=== PATIENT | female | born 1945 | race Caucasian/White ===

== ENCOUNTER 2020-07-13 15:16 | Inpatient (IN) | payer MEDICARE ==
[~2020-07-13] VITALS: Ht 157.5 cm; Wt 47.6 kg
[2020-07-13] MEDS ORDERED: MECL-75 PO (16:15)
[2020-07-13] MEDS ORDERED: DEXT15DR16 OP (16:15)
[2020-07-13] MEDS ORDERED: DONE10TA7 PO (16:15)
[2020-07-13] MEDS ORDERED: PREG50CA PO (16:15)
[2020-07-13] MEDS ORDERED: POLY17PO5 PO (16:15)
[2020-07-13] MEDS ORDERED: SOLI10TA2 PO (16:15)
[2020-07-13] MEDS ORDERED: OMEP20CA16 PO (16:15)
[2020-07-13] MEDS ORDERED: PRAM0.255 PO (16:15)
[2020-07-13] MEDS ORDERED: DULO20CA50 PO (16:15)
[2020-07-13] MEDS ORDERED: DICL100G18 TP (16:15)
[2020-07-13] MEDS ORDERED: RASA1TAB2 PO (16:15)
[2020-07-13] MEDS ORDERED: QUET25TA5 PO (16:15)
[2020-07-13] MEDS ORDERED: ACET325T21 PO (16:15)
[2020-07-13] MEDS ORDERED: CARB1TAB22 PO (16:21)
[2020-07-13] MEDS ORDERED: CARB1TAB44 PO (16:26)
[2020-07-13] MEDS ORDERED: POLYETHYLENE GLYCOL 3350 17 GM PACKET. PO PRN (16:45)
[2020-07-13] MEDS ORDERED: DICLOFENAC SODIUM 1% TOPICAL GEL 100GM TUBE. TP PRN (16:45)
[2020-07-13] MEDS ORDERED: ACETAMINOPHEN 325 MG TABLET PO PRN (16:45)
--- NOTE | 2020-07-13 16:57 | NUR ---
The patient, RIRI PARRA, 74 y/o, F admitted by BEN JIMENEZ MD, was given written information regarding hospital policies, unit procedures and contact persons and visiting policy. Valuables were checked and store at the nurses station along with wheelchair, clothing and jewelry. Pt was brought by wheelchair by staff to room 132. A&Ox4, severe choreilike movements noted. VSS at this time. medications reviewed with physician. Addendum: 07/13/20 at 1706 by TOMI XAVIER RN [facility]id to be admitted to [facility] for hallucinations, confusion, and statements about "wanting to ". pt does not verbalize any complaints at this time nor any hallucinations.
[2020-07-13] MEDS ORDERED: POLYVINYL ALCOHOL/POVIDONE/PF OPHTH SOLUTION DROPERETTE. OU PRN (17:00)
[2020-07-13] MEDS ORDERED: MECLIZINE 12.5 MG TABLET. PO PRN ×2 (17:00)
[2020-07-13 17:02] LABS: BASO % 1 % (0-3); EOS # 0.1 x10^3/uL (0.0-0.7); EOS % 3 % (0-3); HEMATOCRIT 35.1 % (36.0-47.0); HEMOGLOBIN 11.6 g/dL (12.0-15.5); LYMPH # 1.1 x10^3/uL (1.0-4.8); LYMPH % 23 % (24-48); MEAN CORPUSCULAR HEMOGLOBIN 32 pg (25-35); MEAN CORPUSCULAR HGB CONC 33 g/dL (31-37); MEAN CORPUSCULAR VOLUME 96 fL (79-100); MONO # 0.6 x10^3/uL (0.0-1.1); MONO % 14 % (0-9); NEUT # 2.8 x10^3uL (1.8-7.7); NEUT % 60 % (31-73); PLATELET COUNT 215 x10^3/uL (140-400); RED BLOOD COUNT 3.65 x10^6/uL (3.50-5.40); RED CELL DISTRIBUTION WIDTH 13.3 % (11.5-14.5); WHITE BLOOD COUNT 4.7 x10^3/uL (4.0-11.0)
[2020-07-13 17:09] LABS: ALBUMIN 3.1 g/dL (3.4-5.0); ALBUMIN/GLOBULIN RATIO 0.9 (1.0-1.7); CALCIUM 8.9 mg/dL (8.5-10.1); CREATININE 0.6 mg/dL (0.6-1.0); GFR 97.2; POTASSIUM 3.6 mmol/L (3.5-5.1); TOTAL BILIRUBIN 0.7 mg/dL (0.2-1.0); TOTAL PROTEIN 6.4 g/dL (6.4-8.2)
[2020-07-13] MEDS: CARBIDOPA/LEVODOPA 25/100MG TABLET PO SCH ×2 (17:37→19:56)
--- NOTE | 2020-07-13 17:49 | EKG ---
[address] [address] Test Date: 2020-07-13 Test Time: 17:24:51 Pat Name: RIRI PARRA Department: Room: 132 A Gender: F Cad Technician: : 1945 Requested By: BEN JIMENEZ Order Number: [id number] Reading MD: Measurements Intervals [place] Rate: 78 P: 10 WV: 324 QRS: -79 QRSD: 160 T: 88 QT: 420 QTc: 483 Interpretive Statements SINUS RHYTHM PROLONGED WV INTERVAL LEFT ATRIAL ABNORMALITY ABNORMAL LEFT AXIS DEVIATION LEFT ANTERIOR FASCICULAR BLOCK RIGHT BUNDLE BRANCH BLOCK BIFASCICULAR BLOCK RVH WITH REPOLARIZATION ABNORMALITY ABNORMAL ECG RI6.01 No previous ECG available for comparison
[2020-07-13 18:22] VITALS: BP 120/53
[2020-07-13] MEDS: DULoxetine HCL 20 MG CAPSULE.DR PO SCH (19:54)
[2020-07-13] MEDS: PREGABALIN 50 MG CAPSULE PO SCH (19:54)
[2020-07-13] MEDS: DONEPEZIL HCL 10 MG TABLET PO SCH (19:55)
[2020-07-13] MEDS: QUEtiapine 25 MG TABLET. PO SCH (19:56)
[2020-07-13] MEDS: OXYBUTYNIN CHLORIDE 5 MG TABLET PO SCH (19:56)
[2020-07-13] MEDS: PRAMIPEXOLE 0.5 MG TABLET. PO SCH (19:57)
[2020-07-13] MEDS: CARBIDOPA/LEVODOPA CR 50/200MG TABLET.SA PO SCH (19:57)
[2020-07-13 21:41] LABS: BILIRUBIN,URINE NEG (NEG); CLARITY,URINE CLEAR; COLOR,URINE AMBER; GLUCOSE,URINE NEG (NEG)
[2020-07-13 21:42] LABS: NITRITE,URINE NEG (NEG)
[2020-07-13 21:46] LABS: BACTERIA,URINE FEW /HPF (0-FEW)
--- NOTE | 2020-07-13 22:14 | PDOC ---
Exam Note: Marcial Note: Please also refer to the separate dictated note~for this date of service dictated separately.~Patient seen individually. Discussed the patient with Nursing staff reviewed the chart.~Reviewed interim history and current functioning. Reviewed vital signs,~Labs/ Radiology~and current medications noted below. Continue current treatment with the changes noted in the dictated addendum note Assessment: Vital Signs/I&O: Vital Signs Date Time Temp Pulse Resp B/P (MAP) Pulse Ox O2 Delivery O2 Flow Rate FiO2 07/13/20 18:22 97.6 77 20 120/53 (75) 97 Room Air Labs: Laboratory Tests Test 07/13/20 16:42 07/13/20 21:25 White Blood Count 4.7 x10^3/uL (4.0-11.0) Red Blood Count 3.65 x10^6/uL (3.50-5.40) Hemoglobin 11.6 g/dL (12.0-15.5) L Hematocrit 35.1 % (36.0-47.0) L Mean Corpuscular Volume 96 fL (79-100) Mean Corpuscular Hemoglobin 32 pg (25-35) Mean Corpuscular Hemoglobin Concent 33 g/dL (31-37) Red Cell Distribution Width 13.3 % (11.5-14.5) Platelet Count 215 x10^3/uL (140-400) Neutrophils (%) (Auto) 60 % (31-73) Lymphocytes (%) (Auto) 23 % (24-48) L Monocytes (%) (Auto) 14 % (0-9) H Eosinophils (%) (Auto) 3 % (0-3) Basophils (%) (Auto) 1 % (0-3) Neutrophils # (Auto) 2.8 x10^3uL (1.8-7.7) Lymphocytes # (Auto) 1.1 x10^3/uL (1.0-4.8) Monocytes # (Auto) 0.6 x10^3/uL (0.0-1.1) Eosinophils # (Auto) 0.1 x10^3/uL (0.0-0.7) Basophils # (Auto) 0.0 x10^3/uL (0.0-0.2) D-Dimer (Joanna) 1.82 mg/L (0.00-0.50) H Sodium Level 139 mmol/L (136-145) Potassium Level 3.6 mmol/L (3.5-5.1) Chloride Level 104 mmol/L (98-107) Carbon Dioxide Level 28 mmol/L (21-32) Anion Gap 7 (6-14) Blood Urea Nitrogen 22 mg/dL (7-20) H Creatinine 0.6 mg/dL (0.6-1.0) Estimated GFR (Cockcroft-Gault) 97.2 BUN/Creatinine Ratio 37 (6-20) H Glucose Level 93 mg/dL (70-99) Calcium Level 8.9 mg/dL (8.5-10.1) Magnesium Level 2.0 mg/dL (1.8-2.4) Total Bilirubin 0.7 mg/dL (0.2-1.0) Aspartate Amino Transferase (AST) 26 U/L (15-37) Alanine Aminotransferase (ALT) 7 U/L (14-59) L Alkaline Phosphatase 98 U/L (46-116) Total Protein 6.4 g/dL (6.4-8.2) Albumin 3.1 g/dL (3.4-5.0) L Albumin/Globulin Ratio 0.9 (1.0-1.7) L Urine Collection Type Void Urine Color Mary Urine Clarity Clear Urine pH 5.5 Urine Specific Ruth >=1.030 Urine Protein 30 mg/dl (NEG-TRACE) Urine Glucose (UA) Neg mg/dL (NEG) Urine Ketones (Stick) 15 mg/dL (NEG) Urine Blood Neg (NEG) Urine Nitrite Neg (NEG) Urine Bilirubin Neg (NEG) Urine Urobilinogen Dipstick 1.0 mg/dL (0.2 mg/dL) Urine Leukocyte Esterase Small (NEG) Urine RBC 1-2 /HPF (0-2) Urine WBC 11-20 /HPF (0-4) Urine Bacteria Few /HPF (0-FEW) Current Medications: Meds: Current Medications Medications (Trade) Dose Ordered Sig/Gracie Route PRN Reason Start Time Stop Time Status Last Admin Dose Admin Carbidopa/Levodopa (Sinemet Cr) 1 tab.sa 2200 PO 07/13/20 22:00 07/13/20 19:57 Carbidopa/Levodopa (Sinemet 25/100) 1.5 tab 0600,1000,1400,1800 PO 07/13/20 18:00 10/16/20 17:37 Carbidopa/Levodopa (Sinemet 25/100) 1 tab 0800,1200,1600,2000 PO 07/13/20 20:00 07/13/20 19:56 Donepezil HCl (Aricept) 10 mg HS PO 07/13/20 21:00 07/13/20 19:55 Duloxetine HCl (Cymbalta) 20 mg HS PO 07/13/20 21:00 07/13/20 19:54 Pramipexole Dihydrochloride (miraPEX) 0.5 mg [id number] PO 07/13/20 21:00 07/13/20 19:57 Pregabalin (Lyrica) 50 mg TID PO 07/13/20 21:00 07/13/20 19:54 Quetiapine Fumarate (SEROquel) 25 mg TID PO 07/13/20 21:00 07/13/20 19:56 Oxybutynin Chloride (Ditropan) 5 mg [id number] PO 07/13/20 21:00 07/13/20 19:56 Meclizine HCl (Antivert) 25 mg PRN TID PRN PO DIZZINESS 07/13/20 17:00 07/13/20 19:55 I have reviewed the current psychotropics carefully including drug interactions. Risk benefit ratio favors no change other than as noted in my dictated progress note. MARICEL BROWN MD Jul 13, 2020 22:14
--- NOTE | 2020-07-13 22:24 | CONS ---
DATE OF CONSULTATION: 07/13/2020 PSYCHIATRIC CONSULTATION IDENTIFYING DATA: The patient is a 74-year-old female referred to us from [facility] in [place], [place] by her primary care physician on account of worsening symptoms of depression, feeling hopeless, helpless, worthless with suicidal ideation and bizarre behavior. She has been pulling out plugs from guzman and putting them in her mouth. She has been having active hallucinations, purposely falling out of the wheelchair. This is within the context of her Parkinson's disease and severe depression and failure of outpatient psychiatric interventions with Sirena Streeter APRN. She is referred for inpatient psychiatric stabilization, but admitted to the correction unit till COVID screen returns negative before she transitions to the [facility]. I have been asked to consult in the interim and initiate psychiatric management awaiting transition. I have also discussed the patient with Rochelle Mackey, accounting coordinator and Sirena Streeter and reviewed about 8 pages of notes by Sirena Streeter from the facility. CHIEF COMPLAINT: "Yes, I have been depressed, very depressed. I want to go home. I have been at the facility for 7 months. My got tired of taking care of me and just threw me there. My Parkinson's started when I was 57 years old. I had 16 good years. For the last 2 years, life has been miserable." HISTORY OF PRESENT ILLNESS: The patient has a history of worsening symptoms of depression and significant worsening of her Parkinson's disease with whole body choreoathetoid movements even raising the question of Real's disease, which was nevertheless not confirmed at the facility. She has been forcefully making herself fall out of the wheelchair. She has been angry and has noted unplugging plugs from the wall and putting it in her mouth, wanting to . No clear history of bipolar disorder. PAST PSYCHIATRIC HISTORY: As above. MEDICAL HISTORY: Positive for Parkinson's disease, GERD, osteoarthritis, pacemaker in place, AV block, dry eye syndrome. ALLERGIES: OXYCODONE, GABAPENTIN. CODE STATUS: DNR. ACCU-CHEKS: None. DIET: Regular. Takes medications whole, ambulates in wheelchair, can take small steps on pivot. CURRENT PSYCHOTROPICS: Seroquel 25 mg t.i.d., Cymbalta 20 mg at bedtime. FAMILY HISTORY: Noncontributory. SOCIAL HISTORY: The patient is . She had 2 children, 1 prior to getting and she gave up her daughter for adoption. Reportedly, daughter tried to make contact with the patient in the recent past, but they have never met. The patient has another adult child as well. Her is currently living at home. No alcohol or drug abuse. 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 REVIEW OF SYSTEMS: Whole body movements, impaired ambulation. No CV, , GI, or pulmonary system symptoms on review. MENTAL STATUS EXAMINATION: The patient is reasonably oriented. Speech is coherent, difficult to understand at times because of her constant movements, which are quite significant whole body movements. Abstraction fair, computation impaired, language function intact, attention span short. Mood and affect are depressed. She denies active suicidal ideation. Attention span is short. IMPRESSION: Major depressive disorder, severe, rule out psychotic features; anxiety disorder, unspecified; mild cognitive impairment; rule out Lewy body dementia with delusion, depression. Rest as above. RECOMMENDATIONS: From a psychiatric standpoint continue current psychotropics to observe baseline and then initiate psychotropics as clinically indicated and then transition to [facility] Unit once her COVID screen is negative. MARICEL BROWN MD DR: MYRNA/cathy JOB#: [id number] / [id number]
--- NOTE | 2020-07-13 23:54 | NUR ---
Nursing Note Pt in room having significant choreic movements, almost rhythmic thrashing in the bed. She is responding to external stimuli talking to someone one that isn't there. Flails her legs and arms around all over the bed and the rails sometimes quite forcefully. Pt is extremely impulsive sits straight up in bed randomly beds at the waist and swings her torso around in the bed. When I questioned her about her movements,she stated "Im just moving around to see the TV from a better angle." She takes pills willingly, with water but coughs after swallowing. Has had a cough, since taking her pills, throughout the night. Pt has a wet vocal quality when speaking with some gurgling noted. She states she feels her chest rattle,no real crackles just mild coarse breath sounds upper anterior chest, with diminished posterior chest. Pleasant and cooperative compliant with meds. Took meclizine this pm to help with the neruro symptoms.
[2020-07-14 01:13] LABS: THYROXINE 7.5 ug/dL (4.5-12.0)
[2020-07-14 02:07] LABS: HEMOGLOBIN A1C 5.3 % (4.8-5.6)
--- NOTE | 2020-07-14 02:30 | NUR ---
The patient lays in the bed awake periodically changing position. This ASSOCIATE BROKER asks if there is anything that can be done to assist the patient in sleeping. The patient responded "It's just that it's not my bed", night light was turned off and window shades opened for patient to look outside.
[2020-07-14] MEDS: CARBIDOPA/LEVODOPA 25/100MG TABLET PO SCH ×8 (05:59→20:09)
[2020-07-14 06:28] VITALS: BP 162/78
[2020-07-14] MEDS: OXYBUTYNIN CHLORIDE 5 MG TABLET PO SCH ×3 (08:25→20:09)
[2020-07-14] MEDS: QUEtiapine 25 MG TABLET. PO SCH ×3 (08:25→20:09)
[2020-07-14] MEDS: PREGABALIN 50 MG CAPSULE PO SCH ×3 (08:25→20:07)
[2020-07-14] MEDS: PANTOPRAZOLE 40 MG TABLET. PO SCH (08:26)
[2020-07-14] MEDS: PRAMIPEXOLE 0.5 MG TABLET. PO SCH ×3 (08:28→20:10)
[2020-07-14] MEDS: RASAGILINE MESYLATE PO SCH (09:00)
--- NOTE | 2020-07-14 10:28 | HP ---
ADMIT DATE: 07/14/2020 ATTENDING PHYSICIAN: Dr. Jimenez. HISTORY OF PRESENT ILLNESS: The patient is a 74-year-old female slated to go to the Senior Behavior[facility] Unit. She is down here on the medical floor for COVID-19 screening. She is from [facility] since November of this year. The patient's age is 74 and she is having behavioral issues related to her dementia. She has been paranoid, unplugging things from the wall, putting things in her mouth and becoming belligerent and paranoid. She had been living with her at home, but has been in [facility] since November of this year. PAST MEDICAL HISTORY: Significant for Parkinson's disease, degenerative arthritis, permanent pacemaker for atrioventricular block, gastroesophageal reflux disease and dry eye syndrome. CURRENT MEDICATIONS: Include Tylenol, Sinemet, which she takes quite a bit, but it is an interesting schedule. Please refer to the database. She is on Voltaren, Cymbalta, Aricept, meclizine, omeprazole, MiraLax, Mirapex, Lyrica, Seroquel, Azilect and VESIcare. ALLERGIES: She has allergies to Neurontin and oxycodone. Exact reaction is unclear. SOCIAL HISTORY: She is a nonsmoker, nondrinker. FAMILY HISTORY: Unobtainable due to the patient's confusion. REVIEW OF SYSTEMS: Unobtainable. She has no insight and is confused. PHYSICAL EXAMINATION: GENERAL: When I saw her, this is a pleasantly confused elderly female. INITIAL VITAL SIGNS: Showed a blood pressure 120/53 mmHg, pulse of 77 and regular, temperature 97.6 degrees Fahrenheit, oxygen saturation 97% on room air. HEENT: Head is without trauma. Pupils are reactive. Sclerae nonicteric. Oropharynx is clear. Mucous membranes dry. NECK: Supple, no bruits. LUNGS: Otherwise, clear to auscultation. CARDIOVASCULAR: Showed regular heart tones. No gallops. ABDOMEN: Soft, no guarding, no organomegaly. Bowel sounds are normoactive. EXTREMITIES: Show no cyanosis or edema. NEUROLOGIC: The patient is confused. She is disoriented. She is not aware of place or time. SKIN: Otherwise, warm and dry. LABORATORY DATA: Hemoglobin 11.6 g/dL, white count 4700. Electrolytes within normal range. Creatinine 0.6 mg percent. Transaminases are normal. Serology for treponema pallidum as well as the coronavirus is pending at this time. ASSESSMENT: 1. A 74-year-old female with underlying dementia with behavioral issues and agitation. 2. Underlying Parkinson's disease requiring quite a bit of Sinemet. 3. History of pacemaker and heart block. 4. Degenerative arthritis. 5. Gastroesophageal reflux disease. 6. Dry eye syndrome. PLAN: 1. Home meds restarted. 2. Laboratory studies reviewed. 3. Await coronavirus serology. Once the COVID-19 swab is negative, she can be discharged to go upstairs. BEN JIMENEZ MD DR: JOSUE/cathy JOB#: [id number] / [id number]
[2020-07-14 11:41] LABS: THYROID STIM HORMONE (TSH) 0.436 uIU/mL (0.358-3.740)
[2020-07-14 16:58] VITALS: BP 141/76
[2020-07-14] MEDS: DULoxetine HCL 20 MG CAPSULE.DR PO SCH (20:08)
[2020-07-14] MEDS: DONEPEZIL HCL 10 MG TABLET PO SCH (20:09)
--- NOTE | 2020-07-14 21:00 | NUR ---
Patient is in awake in bed on assumption of care. She is in pleasant spirits. Compliant with assessments and medications taken whole on a spoon. Cooperative with HS cares. Uses call cardoso appropriately. No complaints of pain or discomfort. Patient appears to be sleeping comfortably at present time. Will continue to monitor.
--- NOTE | 2020-07-14 22:07 | PDOC ---
Exam Note: Marcial Note: Please also refer to the separate dictated note~for this date of service dictated separately.~Patient seen individually. Discussed the patient with Nursing staff reviewed the chart.~Reviewed interim history and current functioning. Reviewed vital signs,~Labs/ Radiology~and current medications noted below. Continue current treatment with the changes noted in the dictated addendum note Assessment: Vital Signs/I&O: Vital Signs Date Time Temp Pulse Resp B/P (MAP) Pulse Ox O2 Delivery O2 Flow Rate FiO2 07/14/20 16:58 97.7 72 141/76 (97) 95 Room Air 07/14/20 06:28 18 I & O 07/13/20 07/13/20 07/14/20 15:00 23:00 07:00 Intake Total 360 ml Balance 360 ml Current Medications: Meds: Current Medications Medications (Trade) Dose Ordered Sig/Gracie Route PRN Reason Start Time Stop Time Status Last Admin Dose Admin Pantoprazole Sodium (Protonix) 40 mg DAILYAC PO 07/14/20 07:30 07/14/20 08:26 I have reviewed the current psychotropics carefully including drug interactions. Risk benefit ratio favors no change other than as noted in my dictated progress note. Diagnosis: Problems: (1) Major depressive disorder, severe (2) Mild cognitive impairment (3) Anxiety disorder, unspecified MARICEL BROWN MD Jul 14, 2020 22:07
[2020-07-14] MEDS: CARBIDOPA/LEVODOPA CR 50/200MG TABLET.SA PO SCH (22:32)
[2020-07-15] MEDS: CARBIDOPA/LEVODOPA 25/100MG TABLET PO SCH ×8 (05:06→20:18)
[2020-07-15 05:26] VITALS: BP 154/86
[2020-07-15] MEDS: PANTOPRAZOLE 40 MG TABLET. PO SCH (07:30)
[2020-07-15] MEDS: PRAMIPEXOLE 0.5 MG TABLET. PO SCH ×3 (08:22→20:22)
[2020-07-15] MEDS: PREGABALIN 50 MG CAPSULE PO SCH ×3 (08:22→20:19)
[2020-07-15] MEDS: QUEtiapine 25 MG TABLET. PO SCH ×3 (08:22→20:18)
[2020-07-15] MEDS: OXYBUTYNIN CHLORIDE 5 MG TABLET PO SCH ×3 (08:22→20:19)
[2020-07-15] MEDS: RASAGILINE MESYLATE PO SCH (08:23)
[2020-07-15 11:00] VITALS: BP 98/57
--- NOTE | 2020-07-15 11:54 | PN ---
DATE: 07/15/2020 ATTENDING PHYSICIAN: Dr. Jimenez. SUBJECTIVE: No new complaints. OBJECTIVE FINDINGS: VITAL SIGNS: Blood pressure today is 154/80, pulse 67 and regular, temperature is 97.5 degrees Fahrenheit, oxygen saturation 95% on room air. HEENT: Head is without trauma. Pupils are reactive. Sclerae nonicteric. Oropharynx clear. NECK: Supple, no bruits. LUNGS: Clear. CARDIOVASCULAR: Showed regular heart tones. ABDOMEN: Soft. EXTREMITIES: Without edema. SKIN: Warm and dry. LABORATORY DATA: CBC, chemistry panel unremarkable. Treponema pallidum serology is negative. COVID-19 swab is still pending. ASSESSMENT: 1. A 74-year-old female with underlying dementia and behavioral issues. 2. Parkinson's disease requiring quite a bit of Sinemet. 3. Permanent pacemaker and heart block. 4. Degenerative arthritis. 5. Gastroesophageal reflux disease. 6. Dry eye syndrome. PLAN: 1. Diet as tolerated. 2. Home meds as scheduled and continue. 3. Await COVID-19 swab. BEN JIMENEZ MD DR: JOSUE/cathy JOB#: [id number] / [id number]
[2020-07-15 15:00] VITALS: BP 119/62
--- NOTE | 2020-07-15 18:13 | NUR ---
Pt has been more confused today, she is talking to people in her room that are not there. When asked who she is talking to she stated, 'there's just a conversation going on in the back of my head'. She has had more jerking movements today than she had yesterday. Overall, she is less cooperative and more agitated.
[2020-07-15 18:23] VITALS: BP 110/60
[2020-07-15] MEDS ORDERED: LORazepam 1 MG TABLET PO PRN (19:30)
--- NOTE | 2020-07-15 19:30 | NUR ---
UPON SHIFT CHANGE PT WAS IN HER ROOM HITTING HER HEAD ON THE BED TRYING TO HURT HERSELF, PT WAS ALSO TRYING TO GET OUT OF BED, YELLING OUT ABOUT WANTING TO CALL HER , ALSO TEARFUL AND TIMES. NOTIFIED AND RECEIVED ORDERS FOR ATIVAN 1MG PO PRN Q3 HRS. PT RECEIVED ATIVAN PER ORDER. PT IS CURRENTLY RESTING IN BED. WILL CONTINUE TO MONITOR.
[2020-07-15] MEDS ORDERED: traZODone 50 MG TABLET. PO PRN (19:45)
[2020-07-15] MEDS ORDERED: OLANZapine 2.5 MG TABLET PO PRN (19:45)
[2020-07-15] MEDS: DONEPEZIL HCL 10 MG TABLET PO SCH (20:18)
[2020-07-15] MEDS: DULoxetine HCL 20 MG CAPSULE.DR PO SCH (20:19)
--- NOTE | 2020-07-15 22:10 | NUR ---
PT TRANSFERS TO [facility] SHIFT ASSESSMENT COMPLETED, MEDICATION REC DONE, REPORT WAS GIVEN TO IRRI GONZALES AT [id number]. ALL OF PTS BELONGINGS ARE WITH PT.
[2020-07-16] MEDS ORDERED: TRAZ-120 PO (00:05)
[2020-07-16] MEDS ORDERED: POLY15DR7 EACHEYE (00:05)
[2020-07-16] MEDS ORDERED: LORA-254 PO (00:05)
[2020-07-16] MEDS ORDERED: OXYB5TAB10 PO (00:05)
[2020-07-16] MEDS ORDERED: OLAN5TAB99 PO (00:05)
[2020-07-16] MEDS ORDERED: PANT40TA3 PO (00:05)
--- NOTE | 2020-07-16 07:01 | PDOC ---
Exam Note: Marcial Note: This note is a late entry for 07/14/2020 covers elements not covered in my initial note. Subjective: The patient was seen face to face in the evening of 07/14/2020 with Uyen GONZALES. Discussed with nursing staff, reviewed the chart. The patient was seen with Dr. Barnhart and has been managed for her Parkinsons by Dr. Barnhart. She apparently does not have Huntingtons per Dr. Barnhart. Review of Systems: Ambulation impaired in wheelchair. She was lying in bed with constant choreoathetoid movements of her whole body. No CV, , pulmonary, eye system symptoms on review. Reliability poor. Mental Status Exam: The patient is reasonably oriented. Speech is coherent, has some latency. Abstraction is fair. Computation is impaired. Language function is intact. Attention span is short. Mood and affect somewhat anxious, labile at times. Laboratory Data: Reviewed. Impression: Major Depressive disorder severe with psychotic features. Anxiety disorder unspecified. Impulse control disorder. Parkinsons disease. Plan: No change from initial note. Assessment: Vital Signs/I&O: Vital Signs Date Time Temp Pulse Resp B/P (MAP) Pulse Ox O2 Delivery O2 Flow Rate FiO2 07/15/20 18:23 97.8 68 22 110/60 (77) 97 Room Air I & O 07/15/20 07/15/20 07/16/20 15:00 23:00 07:00 Intake Total 720 ml 240 ml Balance 720 ml 240 ml Current Medications: Meds: Current Medications Medications (Trade) Dose Ordered Sig/Gracie Route PRN Reason Start Time Stop Time Status Last Admin Dose Admin Lorazepam (Ativan) 1 mg PRN Q3HRS PRN PO ANXIETY / AGITATION 07/15/20 19:30 07/15/20 21:22 DC 07/15/20 19:21 Trazodone HCl (Desyrel) 50 mg PRN QHS PRN PO INSOMNIA 07/15/20 19:45 07/15/20 21:22 DC 07/15/20 20:18 I have reviewed the current psychotropics carefully including drug interactions. Risk benefit ratio favors no change other than as noted in my dictated progress note. Diagnosis: Problems: (1) Mild cognitive impairment (2) Major depressive disorder, severe (3) Anxiety disorder, unspecified (4) Parkinson's disease MARICEL BROWN MD Jul 16, 2020 07:01
--- NOTE | 2020-07-16 12:57 | DS ---
DATE OF DISCHARGE: 07/15/2020 ATTENDING PHYSICIAN: Dr. Jimenez FINAL DISCHARGE DIAGNOSES: 1. Dementia with behavioral issues and agitation. 2. Underlying Parkinson's disease requiring quite a bit of Sinemet. 3. 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 4. Degenerative arthritis. 5. Gastroesophageal reflux disease. 6. Dry eye syndrome. HISTORY OF PRESENT ILLNESS: This is a 74-year-old female who was admitted from [facility] for behavioral issues. She has had profound dementia. She was becoming belligerent and paranoia. PHYSICAL EXAMINATION: Please see the dictated note. PERTINENT LABORATORY AND X-RAY STUDIES: Admission hemoglobin was 11.6 g/dL, white count 4700. Chemistry panel on admission showed normal electrolytes, sodium 139, potassium 3.6 mEq, creatinine 0.6 mg/dL. Transaminases were normal. Serology was negative for coronavirus and negative for treponema pallidum. COURSE IN THE HOSPITAL: The patient was admitted. She was continued on her home meds including her very high dose of Sinemet for her Parkinson's disease. Diet was advanced. Her coronavirus swab was reported negative. On the third hospital day, she was discharged to the [facility]. Her home meds are unchanged, they include the following: She will continue her Sinemet, dose unchanged; Aricept 10 mg daily; diclofenac; Tylenol; Lyrica; Cymbalta; trazodone; olanzapine; Seroquel; lorazepam; Sinemet, dose per prescription; Mirapex; Azilect; artificial tears; meclizine; Protonix and oxybutynin, dose unchanged. She was discharged then from our hospital in stable condition with explicit instructions and followup care. BEN JIMENEZ MD DR: JOSUE/cathy JOB#: [id number] / [id number] [facility], [facility]
--- NOTE | 2020-07-20 07:46 | CONS ---
DATE OF CONSULTATION: 07/14/2020 REFERRING PHYSICIAN: Dr. Funez/Dr. Stockton. REASON FOR CONSULTATION: Management for Parkinson disease. HISTORY OF PRESENT ILLNESS: This is a 74-year-old right-handed female, who has had longstanding history of Parkinson disease, was admitted to [facility] on the medical floor for COVID-19 screening then may be transferred to the [facility] for further management for her mental status changes, depressions and aggressive behavior. Apparently, the patient was transferred from [facility] and admitted on account of worsening of dementia, worsening of Parkinson symptoms and behavior disturbances. It was reported that the patient became more paranoid, unplugging things from the wall and being more paranoid. Neuro consult was requested because the patient has had longstanding history of Parkinson disease and currently she has been demonstrating more violent tremors at rest along with intermittent movement disorders of the upper extremities. It was reported that the patient has had intermittent choreic-type movements of the upper extremities. Currently, the patient denies headaches, visual disturbances, nausea, vomiting, chest pain, shortness of breath or palpitation, dysarthria or dysphagia. PAST MEDICAL HISTORY: Significant for Parkinson disease, cardiac arrhythmias, required pacemaker placement, GERD, degenerative arthritis, scoliosis, depressions, anxiety, and dry eyes. PAST SURGICAL HISTORY: Positive for hysterectomy and status post pacemaker placement. SOCIAL HISTORY: The patient used to live with her at home. However, she has been in [facility] since 11/2019. She denies smoking, alcohol drinking, or illicit drug use. FAMILY HISTORY: Noncontributory. REVIEW OF SYSTEMS: A 10-point review of system was performed as mentioned above in history of present illness. CURRENT HOME MEDICATIONS: Tylenol, carbidopa/levodopa, Voltaren, Cymbalta, Aricept for dementia, meclizine, omeprazole, MiraLax, Mirapex, Lyrica, Seroquel, Azilect and VESIcare. ALLERGIES: GABAPENTIN, OXYCODONE. PHYSICAL EXAMINATION: GENERAL: Well-developed, well-nourished female, not in acute distress. VITAL SIGNS: Blood pressure 141/76, respiratory rate 18, pulse is 72 and regular, temperature 97.7, oxygen saturation 95% on room air. HEENT: Normocephalic, atraumatic, otherwise unremarkable. NECK: Supple. Negative for carotid bruit, lymphadenopathy or thyromegaly. LUNGS: Clear to A and P. CARDIOVASCULAR: Regular rate and rhythm, normal S1, S2. There is no S3, S4 or murmurs. ABDOMEN: Soft. Bowel sounds positive. EXTREMITIES: Negative for cyanosis, clubbing or edema. NEUROLOGICAL EXAM: Mental Status: The patient is alert and oriented x 3. The speech is coherent. She is alert to time and place. Memory, has short-term memory. Judgment and abstracting thinking are intact. She recalls 1/3 immediately and after 1 and 3 minutes. She denies hallucination or delusion. No suicidal ideation. Cranial nerves: Visual curran are full. The pupils are reactive to light and accommodation. The extraocular movements are intact. There is no nystagmus. There is no facial motor or sensory deficit. Hearing is intact bilaterally. The palate is elevated symmetrically. Sternocleidomastoid muscles are powerful bilaterally. The patient shrugs her shoulders symmetrically, protrudes her tongue in the midline without fasciculation or atrophy. Motor: No focal muscle bulk was seen. The strength is 4/5 throughout. The patient has resting tremor and sometimes intermittent chorea like movements. Sensory examination revealed normal pinprick, light touch senses throughout. Deep tendon reflexes were ____ and hypoactive without pathologic responses. Gait: The patient is confined to a wheelchair. LABORATORY DATA: From 07/13/2020 revealed white blood cells of 4.7, hemoglobin 11.6, hematocrit 35.1, platelet count 215,000. Chemistry revealed normal electrolytes with a creatinine 0.6. Serology for Treponema pallidum is nonreactive. IMPRESSION: 1. Longstanding history of Parkinson disease, presented with resting tremor and intermittent choreic-type movements, etiology is uncertain; however, it is probably due to Parkinson's and ____ dyskinesia. Also, possible ____ disease is not completely ruled out at this point. RECOMMENDATIONS: 1. Continue with current medication and medical and psychiatric care initiated by Dr. Funez and Dr. Stockton. 2. We will follow up tomorrow and adjust medication if it is needed. M Dolores AMADOR MD DR: ANGELIA/cathy JOB#: [id number] / [id number]
--- NOTE | 2020-07-21 02:22 | PN ---
DATE: 07/15/2020 SUBJECTIVE: The patient denies any new medical or neurological complaints; however, she continues to have intermittent resting tremor, complicated with nonfrequent chorea like movements, confined to the upper extremities and sometimes to the right lower extremity. The patient denies headaches, visual disturbances, nausea, vomiting, chest pain, shortness of breath or palpitation. OBJECTIVE: GENERAL: Well-developed, well-nourished female, not in acute distress. VITAL SIGNS: Blood pressure is 119/62, respiratory rate 20, pulse is 74 and regular, oxygen saturation 97% and temperature 97.6. HEENT: Normocephalic, atraumatic, otherwise unremarkable. NECK: Supple. Negative for carotid bruit, lymphadenopathy or thyromegaly. LUNGS: Clear to A and P. CARDIOVASCULAR: Regular rate and rhythm, normal S1, S2. ABDOMEN: Soft. Bowel sounds positive. EXTREMITIES: Negative for cyanosis, clubbing or edema. NEUROLOGICAL EXAM: Mental Status: The patient is alert and oriented x 3. Speech is fluent. There is no language dysfunction. Cranial nerves are intact. Motor examination: No focal muscle bulk was seen. The tone is normal. The strength is 4/5 throughout. The patient has intermittent resting tremor of the upper extremities. Sensory examination revealed normal pinprick and light touch senses throughout. Deep tendon reflexes were symmetric and hypoactive without pathologic responses. Gait not tested. IMPRESSION: 1. Parkinson's disease, on high dose of Sinemet and Mirapex. 2. Depression. 3. Multiple medical problems include permanent pacemaker placement, gastroesophageal reflux disease, degenerative arthritis and dry eye. RECOMMENDATION: 1. Await COVID-19 swab results. 2. Continue with current medications along with current medical and psychiatric care. The patient is going to be transferred to [facility]. 3. Continue with current medical and psychiatric care. 4. We will follow the patient as needed. M Dolores AMADOR MD DR: ANGELIA/cathy JOB#: [id number] / [id number]
== END 2020-07-15 21:21 | DRG 57 ==
LOC: LND 16:11 → 1 SOUTH 07-15 16:01
PROVIDERS: ADMIT Hospitalist; ATTEND Hospitalist
DX: G20 Parkinson's disease (principal); F32.3 Major depressive disorder, single episode, severe with psychotic features; F02.81 Dementia in other diseases classified elsewhere, unspecified severity, with behavioral disturbance; F41.9 Anxiety disorder, unspecified; F63.9 Impulse disorder, unspecified; H04.129 Dry eye syndrome of unspecified lacrimal gland; I45.9 Conduction disorder, unspecified; K21.9 Gastro-esophageal reflux disease without esophagitis; M19.90 Unspecified osteoarthritis, unspecified site; Z20.828 Contact with and (suspected) exposure to other viral communicable diseases; Z66 Do not resuscitate; Z79.899 Other long term (current) drug therapy; Z95.0 Presence of cardiac pacemaker; Z88.8 Allergy status to other drugs, medicaments and biological substances; M41.9 Scoliosis, unspecified; Z90.710 Acquired absence of both cervix and uterus
CPT/HCPCS: 36415; 80053; 80061; 81001; 82306; 82607; 83036; 83540; 83550; 83735; 84436; 84443; 84480; 85025; 85379; 86592; 87086; 93005; J8597; U0003

== ENCOUNTER 2020-07-15 21:28 | Inpatient (IN) | payer MEDICARE ==
[~2020-07-15] VITALS: Ht 157.5 cm; Wt 44.5 kg
[~2020-07-15 21:28] MED LIST: ACET325T21 PO; CARB1TAB22 PO; CARB1TAB44 PO; DEXT15DR16 OP; DICL100G18 TP; DONE10TA7 PO; DULO20CA50 PO; MECL-75 PO; OMEP20CA16 PO; POLY17PO5 PO; PRAM0.255 PO; PREG50CA PO; QUET25TA5 PO; RASA1TAB2 PO; SOLI10TA2 PO
--- NOTE | 2020-07-15 21:30 | NUR ---
Pt arrived on the unit accompanied by [facility] staff and Nursing Electronic Warfare Specialist. Pt sleeping, arousable to name. Received in report from CHRISTIAN Means, that pt had been restless this evening; tearful and hitting her head on the bedrail. Pt received PRNs: 1mg Ativan and 50mg Trazodone. PRNs effective as pt was sedated and unable to answer any assessment questions. VS taken and belongings inventoried. Pt currently sleeping. Will continue to monitor.
[2020-07-15 22:13] VITALS: BP 127/62
[2020-07-15] MEDS ORDERED: METHYL SALICYLATE/MENTHOL TOPICAL OINTMENT 57GM TUBE. TP PRN (22:45)
[2020-07-15] MEDS ORDERED: MAGNESIUM HYDROXIDE 2,400 MG/30 ML ORAL.SUSP. PO PRN (22:45)
--- NOTE | 2020-07-15 23:23 | HP ---
ADMIT DATE: 07/15/2020 PSYCHIATRIC ADMISSION HISTORY/EVALUATION IDENTIFYING DATA: The patient is a 74-year-old female who transitions to us on the [facility] Unit from a correction unit after her COVID screen returned negative today. She was initially referred to us from [facility] in [place], [place] by her primary care physician on account of worsening symptoms of depression with suicidal ideation. She was pulling out plugs from the guzman and putting it in her mouth. She was having active hallucinations, purposely falling from the wheelchair. All this was within the context of her significant Parkinson's disease with significant choreoathetoid movements additionally of the body. While on correction unit, she did have a neurology consult with Dr. Barnhart and recommendations for Parkinson's were followed. CHIEF COMPLAINT: "I have not had a good day. I have been depressed." HISTORY OF PRESENT ILLNESS: The patient has a history of significant symptoms of depression, feeling hopeless, helpless, worthless with suicidal ideation. She resents being in a facility, but admits her Parkinson's is severe to where her cannot assist her at home. She has had sleep and appetite changes. No active suicidal or homicidal ideation at this time. No history of bipolar disorder. PAST PSYCHIATRIC HISTORY: As above. CODE STATUS: DNR. ALLERGIES: OXYCODONE, GABAPENTIN. MEDICAL HISTORY: Parkinson's disease, GERD, osteoarthritis, pacemaker, AV block, dry eye syndrome. ACCU-CHEKS: None. DIET: Regular. Takes medications whole, ambulates in a wheelchair. Can take small steps and pivot. CURRENT PSYCHOTROPICS: Seroquel 25 mg t.i.d., Cymbalta 20 mg at bedtime. She is also on pregabalin 50 mg t.i.d., rasagiline 1 mg daily, pramipexole 0.5 mg t.i.d., Sinemet 50/200 10:00 a.m. and 25/100 8:00 a.m., noon, 4:00 p.m., 9:00 p.m. and 1.5 tablets of 25/100 at 06:00, 10:00, 1400, 1800. FAMILY HISTORY: Noncontributory. SOCIAL HISTORY: No history of alcohol, drug abuse, physical, sexual or elder abuse. She is not known to be a perpetrator. She states she had two children, one was before her marriage out of wedlock and she gave the child up for adoption, recently child has made some contact with her. REVIEW OF SYSTEMS: Ambulation impaired. No CV, , pulmonary, eye system symptoms on review. MENTAL STATUS EXAMINATION: The patient is reasonably oriented. Speech is coherent, has some latency. Abstraction fair, computation impaired, language function intact, attention span short. Mood is depressed, anxious. Affect is mood congruent. No active suicidal ideation. LABORATORY DATA: Reviewed. IMPRESSION: Major depressive disorder, recurrent, severe with psychotic features; anxiety disorder, unspecified; impulse control disorder, unspecified; Parkinson's disease. Rest as above. PLAN: Admit to Geropsychiatry Unit at [facility]. I will see the patient daily individually from a psychiatric standpoint. Medical followup with Dr. Barnett/Dr. Funez. Continue the patient on her current psychotropics. Observe baseline, adjust as clinically indicated. ESTIMATED LENGTH OF STAY: 10-12 days. DISPOSITION: Plans back to custodial when stable. MARICEL BROWN MD DR: MYRNA/cathy JOB#: [id number] / [id number]
[2020-07-16] MEDS ORDERED: DICLOFENAC SODIUM 1% TOPICAL GEL 100GM TUBE. TP PRN
[2020-07-16] MEDS ORDERED: POLYVINYL ALCOHOL 1.4% OPHTH SOLUTION 15ML BOTTLE. OU PRN
[2020-07-16] MEDS ORDERED: ACETAMINOPHEN 325 MG TABLET PO PRN
[2020-07-16] MEDS ORDERED: traZODone 50 MG TABLET. PO PRN
[2020-07-16] MEDS ORDERED: LORazepam 1 MG TABLET PO PRN
[2020-07-16] MEDS ORDERED: OXYB5TAB10 PO (00:05)
[2020-07-16] MEDS ORDERED: POLY15DR7 EACHEYE (00:05)
[2020-07-16] MEDS ORDERED: PANT40TA3 PO (00:05)
[2020-07-16] MEDS ORDERED: LORA-254 PO (00:05)
[2020-07-16] MEDS ORDERED: TRAZ-120 PO (00:05)
[2020-07-16] MEDS ORDERED: OLAN5TAB99 PO (00:05)
[2020-07-16 05:54] VITALS: BP 165/77
[2020-07-16] MEDS ORDERED: CARBIDOPA/LEVODOPA 25/100MG TABLET PO SCH ×4 (06:00→16:00)
[2020-07-16 07:20] LABS: BASO % 1 % (0-3); EOS # 0.1 x10^3/uL (0.0-0.7); EOS % 3 % (0-3); HEMATOCRIT 39.9 % (36.0-47.0); HEMOGLOBIN 13.6 g/dL (12.0-15.5); LYMPH # 0.6 x10^3/uL (1.0-4.8); LYMPH % 13 % (24-48); MEAN CORPUSCULAR HEMOGLOBIN 33 pg (25-35); MEAN CORPUSCULAR HGB CONC 34 g/dL (31-37); MEAN CORPUSCULAR VOLUME 96 fL (79-100); MONO # 0.5 x10^3/uL (0.0-1.1); MONO % 11 % (0-9); NEUT # 3.2 x10^3uL (1.8-7.7); NEUT % 71 % (31-73); PLATELET COUNT 237 x10^3/uL (140-400); RED BLOOD COUNT 4.18 x10^6/uL (3.50-5.40); RED CELL DISTRIBUTION WIDTH 13.1 % (11.5-14.5); WHITE BLOOD COUNT 4.5 x10^3/uL (4.0-11.0)
[2020-07-16 07:46] LABS: ALBUMIN 3.2 g/dL (3.4-5.0); ALBUMIN/GLOBULIN RATIO 0.9 (1.0-1.7); CALCIUM 8.7 mg/dL (8.5-10.1); CREATININE 0.6 mg/dL (0.6-1.0); GFR 97.2; MAGNESIUM 2.2 mg/dL (1.8-2.4); POTASSIUM 3.6 mmol/L (3.5-5.1); TOTAL BILIRUBIN 0.6 mg/dL (0.2-1.0); TOTAL PROTEIN 6.9 g/dL (6.4-8.2)
[2020-07-16] MEDS: PANTOPRAZOLE 40 MG TABLET. PO SCH (08:20)
[2020-07-16] MEDS: QUEtiapine 25 MG TABLET. PO SCH ×3 (08:20→19:53)
[2020-07-16] MEDS: PREGABALIN 50 MG CAPSULE PO SCH ×3 (08:20→19:56)
[2020-07-16] MEDS: OXYBUTYNIN CHLORIDE 5 MG TABLET PO SCH ×3 (08:20→19:54)
[2020-07-16] MEDS: PRAMIPEXOLE 0.25 MG TABLET. PO SCH ×3 (08:21→19:53)
[2020-07-16] MEDS: RASAGILINE MESYLATE 1 MG PO SCH (08:22)
--- NOTE | 2020-07-16 08:30 | NUR ---
Attempted to provide patient's morning medications; patient is very drowsy and disorganized at this time. will hold medications and attempt to provide at a later time.
[2020-07-16] MEDS: CARBIDOPA/LEVODOPA 25/100MG TABLET PO SCH ×5 (12:05→19:54)
[2020-07-16 14:36] LABS: THYROID STIM HORMONE (TSH) 1.062 uIU/mL (0.358-3.740)
--- NOTE | 2020-07-16 15:43 | NUR ---
WEEKLY ACTIVITY THERAPY NOTE Date of Admission:07/15 Date of AT Assessment: TBD Precipitating behaviors that initiated intake and admission: Goal aimed: TBD Initial Goal: TBD Weekly progress towards goal: NA Group participation level: ZERO Weekly highlights: arrived on unit Behaviors observed: no observation at this time Plan: meet/ assess Pt Beneficial adaptations:
[2020-07-16 15:44] VITALS: BP 115/63
--- NOTE | 2020-07-16 18:30 | NUR ---
Patient more alert and coherent by 10:00, she was oriented to self, [facility], city, month, and year. Patient was withdrawn to room during shift, taking several small naps between meals. Patient was forgetful and transferred herself at times; bed alarm and chair alarm placed for safety. After taking a nap after dinner, she asked f she had eaten dinner, which she had. She was a one person transfer through-out the shift. Will continue to monitor and report to oncoming shift.
[2020-07-16] MEDS: DONEPEZIL HCL 10 MG TABLET PO SCH (19:56)
[2020-07-16] MEDS ORDERED: DULoxetine HCL 20 MG CAPSULE.DR PO SCH (21:00)
[2020-07-16] MEDS ORDERED: CARBIDOPA/LEVODOPA CR 50/200MG TABLET.SA PO SCH (21:00)
[2020-07-16] MEDS: CARBIDOPA/LEVODOPA CR 50/200MG TABLET.SA PO SCH (22:00)
--- NOTE | 2020-07-16 22:06 | PDOC ---
Exam Note: Marcial Note: Please also refer to the separate dictated note~for this date of service dictated separately.~Patient seen individually. Discussed the patient with Nursing staff reviewed the chart.~Reviewed interim history and current functioning. Reviewed vital signs,~Labs/ Radiology~and current medications noted below. Continue current treatment with the changes noted in the dictated addendum note Assessment: Vital Signs/I&O: Vital Signs Date Time Temp Pulse Resp B/P (MAP) Pulse Ox O2 Delivery O2 Flow Rate FiO2 07/16/20 15:44 97.6 68 17 115/63 (80) 96 07/15/20 22:13 Room Air I & O 07/15/20 07/15/20 07/16/20 15:00 23:00 07:00 Intake Total 0 ml Balance 0 ml Labs: Laboratory Tests Test 07/16/20 06:41 White Blood Count 4.5 x10^3/uL (4.0-11.0) Red Blood Count 4.18 x10^6/uL (3.50-5.40) Hemoglobin 13.6 g/dL (12.0-15.5) Hematocrit 39.9 % (36.0-47.0) Mean Corpuscular Volume 96 fL (79-100) Mean Corpuscular Hemoglobin 33 pg (25-35) Mean Corpuscular Hemoglobin Concent 34 g/dL (31-37) Red Cell Distribution Width 13.1 % (11.5-14.5) Platelet Count 237 x10^3/uL (140-400) Neutrophils (%) (Auto) 71 % (31-73) Lymphocytes (%) (Auto) 13 % (24-48) L Monocytes (%) (Auto) 11 % (0-9) H Eosinophils (%) (Auto) 3 % (0-3) Basophils (%) (Auto) 1 % (0-3) Neutrophils # (Auto) 3.2 x10^3uL (1.8-7.7) Lymphocytes # (Auto) 0.6 x10^3/uL (1.0-4.8) L Monocytes # (Auto) 0.5 x10^3/uL (0.0-1.1) Eosinophils # (Auto) 0.1 x10^3/uL (0.0-0.7) Basophils # (Auto) 0.0 x10^3/uL (0.0-0.2) D-Dimer (Joanna) 1.20 mg/L (0.00-0.50) H Sodium Level 139 mmol/L (136-145) Potassium Level 3.6 mmol/L (3.5-5.1) Chloride Level 103 mmol/L (98-107) Carbon Dioxide Level 28 mmol/L (21-32) Anion Gap 8 (6-14) Blood Urea Nitrogen 12 mg/dL (7-20) Creatinine 0.6 mg/dL (0.6-1.0) Estimated GFR (Cockcroft-Gault) 97.2 BUN/Creatinine Ratio 20 (6-20) Glucose Level 88 mg/dL (70-99) Calcium Level 8.7 mg/dL (8.5-10.1) Magnesium Level 2.2 mg/dL (1.8-2.4) Iron Level 81 ug/dL (50-170) Total Iron Binding Capacity 176 ug/dL (250-450) L Iron Saturation 46 % (15-34) H Total Bilirubin 0.6 mg/dL (0.2-1.0) Aspartate Amino Transferase (AST) 25 U/L (15-37) Alanine Aminotransferase (ALT) 10 U/L (14-59) L Alkaline Phosphatase 106 U/L (46-116) Total Protein 6.9 g/dL (6.4-8.2) Albumin 3.2 g/dL (3.4-5.0) L Albumin/Globulin Ratio 0.9 (1.0-1.7) L Triglycerides Level 64 mg/dL (0-150) Cholesterol Level 143 mg/dL (0-200) LDL Cholesterol, Calculated 80 mg/dL (0-100) VLDL Cholesterol, Calculated 12 mg/dL (0-40) Non-HDL Cholesterol Calculated 92 mg/dL (0-129) HDL Cholesterol 51 mg/dL (40-60) Cholesterol/HDL Ratio 2.0 Vitamin B12 Level 941 pg/mL (247-911) H 25-Hydroxy Vitamin D Total 39.8 ng/mL (30-100) Thyroid Stimulating Hormone (TSH) 1.062 uIU/mL (0.358-3.740) Treponema pallidum Antibody Nonreactive (Nonreactive) Current Medications: Meds: Current Medications Medications (Trade) Dose Ordered Sig/Gracie Route PRN Reason Start Time Stop Time Status Last Admin Dose Admin Carbidopa/Levodopa (Sinemet 25/100) 1 tab [id number] PO 07/16/20 08:00 07/16/20 09:01 DC 07/16/20 08:21 Donepezil HCl (Aricept) 10 mg HS PO 07/16/20 21:00 07/16/20 19:56 Duloxetine HCl (Cymbalta) 20 mg HS PO 07/16/20 21:00 07/16/20 19:56 Oxybutynin Chloride (Ditropan) 5 mg [id number] PO 07/16/20 09:00 07/16/20 19:54 Pantoprazole Sodium (Protonix) 40 mg DAILYAC PO 07/16/20 07:30 07/16/20 08:20 Pramipexole Dihydrochloride (miraPEX) 0.5 mg [id number] PO 07/16/20 09:00 07/16/20 19:53 Pregabalin (Lyrica) 50 mg TID PO 07/16/20 09:00 07/16/20 19:56 Quetiapine Fumarate (SEROquel) 25 mg TID PO 07/16/20 09:00 07/16/20 19:53 Carbidopa/Levodopa (Sinemet 25/100) 1 tab 0800,1200,1600,2000 PO 07/16/20 12:00 07/16/20 19:54 Carbidopa/Levodopa (Sinemet 25/100) 1.5 tab 0600,1000,1400,1800 PO 07/16/20 14:00 07/16/20 18:16 I have reviewed the current psychotropics carefully including drug interactions. Risk benefit ratio favors no change other than as noted in my dictated progress note. Diagnosis: Problems: (1) Mild cognitive impairment (2) Major depressive disorder, severe (3) Anxiety disorder, unspecified (4) Parkinson's disease MARICEL BROWN MD Jul 16, 2020 22:06
[2020-07-16 22:09] LABS: THYROXINE 7.5 ug/dL (4.5-12.0)
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
[2020-07-17 03:07] LABS: HEMOGLOBIN A1C 5.4 % (4.8-5.6)
[2020-07-17 05:35] VITALS: BP 93/52
[2020-07-17] MEDS: CARBIDOPA/LEVODOPA 25/100MG TABLET PO SCH ×8 (05:41→19:41)
[2020-07-17] MEDS: QUEtiapine 25 MG TABLET. PO SCH ×3 (08:05→19:41)
[2020-07-17] MEDS: OXYBUTYNIN CHLORIDE 5 MG TABLET PO SCH ×3 (08:05→19:41)
[2020-07-17] MEDS: PANTOPRAZOLE 40 MG TABLET. PO SCH (08:05)
[2020-07-17] MEDS: PREGABALIN 50 MG CAPSULE PO SCH ×3 (08:07→19:42)
[2020-07-17] MEDS: RASAGILINE MESYLATE 1 MG PO SCH (08:11)
[2020-07-17] MEDS: PRAMIPEXOLE 0.25 MG TABLET. PO SCH ×3 (08:13→19:42)
--- NOTE | 2020-07-17 14:08 | NUR ---
patient has been calm, compliant, and cooperative with meds so far this shift. She has attended group and was social with staff and peers. Will continue to monitor and report to oncoming shift.
[2020-07-17 16:09] VITALS: BP 110/69
--- NOTE | 2020-07-17 16:30 | NUR ---
SW contacted pt to follow up with him and see if he has any questions. Pt just wanted an update on pt and wanted to double check things that pt reported to him. SHARIF informed pt that she plans to meet with pt tomorrow to complete the psychosocial and pt asked that SW contact him to double check information. He felt that pt would be able to answer pretty generic questions but there are times that pt is not able to fully understand or becomes a delusion. Pt will plan to return to [place] once stable. SHARIF will be in contact with pt throughout pt stay.
[2020-07-17] MEDS: DONEPEZIL HCL 10 MG TABLET PO SCH (19:40)
[2020-07-17] MEDS: CARBIDOPA/LEVODOPA CR 50/200MG TABLET.SA PO SCH (19:41)
[2020-07-17] MEDS: DULoxetine HCL 30 MG CAPSULE.DR PO SCH (19:45)
--- NOTE | 2020-07-17 21:49 | NUR ---
Nursing note Pt in room, needs 1 person assist for ADL's has significant motor movements that create an ataxic gait. Pt is pleasant and apologetic for the severity of her movements. Admits to having to deal with this for a very long time that it is not new. Asks for magazines and or books for recreation this PM. Smiles on approach and even makes jokes. No behaviors noted, denies SI.
--- NOTE | 2020-07-17 21:59 | PDOC ---
Exam Note: Marcial Note: Please also refer to the separate dictated note~for this date of service dictated separately.~Patient seen individually. Discussed the patient with Nursing staff reviewed the chart.~Reviewed interim history and current functioning. Reviewed vital signs,~Labs/ Radiology~and current medications noted below. Continue current treatment with the changes noted in the dictated addendum note Assessment: Vital Signs/I&O: Vital Signs Date Time Temp Pulse Resp B/P (MAP) Pulse Ox O2 Delivery O2 Flow Rate FiO2 07/17/20 16:09 97.6 74 17 110/69 (83) 98 07/15/20 22:13 Room Air I & O 07/16/20 07/16/20 07/17/20 15:00 23:00 07:00 Intake Total 0 ml 660 ml Balance 0 ml 660 ml Current Medications: Meds: Current Medications Medications (Trade) Dose Ordered Sig/Gracie Route PRN Reason Start Time Stop Time Status Last Admin Dose Admin Carbidopa/Levodopa (Sinemet Cr) 1 tab.sa HS PO 07/16/20 22:00 07/17/20 19:41 Duloxetine HCl (Cymbalta) 30 mg HS PO 07/17/20 21:00 07/17/20 19:45 I have reviewed the current psychotropics carefully including drug interactions. Risk benefit ratio favors no change other than as noted in my dictated progress note. Diagnosis: Problems: (1) Parkinson's disease (2) Mild cognitive impairment (3) Major depressive disorder, severe (4) Anxiety disorder, unspecified MARICEL BROWN MD Jul 17, 2020 21:59
[2020-07-18] MEDS: CARBIDOPA/LEVODOPA 25/100MG TABLET PO SCH ×8 (05:42→20:49)
[2020-07-18 06:13] VITALS: BP 111/57
--- NOTE | 2020-07-18 07:08 | PDOC ---
Exam Note: Marcial Note: This note is a late entry for 07/16/2020 covers elements not covered in my initial note. Subjective: The patient was seen face to face in the morning of 07/16/2020 for treatment meeting with Rochelle Decker Nicky (social service staff), Della, Activity Therapy, and Shawn GONZALES. Discussed with nursing staff, reviewed the chart. The patient was also seen face to face in the evening. The patient slept 7 hours previous night. She tries to transfer herself as a fall risk. She did receive Ativan and trazodone previous night. Review of Systems: Ambulation impaired in wheelchair. She was lying in bed with constant choreoathetoid movements of her whole body. No CV, , pulmonary, eye system symptoms on review. Reliability poor. Mental Status Exam: The patient is well oriented. She knew it was June 2020. She knew she was at [facility], anxious, restless, still has involuntary movements consistent with Parkinsons. Speech is coherent, has some latency. Abstraction is fair. Computation is impaired. Language function is intact. Attention span is short. Mood is still depressed and anxious. No suicidal or homicidal ideation. Laboratory Data: Reviewed. Impression: Major depressive disorder recurrent, rule out psychotic features. Anxiety disorder unspecified. Impulse control disorder. Plan: No change from initial note. We will adjust Cymbalta further as clinically indicated and may need to increase the Seroquel as well. Assessment: Vital Signs/I&O: Vital Signs Date Time Temp Pulse Resp B/P (MAP) Pulse Ox O2 Delivery O2 Flow Rate FiO2 07/18/20 06:13 97.7 66 16 111/57 (75) 93 Room Air I & O 07/17/20 07/17/20 07/18/20 15:00 23:00 07:00 Intake Total 480 ml 480 ml Balance 480 ml 480 ml Current Medications: Meds: Current Medications Medications (Trade) Dose Ordered Sig/Gracie Route PRN Reason Start Time Stop Time Status Last Admin Dose Admin Duloxetine HCl (Cymbalta) 30 mg HS PO 07/17/20 21:00 07/17/20 19:45 I have reviewed the current psychotropics carefully including drug interactions. Risk benefit ratio favors no change other than as noted in my dictated progress note. Diagnosis: Problems: (1) Parkinson's disease (2) Mild cognitive impairment (3) Major depressive disorder, severe (4) Anxiety disorder, unspecified MARICEL BROWN MD Jul 18, 2020 07:08
[2020-07-18] MEDS: PANTOPRAZOLE 40 MG TABLET. PO SCH (07:53)
[2020-07-18] MEDS: QUEtiapine 25 MG TABLET. PO SCH ×3 (07:54→20:48)
[2020-07-18] MEDS: PREGABALIN 50 MG CAPSULE PO SCH ×3 (07:54→20:48)
[2020-07-18] MEDS: PRAMIPEXOLE 0.25 MG TABLET. PO SCH ×3 (07:54→20:49)
[2020-07-18] MEDS: OXYBUTYNIN CHLORIDE 5 MG TABLET PO SCH ×3 (07:55→20:48)
--- NOTE | 2020-07-18 08:12 | NUR ---
PATIENT IS AWAKE IN A BED UPON ASSESSMENT, REQUESTED TO USE A BATHROOM, PT WAS ASSISTED WITH ADLS ASSIST X1. PATIENT IS CALM AND COMPLIANT WITH MORNING ASSESSMENT AND MEDICATIONS ADMINISTRATION, TOOK MEDS WHOLE. PATIENT STATED SHE HAS SOME PAIN BUT STATED IT IS CHRONIC AND PAIN MEDICATION NOT NEEDED AT THIS TIME. PATIENT DENIED ANY SUICIDAL THOUGHTS, PT STATED SHE FEELS SAD BECAUSE SHE CAN'T SEE HER DUE TO COVID, STATED THAT SHE MISSED .
[2020-07-18] MEDS: RASAGILINE MESYLATE 1 MG PO SCH (09:00)
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
[2020-07-18 15:47] VITALS: BP 98/55
--- NOTE | 2020-07-18 17:05 | NUR ---
PATIENT WAS FOUND ON THE FLOOR BY THE BED NEAR THE W/C BY STAFF, PATIENT STATED SHE WAS TRYING TO TRANSFER HERSELF TO THE W/C , STATED SHE SLED DOWN TO THE FLOOR, MISSED THE CHAIR, PT HAD A FEW ATTEMPTS EARLIER TODAY TO TRANSFER WITHOUT ASSIST, WAS INSTRUCTED TO CALL AND WAIT FOR ASSIST. PATIENT DENIED PAIN, PATIENT STATED SHE DID NOT HURT HER HEAD, VS OBTAINED AND ARE STABLE.
--- NOTE | 2020-07-18 18:39 | NUR ---
PATIENT'S FAMILY CALLED AND NOTIFIED ABOUT PATIENT HAD FALL. DR. LOPEZ WAS CALLED AND NOTIFIED ABOUT PATIENT'S FALL.
[2020-07-18] MEDS: CARBIDOPA/LEVODOPA CR 50/200MG TABLET.SA PO SCH (20:48)
[2020-07-18] MEDS: DULoxetine HCL 30 MG CAPSULE.DR PO SCH (20:48)
[2020-07-18] MEDS: DONEPEZIL HCL 10 MG TABLET PO SCH (20:48)
--- NOTE | 2020-07-18 22:05 | PDOC ---
Exam Note: Marcial Note: Please also refer to the separate dictated note~for this date of service dictated separately.~Patient seen individually. Discussed the patient with Nursing staff reviewed the chart.~Reviewed interim history and current functioning. Reviewed vital signs,~Labs/ Radiology~and current medications noted below. Continue current treatment with the changes noted in the dictated addendum note Assessment: Vital Signs/I&O: Vital Signs Date Time Temp Pulse Resp B/P (MAP) Pulse Ox O2 Delivery O2 Flow Rate FiO2 07/18/20 15:47 98.1 62 17 98/55 (69) 96 Room Air I & O 07/17/20 07/17/20 07/18/20 15:00 23:00 07:00 Intake Total 480 ml 480 ml Balance 480 ml 480 ml Current Medications: I have reviewed the current psychotropics carefully including drug interactions. Risk benefit ratio favors no change other than as noted in my dictated progress note. Diagnosis: Problems: (1) Parkinson's disease (2) Mild cognitive impairment (3) Major depressive disorder, severe (4) Anxiety disorder, unspecified MARICEL BROWN MD Jul 18, 2020 22:05
[2020-07-19] MEDS: PREGABALIN 50 MG CAPSULE PO SCH ×3 (00:15→20:52)
--- NOTE | 2020-07-19 00:25 | NUR ---
Nursing Note Pt wants to talk at length regarding her . Feels so bad that he doesn't seem dote on her as much as he used to. He always brought her small gifts and surprises. She feels he is distant, and not involved anymore. Feels like he has his own issues anxiety and unable to balance the checkbook etc. She feels lack of control and very frustrated by covid restrictions.
[2020-07-19] MEDS: CARBIDOPA/LEVODOPA 25/100MG TABLET PO SCH ×7 (06:00→20:58)
[2020-07-19 06:07] VITALS: BP 132/79
--- NOTE | 2020-07-19 07:39 | PDOC ---
Exam Note: Marcial Note: This note is a late entry for 07/17/2020 covers elements not covered in my initial note. Subjective: The patient was seen face to face in the evening of 07/17/2020 with Shawn GONZALES. Discussed with nursing staff, reviewed the chart. The patient slept 7 hours previous night. She has had no behaviours. She remains anxious, restless. She has motor movements and whole body athetoid movements consistent with Parkinsons. She did well previous night, attended groups during the day on 07/17. She is compliant with medications, asking for help to get up which is an improvement. Review of Systems: Ambulation impaired in wheelchair. No CV, , pulmonary, eye system symptoms on review. Mental Status Exam: The patient is reasonably oriented. Speech is coherent. Abstraction is fair. Computation is impaired. Language function is intact. Mood and affect somewhat depressed, anxious, labile but better than before. No active suicidal ideation. Laboratory Data: Reviewed. Impression: Major depressive disorder recurrent, rule out psychotic features. Anxiety disorder unspecified. Impulse control disorder. Plan: No change from initial note. Increase Cymbalta from 20 mg h.s. to 30 mg h.s. Rest unchanged for now. Assessment: Vital Signs/I&O: Vital Signs Date Time Temp Pulse Resp B/P (MAP) Pulse Ox O2 Delivery O2 Flow Rate FiO2 07/19/20 06:07 97.7 63 16 132/79 (96) 94 Room Air I & O 07/18/20 07/18/20 07/19/20 15:00 23:00 07:00 Intake Total 650 ml 225 ml 240 ml Balance 650 ml 225 ml 240 ml Current Medications: I have reviewed the current psychotropics carefully including drug interactions. Risk benefit ratio favors no change other than as noted in my dictated progress note. Diagnosis: Problems: (1) Parkinson's disease (2) Mild cognitive impairment (3) Major depressive disorder, severe (4) Anxiety disorder, unspecified MARICEL BROWN MD Jul 19, 2020 07:39
[2020-07-19] MEDS: QUEtiapine 25 MG TABLET. PO SCH ×3 (07:57→20:50)
[2020-07-19] MEDS: PRAMIPEXOLE 0.25 MG TABLET. PO SCH ×3 (07:58→20:49)
[2020-07-19] MEDS: OXYBUTYNIN CHLORIDE 5 MG TABLET PO SCH ×3 (07:58→20:50)
[2020-07-19] MEDS: PANTOPRAZOLE 40 MG TABLET. PO SCH (07:58)
[2020-07-19] MEDS: RASAGILINE MESYLATE 1 MG PO SCH (08:01)
--- NOTE | 2020-07-19 08:06 | PDOC ---
Exam Note: Marcial Note: This note is a late entry for 07/18/2020 covers elements not covered in my initial note. Subjective: The patient was reviewed on telehealth rounds in the evening of 07/18/2020 with Marcie GONZALES. Discussed with nursing staff, reviewed the chart. The patient slept 7-1/4 hours previous night. She did have a fall in the evening. No injuries noted. She has been somewhat sad, depressed. Denies suicidal ideation. Review of Systems: Ambulation impaired in wheelchair. Positive for parkinsonian tremors and body movements, which are improved. No CV, , pulmonary, eye system symptoms on review. Mental Status Exam: The patient is reasonably oriented. Speech is coherent. She is pleasant, smiling. Abstraction is fair. Computation is impaired. Language function is intact. Attention span is short. Mood and affect is improved. No suicidal or homicidal ideation. Laboratory Data: Reviewed. Impression: Major depressive disorder recurrent, rule out psychotic features. Anxiety disorder unspecified. Impulse control disorder. Plan: No change from initial note. Assessment: Vital Signs/I&O: Vital Signs Date Time Temp Pulse Resp B/P (MAP) Pulse Ox O2 Delivery O2 Flow Rate FiO2 07/19/20 06:07 97.7 63 16 132/79 (96) 94 Room Air I & O 07/18/20 07/18/20 07/19/20 15:00 23:00 07:00 Intake Total 650 ml 225 ml 240 ml Balance 650 ml 225 ml 240 ml Current Medications: I have reviewed the current psychotropics carefully including drug interactions. Risk benefit ratio favors no change other than as noted in my dictated progress note. Diagnosis: Problems: (1) Parkinson's disease (2) Mild cognitive impairment (3) Major depressive disorder, severe (4) Anxiety disorder, unspecified MARICEL BROWN MD Jul 19, 2020 08:06
--- NOTE | 2020-07-19 09:28 | NUR ---
NURSING NOTE PT WAS IN BED THIS AM UPON ASSESSMENT AND MEDICATION ADMINISTRATION. PT IS RESTLESS IN THE BED, SIDEWAYS, WITH LEGS HANGING OVER THE SIDE UPON ARRIVAL IN ROOM. PT WAS A&O TO SELF THIS AM, BUT STATES "I DONT KNOW" TO ORIENTATION QUESTIONS. PT TAKES HER MEDS WHOLE, NO COMPLICATIONS. PT NEEDS SET UP ASSISTANCE WITH MEALS, PT HAS ATAXIA AND HAS DIFFICULTY WITH COORDINATION. PT HAD SPILT HER MILK AND CEREAL ON HER BED AND FLOOR. PT NEEDS X1 ASSIST WITH MEALS. PT COMPLIANT WITH CARES AND DID AGREE TO TAKE A SHOWER AFTER EATING BREAKFAST TO GET CLEANED UP, PT INCONTINENT OF URINE THIS AM UPON ASSESSMENT. PT DENIES ANY SI IDEATIONS UPON ASSESSMENT. PT CURRENTLY IN WHEELCHAIR IN HER ROOM AT BEDSIDE TABLE. WILL CONTINUE TO MONITOR. CHRISTIAN HIDALGO.
--- NOTE | 2020-07-19 09:45 | NUR ---
NURSING NOTE NEUROLOGY SPOKE WITH DR AMADOR DURING ASSESSMENT OF PT, ORDER TO DECREASE CARBID/LEVOD TO 25/100 TAKE 1 TABLET BY MOUTH Q3 HOURS WHILE AWAKE AND CONTINUE ON CURRENT HS DOSAGE. HE WILL EVALUATE HER DAILY AND SEE HOW SHE DOES WITH DOSAGE CHANGE. CHRISTIAN HIDALGO.
--- NOTE | 2020-07-19 14:21 | NUR ---
NURSING NOTE PT IS HIGH FALL RISK, PT HAS CHAIR ALARM, PT ALARM GOING OFF, THIS NURSE WENT TO ASSESS, PT TRANSFERRED SELF FROM WHEELCHAIR TO BED. THIS NURSE EDUCATED PT ON IMPORTANCE OF CALLING FOR HELP FOR SAFETY. WILL CONTINUE TO MONITOR. CHRISTIAN HIDALGO.
--- NOTE | 2020-07-19 15:28 | NUR ---
Assumed care of patient at 1500. Patient sleeping in bed no s/s pain noted at this time.
[2020-07-19 15:50] VITALS: BP 96/53
[2020-07-19 18:48] VITALS: BP 110/69
[2020-07-19 18:49] VITALS: BP 118/74
[2020-07-19 18:50] VITALS: BP 122/65
--- NOTE | 2020-07-19 18:51 | NUR ---
orthostatics laying BP 110/26 P 79 oxygen 97% sitting BP 118/74 P 82 oxygen 97% standing BP 122/65 P 83 oxygen 98%
[2020-07-19] MEDS: DONEPEZIL HCL 10 MG TABLET PO SCH (20:50)
[2020-07-19] MEDS: DULoxetine HCL 30 MG CAPSULE.DR PO SCH (20:50)
[2020-07-19] MEDS: CARBIDOPA/LEVODOPA CR 50/200MG TABLET.SA PO SCH (20:50)
--- NOTE | 2020-07-19 21:57 | PDOC ---
Exam Note: Marcial Note: Please also refer to the separate dictated note~for this date of service dictated separately.~Patient seen individually. Discussed the patient with Nursing staff reviewed the chart.~Reviewed interim history and current functioning. Reviewed vital signs,~Labs/ Radiology~and current medications noted below. Continue current treatment with the changes noted in the dictated addendum note Assessment: Vital Signs/I&O: Vital Signs Date Time Temp Pulse Resp B/P (MAP) Pulse Ox O2 Delivery O2 Flow Rate FiO2 07/19/20 18:50 83 122/65 (84) 98 07/19/20 15:50 98.0 14 Room Air I & O 07/18/20 07/18/20 07/19/20 15:00 23:00 07:00 Intake Total 650 ml 225 ml 240 ml Balance 650 ml 225 ml 240 ml Current Medications: Meds: Current Medications Medications (Trade) Dose Ordered Sig/Gracie Route PRN Reason Start Time Stop Time Status Last Admin Dose Admin Carbidopa/Levodopa (Sinemet 25/100) 1 tab 0600,0900,1200,1500 PO 07/19/20 12:00 07/19/20 14:18 Carbidopa/Levodopa (Sinemet 25/100) 1 tab 1800,2100 PO 07/19/20 18:00 07/19/20 20:58 I have reviewed the current psychotropics carefully including drug interactions. Risk benefit ratio favors no change other than as noted in my dictated progress note. Diagnosis: Problems: (1) Parkinson's disease (2) Mild cognitive impairment (3) Major depressive disorder, severe (4) Anxiety disorder, unspecified MARICEL BRWON MD Jul 19, 2020 21:57
--- NOTE | 2020-07-19 22:45 | NUR ---
Nursing Note Pt in bed at shift change states that she has not felt good today so she just went to bed and gave up. Ramsey dizzy earlier, calm cooperative and compliant with medications. Alarms in place pt high fall risk, she is very impulsive with ataxic gait. Denies pain just tired and not very interactive.
[2020-07-20] MEDS: CARBIDOPA/LEVODOPA 25/100MG TABLET PO SCH ×6 (05:41→20:43)
[2020-07-20 06:18] VITALS: BP 165/84
[2020-07-20] MEDS: PREGABALIN 50 MG CAPSULE PO SCH ×3 (08:11→20:43)
[2020-07-20] MEDS: PANTOPRAZOLE 40 MG TABLET. PO SCH (08:11)
[2020-07-20] MEDS: QUEtiapine 25 MG TABLET. PO SCH ×3 (08:11→20:42)
[2020-07-20] MEDS: PRAMIPEXOLE 0.25 MG TABLET. PO SCH ×3 (08:11→20:43)
[2020-07-20] MEDS: OXYBUTYNIN CHLORIDE 5 MG TABLET PO SCH ×3 (08:11→20:43)
[2020-07-20] MEDS: RASAGILINE MESYLATE 1 MG PO SCH (08:14)
--- NOTE | 2020-07-20 15:00 | NUR ---
SW returned call to pt who had concerns and wanted to fact check what pt was saying. Pt is telling her that she is sitting in her urine for an hour at a time and that no one checks on her. SW was able to tell pt that her reports are not correct. Pt has been interactive in groups and does not remain in her room much. And when she is in her room, staff do 15 minute checks. SHARIF was able to put pt on hold to speak to staff and found that pt is able to wheel herself to the restroom and push the button for help. Pt for the most part pt is always dry. Which pt reported that was his next question, as pt reported that there are not pull cords in the rooms in the event that something was wrong. SHARIF explained with being on a psychiatric unit, pull cords are considered as dangerous and are not allowed. Pt reports feeling better with this report and will look forward to talking to SHARIF next week.
[2020-07-20 15:38] VITALS: BP 96/64
--- NOTE | 2020-07-20 17:34 | NUR ---
pt up in wc in room and has been out to group. Has been irritable occasionally. pt wants to go home. Has been compliant with meds and cares.
[2020-07-20] MEDS: MECLIZINE 12.5 MG TABLET. PO PRN (20:41)
[2020-07-20] MEDS: DULoxetine HCL 30 MG CAPSULE.DR PO SCH (20:42)
[2020-07-20] MEDS: CARBIDOPA/LEVODOPA CR 50/200MG TABLET.SA PO SCH (20:42)
[2020-07-20] MEDS: DONEPEZIL HCL 10 MG TABLET PO SCH (20:43)
--- NOTE | 2020-07-20 22:04 | PDOC ---
Exam Note: Marcial Note: Please also refer to the separate dictated note~for this date of service dictated separately.~Patient seen individually. Discussed the patient with Nursing staff reviewed the chart.~Reviewed interim history and current functioning. Reviewed vital signs,~Labs/ Radiology~and current medications noted below. Continue current treatment with the changes noted in the dictated addendum note Assessment: Vital Signs/I&O: Vital Signs Date Time Temp Pulse Resp B/P (MAP) Pulse Ox O2 Delivery O2 Flow Rate FiO2 07/20/20 15:38 97.9 84 16 96/64 (75) 94 Room Air I & O 07/19/20 07/19/20 07/20/20 15:00 23:00 07:00 Intake Total 720 ml 480 ml Balance 720 ml 480 ml Current Medications: Meds: Current Medications Medications (Trade) Dose Ordered Sig/Gracie Route PRN Reason Start Time Stop Time Status Last Admin Dose Admin Duloxetine HCl (Cymbalta) 60 mg HS PO 07/20/20 21:00 07/20/20 20:42 I have reviewed the current psychotropics carefully including drug interactions. Risk benefit ratio favors no change other than as noted in my dictated progress note. Diagnosis: Problems: (1) Parkinson's disease (2) Mild cognitive impairment (3) Major depressive disorder, severe (4) Anxiety disorder, unspecified MARICEL BROWN MD Jul 20, 2020 22:04
--- NOTE | 2020-07-20 22:25 | CONS ---
DATE OF CONSULTATION: 07/20/2020 REASON FOR CONSULTATION: Counseled for medical management for the patient. HISTORY OF PRESENT ILLNESS: The patient is a 74-year-old who is a resident from [facility] in [place], [place] by her primary care physician on account of worsening symptoms of depression, suicidal ideation. She was pulling out plugs from the guzman and putting it in her mouth. She was having active hallucination, purposely falling from the wheelchair, all this was within the context of her significant Parkinson's disease with significant choreoathetoid movement. She was initially admitted to the [facility] and her COVID test tested and was negative. She was seen in consultation by Dr. Barnhart and eventually was admitted to [facility] for inpatient psychiatric stabilization. PAST MEDICAL HISTORY: Significant for Parkinson's disease, gastroesophageal reflux disease, osteoarthritis, atrioventricular block requiring permanent pacemaker and dry eye syndrome. ALLERGIES: SHE IS ALLERGIC TO GABAPENTIN, AND OXYCODONE. MEDICATIONS: She is currently on following medications: She is on Aricept 10 mg at bedtime, diclofenac sodium 1 gram applied 4 times a day, Tylenol 650 mg every 4 hours, pregabalin 50 mg 3 times a day, duloxetine 20 mg at bedtime, trazodone 50 mg at bedtime. She is on olanzapine 2.5 mg every 2 hours, Seroquel 25 mg 3 times a day and lorazepam 1 mg every 3 hours, carbidopa/levodopa 25/100 one tablet 4 times a day, carbidopa/levodopa 1.5 tablet 4 times a day. She is on carbidopa/levodopa extended release 50/200 one tablet at bedtime. She is on pramipexole for Mirapex 0.5 mg 3 times a day. She is on Azilect 1 mg daily, polyvinyl alcohol for artificial tears 1 drop to both eyes 4 times a day, meclizine 25 mg 3 times a day, Protonix 40 mg daily and oxybutynin chloride 5 mg 3 times a day. REVIEW OF SYSTEMS: As per history of present illness. FAMILY HISTORY: Noncontributory. SOCIAL HISTORY: She is and lives at home with her . She apparently does not smoke, drink alcohol or use any recreational drugs. She stated that she has 2 children, 1 was before her marriage out of wedlock and she gave the child up for adoption and recently he made some contact with her. PHYSICAL EXAMINATION: GENERAL: When I examined her this afternoon, she was sitting comfortably in her wheelchair, in no apparent respiratory distress. There is no pallor, jaundice, cyanosis or thyromegaly. No jugular venous distention. No limb edema. VITAL SIGNS: Her heart rate was 84, blood pressure 96/64, temperature 97.9, respiratory rate was 16, and oxygen saturation was 94% on room air. HEAD, EYES, EARS, NOSE AND THROAT: Showed normocephalic, atraumatic. NECK: Supple. HEART: Showed normal first and second heart sounds. No gallop, rub or murmur. CHEST: Shows central trachea, equal bilateral expansion air entry, vesicular breath sounds. No crepitation or rhonchi. ABDOMEN: Scaphoid, soft, nontender. NEUROLOGIC: She is awake, alert, responding appropriately. All cranial nerves intact. She has some abnormal movement. She is mostly wheelchair bound. LABORATORY DATA: Showed a white cell count was 4500, hemoglobin 13.6, hematocrit 39.9, MCV 96, and platelet count 237. Her D-dimer was 1.20.Her chemistry showed a serum sodium of 139, potassium 3.6, chloride 103, bicarbonate 28, anion gap of 8, BUN 12, creatinine 0.6, estimated GFR was 97 mL per minute. Her glucose was 88, calcium was 8.7, magnesium was 2.2. Total bilirubin, AST, ALT, alkaline phosphatase were normal. Total protein was 6.9, albumin was 3.2. Her Treponema pallidum antibody was nonreactive. While she was down for 24 hours hold, her TSH was checked and was normal as well as total T4 and total T3. Her vitamin B12 was 941 pg/mL and 25-hydroxy vitamin D was normal at 39.8. Her hemoglobin A1c was 5.4 and her serum iron was 81, TIBC 176 and iron saturation was 56. Her triglycerides were 64, total cholesterol 143, LDL was 80, VLDL was 12, HDL was 51 and ratio was 2. IMPRESSION: In summary, this is a 74-year-old female patient, who was admitted on account of worsening symptoms of depression with suicidal ideation. She was pulling out plugs from the guzman and putting it in her mouth. She was having active hallucination, purposely falling from wheelchair, all this was within the context of significant Parkinson's disease with significant choreoathetoid movement. Medically, she is known to have Parkinson's disease. She has also gastroesophageal reflux disease, osteoarthritis, had a history of atrioventricular block, treated with permanent pacemaker and dry eye syndrome. All in all, the patient seems to be medically stable. I have not made any changes in her medication. Her lab works are all within acceptable range. I will obviously follow her closely and make any necessary recommendation. Thank you, Dr. Stockton for allowing me to participate in the care of this patient. LIDIA LOPEZ MD DR: MEGAN/cathy JOB#: [id number] / [id number]
--- NOTE | 2020-07-21 01:36 | NUR ---
Pt was pleasant and cooperative tonight. Meds were taken whole and she has had no behaviors.
[2020-07-21 06:00] VITALS: BP 158/72
[2020-07-21] MEDS: CARBIDOPA/LEVODOPA 25/100MG TABLET PO SCH ×6 (06:01→21:11)
--- NOTE | 2020-07-21 07:29 | PDOC ---
Exam Note: Marcial Note: This note is a late entry for 07/19/2020 covers elements not covered in my initial note. Subjective: The patient was seen face to face in the morning of 07/19/2020 with Kayla GONZALES. Discussed with nursing staff, reviewed the chart. The patient has been anxious, restless, has parkinsonian movement disorder and tremors and tries to transfer herself on the wheelchair. She is a fall risk. Dr. Barnhart did reduce the Sinemet somewhat. Review of Systems: Ambulation impaired in wheelchair. She has abnormal tremors and body movements consistent with her Parkinsons. No CV, , pulmonary, eye system symptoms on review. Mental Status Exam: The patient is reasonably oriented. Speech is coherent. Abstraction is fair. Computation is impaired. Language function is intact. Attention span is short. Mood and affect is somewhat anxious, labile. Laboratory Data: Reviewed. Impression: Major depressive disorder recurrent, rule out psychotic features. Anxiety disorder unspecified. Impulse control disorder. Plan: No change from initial note. Assessment: Vital Signs/I&O: Vital Signs Date Time Temp Pulse Resp B/P (MAP) Pulse Ox O2 Delivery O2 Flow Rate FiO2 07/21/20 06:00 97.4 72 16 158/72 (100) 97 Room Air I & O 07/20/20 07/20/20 07/21/20 15:00 23:00 07:00 Intake Total 550 ml 360 ml Balance 550 ml 360 ml Current Medications: Meds: Current Medications Medications (Trade) Dose Ordered Sig/Gracie Route PRN Reason Start Time Stop Time Status Last Admin Dose Admin Duloxetine HCl (Cymbalta) 60 mg HS PO 07/20/20 21:00 07/20/20 20:42 I have reviewed the current psychotropics carefully including drug interactions. Risk benefit ratio favors no change other than as noted in my dictated progress note. Diagnosis: Problems: (1) Parkinson's disease (2) Mild cognitive impairment (3) Major depressive disorder, severe (4) Anxiety disorder, unspecified MARICEL BROWN MD Jul 21, 2020 07:29
[2020-07-21] MEDS: OXYBUTYNIN CHLORIDE 5 MG TABLET PO SCH ×3 (07:41→21:11)
[2020-07-21] MEDS: PREGABALIN 50 MG CAPSULE PO SCH ×3 (07:41→21:10)
[2020-07-21] MEDS: PANTOPRAZOLE 40 MG TABLET. PO SCH (07:41)
[2020-07-21] MEDS: PRAMIPEXOLE 0.25 MG TABLET. PO SCH ×3 (07:41→21:11)
[2020-07-21] MEDS: RASAGILINE MESYLATE 1 MG PO SCH (07:41)
--- NOTE | 2020-07-21 07:41 | PDOC ---
Exam Note: Marcial Note: This note is a late entry for 07/20/2020 covers elements not covered in my initial note. Subjective: The patient was seen face to face in the evening of 07/20/2020 with Jasmina GONZALES. Discussed with nursing staff, reviewed the chart. The patient slept 5-1/2 hours previous night. Overall the patient has done better, less anxious. Her parkinsonian movements and athetoid movements of the whole body are much improved. The patient is complaining and triangulating staff but redirected. Review of Systems: Ambulation impaired in wheelchair and she has parkinsonian m ovement disorder. No CV, , pulmonary, eye system symptoms on review. Mental Status Exam: The patient is reasonably oriented. Speech is coherent. Abstraction is fair. Computation is impaired. Language function is intact. Mood and affect somewhat depressed, anxious, labile but better than before. No active suicidal ideation. Laboratory Data: Reviewed. Impression: Major depressive disorder recurrent, rule out psychotic features. Anxiety disorder unspecified. Impulse control disorder. Plan: No change from initial note. Increase Cymbalta from 30 mg h.s. to 50 mg h.s. Rest unchanged for now. Assessment: Vital Signs/I&O: Vital Signs Date Time Temp Pulse Resp B/P (MAP) Pulse Ox O2 Delivery O2 Flow Rate FiO2 07/21/20 06:00 97.4 72 16 158/72 (100) 97 Room Air I & O 07/20/20 07/20/20 07/21/20 15:00 23:00 07:00 Intake Total 550 ml 360 ml Balance 550 ml 360 ml Current Medications: Meds: Current Medications Medications (Trade) Dose Ordered Sig/Gracie Route PRN Reason Start Time Stop Time Status Last Admin Dose Admin Duloxetine HCl (Cymbalta) 60 mg HS PO 07/20/20 21:00 07/20/20 20:42 I have reviewed the current psychotropics carefully including drug interactions. Risk benefit ratio favors no change other than as noted in my dictated progress note. Diagnosis: Problems: (1) Parkinson's disease (2) Mild cognitive impairment (3) Major depressive disorder, severe (4) Anxiety disorder, unspecified MARICEL BROWN MD Jul 21, 2020 07:41
[2020-07-21] MEDS: QUEtiapine 25 MG TABLET. PO SCH ×3 (07:42→21:11)
[2020-07-21] MEDS: MECLIZINE 12.5 MG TABLET. PO PRN (13:58)
[2020-07-21 15:44] VITALS: BP 150/83
--- NOTE | 2020-07-21 18:45 | NUR ---
Pt up adl in wc in room. Has been pleasant and calm. No tremors noted. Has been compliant with meds and cares.
[2020-07-21] MEDS: DONEPEZIL HCL 10 MG TABLET PO SCH (21:11)
[2020-07-21] MEDS: CARBIDOPA/LEVODOPA CR 50/200MG TABLET.SA PO SCH (21:11)
[2020-07-21] MEDS: DULoxetine HCL 30 MG CAPSULE.DR PO SCH (21:11)
--- NOTE | 2020-07-21 21:41 | PDOC ---
Exam Note: Marcial Note: Please also refer to the separate dictated note~for this date of service dictated separately.~Patient seen individually. Discussed the patient with Nursing staff reviewed the chart.~Reviewed interim history and current functioning. Reviewed vital signs,~Labs/ Radiology~and current medications noted below. Continue current treatment with the changes noted in the dictated addendum note Assessment: Vital Signs/I&O: Vital Signs Date Time Temp Pulse Resp B/P (MAP) Pulse Ox O2 Delivery O2 Flow Rate FiO2 07/21/20 15:44 97.2 88 18 150/83 (105) 96 Room Air I & O 07/20/20 07/20/20 07/21/20 15:00 23:00 07:00 Intake Total 550 ml 360 ml Balance 550 ml 360 ml Current Medications: I have reviewed the current psychotropics carefully including drug interactions. Risk benefit ratio favors no change other than as noted in my dictated progress note. Diagnosis: Problems: (1) Parkinson's disease (2) Mild cognitive impairment (3) Major depressive disorder, severe (4) Anxiety disorder, unspecified MARICEL BROWN MD Jul 21, 2020 21:41
--- NOTE | 2020-07-22 01:49 | NUR ---
Nursing Note The patient was located in her room laying in bed when approached for her medication and assessment. The patient was compliant with her medication and assessment. The patient took her medication whole. The patient is currently sleeping in her room.
[2020-07-22] MEDS: CARBIDOPA/LEVODOPA 25/100MG TABLET PO SCH ×6 (05:46→20:37)
[2020-07-22 06:00] VITALS: BP 108/60
[2020-07-22] MEDS: PRAMIPEXOLE 0.25 MG TABLET. PO SCH ×3 (08:19→20:35)
[2020-07-22] MEDS: OXYBUTYNIN CHLORIDE 5 MG TABLET PO SCH ×3 (08:19→20:35)
[2020-07-22] MEDS: QUEtiapine 25 MG TABLET. PO SCH ×3 (08:19→20:35)
[2020-07-22] MEDS: PANTOPRAZOLE 40 MG TABLET. PO SCH (08:19)
[2020-07-22] MEDS: PREGABALIN 50 MG CAPSULE PO SCH ×3 (08:19→20:37)
[2020-07-22] MEDS: RASAGILINE MESYLATE 1 MG PO SCH (08:19)
--- NOTE | 2020-07-22 09:38 | NUR ---
Patient pleasant and cooperative. Patient states she slept well but still is tired.
[2020-07-22] MEDS: MECLIZINE 12.5 MG TABLET. PO PRN (12:40)
[2020-07-22 15:53] VITALS: BP 89/48
[2020-07-22 19:38] VITALS: BP 110/63
[2020-07-22] MEDS: CARBIDOPA/LEVODOPA CR 50/200MG TABLET.SA PO SCH (20:35)
[2020-07-22] MEDS: DULoxetine HCL 30 MG CAPSULE.DR PO SCH (20:35)
[2020-07-22] MEDS: DONEPEZIL HCL 10 MG TABLET PO SCH (20:35)
--- NOTE | 2020-07-22 22:08 | PDOC ---
Exam Note: Marcial Note: Please also refer to the separate dictated note~for this date of service dictated separately.~Patient seen individually. Discussed the patient with Nursing staff reviewed the chart.~Reviewed interim history and current functioning. Reviewed vital signs,~Labs/ Radiology~and current medications noted below. Continue current treatment with the changes noted in the dictated addendum note Assessment: Vital Signs/I&O: Vital Signs Date Time Temp Pulse Resp B/P (MAP) Pulse Ox O2 Delivery O2 Flow Rate FiO2 07/22/20 19:38 74 110/63 (79) 07/22/20 15:53 97.6 16 99 07/22/20 06:00 Room Air I & O 0 07/21/20 07/21/20 07/22/20 15:00 23:00 07:00 Intake Total 720 ml 360 ml Balance 720 ml 360 ml Current Medications: I have reviewed the current psychotropics carefully including drug interactions. Risk benefit ratio favors no change other than as noted in my dictated progress note. Diagnosis: Problems: (1) Parkinson's disease (2) Mild cognitive impairment (3) Major depressive disorder, severe (4) Anxiety disorder, unspecified MARICEL BROWN MD Jul 22, 2020 22:08
--- NOTE | 2020-07-22 23:15 | NUR ---
Pt located in her room this evening. Calm and compliant with whole medications. States that she does not belong here and is ready to go home.
--- NOTE | 2020-07-23 01:00 | NUR ---
Pt awake and complaining of chest pain radiating down left arm and up to left side of jaw. VS taken and WNL. Dr. Barnett paged. New orders received.
[2020-07-23] MEDS ORDERED: NITROGLYCERIN SUBLINGUAL 0.4 MG BOTTLE OF 25. SL PRN (01:15)
[2020-07-23 01:35] LABS: BACTERIA,URINE 0 /HPF (0-FEW); BILIRUBIN,URINE NEG (NEG); CLARITY,URINE CLEAR; COLOR,URINE YELLOW; GLUCOSE,URINE NEG (NEG); NITRITE,URINE NEG (NEG); RBC,URINE 0 /HPF (0-2); SQUAMOUS EPITHELIAL CELL,UR OCC /LPF; UROBILINOGEN,URINE 0.2 mg/dL (0.2 mg/dL); WBC,URINE OCC /HPF (0-4)
[2020-07-23] MEDS: CARBIDOPA/LEVODOPA 25/100MG TABLET PO SCH ×6 (05:18→20:31)
[2020-07-23 06:00] VITALS: BP 130/61
--- NOTE | 2020-07-23 06:14 | EKG ---
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
--- NOTE | 2020-07-23 06:41 | PDOC ---
Exam Note: Marcial Note: This note is a late entry for 07/21/2020 covers elements not covered in my initial note. Subjective: The patient was seen face to face in the evening of 07/21/2020 with Jasmina GONZALES. Discussed with nursing staff, reviewed the chart. The patient slept 6-1/4 hours previous night. The patient has been somewhat anxious, but her movements are better. She did talk to her and was pleased with this. Review of Systems: Ambulation impaired in wheelchair. No CV, , pulmonary, eye system symptoms on review. Mental Status Exam: The patient is reasonably oriented. She was quite verbal, interactive, appropriate as I met with her. Speech is coherent. Abstraction is fair. Computation is impaired. Language function is intact. Mood and affect anxious, labile but better than before. No suicidal or homicidal ideation. Laboratory Data: Reviewed. Impression: Major depressive disorder recurrent, rule out psychotic features. Anxiety disorder unspecified. Impulse control disorder. Plan: No change from initial note. Assessment: Vital Signs/I&O: Vital Signs Date Time Temp Pulse Resp B/P (MAP) Pulse Ox O2 Delivery O2 Flow Rate FiO2 07/23/20 06:00 97.8 68 16 130/61 (84) 98 Room Air I & O 07/22/20 07/22/20 07/23/20 14:59 22:59 06:59 Intake Total 440 ml 2740 ml Balance 440 ml 2740 ml Labs: Laboratory Tests Test 07/23/20 00:58 07/23/20 01:46 Urine Collection Type Unknown Urine Color Yellow Urine Clarity Clear Urine pH 6.5 Urine Specific [place] 1.020 Urine Protein Neg (NEG-TRACE) Urine Glucose (UA) Neg mg/dL (NEG) Urine Ketones (Stick) Neg mg/dL (NEG) Urine Blood Neg (NEG) Urine Nitrite Neg (NEG) Urine Bilirubin Neg (NEG) Urine Urobilinogen Dipstick 0.2 mg/dL (0.2 mg/dL) Urine Leukocyte Esterase Neg (NEG) Urine RBC 0 /HPF (0-2) Urine WBC Occ /HPF (0-4) Urine Squamous Epithelial Cells Occ /LPF Urine Bacteria 0 /HPF (0-FEW) Troponin I Quantitative < 0.017 ng/mL (0-0.055) Current Medications: Meds: Current Medications Medications (Trade) Dose Ordered Sig/Gracie Route PRN Reason Start Time Stop Time Status Last Admin Dose Admin Nitroglycerin (Nitrostat) 0.4 mg PRN Q5MIN PRN SL CHEST PAIN 07/23/20 01:15 07/23/20 01:16 I have reviewed the current psychotropics carefully including drug interactions. Risk benefit ratio favors no change other than as noted in my dictated progress note. Diagnosis: Problems: (1) Parkinson's disease (2) Mild cognitive impairment (3) Major depressive disorder, severe (4) Anxiety disorder, unspecified MARICEL BROWN MD Jul 23, 2020 06:41
[2020-07-23 07:29] LABS: BASO # 0.1 x10^3/uL (0.0-0.2); BASO % 2 % (0-3); EOS # 0.2 x10^3/uL (0.0-0.7); EOS % 5 % (0-3); HEMOGLOBIN 12.8 g/dL (12.0-15.5); LYMPH # 0.9 x10^3/uL (1.0-4.8); LYMPH % 28 % (24-48); MEAN CORPUSCULAR HEMOGLOBIN 32 pg (25-35); MEAN CORPUSCULAR HGB CONC 33 g/dL (31-37); MEAN CORPUSCULAR VOLUME 97 fL (79-100); MONO # 0.5 x10^3/uL (0.0-1.1); MONO % 15 % (0-9); NEUT # 1.7 x10^3uL (1.8-7.7); NEUT % 51 % (31-73); PLATELET COUNT 236 x10^3/uL (140-400); RED BLOOD COUNT 4.03 x10^6/uL (3.50-5.40); RED CELL DISTRIBUTION WIDTH 13.5 % (11.5-14.5); WHITE BLOOD COUNT 3.3 x10^3/uL (4.0-11.0)
[2020-07-23 07:54] LABS: ALBUMIN 3.2 g/dL (3.4-5.0); ALBUMIN/GLOBULIN RATIO 0.9 (1.0-1.7); CALCIUM 8.8 mg/dL (8.5-10.1); CREATININE 0.6 mg/dL (0.6-1.0); GFR 97.2; POTASSIUM 3.8 mmol/L (3.5-5.1); TOTAL BILIRUBIN 0.4 mg/dL (0.2-1.0); TOTAL PROTEIN 6.7 g/dL (6.4-8.2)
[2020-07-23] MEDS: QUEtiapine 25 MG TABLET. PO SCH ×3 (08:28→20:31)
[2020-07-23] MEDS: PREGABALIN 50 MG CAPSULE PO SCH ×3 (08:29→20:32)
[2020-07-23] MEDS: OXYBUTYNIN CHLORIDE 5 MG TABLET PO SCH ×3 (08:29→20:31)
[2020-07-23] MEDS: PANTOPRAZOLE 40 MG TABLET. PO SCH (08:29)
[2020-07-23] MEDS: PRAMIPEXOLE 0.25 MG TABLET. PO SCH ×3 (08:30→20:32)
[2020-07-23] MEDS: RASAGILINE MESYLATE 1 MG PO SCH (08:31)
--- NOTE | 2020-07-23 11:24 | NUR ---
Nursing note: Pt in her room for morning med pass and assessment. She was compliant with meds whole and cooperative with her assessment. Pt stated she wants to go home to see her "calling him everyday just isn't the same". She denied any pain or discomfort. She is currently up in her wheelchair on the phone with her . Will continue to monitor.
--- NOTE | 2020-07-23 13:02 | NUR ---
WEEKLY ACTIVITY THERAPY NOTE Date of Admission:07/15 Date of AT Assessment: 07/18 Precipitating behaviors that initiated intake and admission: Goal aimed: increase stress management/ relaxation and socialization skills Initial Goal: Pt will participate in at least three Activity Therapy group sessions per week. Weekly progress towards goal: achieved 02/28 Group participation level: 4 full, 2 mod Weekly highlights: sang along with [employer] game on Thursday Behaviors observed: pleasant in groups, sometimes requests a dizzy pill, fidgets at times, tired as the week has progressed Plan: no change to goal at this time Beneficial adaptations:
[2020-07-23 16:02] VITALS: BP 121/77
[2020-07-23] MEDS: ACETAMINOPHEN 325 MG TABLET PO PRN (16:14)
--- NOTE | 2020-07-23 16:19 | NUR ---
Nursing note: Pt c/o pain in her back 01/05 and requested tylenol. PRN tylenol provided. Will continue to monitor.
[2020-07-23] MEDS: CARBIDOPA/LEVODOPA CR 50/200MG TABLET.SA PO SCH (20:31)
[2020-07-23] MEDS: DONEPEZIL HCL 10 MG TABLET PO SCH (20:31)
[2020-07-23] MEDS: DULoxetine HCL 30 MG CAPSULE.DR PO SCH (20:32)
[2020-07-23] MEDS: MIRTAZAPINE 7.5 MG TABLET. PO SCH (20:33)
--- NOTE | 2020-07-23 22:09 | PDOC ---
Exam Note: Marcial Note: Please also refer to the separate dictated note~for this date of service dictated separately.~Patient seen individually. Discussed the patient with Nursing staff reviewed the chart.~Reviewed interim history and current functioning. Reviewed vital signs,~Labs/ Radiology~and current medications noted below. Continue current treatment with the changes noted in the dictated addendum note Assessment: Vital Signs/I&O: Vital Signs Date Time Temp Pulse Resp B/P (MAP) Pulse Ox O2 Delivery O2 Flow Rate FiO2 07/23/20 16:02 97.6 77 18 121/77 (92) 97 07/23/20 06:00 Room Air I & O 07/22/20 07/22/20 07/23/20 15:00 23:00 07:00 Intake Total 440 ml 2740 ml Balance 440 ml 2740 ml Labs: Laboratory Tests Test 07/23/20 00:58 07/23/20 01:46 07/23/20 06:46 07/23/20 09:50 Urine Collection Type Unknown Urine Color Yellow Urine Clarity Clear Urine pH 6.5 Urine Specific [place] 1.020 Urine Protein Neg (NEG-TRACE) Urine Glucose (UA) Neg mg/dL (NEG) Urine Ketones (Stick) Neg mg/dL (NEG) Urine Blood Neg (NEG) Urine Nitrite Neg (NEG) Urine Bilirubin Neg (NEG) Urine Urobilinogen Dipstick 0.2 mg/dL (0.2 mg/dL) Urine Leukocyte Esterase Neg (NEG) Urine RBC 0 /HPF (0-2) Urine WBC Occ /HPF (0-4) Urine Squamous Epithelial Cells Occ /LPF Urine Bacteria 0 /HPF (0-FEW) Troponin I Quantitative < 0.017 ng/mL (0-0.055) < 0.017 ng/mL (0-0.055) < 0.017 ng/mL (0-0.055) White Blood Count 3.3 x10^3/uL (4.0-11.0) L Red Blood Count 4.03 x10^6/uL (3.50-5.40) Hemoglobin 12.8 g/dL (12.0-15.5) Hematocrit 39.0 % (36.0-47.0) Mean Corpuscular Volume 97 fL (79-100) Mean Corpuscular Hemoglobin 32 pg (25-35) Mean Corpuscular Hemoglobin Concent 33 g/dL (31-37) Red Cell Distribution Width 13.5 % (11.5-14.5) Platelet Count 236 x10^3/uL (140-400) Neutrophils (%) (Auto) 51 % (31-73) Lymphocytes (%) (Auto) 28 % (24-48) Monocytes (%) (Auto) 15 % (0-9) H Eosinophils (%) (Auto) 5 % (0-3) H Basophils (%) (Auto) 2 % (0-3) Neutrophils # (Auto) 1.7 x10^3uL (1.8-7.7) L Lymphocytes # (Auto) 0.9 x10^3/uL (1.0-4.8) L Monocytes # (Auto) 0.5 x10^3/uL (0.0-1.1) Eosinophils # (Auto) 0.2 x10^3/uL (0.0-0.7) Basophils # (Auto) 0.1 x10^3/uL (0.0-0.2) Sodium Level 140 mmol/L (136-145) Potassium Level 3.8 mmol/L (3.5-5.1) Chloride Level 103 mmol/L (98-107) Carbon Dioxide Level 31 mmol/L (21-32) Anion Gap 6 (6-14) Blood Urea Nitrogen 10 mg/dL (7-20) Creatinine 0.6 mg/dL (0.6-1.0) Estimated GFR (Cockcroft-Gault) 97.2 BUN/Creatinine Ratio 17 (6-20) Glucose Level 87 mg/dL (70-99) Calcium Level 8.8 mg/dL (8.5-10.1) Total Bilirubin 0.4 mg/dL (0.2-1.0) Aspartate Amino Transferase (AST) 15 U/L (15-37) Alanine Aminotransferase (ALT) 7 U/L (14-59) L Alkaline Phosphatase 101 U/L (46-116) Total Protein 6.7 g/dL (6.4-8.2) Albumin 3.2 g/dL (3.4-5.0) L Albumin/Globulin Ratio 0.9 (1.0-1.7) L Current Medications: Meds: Current Medications Medications (Trade) Dose Ordered Sig/Gracie Route PRN Reason Start Time Stop Time Status Last Admin Dose Admin Nitroglycerin (Nitrostat) 0.4 mg PRN Q5MIN PRN SL CHEST PAIN 07/23/20 01:15 07/23/20 01:16 Mirtazapine (Remeron) 7.5 mg QHS PO 07/23/20 21:00 07/23/20 20:33 I have reviewed the current psychotropics carefully including drug interactions. Risk benefit ratio favors no change other than as noted in my dictated progress note. Diagnosis: Problems: (1) Parkinson's disease (2) Mild cognitive impairment (3) Major depressive disorder, severe (4) Anxiety disorder, unspecified MARICEL BROWN MD Jul 23, 2020 22:09
--- NOTE | 2020-07-23 23:18 | NUR ---
Pt irritable and frustrated this evening. Pt upset with staff because pt wanted to transfer herself from to bed. Staff informed pt that we need to standby as she is unsteady and has a history of falls. Pt became upset, stating she just wants to leave. Pt banged her head on the bed frame in frustration. Pt did relent and let staff help her get ready and transfer into bed. Pt was compliant with whole medications.
[2020-07-24] MEDS: CARBIDOPA/LEVODOPA 25/100MG TABLET PO SCH ×6 (05:12→21:02)
[2020-07-24 06:07] VITALS: BP 101/68
--- NOTE | 2020-07-24 06:43 | PDOC ---
Exam Note: Marcial Note: This note is a late entry for 07/22/2020 covers elements not covered in my initial note. Subjective: The patient was seen face to face in the evening of 07/22/2020 with Minesh GONZALES. Discussed with nursing staff, reviewed the chart. The patient slept 7-3/4 hours previous night. Her diabetic medications have been adjusted per Dr. Barnett. She denies any overt hallucinations. She has been very upset since her wedding band was taken for safe keeping with nursing staff and she had many questions about this which I answered. Review of Systems: Ambulation impaired in wheelchair. Parkinsonian tremors. No CV, , pulmonary, eye, ENT system symptoms on review. Mental Status Exam: The patient is reasonably oriented. The patients parkinsonian movements and choreoathetoid movements are generally improved. She was quite verbal, interactive as I met with her. Speech is coherent. Abstraction is fair. Computation is impaired. Language function is intact. Mood and affect anxious, labile. No suicidal or homicidal ideation. Laboratory Data: Reviewed. Impression: Major depressive disorder recurrent, rule out psychotic features. Anxiety disorder unspecified. Impulse control disorder. Plan: No change from initial note. Assessment: Vital Signs/I&O: Vital Signs Date Time Temp Pulse Resp B/P (MAP) Pulse Ox O2 Delivery O2 Flow Rate FiO2 07/24/20 06:07 98.0 67 16 101/68 (79) 97 07/23/20 06:00 Room Air I & O 07/23/20 07/23/20 07/24/20 15:00 23:00 07:00 Intake Total 720 ml 220 ml Balance 720 ml 220 ml Labs: Laboratory Tests Test 07/23/20 06:46 07/23/20 09:50 White Blood Count 3.3 x10^3/uL (4.0-11.0) L Red Blood Count 4.03 x10^6/uL (3.50-5.40) Hemoglobin 12.8 g/dL (12.0-15.5) Hematocrit 39.0 % (36.0-47.0) Mean Corpuscular Volume 97 fL (79-100) Mean Corpuscular Hemoglobin 32 pg (25-35) Mean Corpuscular Hemoglobin Concent 33 g/dL (31-37) Red Cell Distribution Width 13.5 % (11.5-14.5) Platelet Count 236 x10^3/uL (140-400) Neutrophils (%) (Auto) 51 % (31-73) Lymphocytes (%) (Auto) 28 % (24-48) Monocytes (%) (Auto) 15 % (0-9) H Eosinophils (%) (Auto) 5 % (0-3) H Basophils (%) (Auto) 2 % (0-3) Neutrophils # (Auto) 1.7 x10^3uL (1.8-7.7) L Lymphocytes # (Auto) 0.9 x10^3/uL (1.0-4.8) L Monocytes # (Auto) 0.5 x10^3/uL (0.0-1.1) Eosinophils # (Auto) 0.2 x10^3/uL (0.0-0.7) Basophils # (Auto) 0.1 x10^3/uL (0.0-0.2) Sodium Level 140 mmol/L (136-145) Potassium Level 3.8 mmol/L (3.5-5.1) Chloride Level 103 mmol/L (98-107) Carbon Dioxide Level 31 mmol/L (21-32) Anion Gap 6 (6-14) Blood Urea Nitrogen 10 mg/dL (7-20) Creatinine 0.6 mg/dL (0.6-1.0) Estimated GFR (Cockcroft-Gault) 97.2 BUN/Creatinine Ratio 17 (6-20) Glucose Level 87 mg/dL (70-99) Calcium Level 8.8 mg/dL (8.5-10.1) Total Bilirubin 0.4 mg/dL (0.2-1.0) Aspartate Amino Transferase (AST) 15 U/L (15-37) Alanine Aminotransferase (ALT) 7 U/L (14-59) L Alkaline Phosphatase 101 U/L (46-116) Troponin I Quantitative < 0.017 ng/mL (0-0.055) < 0.017 ng/mL (0-0.055) Total Protein 6.7 g/dL (6.4-8.2) Albumin 3.2 g/dL (3.4-5.0) L Albumin/Globulin Ratio 0.9 (1.0-1.7) L Current Medications: Meds: Current Medications Medications (Trade) Dose Ordered Sig/Gracie Route PRN Reason Start Time Stop Time Status Last Admin Dose Admin Mirtazapine (Remeron) 7.5 mg QHS PO 07/23/20 21:00 07/23/20 20:33 I have reviewed the current psychotropics carefully including drug interactions. Risk benefit ratio favors no change other than as noted in my dictated progress note. Diagnosis: Problems: (1) Parkinson's disease (2) Mild cognitive impairment (3) Major depressive disorder, severe (4) Anxiety disorder, unspecified MARICEL BROWN MD Jul 24, 2020 06:43
--- NOTE | 2020-07-24 07:12 | PDOC ---
Exam Note: Marcial Note: This note is a late entry for 07/23/2020 covers elements not covered in my initial note. Subjective: The patient was seen face to face in the morning of 07/23/2020 for a treatment team meeting with Rochelle Decker Nikki (social science manager), and Cathryn GONZALES. Discussed with nursing staff, reviewed the chart. The patient slept 4-3/4 hours previous night. The patient is alert and oriented, had no falls. She slept poorly previous night. Appetite is good. Review of Systems: Ambulation impaired in wheelchair, parkinsonian movements. No CV, , pulmonary, eye system symptoms on review. Mental Status Exam: The patient is reasonably oriented. Speech is coherent. Abstraction is fair. Computation is impaired. Language function is intact. Mood and affect anxious, labile but better than before. No suicidal or homicidal ideation. Laboratory Data: Reviewed. Impression: Major depressive disorder recurrent, rule out psychotic features. Anxiety disorder unspecified. Impulse control disorder. Plan: No change from initial note. We will add Remeron 7.5 mg p.o. h.s. to help with her insomnia. Assessment: Vital Signs/I&O: Vital Signs Date Time Temp Pulse Resp B/P (MAP) Pulse Ox O2 Delivery O2 Flow Rate FiO2 07/24/20 06:07 98.0 67 16 101/68 (79) 97 07/23/20 06:00 Room Air I & O 07/23/20 07/23/20 07/24/20 15:00 23:00 07:00 Intake Total 720 ml 220 ml Balance 720 ml 220 ml Labs: Laboratory Tests Test 07/23/20 09:50 Troponin I Quantitative < 0.017 ng/mL (0-0.055) Current Medications: Meds: Current Medications Medications (Trade) Dose Ordered Sig/Gracie Route PRN Reason Start Time Stop Time Status Last Admin Dose Admin Mirtazapine (Remeron) 7.5 mg QHS PO 07/23/20 21:00 07/23/20 20:33 I have reviewed the current psychotropics carefully including drug interactions. Risk benefit ratio favors no change other than as noted in my dictated progress note. Diagnosis: Problems: (1) Parkinson's disease (2) Mild cognitive impairment (3) Major depressive disorder, severe (4) Anxiety disorder, unspecified MARICEL BROWN MD Jul 24, 2020 07:12
[2020-07-24] MEDS: PREGABALIN 50 MG CAPSULE PO SCH ×3 (08:31→21:05)
[2020-07-24] MEDS: POLYETHYLENE GLYCOL 3350 17 GM PACKET. PO SCH (08:31)
[2020-07-24] MEDS: PRAMIPEXOLE 0.25 MG TABLET. PO SCH ×3 (08:31→21:02)
[2020-07-24] MEDS: QUEtiapine 25 MG TABLET. PO SCH ×3 (08:31→21:01)
[2020-07-24] MEDS: PANTOPRAZOLE 40 MG TABLET. PO SCH (08:32)
[2020-07-24] MEDS: RASAGILINE MESYLATE 1 MG PO SCH (08:32)
[2020-07-24] MEDS: OXYBUTYNIN CHLORIDE 5 MG TABLET PO SCH ×3 (08:32→21:01)
[2020-07-24] MEDS: MECLIZINE 12.5 MG TABLET. PO PRN (10:21)
--- NOTE | 2020-07-24 11:51 | NUR ---
Nursing note: Pt in her room for morning med pass and assessment. She was pleasant, med compliant, and cooperative. Pt said her "back hurts a little bit, but I've learned to live with it". Pt later complained about dizziness and requested meclizine. PRN administered with good effect. Pt has participated in group this morning and is currently in her room preparing for lunch. Will continue to monitor.
[2020-07-24 16:05] VITALS: BP 147/83
[2020-07-24] MEDS: MIRTAZAPINE 7.5 MG TABLET. PO SCH (21:01)
[2020-07-24] MEDS: DULoxetine HCL 30 MG CAPSULE.DR PO SCH (21:01)
[2020-07-24] MEDS: CARBIDOPA/LEVODOPA CR 50/200MG TABLET.SA PO SCH (21:01)
[2020-07-24] MEDS: DONEPEZIL HCL 10 MG TABLET PO SCH (21:02)
--- NOTE | 2020-07-24 21:59 | PDOC ---
Exam Note: Marcial Note: Please also refer to the separate dictated note~for this date of service dictated separately.~Patient seen individually. Discussed the patient with Nursing staff reviewed the chart.~Reviewed interim history and current functioning. Reviewed vital signs,~Labs/ Radiology~and current medications noted below. Continue current treatment with the changes noted in the dictated addendum note Assessment: Vital Signs/I&O: Vital Signs Date Time Temp Pulse Resp B/P (MAP) Pulse Ox O2 Delivery O2 Flow Rate FiO2 07/24/20 16:05 97.7 84 18 147/83 (104) 97 Room Air I & O 07/23/20 07/23/20 07/24/20 15:00 23:00 07:00 Intake Total 720 ml 220 ml Balance 720 ml 220 ml Current Medications: Meds: Current Medications Medications (Trade) Dose Ordered Sig/Gracie Route PRN Reason Start Time Stop Time Status Last Admin Dose Admin Polyethylene Glycol (miraLAX) 17 gm DAILY PO 07/24/20 09:00 07/24/20 08:31 I have reviewed the current psychotropics carefully including drug interactions. Risk benefit ratio favors no change other than as noted in my dictated progress note. Diagnosis: Problems: (1) Parkinson's disease (2) Mild cognitive impairment (3) Major depressive disorder, severe (4) Anxiety disorder, unspecified MARICEL BROWN MD Jul 24, 2020 21:59
[2020-07-25 05:32] VITALS: BP 132/75
[2020-07-25] MEDS: CARBIDOPA/LEVODOPA 25/100MG TABLET PO SCH ×6 (05:57→20:42)
[2020-07-25] MEDS: PRAMIPEXOLE 0.25 MG TABLET. PO SCH ×3 (08:13→20:42)
[2020-07-25] MEDS: PANTOPRAZOLE 40 MG TABLET. PO SCH (08:13)
[2020-07-25] MEDS: OXYBUTYNIN CHLORIDE 5 MG TABLET PO SCH ×3 (08:13→22:06)
[2020-07-25] MEDS: PREGABALIN 50 MG CAPSULE PO SCH ×3 (08:13→20:41)
[2020-07-25] MEDS: POLYETHYLENE GLYCOL 3350 17 GM PACKET. PO SCH (08:13)
[2020-07-25] MEDS: QUEtiapine 25 MG TABLET. PO SCH ×3 (08:13→20:42)
[2020-07-25] MEDS: RASAGILINE MESYLATE 1 MG PO SCH (08:14)
[2020-07-25] MEDS: MECLIZINE 12.5 MG TABLET. PO PRN (09:43)
--- NOTE | 2020-07-25 10:40 | NUR ---
Nursing note: Pt in her room eating breakfast when approached for morning med pass and assessment. She was med compliant and cooperative. Pt stated her back feels better than it has previously, but does still hurt. Pt later c/o dizziness. PRN provided per request. Will continue to monitor.
--- NOTE | 2020-07-25 15:24 | NUR ---
SW faxed over updates for pt placement to review. SW will update them on pt discharge date and finalize plans as time comes closer.
[2020-07-25 16:22] VITALS: BP 152/80
[2020-07-25] MEDS ORDERED: LORazepam 0.5 MG TABLET PO PRN (16:45)
[2020-07-25] MEDS: DULoxetine HCL 30 MG CAPSULE.DR PO SCH (20:40)
[2020-07-25] MEDS: CARBIDOPA/LEVODOPA CR 50/200MG TABLET.SA PO SCH (20:44)
[2020-07-25] MEDS: MIRTAZAPINE 7.5 MG TABLET. PO SCH (20:44)
[2020-07-25] MEDS: DONEPEZIL HCL 10 MG TABLET PO SCH (22:06)
[2020-07-25] MEDS: MELATONIN 3 MG TABLET PO SCH (22:06)
--- NOTE | 2020-07-25 22:11 | PDOC ---
Exam Note: Marcial Note: Please also refer to the separate dictated note~for this date of service dictated separately.~Patient seen individually. Discussed the patient with Nursing staff reviewed the chart.~Reviewed interim history and current functioning. Reviewed vital signs,~Labs/ Radiology~and current medications noted below. Continue current treatment with the changes noted in the dictated addendum note Assessment: Vital Signs/I&O: Vital Signs Date Time Temp Pulse Resp B/P (MAP) Pulse Ox O2 Delivery O2 Flow Rate FiO2 07/25/20 16:22 97.5 97 19 152/80 (104) 96 07/24/20 16:05 Room Air I & O 07/24/20 07/24/20 07/25/20 15:00 23:00 07:00 Intake Total 600 ml 580 ml Balance 600 ml 580 ml Current Medications: Meds: Current Medications Medications (Trade) Dose Ordered Sig/Gracie Route PRN Reason Start Time Stop Time Status Last Admin Dose Admin Melatonin (Melatonin) 3 mg QHS PO 07/25/20 21:00 07/25/20 22:06 I have reviewed the current psychotropics carefully including drug interactions. Risk benefit ratio favors no change other than as noted in my dictated progress note. Diagnosis: Problems: (1) Parkinson's disease (2) Mild cognitive impairment (3) Major depressive disorder, severe (4) Anxiety disorder, unspecified MARICEL BROWN MD Jul 25, 2020 22:11
--- NOTE | 2020-07-25 23:18 | NUR ---
Nurse Note.Patient in bed asleep on R side at HS med pass. Easily awakened. Agreeable to taking meds. Ingested all. Pleasant , talkative with staff. Stated that she talked very little to today as he was "grumpy". Reported pain level 2 in R leg..declined any intervention.
[2020-07-26 05:45] VITALS: BP 131/68
--- NOTE | 2020-07-26 06:21 | PDOC ---
Exam Note: Marcial Note: This note is a late entry for 07/24/2020 covers elements not covered in my initial note. Subjective: The patient was seen face to face in the evening of 07/24/2020 with Cathryn GONZALES. Discussed with nursing staff, reviewed the chart. The patient slept 6-1/2 hours previous night. She has been anxious, restless, somewhat easily frustrated due to Parkinsons. Review of Systems: Positive for tremors. Ambulation impaired in wheelchair. N o CV, , pulmonary, eye system symptoms on review. Mental Status Exam: The patient is reasonably oriented. Speech is coherent. Abstraction is fair. Computation is impaired. Language function is intact. Attention span is short. She is quite pleasant, but speech has moderate latency. No suicidal or homicidal ideation. Laboratory Data: Reviewed. Impression: Major depressive disorder recurrent, rule out psychotic features. Anxiety disorder unspecified. Impulse control disorder. Plan: No change from initial note. We may need to taper her Ativan. Make further adjustments as clinically indicated. Assessment: Vital Signs/I&O: Vital Signs Date Time Temp Pulse Resp B/P (MAP) Pulse Ox O2 Delivery O2 Flow Rate FiO2 07/26/20 05:45 97.2 62 18 131/68 (89) 99 Room Air I & O 07/25/20 07/25/20 07/26/20 15:00 23:00 07:00 Intake Total 600 ml 340 ml Balance 600 ml 340 ml Current Medications: Meds: Current Medications Medications (Trade) Dose Ordered Sig/Gracie Route PRN Reason Start Time Stop Time Status Last Admin Dose Admin Melatonin (Melatonin) 3 mg QHS PO 07/25/20 21:00 07/25/20 22:06 I have reviewed the current psychotropics carefully including drug interactions. Risk benefit ratio favors no change other than as noted in my dictated progress note. Diagnosis: Problems: (1) Parkinson's disease (2) Mild cognitive impairment (3) Major depressive disorder, severe (4) Anxiety disorder, unspecified MARICEL BROWN MD Jul 26, 2020 06:21
[2020-07-26] MEDS: CARBIDOPA/LEVODOPA 25/100MG TABLET PO SCH ×6 (06:47→20:35)
--- NOTE | 2020-07-26 06:50 | PDOC ---
Exam Note: Marcial Note: This note is a late entry for 07/25/2020 covers elements not covered in my initial note. Subjective: The patient was seen face to face in the evening of 07/25/2020 with Cathryn GONZALES. Discussed with nursing staff, reviewed the chart. The patient slept 3-1/4 hours previous night. Review of Systems: Positive for tremors. Ambulation impaired in wheelchair. No CV, , pulmonary, eye system symptoms on review. Mental Status Exam: The patient is reasonably oriented. Speech is coherent, has moderate latency. Abstraction is fair. Computation is impaired. Language function is intact. Mood and affect anxious, labile but better than before. No suicidal or homicidal ideation. At times the patient tended to get frustrated as I met with her because of difficulty transferring from her wheelchair. Laboratory Data: Reviewed. Impression: Major depressive disorder recurrent, rule out psychotic features. Anxiety disorder unspecified. Impulse control disorder. Plan: No change from initial note. We will go ahead and change the patients Ativan 1 mg q.3h. p.r.n. anxiety down to 0.5 mg q.6h. p.r.n. Add melatonin 3 mg h.s. for insomnia. Maintain Remeron 7.5 mg h.s., Aricept 10 mg a day, Seroquel 25 mg t.i.d., trazodone h.s. p.r.n., Zyprexa p.r.n. Adjust further as clinically indicated. Assessment: Vital Signs/I&O: Vital Signs Date Time Temp Pulse Resp B/P (MAP) Pulse Ox O2 Delivery O2 Flow Rate FiO2 07/26/20 05:45 97.2 62 18 131/68 (89) 99 Room Air I & O 07/25/20 07/25/20 07/26/20 15:00 23:00 07:00 Intake Total 600 ml 340 ml Balance 600 ml 340 ml Current Medications: Meds: Current Medications Medications (Trade) Dose Ordered Sig/Gracie Route PRN Reason Start Time Stop Time Status Last Admin Dose Admin Melatonin (Melatonin) 3 mg QHS PO 07/25/20 21:00 07/25/20 22:06 I have reviewed the current psychotropics carefully including drug interactions. Risk benefit ratio favors no change other than as noted in my dictated progress note. Diagnosis: Problems: (1) Parkinson's disease (2) Mild cognitive impairment (3) Major depressive disorder, severe (4) Anxiety disorder, unspecified MARICEL BROWN MD Jul 26, 2020 06:50
[2020-07-26] MEDS: PANTOPRAZOLE 40 MG TABLET. PO SCH (08:15)
[2020-07-26] MEDS: PREGABALIN 50 MG CAPSULE PO SCH ×3 (08:15→20:36)
[2020-07-26] MEDS: OXYBUTYNIN CHLORIDE 5 MG TABLET PO SCH ×3 (08:15→20:36)
[2020-07-26] MEDS: POLYETHYLENE GLYCOL 3350 17 GM PACKET. PO SCH (08:15)
[2020-07-26] MEDS: PRAMIPEXOLE 0.25 MG TABLET. PO SCH ×3 (08:16→20:35)
[2020-07-26] MEDS: QUEtiapine 25 MG TABLET. PO SCH ×3 (08:16→20:37)
--- NOTE | 2020-07-26 13:13 | NUR ---
Patient has been cooperative and compliant with medications. She believes she is more physically independent than she is and she has been attempting to transfer herself without assistance. Patient has a bed alarm and a chair alarm for safety, her room is near the nurses station. Patient requires standby assist or one person assist depending what she is doing. there have been several instances when she has gotten up to transfer by herself this day and the bed alarm has gone off alerting staff. Patient is cooperative and grateful when staff come to assist her Patient has exchanged phone calls with her several times and is in good spirits today. She has not expressed any desire to and denies it when asked by this nurse. Patient is not having hallucinations at this time. Patient has less tremors and appears to be steadier when seated than when she arrived on this unit. Dr Barnhart, neurology, has been adjusting her Parkinsons medications and following her plan of treatment.
[2020-07-26 15:55] VITALS: BP 164/76
[2020-07-26] MEDS: MIRTAZAPINE 7.5 MG TABLET. PO SCH (20:35)
[2020-07-26] MEDS: DULoxetine HCL 30 MG CAPSULE.DR PO SCH (20:36)
[2020-07-26] MEDS: DONEPEZIL HCL 10 MG TABLET PO SCH (20:36)
[2020-07-26] MEDS: MELATONIN 3 MG TABLET PO SCH (20:36)
[2020-07-26] MEDS: CARBIDOPA/LEVODOPA CR 50/200MG TABLET.SA PO SCH (20:36)
--- NOTE | 2020-07-26 21:57 | PDOC ---
Exam Note: Marcial Note: Please also refer to the separate dictated note~for this date of service dictated separately.~Patient seen individually. Discussed the patient with Nursing staff reviewed the chart.~Reviewed interim history and current functioning. Reviewed vital signs,~Labs/ Radiology~and current medications noted below. Continue current treatment with the changes noted in the dictated addendum note Assessment: Vital Signs/I&O: Vital Signs Date Time Temp Pulse Resp B/P (MAP) Pulse Ox O2 Delivery O2 Flow Rate FiO2 07/26/20 15:55 97.7 85 16 164/76 (105) 97 07/26/20 05:45 Room Air I & O 07/25/20 07/25/20 07/26/20 14:59 22:59 06:59 Intake Total 600 ml 340 ml Balance 600 ml 340 ml Current Medications: I have reviewed the current psychotropics carefully including drug interactions. Risk benefit ratio favors no change other than as noted in my dictated progress note. Diagnosis: Problems: (1) Parkinson's disease (2) Mild cognitive impairment (3) Major depressive disorder, severe (4) Anxiety disorder, unspecified MARICEL BROWN MD Jul 26, 2020 21:57
--- NOTE | 2020-07-27 01:45 | NUR ---
Last evening pt was found in room trying to put self in bed she was assisted and dangers of falling discussed with her and stressed to her the importance of calling staff to help her. At this time pt again trying to get up without help demonstrating impulsive behavior. When asked about the impulsivity she said "That is just who I am" and that she did not care if she gets hurt. She was assisted back to bed and alarm set.
[2020-07-27] MEDS: CARBIDOPA/LEVODOPA 25/100MG TABLET PO SCH ×6 (05:39→20:48)
[2020-07-27 06:25] VITALS: BP 162/75
[2020-07-27] MEDS: POLYETHYLENE GLYCOL 3350 17 GM PACKET. PO SCH (08:49)
[2020-07-27] MEDS: PANTOPRAZOLE 40 MG TABLET. PO SCH (08:50)
[2020-07-27] MEDS: PRAMIPEXOLE 0.25 MG TABLET. PO SCH ×3 (08:50→20:48)
[2020-07-27] MEDS: PREGABALIN 50 MG CAPSULE PO SCH ×3 (08:51→20:48)
[2020-07-27] MEDS: OXYBUTYNIN CHLORIDE 5 MG TABLET PO SCH ×3 (08:51→20:48)
[2020-07-27] MEDS: QUEtiapine 25 MG TABLET. PO SCH ×3 (08:51→20:48)
[2020-07-27] MEDS: ACETAMINOPHEN 325 MG TABLET PO PRN ×2 (12:42→20:44)
[2020-07-27 15:57] VITALS: BP 99/63
[2020-07-27] MEDS: DONEPEZIL HCL 10 MG TABLET PO SCH (20:44)
[2020-07-27] MEDS: DULoxetine HCL 30 MG CAPSULE.DR PO SCH (20:44)
[2020-07-27] MEDS: MELATONIN 3 MG TABLET PO SCH (20:44)
[2020-07-27] MEDS: CARBIDOPA/LEVODOPA CR 50/200MG TABLET.SA PO SCH (20:48)
[2020-07-27] MEDS: MIRTAZAPINE 7.5 MG TABLET. PO SCH (20:48)
--- NOTE | 2020-07-27 22:02 | PDOC ---
Exam Note: Marcial Note: Please also refer to the separate dictated note~for this date of service dictated separately.~Patient seen individually. Discussed the patient with Nursing staff reviewed the chart.~Reviewed interim history and current functioning. Reviewed vital signs,~Labs/ Radiology~and current medications noted below. Continue current treatment with the changes noted in the dictated addendum note Assessment: Vital Signs/I&O: Vital Signs Date Time Temp Pulse Resp B/P (MAP) Pulse Ox O2 Delivery O2 Flow Rate FiO2 07/27/20 15:57 97.8 82 16 99/63 (75) 95 Room Air I & O 07/26/20 07/26/20 07/27/20 15:00 23:00 07:00 Intake Total 465 ml 705 ml Balance 465 ml 705 ml Current Medications: I have reviewed the current psychotropics carefully including drug interactions. Risk benefit ratio favors no change other than as noted in my dictated progress note. Diagnosis: Problems: (1) Parkinson's disease (2) Mild cognitive impairment (3) Major depressive disorder, severe (4) Anxiety disorder, unspecified MARICEL BROWN MD Jul 27, 2020 22:02
[2020-07-28] MEDS: CARBIDOPA/LEVODOPA 25/100MG TABLET PO SCH ×6 (05:55→20:18)
[2020-07-28 06:28] VITALS: BP 181/77
[2020-07-28] MEDS: OXYBUTYNIN CHLORIDE 5 MG TABLET PO SCH ×3 (08:51→20:18)
[2020-07-28] MEDS: QUEtiapine 25 MG TABLET. PO SCH ×3 (08:52→20:19)
[2020-07-28] MEDS: PRAMIPEXOLE 0.25 MG TABLET. PO SCH ×3 (08:52→20:19)
[2020-07-28] MEDS: PANTOPRAZOLE 40 MG TABLET. PO SCH (08:52)
[2020-07-28] MEDS: PREGABALIN 50 MG CAPSULE PO SCH ×3 (08:52→20:20)
[2020-07-28] MEDS: POLYETHYLENE GLYCOL 3350 17 GM PACKET. PO SCH (08:52)
[2020-07-28] MEDS: ACETAMINOPHEN 325 MG TABLET PO PRN (10:13)
[2020-07-28] MEDS: MAG HYDROX/AL HYDROX/SIMETH 30 ML ORAL.SUSP PO PRN ×2 (10:14→10:16)
[2020-07-28] MEDS: MECLIZINE 12.5 MG TABLET. PO PRN (10:17)
[2020-07-28 15:51] VITALS: BP 117/70
[2020-07-28] MEDS: CARBIDOPA/LEVODOPA CR 50/200MG TABLET.SA PO SCH (20:18)
[2020-07-28] MEDS: MIRTAZAPINE 7.5 MG TABLET. PO SCH (20:18)
[2020-07-28] MEDS: DONEPEZIL HCL 10 MG TABLET PO SCH (20:18)
[2020-07-28] MEDS: MELATONIN 3 MG TABLET PO SCH (20:19)
[2020-07-28] MEDS: DULoxetine HCL 30 MG CAPSULE.DR PO SCH (20:19)
--- NOTE | 2020-07-28 21:52 | PDOC ---
Exam Note: Marcial Note: Please also refer to the separate dictated note~for this date of service dictated separately.~Patient seen individually. Discussed the patient with Nursing staff reviewed the chart.~Reviewed interim history and current functioning. Reviewed vital signs,~Labs/ Radiology~and current medications noted below. Continue current treatment with the changes noted in the dictated addendum note Assessment: Vital Signs/I&O: Vital Signs Date Time Temp Pulse Resp B/P (MAP) Pulse Ox O2 Delivery O2 Flow Rate FiO2 07/28/20 15:51 98.4 82 18 117/70 (86) 96 Room Air I & O 07/27/20 07/27/20 07/28/20 15:00 23:00 07:00 Intake Total 650 ml 445 ml Balance 650 ml 445 ml Current Medications: I have reviewed the current psychotropics carefully including drug interactions. Risk benefit ratio favors no change other than as noted in my dictated progress note. Diagnosis: Problems: (1) Parkinson's disease (2) Mild cognitive impairment (3) Major depressive disorder, severe (4) Anxiety disorder, unspecified MARICEL BROWN MD Jul 28, 2020 21:52
--- NOTE | 2020-07-28 23:52 | NUR ---
Pt located in her room all evening. Pt impulsive at times, setting off her bed alarm numerous times this evening attempting to transfer herself to the wheelchair. Pt irritable with redirection, reminding pt that she needs to wait for assistance. Compliant with whole medications.
[2020-07-29 05:57] VITALS: BP 129/73
[2020-07-29] MEDS: CARBIDOPA/LEVODOPA 25/100MG TABLET PO SCH ×6 (06:03→20:41)
--- NOTE | 2020-07-29 07:16 | PDOC ---
Exam Note: Marcial Note: This note is a late entry for 07/26/2020 covers elements not covered in my initial note. Subjective: The patient was seen face to face in the evening of 07/26/2020 with Kayla GONZALES. Discussed with nursing staff, reviewed the chart. The patient slept 6-3/4 hours previous night. Overall the patient remains withdrawn, spends much time in her room but parkinsonian movements, tremors are better. Review of Systems: Ambulation impaired in wheelchair. No CV, , pulmonary, eye system symptoms on review. Mental Status Exam: The patient is reasonably oriented. She is pleasant, verbal, interactive. Speech is coherent, has moderate latency. Abstraction is fair. Computation is impaired. Language function is intact. Mood and affect withdrawn, less anxious. Parkinsonian movements and tremors are better. No suicidal or homicidal ideation. Laboratory Data: Reviewed. Impression: Major depressive disorder recurrent, rule out psychotic features. Anxiety disorder unspecified. Impulse control disorder. Plan: No change from initial note. Assessment: Vital Signs/I&O: Vital Signs Date Time Temp Pulse Resp B/P (MAP) Pulse Ox O2 Delivery O2 Flow Rate FiO2 07/29/20 05:57 97.4 92 18 129/73 (91) 94 07/28/20 15:51 Room Air I & O 07/28/20 07/28/20 07/29/20 15:00 23:00 07:00 Intake Total 480 ml 360 ml Balance 480 ml 360 ml Current Medications: I have reviewed the current psychotropics carefully including drug interactions. Risk benefit ratio favors no change other than as noted in my dictated progress note. Diagnosis: Problems: (1) Parkinson's disease (2) Mild cognitive impairment (3) Major depressive disorder, severe (4) Anxiety disorder, unspecified MARICEL BROWN MD Jul 29, 2020 07:16
--- NOTE | 2020-07-29 07:41 | PDOC ---
Exam Note: Marcial Note: This note is a late entry for 07/27/2020 covers elements not covered in my initial note. Subjective: The patient was seen face to face in the evening of 07/27/2020 with Shawn GONZALES. Discussed with nursing staff, reviewed the chart. The patient slept 5-3/4 hours previous night. No behaviors noted. She does not ask for help transfers and is a fall risk. I addressed this with her at some length in her room in the evening. Review of Systems: Ambulation impaired in wheelchair. No CV, , pulmonary, eye system symptoms on review. Mental Status Exam: The patient is reasonably oriented. She is pleasant, verbal. Speech is coherent, has moderate latency. Abstraction is fair. Computation is impaired. Language function is intact. Mood and affect less anxious. No suicidal or homicidal ideation. Laboratory Data: Reviewed. Impression: Major depressive disorder recurrent, rule out psychotic features. Anxiety disorder unspecified. Impulse control disorder. Plan: No change from initial note. Assessment: Vital Signs/I&O: Vital Signs Date Time Temp Pulse Resp B/P (MAP) Pulse Ox O2 Delivery O2 Flow Rate FiO2 07/29/20 05:57 97.4 92 18 129/73 (91) 94 07/28/20 15:51 Room Air I & O 07/28/20 07/28/20 07/29/20 15:00 23:00 07:00 Intake Total 480 ml 360 ml Balance 480 ml 360 ml Current Medications: I have reviewed the current psychotropics carefully including drug interactions. Risk benefit ratio favors no change other than as noted in my dictated progress note. Diagnosis: Problems: (1) Parkinson's disease (2) Mild cognitive impairment (3) Major depressive disorder, severe (4) Anxiety disorder, unspecified MARICEL BROWN MD Jul 29, 2020 07:41
--- NOTE | 2020-07-29 08:01 | PDOC ---
Exam Note: Marcial Note: This note is a late entry for 07/28/2020 covers elements not covered in my initial note. Subjective: The patient was seen face to face in the evening of 07/28/2020 with Israel GONZALES. Discussed with nursing staff, reviewed the chart. The patient slept 5-1/2 hours previous night. She has been calmer. Review of Systems: Ambulation impaired in wheelchair. No CV, , pulmonary, eye system symptoms on review. Mental Status Exam: The patient is reasonably oriented. She is pleasant, verbal, interactive. Speech is coherent, has moderate latency. Abstraction is fair. Computation is impaired. Language function is intact. Mood and affect withdrawn, less anxious. Parkinsonian movements and tremors are better. No suicidal or homicidal ideation. Laboratory Data: Reviewed. Impression: Major depressive disorder recurrent, rule out psychotic features. Anxiety disorder unspecified. Impulse control disorder. Plan: No change from initial note. Assessment: Vital Signs/I&O: Vital Signs Date Time Temp Pulse Resp B/P (MAP) Pulse Ox O2 Delivery O2 Flow Rate FiO2 07/29/20 05:57 97.4 92 18 129/73 (91) 94 07/28/20 15:51 Room Air I & O 07/28/20 07/28/20 07/29/20 15:00 23:00 07:00 Intake Total 480 ml 360 ml Balance 480 ml 360 ml Current Medications: I have reviewed the current psychotropics carefully including drug interactions. Risk benefit ratio favors no change other than as noted in my dictated progress note. Diagnosis: Problems: (1) Parkinson's disease (2) Mild cognitive impairment (3) Major depressive disorder, severe (4) Anxiety disorder, unspecified MARICEL BROWN MD Jul 29, 2020 08:01
[2020-07-29] MEDS: POLYETHYLENE GLYCOL 3350 17 GM PACKET. PO SCH (08:15)
[2020-07-29] MEDS: PREGABALIN 50 MG CAPSULE PO SCH ×3 (08:17→20:40)
[2020-07-29] MEDS: QUEtiapine 25 MG TABLET. PO SCH ×3 (08:17→20:41)
[2020-07-29] MEDS: OXYBUTYNIN CHLORIDE 5 MG TABLET PO SCH ×3 (08:17→20:40)
[2020-07-29] MEDS: PRAMIPEXOLE 0.25 MG TABLET. PO SCH ×3 (08:17→20:40)
[2020-07-29] MEDS: PANTOPRAZOLE 40 MG TABLET. PO SCH (08:17)
--- NOTE | 2020-07-29 11:53 | NUR ---
Nursing note: Pt in her room for morning med pass and assessment. She was pleasant, med compliant, and cooperative. She c/o pain in her R leg 12/05. Pt has remained in her room for most of the morning, occasionally wheeling herself around the unit. Will continue to monitor.
[2020-07-29 16:02] VITALS: BP 143/71
[2020-07-29] MEDS: CARBIDOPA/LEVODOPA CR 50/200MG TABLET.SA PO SCH (20:40)
[2020-07-29] MEDS: MELATONIN 3 MG TABLET PO SCH (20:40)
[2020-07-29] MEDS: MIRTAZAPINE 7.5 MG TABLET. PO SCH (20:41)
[2020-07-29] MEDS: DULoxetine HCL 30 MG CAPSULE.DR PO SCH (20:41)
[2020-07-29] MEDS: DONEPEZIL HCL 10 MG TABLET PO SCH (20:41)
--- NOTE | 2020-07-29 20:54 | PDOC ---
Exam Note: Marcial Note: Please also refer to the separate dictated note~for this date of service dictated separately.~Patient seen individually. Discussed the patient with Nursing staff reviewed the chart.~Reviewed interim history and current functioning. Reviewed vital signs,~Labs/ Radiology~and current medications noted below. Continue current treatment with the changes noted in the dictated addendum note Assessment: Vital Signs/I&O: Vital Signs Date Time Temp Pulse Resp B/P (MAP) Pulse Ox O2 Delivery O2 Flow Rate FiO2 07/29/20 16:02 97.9 86 18 143/71 (95) 93 Room Air I & O 07/28/20 07/28/20 07/29/20 15:00 23:00 07:00 Intake Total 480 ml 360 ml Balance 480 ml 360 ml Current Medications: I have reviewed the current psychotropics carefully including drug interactions. Risk benefit ratio favors no change other than as noted in my dictated progress note. Diagnosis: Problems: (1) Parkinson's disease (2) Mild cognitive impairment (3) Major depressive disorder, severe (4) Anxiety disorder, unspecified MARICEL BROWN MD Jul 29, 2020 20:54
--- NOTE | 2020-07-29 22:45 | NUR ---
Pt located in her room this evening. Pt compliant with whole medications. Continues to be irritable at times and impulsive when attempting to transfer self.
[2020-07-30] MEDS: CARBIDOPA/LEVODOPA 25/100MG TABLET PO SCH ×6 (05:31→20:49)
[2020-07-30 06:06] VITALS: BP 145/84
[2020-07-30 07:37] LABS: BASO # 0.1 x10^3/uL (0.0-0.2); BASO % 2 % (0-3); EOS # 0.1 x10^3/uL (0.0-0.7); EOS % 3 % (0-3); HEMOGLOBIN 12.7 g/dL (12.0-15.5); LYMPH # 0.9 x10^3/uL (1.0-4.8); LYMPH % 21 % (24-48); MEAN CORPUSCULAR HEMOGLOBIN 32 pg (25-35); MEAN CORPUSCULAR HGB CONC 33 g/dL (31-37); MEAN CORPUSCULAR VOLUME 97 fL (79-100); MONO # 0.5 x10^3/uL (0.0-1.1); MONO % 12 % (0-9); NEUT # 2.6 x10^3uL (1.8-7.7); NEUT % 62 % (31-73); PLATELET COUNT 205 x10^3/uL (140-400); RED BLOOD COUNT 3.93 x10^6/uL (3.50-5.40); RED CELL DISTRIBUTION WIDTH 13.1 % (11.5-14.5); WHITE BLOOD COUNT 4.2 x10^3/uL (4.0-11.0)
[2020-07-30 07:49] LABS: ALBUMIN 3.2 g/dL (3.4-5.0); CREATININE 0.5 mg/dL (0.6-1.0); POTASSIUM 3.8 mmol/L (3.5-5.1); TOTAL BILIRUBIN 0.5 mg/dL (0.2-1.0); TOTAL PROTEIN 6.5 g/dL (6.4-8.2)
[2020-07-30 07:59] LABS: CALCIUM 8.8 mg/dL (8.5-10.1)
[2020-07-30] MEDS: QUEtiapine 25 MG TABLET. PO SCH ×3 (08:11→20:49)
[2020-07-30] MEDS: PANTOPRAZOLE 40 MG TABLET. PO SCH (08:11)
[2020-07-30] MEDS: PRAMIPEXOLE 0.25 MG TABLET. PO SCH ×3 (08:11→20:48)
[2020-07-30] MEDS: OXYBUTYNIN CHLORIDE 5 MG TABLET PO SCH ×3 (08:11→20:49)
[2020-07-30] MEDS: POLYETHYLENE GLYCOL 3350 17 GM PACKET. PO SCH (08:12)
[2020-07-30] MEDS: PREGABALIN 50 MG CAPSULE PO SCH ×3 (08:12→20:49)
[2020-07-30] MEDS: MECLIZINE 12.5 MG TABLET. PO PRN (10:04)
--- NOTE | 2020-07-30 12:37 | NUR ---
Patient removed her arm band this morning, it is not re-usable. New armband printed.
--- NOTE | 2020-07-30 13:31 | TX PLAN ---
Interdisciplinary Tx Plan Admission Information Jul 15, 2020 at 21:28 Legal Status (on Admission): Voluntary DPOA/Guardian Name: Iam Cruz Contact Verified Code Status: DNR Allergies: Coded Allergies: gabapentin (Verified Allergy, Unknown, 07/13/20) oxycodone (Verified Allergy, Unknown, 07/13/20) Diagnoses Primary Diagnosis: Adjustment D/O with [facility] Reasons for Admission: Anxiety/Panic, Hallucinations, Suicidal ideation, Other Problem in Patient's Words: According to pt , some of this is pt personality. Additional Admission Comments: According to the intake, pt was expressing the want to , pulled out plugs from the guzman and putting them in her mouth. Pt was also hallucinating and purposely falling out of her chair. Problems Active Problems: attempts to fall out of chair, attention-seeking, irritable Inactive Problems: medication compliance Pt Strengths/Limitations Ability for Bailey: Poor Cognitive Functioning/Ability: Fair Communication Skills/Ability: Fair Financial Resources: Fair Insight/Judgement: Poor Intellectual Ability: Fair Physical Health: Poor Social Skills: Fair Stability in Family: Good Stability in School/Work: Poor Verbal Skills: Fair Discharge Criteria Discharge Criteria: No need for close observ., Adequate arrangements @DC, I mproved behavior, Improved mood/thought Preliminary Discharge Plan Preliminary DC Plan: Current Living Arrange. Initial D/C Plan Pt to return to [facility] Identified Discharge Needs: Psychiatry services Currently Utilized Resources Currently Utilized Resources/P: Primary Care physician Identified Problems/Hx/Goals Objectives/Short-Term Goals Short Term Goals: Dec. Anxiety/Panic, Dec. Hallucination/Delus, Dec. Outbursts, Medication Stabilization, Promote Coping Skill Short Term Goals in Patient's: N/A Interventions/Frequency Staff Interventions/Frequency&: Psychiatrist to assess pt at least 3x per week for medication mgmt Social Work to assess pt at least 2x per week for discharge planning needs and assess potential barriers Nursing to assess medication affects, behavioral management and complete 15 minute checks daily. Encourage participation in group activites (if applicable) or 1:1 engagement based off activity dept assessment. Community Follow-up Primary care physician Treatment Plan Explained Patient/Human Performance Technologist had this treatment plan explained to him/her as indicated by the signature below and has been given the opportunity to ask questions and make suggestions: Date: Patient/Human Performance Technologist Signature: Patient/Human Performance Technologist Decline: No ( calls multiple times a day.) Status Update Update Pt is eating roughly 75% of meals and sleeping on average 5 1/2 hours. Pt roz nues to be impulsive and gets irritated with redirection as staff continues to prevent pt from getting up on her own with assistance. Pt is complaint with cares and medication management. According to activities pt has attended all 10 groups this week, as well as, all 5 social work groups and actively participates. Pt will plan to return to [facility] in [place], [place] on Thursday ; in which SW will reach out to pt and the facility on getting plans finalized. MARI CROWDER Jul 30, 2020 13:30
--- NOTE | 2020-07-30 13:32 | NUR ---
SHARIF contacted [facility] pt placement and spoke with Alix about the information SW sent over last week and to go over discharge for next week. Alix then transferred SW over to speak with [facility]. At this time transport for them is actually better for instead of Thursday. Moraima will call SW back with transport time; which in turn she questioned if we have replaced our nurse practitioner yet, as they were using her for psychiatric services. SHARIF will follow up on this and get back to her with that answer.
--- NOTE | 2020-07-30 13:47 | NUR ---
SHARIF contacted pt , Iam, to give him an update on pt and to also discuss having pt leave on as it is a better transport day for the facility. Pt reports that pt will be happy to hear that. SW mentioned pt having a chair alarm as it has helped decrease fall potentials and understands that the facility may not put one on her as it is a form of restraint for them and is not allowed. Pt will plan to ask the facility anyway to see, as pt has frequent falls. SHARIF will contact Iam and let him know once the transport time once set up.
[2020-07-30 16:01] VITALS: BP 117/67
--- NOTE | 2020-07-30 16:02 | NUR ---
WEEKLY ACTIVITY THERAPY NOTE Date of Admission:07/15 Date of AT Assessment: 07/18 Precipitating behaviors that initiated intake and admission: Goal aimed: increase stress management/ relaxation and socialization skills Initial Goal: Pt will participate in at least three Activity Therapy group sessions per week. Weekly progress towards goal: exceeded, 06/30 Group participation level: 8 full, 2 mod Weekly highlights: participated in all groups offered this week Behaviors observed: sleepy in some groups, little late at times but pleasant and social, slightly frustrated with self when painting on Thursday Plan: change goal to: Pt. will participate in all Activity Therapy groups offered Beneficial adaptations:
--- NOTE | 2020-07-30 18:04 | NUR ---
patient has been calm, compliant, and cooperative with meds this shift. She has attended group and was social with staff and peers. She continues to transfer herself alone, patient education reinforced and patient instructed to request assistance when transferring. Will continue to monitor and report to oncoming shift.
[2020-07-30] MEDS: DONEPEZIL HCL 10 MG TABLET PO SCH (20:49)
[2020-07-30] MEDS: CARBIDOPA/LEVODOPA CR 50/200MG TABLET.SA PO SCH (20:49)
[2020-07-30] MEDS: MELATONIN 3 MG TABLET PO SCH (20:49)
[2020-07-30] MEDS: DULoxetine HCL 30 MG CAPSULE.DR PO SCH (20:49)
[2020-07-30] MEDS: MIRTAZAPINE 7.5 MG TABLET. PO SCH (20:49)
--- NOTE | 2020-07-30 21:14 | PDOC ---
Exam Note: Marcial Note: Please also refer to the separate dictated note~for this date of service dictated separately.~Patient seen individually. Discussed the patient with Nursing staff reviewed the chart.~Reviewed interim history and current functioning. Reviewed vital signs,~Labs/ Radiology~and current medications noted below. Continue current treatment with the changes noted in the dictated addendum note Assessment: Vital Signs/I&O: Vital Signs Date Time Temp Pulse Resp B/P (MAP) Pulse Ox O2 Delivery O2 Flow Rate FiO2 07/30/20 16:01 98.6 75 19 117/67 (84) 97 07/29/20 16:02 Room Air I & O 07/29/20 07/29/20 07/30/20 15:00 23:00 07:00 Intake Total 600 ml 460 ml Balance 600 ml 460 ml Labs: Laboratory Tests Test 07/30/20 06:46 White Blood Count 4.2 x10^3/uL (4.0-11.0) Red Blood Count 3.93 x10^6/uL (3.50-5.40) Hemoglobin 12.7 g/dL (12.0-15.5) Hematocrit 38.0 % (36.0-47.0) Mean Corpuscular Volume 97 fL (79-100) Mean Corpuscular Hemoglobin 32 pg (25-35) Mean Corpuscular Hemoglobin Concent 33 g/dL (31-37) Red Cell Distribution Width 13.1 % (11.5-14.5) Platelet Count 205 x10^3/uL (140-400) Neutrophils (%) (Auto) 62 % (31-73) Lymphocytes (%) (Auto) 21 % (24-48) L Monocytes (%) (Auto) 12 % (0-9) H Eosinophils (%) (Auto) 3 % (0-3) Basophils (%) (Auto) 2 % (0-3) Neutrophils # (Auto) 2.6 x10^3uL (1.8-7.7) Lymphocytes # (Auto) 0.9 x10^3/uL (1.0-4.8) L Monocytes # (Auto) 0.5 x10^3/uL (0.0-1.1) Eosinophils # (Auto) 0.1 x10^3/uL (0.0-0.7) Basophils # (Auto) 0.1 x10^3/uL (0.0-0.2) Sodium Level 140 mmol/L (136-145) Potassium Level 3.8 mmol/L (3.5-5.1) Chloride Level 104 mmol/L (98-107) Carbon Dioxide Level 29 mmol/L (21-32) Anion Gap 7 (6-14) Blood Urea Nitrogen 15 mg/dL (7-20) Creatinine 0.5 mg/dL (0.6-1.0) L Estimated GFR (Cockcroft-Gault) 120.0 BUN/Creatinine Ratio 30 (6-20) H Glucose Level 91 mg/dL (70-99) Calcium Level 8.8 mg/dL (8.5-10.1) Total Bilirubin 0.5 mg/dL (0.2-1.0) Aspartate Amino Transferase (AST) 16 U/L (15-37) Alanine Aminotransferase (ALT) 8 U/L (14-59) L Alkaline Phosphatase 90 U/L (46-116) Total Protein 6.5 g/dL (6.4-8.2) Albumin 3.2 g/dL (3.4-5.0) L Albumin/Globulin Ratio 1.0 (1.0-1.7) Current Medications: I have reviewed the current psychotropics carefully including drug interactions. Risk benefit ratio favors no change other than as noted in my dictated progress note. Diagnosis: Problems: (1) Parkinson's disease (2) Mild cognitive impairment (3) Major depressive disorder, severe (4) Anxiety disorder, unspecified MARICEL BROWN MD Jul 30, 2020 21:14
--- NOTE | 2020-07-30 23:43 | NUR ---
Pt located in her room this evening. Compliant with whole medications. Continues to be impulsive attempting to transfer self and becomes irritated when bed/chair alarm sounds.
[2020-07-31] MEDS: CARBIDOPA/LEVODOPA 25/100MG TABLET PO SCH ×6 (05:40→20:45)
[2020-07-31 06:25] VITALS: BP 151/74
--- NOTE | 2020-07-31 06:44 | PN ---
DATE: 07/17/2020 SUBJECTIVE: The patient denies any new medical or neurological complaints. She continues to have mild resting tremor of the hands. She has been on carbidopa/levodopa 25/100 every 3 hours while awake, total of 5 tablets daily. OBJECTIVE: GENERAL: Well-developed, well-nourished female, not in acute distress. VITAL SIGNS: Blood pressure 110/69, respiratory rate 17, pulse is 74, oxygen saturation is 98%, and temperature 97.6. HEENT: Normocephalic, atraumatic, otherwise unremarkable. NECK: Supple. Negative for carotid bruit, lymphadenopathy or thyromegaly. LUNGS: Clear to A and P. CARDIOVASCULAR: Regular rate and rhythm, normal S1, S2. There is no S3, S4 or murmur. ABDOMEN: Soft. Bowel sounds positive. EXTREMITIES: Negative for cyanosis, clubbing or edema. NEUROLOGICAL EXAM: Mental Status: The patient is alert and oriented x 3. Speech is fluent. There is no language dysfunction. Memory, judgment, and abstracting thinking are fair. The patient denies hallucination or delusion. CRANIAL NERVES: Visual curran are full. The pupils are reactive to light and accommodation. The extraocular movements are intact. There is no nystagmus. There is no facial motor or sensory deficit. Hearing is intact bilaterally. The palate is elevated symmetrically. Sternocleidomastoid muscles are powerful bilaterally. The patient shrugs her shoulders symmetrically, protrudes her tongue in the midline without fasciculation or atrophy. Motor examination: No focal muscle bulk was seen. The tone is normal. The strength is 4/5 throughout. The patient has mild resting tremor of the upper extremities. The tone is slightly increased in the lower extremities. Sensory examination revealed normal pinprick and light touch senses throughout. Deep tendon reflexes were symmetric and hypoactive with absent Achilles responses. Gait: The patient uses a wheelchair for ambulation and sometimes using a walker as well. IMPRESSION: 1. Parkinson disease. The resting tremor and dyskinesia has improved after adjusting carbidopa/levodopa. 2. Multiple medical problems include osteoarthritis, status post pacemaker placement, gastroesophageal reflux disease. 3. Multiple psychiatric problems include mild cognitive dysfunctions, major depressions with intermittent psychotic features and anxiety disorders. RECOMMENDATIONS: Continue with carbidopa/levodopa 25/100 q.3 hours while awake, total of 5 tablets daily and continue with Mirapex 0.5 mg p.o. t.i.d. M Dolores AMADOR MD DR: ANGELIA/cathy JOB#: [id number] / [id number]
--- NOTE | 2020-07-31 08:00 | PDOC ---
Exam Note: Marcial Note: This note is a late entry for 07/29/2020 covers elements not covered in my initial note. Subjective: The patient was reviewed on telehealth rounds in the evening of 07/29/2020 with Rose Marie GONZALES. Discussed with nursing staff, reviewed the chart. The patient slept 5-1/4 hours previous night. I met with the patient in her room. She has been fairly pleasant, cooperative, less anxious, parkinsonian movements are better. Review of Systems: Ambulation impaired in wheelchair. No CV, , pulmonary, eye system symptoms on review. Mental Status Exam: The patient is reasonably oriented. Speech is coherent, has some latency. Abstraction is fair. Computation is impaired. Language function is intact. Mood and affect lability is improved. No suicidal or homicidal ideation. Laboratory Data: Reviewed. Impression: Major depressive disorder recurrent, rule out psychotic features. Anxiety disorder unspecified. Impulse control disorder. Plan: No change from initial note. Assessment: Vital Signs/I&O: Vital Signs Date Time Temp Pulse Resp B/P (MAP) Pulse Ox O2 Delivery O2 Flow Rate FiO2 07/31/20 06:25 97.2 74 18 151/74 (99) 97 07/29/20 16:02 Room Air I & O 07/30/20 07/30/20 07/31/20 15:00 23:00 07:00 Intake Total 440 ml 360 ml Balance 440 ml 360 ml Current Medications: I have reviewed the current psychotropics carefully including drug interactions. Risk benefit ratio favors no change other than as noted in my dictated progress note. Diagnosis: Problems: (1) Parkinson's disease (2) Mild cognitive impairment (3) Major depressive disorder, severe (4) Anxiety disorder, unspecified MARICEL BROWN MD Jul 31, 2020 08:00
--- NOTE | 2020-07-31 08:15 | PDOC ---
Exam Note: Marcial Note: This note is a late entry for 07/30/2020 covers elements not covered in my initial note. Subjective: The patient was seen face to face in the morning of 07/30/2020 for treatment team meeting with Rochelle Decker, and Letty (social service staff), Della (activity therapy), and Shawn GONZALES. She remains impulsive, restless. Her calls on regular basis. She is attending groups. She slept 6-3/4 hours. Appetite is fair. Weight is 44.5 kg. She seems to be stabilizing. Review of Systems: Ambulation impaired in wheelchair. No CV, , pulmonary, ey e system symptoms on review. Mental Status Exam: The patient is reasonably oriented. She is pleasant, verbal, interactive. Speech is coherent, has moderate latency. Abstraction is fair. Computation is impaired. Language function is intact. Mood and affect withdrawn, less anxious. Parkinsonian movements and tremors are better. No suicidal or homicidal ideation. Laboratory Data: Reviewed. Impression: Major depressive disorder recurrent, rule out psychotic features. Anxiety disorder unspecified. Impulse control disorder. Plan: No change from initial note. Assessment: Vital Signs/I&O: Vital Signs Date Time Temp Pulse Resp B/P (MAP) Pulse Ox O2 Delivery O2 Flow Rate FiO2 07/31/20 06:25 97.2 74 18 151/74 (99) 97 07/29/20 16:02 Room Air I & O 07/30/20 07/30/20 07/31/20 15:00 23:00 07:00 Intake Total 440 ml 360 ml Balance 440 ml 360 ml Current Medications: I have reviewed the current psychotropics carefully including drug interactions. Risk benefit ratio favors no change other than as noted in my dictated progress note. Diagnosis: Problems: (1) Parkinson's disease (2) Mild cognitive impairment (3) Major depressive disorder, severe (4) Anxiety disorder, unspecified MARICEL BROWN MD Jul 31, 2020 08:15
[2020-07-31] MEDS: QUEtiapine 25 MG TABLET. PO SCH ×3 (08:23→20:46)
[2020-07-31] MEDS: PRAMIPEXOLE 0.25 MG TABLET. PO SCH ×3 (08:23→20:46)
[2020-07-31] MEDS: OXYBUTYNIN CHLORIDE 5 MG TABLET PO SCH ×3 (08:23→20:46)
[2020-07-31] MEDS: PANTOPRAZOLE 40 MG TABLET. PO SCH (08:23)
[2020-07-31] MEDS: PREGABALIN 50 MG CAPSULE PO SCH ×3 (08:23→20:45)
[2020-07-31] MEDS: POLYETHYLENE GLYCOL 3350 17 GM PACKET. PO SCH (08:24)
--- NOTE | 2020-07-31 11:59 | NUR ---
Nursing note: Pt in her room eating breakfast at time of AM med pass and assessment. She was med compliant and cooperative. She was very tearful, reporting that she is "homesick" and wishes to go home rather than back to her facility. Pt's thoughts were validated and pt was reeducated on the importance of her facility. Pt was then assisted to the bathroom and was encouraged to continue asking for assistance. Pt participated in group this morning and is currently in her room waiting for lunch. Will continue to monitor.
--- NOTE | 2020-07-31 13:11 | NUR ---
SW received a call from pt who wanted to clarify pt report that she would be on [facility] for another 2 weeks. SHARIF explained that she was incorrect and discharge back to [facility] will still be for . SHARIF does not have a time at the moment, but once she receives one from placement, SHARIF will be able to let him know.
--- NOTE | 2020-07-31 14:44 | NUR ---
SHARIF faxed over updates to [facility] per the request of Moraima in preparation for pt to return to them on . Moraima will get back with SHARIF regarding a transport time.
[2020-07-31 16:04] VITALS: BP 127/54
--- NOTE | 2020-07-31 20:42 | PDOC ---
Exam Note: Marcial Note: Please also refer to the separate dictated note~for this date of service dictated separately.~Patient seen individually. Discussed the patient with Nursing staff reviewed the chart.~Reviewed interim history and current functioning. Reviewed vital signs,~Labs/ Radiology~and current medications noted below. Continue current treatment with the changes noted in the dictated addendum note Assessment: Vital Signs/I&O: Vital Signs Date Time Temp Pulse Resp B/P (MAP) Pulse Ox O2 Delivery O2 Flow Rate FiO2 07/31/20 16:04 98.6 56 18 127/54 (78) 95 07/29/20 16:02 Room Air I & O 07/30/20 07/30/20 07/31/20 14:59 22:59 06:59 Intake Total 440 ml 360 ml Balance 440 ml 360 ml Current Medications: I have reviewed the current psychotropics carefully including drug interactions. Risk benefit ratio favors no change other than as noted in my dictated progress note. Diagnosis: Problems: (1) Parkinson's disease (2) Mild cognitive impairment (3) Major depressive disorder, severe (4) Anxiety disorder, unspecified MARICEL BROWN MD Jul 31, 2020 20:42
[2020-07-31] MEDS: DULoxetine HCL 30 MG CAPSULE.DR PO SCH (20:45)
[2020-07-31] MEDS: DONEPEZIL HCL 10 MG TABLET PO SCH (20:46)
[2020-07-31] MEDS: MELATONIN 3 MG TABLET PO SCH (20:46)
[2020-07-31] MEDS: CARBIDOPA/LEVODOPA CR 50/200MG TABLET.SA PO SCH (20:46)
[2020-07-31] MEDS: MIRTAZAPINE 15 MG TABLET PO SCH (20:47)
--- NOTE | 2020-08-01 03:10 | NUR ---
Nursing Note The patient was calm and compliant with her medication and assessment. The patient took her medication whole. The patient was up several times during the night but refused PRN medication for insomnia.
[2020-08-01] MEDS: CARBIDOPA/LEVODOPA 25/100MG TABLET PO SCH ×6 (05:06→20:32)
[2020-08-01] MEDS: ACETAMINOPHEN 325 MG TABLET PO PRN (05:06)
[2020-08-01 05:39] VITALS: BP 121/62
[2020-08-01] MEDS: PANTOPRAZOLE 40 MG TABLET. PO SCH (08:04)
[2020-08-01] MEDS: PREGABALIN 50 MG CAPSULE PO SCH ×3 (08:04→20:32)
[2020-08-01] MEDS: POLYETHYLENE GLYCOL 3350 17 GM PACKET. PO SCH (08:04)
[2020-08-01] MEDS: OXYBUTYNIN CHLORIDE 5 MG TABLET PO SCH ×3 (08:04→20:32)
[2020-08-01] MEDS: QUEtiapine 25 MG TABLET. PO SCH ×3 (08:04→20:32)
[2020-08-01] MEDS: PRAMIPEXOLE 0.25 MG TABLET. PO SCH ×3 (08:04→20:31)
--- NOTE | 2020-08-01 10:32 | NUR ---
Nursing note: Pt in her room at AM med pass and assessment. She was calm, med compliant, and cooperative. Pt appeared much happier than yesterday and reported she was in a better mood. She was happy that night staff "allowed me to be an individual and let me read 10-15 minutes before turning my light out". Pt is currently in the day room participating in group. Will continue to monitor.
--- NOTE | 2020-08-01 15:39 | NUR ---
[facility] Social Work Discharge Planning Form Patient Name RIRI PARRA Admit Date: 15 July 2020 DISCHARGE PLAN Discharge Destination: Pt to return to [facility] Care Assessment: N/A Level II Assessment: N/A Transportation: Pt facility to pick pt up around 1400 Special Instructions/Notes: Please fax discharge orders, discharge medication list and discharge summary to the fax number listed below. DISCHARGE TO FACILITY Facility: [facility] Address: [address] [place] [address] Contact Name: Lisa, Flasher Adjuster: Contact Name: Moraima Dado Operator: PCP: Dr. Paulo Carrillo
[2020-08-01 16:29] VITALS: BP 115/62
[2020-08-01] MEDS: MELATONIN 3 MG TABLET PO SCH (20:32)
[2020-08-01] MEDS: CARBIDOPA/LEVODOPA CR 50/200MG TABLET.SA PO SCH (20:32)
[2020-08-01] MEDS: DONEPEZIL HCL 10 MG TABLET PO SCH (20:32)
[2020-08-01] MEDS: MIRTAZAPINE 15 MG TABLET PO SCH (20:33)
[2020-08-01] MEDS: DULoxetine HCL 30 MG CAPSULE.DR PO SCH (20:33)
--- NOTE | 2020-08-01 20:39 | PDOC ---
Exam Note: Marcial Note: Please also refer to the separate dictated note~for this date of service dictated separately.~Patient seen individually. Discussed the patient with Nursing staff reviewed the chart.~Reviewed interim history and current functioning. Reviewed vital signs,~Labs/ Radiology~and current medications noted below. Continue current treatment with the changes noted in the dictated addendum note Assessment: Vital Signs/I&O: Vital Signs Date Time Temp Pulse Resp B/P (MAP) Pulse Ox O2 Delivery O2 Flow Rate FiO2 08/01/20 16:29 97.8 81 20 115/62 (79) 97 07/29/20 16:02 Room Air I & O 07/31/20 07/31/20 08/01/20 14:59 22:59 06:59 Intake Total 600 ml 120 ml Balance 600 ml 120 ml Current Medications: Meds: Current Medications Medications (Trade) Dose Ordered Sig/Gracie Route PRN Reason Start Time Stop Time Status Last Admin Dose Admin Mirtazapine (Remeron) 15 mg QHS PO 07/31/20 21:00 08/01/20 20:33 I have reviewed the current psychotropics carefully including drug interactions. Risk benefit ratio favors no change other than as noted in my dictated progress note. Diagnosis: Problems: (1) Parkinson's disease (2) Mild cognitive impairment (3) Major depressive disorder, severe (4) Anxiety disorder, unspecified MARICEL BROWN MD Aug 01, 2020 20:38
[2020-08-02] MEDS ORDERED: NITR0.4T24 SL (02:36)
[2020-08-02] MEDS ORDERED: ACET325T21 PO (02:39)
[2020-08-02] MEDS ORDERED: MIRT15TA3 PO (02:48)
[2020-08-02] MEDS ORDERED: MAG30ORA2 PO (03:12)
[2020-08-02] MEDS ORDERED: MAGN400O7 PO (03:12)
[2020-08-02] MEDS ORDERED: POLY2500 PO (03:13)
[2020-08-02] MEDS ORDERED: POLY17PO5 PO (03:14)
[2020-08-02] MEDS ORDERED: MELA3TAB4 PO (03:19)
[2020-08-02] MEDS ORDERED: METH28OI2 TP (03:20)
[2020-08-02] MEDS ORDERED: LORA0.5T21 PO (03:21)
[2020-08-02] MEDS: CARBIDOPA/LEVODOPA 25/100MG TABLET PO SCH ×4 (05:19→14:15)
[2020-08-02 06:29] VITALS: BP 163/76
--- NOTE | 2020-08-02 06:53 | PDOC ---
Exam Note: Marcial Note: This note is a late entry for 07/31/2020 covers elements not covered in my initial note. Subjective: The patient was seen face to face in the evening of 07/31/2020 with Cathryn GONZALES. Discussed with nursing staff, reviewed the chart. The patient slept 3-1/4 hours previous night. She was somewhat restless, agitated at night. She was agitated because the bed alarm was going off repeatedly. She read from midnight to 2 a.m. and then was in the wheelchair, felt she was in [place], [place] but most of the time she is well oriented. Review of Systems: Ambulation impaired in wheelchair. No CV, , pulmonary, eye system symptoms on review. She has the parkinsonian movements. Mental Status Exam: The patient is reasonably oriented. She is pleasant, verbal, interactive. Speech is coherent, has moderate latency. Abstraction is fair. Computation is impaired. Language function is intact. Mood and affect withdrawn, less anxious. Parkinsonian movements and tremors are better. No suicidal or homicidal ideation. Laboratory Data: Reviewed. Impression: Major depressive disorder recurrent, rule out psychotic features. Anxiety disorder unspecified. Impulse control disorder. Plan: No change from initial note. Assessment: Vital Signs/I&O: Vital Signs Date Time Temp Pulse Resp B/P (MAP) Pulse Ox O2 Delivery O2 Flow Rate FiO2 08/02/20 06:29 98.2 69 18 163/76 (105) 98 07/29/20 16:02 Room Air I & O 08/01/20 08/01/20 08/02/20 15:00 23:00 07:00 Intake Total 720 ml 360 ml Balance 720 ml 360 ml Current Medications: I have reviewed the current psychotropics carefully including drug interactions. Risk benefit ratio favors no change other than as noted in my dictated progress note. Diagnosis: Problems: (1) Parkinson's disease (2) Mild cognitive impairment (3) Major depressive disorder, severe (4) Anxiety disorder, unspecified MARICEL BROWN MD Aug 02, 2020 06:53
--- NOTE | 2020-08-02 07:27 | PDOC ---
Exam Note: Marcial Note: This note is a late entry for 08/01/2020 covers elements not covered in my initial note. Subjective: The patient was seen face to face in the evening of 08/01/2020 with Cathryn GONZALES. Discussed with nursing staff, reviewed the chart. He slept 5-1/4 hours previous night. Refused her p.r.n. meds previous night for insomnia but she read for a while, then slept. She has done well during the day but by the time I met with her in the evening she was paranoid, suspicious, depressed, anxious with quite significant mood lability. She states she had a breast implant which has come loose and wanted this evaluated. We will defer to Dr. Barnett. Review of Systems: Ambulation impaired in wheelchair. No CV, , pulmonary, eye system symptoms on review. Mental Status Exam: The patient is reasonably oriented. She is paranoid, depressed, anxious. Speech is coherent, has moderate latency. Abstraction is fair. Computation is impaired. Language function is intact. Mood and affect depressed, anxious, paranoid. No suicidal or homicidal ideation. Laboratory Data: Reviewed. Impression: Major depressive disorder recurrent, rule out psychotic features. Anxiety disorder unspecified. Impulse control disorder. Plan: No change from initial note. Assessment: Vital Signs/I&O: Vital Signs Date Time Temp Pulse Resp B/P (MAP) Pulse Ox O2 Delivery O2 Flow Rate FiO2 08/02/20 06:29 98.2 69 18 163/76 (105) 98 07/29/20 16:02 Room Air I & O 08/01/20 08/01/20 08/02/20 14:59 22:59 06:59 Intake Total 720 ml 360 ml Balance 720 ml 360 ml Current Medications: I have reviewed the current psychotropics carefully including drug interactions. Risk benefit ratio favors no change other than as noted in my dictated progress note. Diagnosis: Problems: (1) Parkinson's disease (2) Mild cognitive impairment (3) Major depressive disorder, severe (4) Anxiety disorder, unspecified MARICEL BROWN MD Aug 02, 2020 07:27
[2020-08-02] MEDS: PANTOPRAZOLE 40 MG TABLET. PO SCH (08:04)
[2020-08-02] MEDS: PREGABALIN 50 MG CAPSULE PO SCH ×2 (08:04→14:15)
[2020-08-02] MEDS: QUEtiapine 25 MG TABLET. PO SCH ×2 (08:04→14:15)
[2020-08-02] MEDS: POLYETHYLENE GLYCOL 3350 17 GM PACKET. PO SCH (08:05)
[2020-08-02] MEDS: PRAMIPEXOLE 0.25 MG TABLET. PO SCH ×2 (08:05→14:15)
[2020-08-02] MEDS: OXYBUTYNIN CHLORIDE 5 MG TABLET PO SCH ×2 (08:05→14:15)
[2020-08-02] MEDS ORDERED: CARB1TAB22 PO (11:04)
--- NOTE | 2020-08-02 15:00 | NUR ---
Transition Record was faxed to follow-up provider with the following elements: Reason for admission, procedures, tests, principal diagnosis, pending studies, patient instructions, 20/04 contact information for unit, phone number to obtain pending test results, plan for follow-up care, physician follow-up, advanced directive information, and medication list with dose, duration and instructions. This information was included in the following documents: History and physical, lab results, study results, progress notes, social work planning form, DC instruction form, patient visit summary, and medication reconciliation form. Date & time record faxed: 04:05 02 August 2020 Record faxed to: [facility] Record discussed with/ report given to: CHRISTIAN Trinidad at [facility]
--- NOTE | 2020-08-02 21:01 | PDOC ---
Exam Note: Marcial Note: Please also refer to the separate dictated note~for this date of service dictated separately.~Patient seen individually. Discussed the patient with Nursing staff reviewed the chart.~Reviewed interim history and current functioning. Reviewed vital signs,~Labs/ Radiology~and current medications noted below. Continue current treatment with the changes noted in the dictated addendum note Assessment: Vital Signs/I&O: Vital Signs Date Time Temp Pulse Resp B/P (MAP) Pulse Ox O2 Delivery O2 Flow Rate FiO2 08/02/20 06:29 98.2 69 18 163/76 (105) 98 07/29/20 16:02 Room Air I & O 08/01/20 08/01/20 08/02/20 15:00 23:00 07:00 Intake Total 720 ml 360 ml Balance 720 ml 360 ml Current Medications: I have reviewed the current psychotropics carefully including drug interactions. Risk benefit ratio favors no change other than as noted in my dictated progress note. Diagnosis: Problems: (1) Parkinson's disease (2) Mild cognitive impairment (3) Major depressive disorder, severe (4) Anxiety disorder, unspecified MARICEL BROWN MD Aug 02, 2020 21:01
--- NOTE | 2020-08-03 23:18 | DS ---
DATE OF DISCHARGE: 08/02/2020 DISCHARGE SUMMARY/PSYCHIATRY PROGRESS NOTE This late entry 08/02/2020 covers elements not covered in my initial note. REASON FOR ADMISSION: Please refer to the admission history for details. Briefly, the patient is a 74-year-old female referred to us from [facility] on account of increasing symptoms of depression, hopelessness, helplessness, worthlessness and expressing that she wanted to . She was pulling out plugs from electric plugs from the [employer] and putting them in her mouth. She was having active hallucinations purposely falling out of the wheelchair. She resented being in a nursing facility consequent to her Parkinson's, but her had reached the limit of his ability to care for her at home. SIGNIFICANT FINDINGS AND CLINICAL COURSE: Following admission, the patient was seen daily individually by myself from a psychiatric standpoint, medical followup with Dr. Barnett/Dr. Funez. The patient was extremely depressed, irritable, anxious, had marked parkinsonian tremors. Dr. Barnhart was consulted, Neurology, for her Parkinson's and adjustments made for her Parkinson's medications. She seemed to finally respond to a combination of Cymbalta 60 mg at bedtime, Seroquel 25 mg t.i.d. and was on pramipexole, and Sinemet for her Parkinson's and Aricept 10 mg a day, trazodone at bedtime p.r.n., Remeron 15 mg at bedtime, melatonin 3 mg at bedtime. REVIEW OF SYSTEMS: Prior to discharge on 08/02/2020 Ambulation impaired, in wheelchair. No CV, , pulmonary, eye system symptoms on review. MENTAL STATUS EXAM: Reasonably oriented. Speech coherent, has some latency. Abstraction fair, computation impaired, language function intact. Mood and affect improved. No suicidal ideation. CONDITION AT DISCHARGE: Improved. FINAL DIAGNOSES: Major depressive disorder, recurrent, in partial remission; anxiety disorder, unspecified; impulse control disorder, unspecified. Rest unchanged from admission. DISCHARGE MEDICATIONS: Please refer to the [facility]. DISCHARGE INSTRUCTIONS: [facility]. Time for discharge day management greater than 30 minutes. MARICEL BROWN MD DR: MYRNA/cathy JOB#: [id number] / [id number]
== END 2020-08-02 15:00 | DRG 885 ==
LOC: GEROPSY 21:28
PROVIDERS: ADMIT Psychiatry & Neurology Psychiatry; ATTEND Psychiatry & Neurology Psychiatry
DX: F33.41 Major depressive disorder, recurrent, in partial remission (principal); G20 Parkinson's disease; Z66 Do not resuscitate; K21.9 Gastro-esophageal reflux disease without esophagitis; M19.90 Unspecified osteoarthritis, unspecified site; Z20.828 Contact with and (suspected) exposure to other viral communicable diseases; F41.9 Anxiety disorder, unspecified; F63.9 Impulse disorder, unspecified; G31.84 Mild cognitive impairment of uncertain or unknown etiology; Z88.5 Allergy status to narcotic agent; Z91.81 History of falling; Z98.82 Breast implant status; Z95.0 Presence of cardiac pacemaker; Z79.899 Other long term (current) drug therapy
CPT/HCPCS: 36415; 80053; 80061; 81001; 82306; 82607; 83036; 83540; 83550; 83735; 84436; 84443; 84480; 84484; 85025; 85379; 86592; 93005; J8597; U0003; 97530

== ENCOUNTER 2020-10-04 13:15 | Inpatient (IN) | payer MEDICARE ==
[~2020-10-04] VITALS: Ht 157.5 cm; Wt 42.8 kg
[~2020-10-04 13:15] MED LIST changes: +LORA-254 PO; +LORA0.5T21 PO; +MAG30ORA2 PO; +MAGN400O7 PO; +MELA3TAB4 PO; +METH28OI2 TP; +MIRT15TA3 PO; +NITR0.4T24 SL; +OLAN5TAB99 PO; +OXYB5TAB10 PO; +PANT40TA3 PO; +POLY15DR7 EACHEYE; +POLY2500 PO; +TRAZ-120 PO
[2020-10-04] MEDS ORDERED: MAGN24003 PO (13:51)
[2020-10-04] MEDS ORDERED: METHYL SALICYLATE/MENTHOL TOPICAL OINTMENT 57GM TUBE. TP PRN (15:15)
[2020-10-04] MEDS ORDERED: MAG HYDROX/AL HYDROX/SIMETH 30 ML ORAL.SUSP PO PRN ×2 (15:15→17:00)
[2020-10-04] MEDS ORDERED: MAGNESIUM HYDROXIDE 2,400 MG/30 ML ORAL.SUSP. PO PRN ×3 (15:15→17:15)
[2020-10-04 15:35] VITALS: BP 105/56
[2020-10-04 15:39] LABS: BASO % 1 % (0-3); EOS # 0.1 x10^3/uL (0.0-0.7); EOS % 4 % (0-3); HEMATOCRIT 34.5 % (36.0-47.0); HEMOGLOBIN 11.6 g/dL (12.0-15.5); LYMPH # 0.8 x10^3/uL (1.0-4.8); LYMPH % 23 % (24-48); MEAN CORPUSCULAR HEMOGLOBIN 32 pg (25-35); MEAN CORPUSCULAR HGB CONC 34 g/dL (31-37); MEAN CORPUSCULAR VOLUME 94 fL (79-100); MONO # 0.5 x10^3/uL (0.0-1.1); MONO % 15 % (0-9); NEUT % 57 % (31-73); PLATELET COUNT 207 x10^3/uL (140-400); RED BLOOD COUNT 3.67 x10^6/uL (3.50-5.40); RED CELL DISTRIBUTION WIDTH 13.5 % (11.5-14.5); WHITE BLOOD COUNT 3.5 x10^3/uL (4.0-11.0)
[2020-10-04 15:50] LABS: ALBUMIN 3.4 g/dL (3.4-5.0); CALCIUM 8.6 mg/dL (8.5-10.1); CREATININE 0.6 mg/dL (0.6-1.0); GFR 97.2; MAGNESIUM 2.2 mg/dL (1.8-2.4); POTASSIUM 3.7 mmol/L (3.5-5.1); TOTAL BILIRUBIN 0.5 mg/dL (0.2-1.0); TOTAL PROTEIN 6.8 g/dL (6.4-8.2)
[2020-10-04] MEDS ORDERED: traZODone 50 MG TABLET. PO PRN (17:00)
[2020-10-04] MEDS ORDERED: ACETAMINOPHEN 325 MG TABLET PO PRN (17:00)
[2020-10-04] MEDS ORDERED: MECLIZINE 12.5 MG TABLET. PO PRN (17:30)
[2020-10-04] MEDS ORDERED: POLYVINYL ALCOHOL 1.4% OPHTH SOLUTION 15ML BOTTLE. OU PRN (17:30)
[2020-10-04] MEDS: CARBIDOPA/LEVODOPA 25/100MG TABLET PO SCH ×2 (18:00→20:10)
--- NOTE | 2020-10-04 18:21 | NUR ---
Nursing Note Admission Note with Justification for Admission to [facility] Patient admitted to [facility] for protective oversight for emergency stabilization of acute psychiatric crisis. Pt admitted from: [facility] Facility Mode of arrival: Secure Transport Accompanied By: Secure Transport Precipitating behaviors that initiated intake and admission: Pt has become progressively more delusional, having hallucinations tactile and visual, thinks that worms bugs and parasites are in her oral mucosa. States they are small orange round parasites. She recently removed 2 of her own teeth thinking they were worms. Pt states that her put her here just so he can be free to cheat and run around on her, that he tells everyone lies about her to benefit him that she wants to punch him in the head for telling all the lies he has. No signs of thrush, wounds or lesions in her mouth, when patient spits out mucous it is clear with small bit of tissue from her lips or inside of her cheeks. Description of failure of out patient attempts at stabilization in previous setting list behavior and medication trials: No meds were adjusted, meds are the same from discharge. Behaviors and assessment findings upon admission: Delusional, paranoid, obsessive, hallucinating, sees bugs and parasites in her oral secretions. Paranoid and delusional about her , that he lied to get her here, that he told lies to all the staff, and that he benefits from the lies in that he gets to be free of her to cheat etc. Plan: Admit for protective oversight for adjustment and stabilization of medications, behaviors and mood. Intense treatment regimen including groups, medication adjustments, therapy, consistent regimen for ADL's, self care, and sleep hygiene. Daily monitoring by Inpatient staff, Psychiatry, and Medical Physician.
[2020-10-04] MEDS: CARBIDOPA/LEVODOPA CR 50/200MG TABLET.SA PO SCH (20:10)
[2020-10-04] MEDS: DULoxetine HCL 20 MG CAPSULE.DR PO SCH (20:10)
[2020-10-04] MEDS: OXYBUTYNIN CHLORIDE 5 MG TABLET PO SCH (20:11)
[2020-10-04] MEDS: QUEtiapine 25 MG TABLET. PO SCH (20:11)
[2020-10-04] MEDS: DONEPEZIL HCL 10 MG TABLET PO SCH (20:11)
[2020-10-04] MEDS: MELATONIN 3 MG TABLET PO SCH (20:11)
[2020-10-04] MEDS: PRAMIPEXOLE 0.5 MG TABLET. PO SCH (20:11)
[2020-10-04] MEDS: PREGABALIN 50 MG CAPSULE PO SCH (20:11)
[2020-10-04] MEDS: MIRTAZAPINE 15 MG TABLET PO SCH (20:11)
--- NOTE | 2020-10-04 21:01 | PDOC ---
Exam Note: Marcial Note: Please also refer to the separate dictated note~for this date of service dictated separately.~Patient seen individually. Discussed the patient with Nursing staff reviewed the chart.~Reviewed interim history and current functioning. Reviewed vital signs,~Labs/ Radiology~and current medications noted below. Continue current treatment with the changes noted in the dictated addendum note Assessment: Vital Signs/I&O: Vital Signs Date Time Temp Pulse Resp B/P (MAP) Pulse Ox O2 Delivery O2 Flow Rate FiO2 10/04/20 15:35 98.3 73 17 105/56 (72) 97 Labs: Laboratory Tests Test 10/04/20 15:23 White Blood Count 3.5 x10^3/uL (4.0-11.0) L Red Blood Count 3.67 x10^6/uL (3.50-5.40) Hemoglobin 11.6 g/dL (12.0-15.5) L Hematocrit 34.5 % (36.0-47.0) L Mean Corpuscular Volume 94 fL (79-100) Mean Corpuscular Hemoglobin 32 pg (25-35) Mean Corpuscular Hemoglobin Concent 34 g/dL (31-37) Red Cell Distribution Width 13.5 % (11.5-14.5) Platelet Count 207 x10^3/uL (140-400) Neutrophils (%) (Auto) 57 % (31-73) Lymphocytes (%) (Auto) 23 % (24-48) L Monocytes (%) (Auto) 15 % (0-9) H Eosinophils (%) (Auto) 4 % (0-3) H Basophils (%) (Auto) 1 % (0-3) Neutrophils # (Auto) 2.0 x10^3uL (1.8-7.7) Lymphocytes # (Auto) 0.8 x10^3/uL (1.0-4.8) L Monocytes # (Auto) 0.5 x10^3/uL (0.0-1.1) Eosinophils # (Auto) 0.1 x10^3/uL (0.0-0.7) Basophils # (Auto) 0.0 x10^3/uL (0.0-0.2) D-Dimer (Joanna) 0.73 mg/L (0.00-0.50) H Sodium Level 138 mmol/L (136-145) Potassium Level 3.7 mmol/L (3.5-5.1) Chloride Level 103 mmol/L (98-107) Carbon Dioxide Level 32 mmol/L (21-32) Anion Gap 3 (6-14) L Blood Urea Nitrogen 17 mg/dL (7-20) Creatinine 0.6 mg/dL (0.6-1.0) Estimated GFR (Cockcroft-Gault) 97.2 BUN/Creatinine Ratio 28 (6-20) H Glucose Level 90 mg/dL (70-99) Calcium Level 8.6 mg/dL (8.5-10.1) Magnesium Level 2.2 mg/dL (1.8-2.4) Total Bilirubin 0.5 mg/dL (0.2-1.0) Aspartate Amino Transferase (AST) 15 U/L (15-37) Alanine Aminotransferase (ALT) 10 U/L (14-59) L Alkaline Phosphatase 96 U/L (46-116) Total Protein 6.8 g/dL (6.4-8.2) Albumin 3.4 g/dL (3.4-5.0) Albumin/Globulin Ratio 1.0 (1.0-1.7) Current Medications: Meds: Laboratory Tests Test 10/04/20 15:23 White Blood Count 3.5 x10^3/uL Red Blood Count 3.67 x10^6/uL Hemoglobin 11.6 g/dL Hematocrit 34.5 % Mean Corpuscular Volume 94 fL Mean Corpuscular Hemoglobin 32 pg Mean Corpuscular Hemoglobin Concent 34 g/dL Red Cell Distribution Width 13.5 % Platelet Count 207 x10^3/uL Neutrophils (%) (Auto) 57 % Lymphocytes (%) (Auto) 23 % Monocytes (%) (Auto) 15 % Eosinophils (%) (Auto) 4 % Basophils (%) (Auto) 1 % Neutrophils # (Auto) 2.0 x10^3uL Lymphocytes # (Auto) 0.8 x10^3/uL Monocytes # (Auto) 0.5 x10^3/uL Eosinophils # (Auto) 0.1 x10^3/uL Basophils # (Auto) 0.0 x10^3/uL D-Dimer (Joanna) 0.73 mg/L Sodium Level 138 mmol/L Potassium Level 3.7 mmol/L Chloride Level 103 mmol/L Carbon Dioxide Level 32 mmol/L Anion Gap 3 Blood Urea Nitrogen 17 mg/dL Creatinine 0.6 mg/dL Estimated GFR (Cockcroft-Gault) 97.2 BUN/Creatinine Ratio 28 Glucose Level 90 mg/dL Calcium Level 8.6 mg/dL Magnesium Level 2.2 mg/dL Total Bilirubin 0.5 mg/dL Aspartate Amino Transf (AST/SGOT) 15 U/L Alanine Aminotransferase (ALT/SGPT) 10 U/L Alkaline Phosphatase 96 U/L Total Protein 6.8 g/dL Albumin 3.4 g/dL Albumin/Globulin Ratio 1.0 Current Medications Medications (Trade) Dose Ordered Sig/Gracie Route PRN Reason Start Time Stop Time Status Last Admin Dose Admin Acetaminophen (Tylenol) 650 mg PRN Q6HRS PRN PO MILD PAIN / TEMP > 100.3'F 10/04/20 15:15 Multi-Ingredient Ointment (Analgesic [place]) 1 jean marie PRN QID PRN TP MUSCLE PAIN 10/04/20 15:15 Al Hydroxide/Mg Hydroxide (Mylanta Plus Xs) 15 ml PRN AFTMEALHC PRN PO DYSPEPSIA 10/04/20 15:15 10/04/20 17:23 DC Magnesium Hydroxide (Milk Of Magnesia) 2,400 mg PRN QHS PRN PO CONSTIPATION 10/04/20 15:15 10/04/20 17:16 DC Acetaminophen (Tylenol) 650 mg PRN Q6HRS PRN PO MILD PAIN / TEMP > 100.3'F 10/04/20 17:00 10/04/20 17:04 DC Carbidopa/Levodopa (Sinemet Cr) 1 tab.sa HS PO 10/04/20 21:00 10/04/20 20:10 Carbidopa/Levodopa (Sinemet 25/100) 1 tab Q3HRS PO 10/04/20 18:00 10/04/20 20:10 Diclofenac Sodium (Voltaren) 1 jean marie PRN QID PRN TP MUSCLE PAIN 10/04/20 17:00 Donepezil HCl (Aricept) 10 mg HS PO 10/04/20 21:00 10/04/20 20:11 Duloxetine HCl (Cymbalta) 60 mg HS PO 10/04/20 21:00 10/04/20 20:10 Lorazepam (Ativan) 0.5 mg PRN Q6HRS PRN PO ANXIETY 10/04/20 17:00 Al Hydroxide/Mg Hydroxide (Mylanta Plus Xs) 15 ml PRN AFTMEALHC PRN PO DYSPEPSIA 10/04/20 17:00 Magnesium Hydroxide (Milk Of Magnesia) 2,400 mg PRN QHS PRN PO CONSTIPATION 10/04/20 17:00 10/04/20 17:18 DC Melatonin (Melatonin) 3 mg QHS PO 10/04/20 21:00 10/04/20 20:11 Mirtazapine (Remeron) 15 mg QHS PO 10/04/20 21:00 10/04/20 20:11 Olanzapine (ZyPREXA ZYDIS) 2.5 mg PRN Q2HRS PRN PO ANXIETY / AGITATION 10/04/20 17:00 Oxybutynin Chloride (Ditropan) 5 mg [id number] PO 10/04/20 21:00 10/04/20 20:11 Pantoprazole Sodium (Protonix) 40 mg DAILYAC PO 10/05/20 07:30 Polyethylene Glycol (miraLAX) 17 gm DAILY PO 10/05/20 09:00 Pramipexole Dihydrochloride (miraPEX) 0.5 mg [id number] PO 10/04/20 21:00 10/04/20 20:11 Pregabalin (Lyrica) 50 mg TID PO 10/04/20 21:00 10/04/20 20:11 Quetiapine Fumarate (SEROquel) 25 mg TID PO 10/04/20 21:00 10/04/20 20:11 Trazodone HCl (Desyrel) 50 mg PRN QHS PRN PO INSOMNIA 10/04/20 17:00 Magnesium Hydroxide (Milk Of Magnesia) 2,400 mg PRN QHS PRN PO CONSTIPATION 10/04/20 17:15 Meclizine HCl (Antivert) 25 mg PRN TID PRN PO DIZZINESS 10/04/20 17:30 Artificial Tears (Artificial Tears) 1 drop PRN QID PRN OU DRY EYE 10/04/20 17:30 Current Medications Medications (Trade) Dose Ordered Sig/Gracie Route PRN Reason Start Time Stop Time Status Last Admin Dose Admin Carbidopa/Levodopa (Sinemet Cr) 1 tab.sa HS PO 10/04/20 21:00 10/04/20 20:10 Carbidopa/Levodopa (Sinemet 25/100) 1 tab Q3HRS PO 10/04/20 18:00 10/04/20 20:10 Donepezil HCl (Aricept) 10 mg HS PO 10/04/20 21:00 10/04/20 20:11 Duloxetine HCl (Cymbalta) 60 mg HS PO 10/04/20 21:00 10/04/20 20:10 Melatonin (Melatonin) 3 mg QHS PO 10/04/20 21:00 10/04/20 20:11 Mirtazapine (Remeron) 15 mg QHS PO 10/04/20 21:00 10/04/20 20:11 Oxybutynin Chloride (Ditropan) 5 mg [id number] PO 10/04/20 21:00 10/04/20 20:11 Pramipexole Dihydrochloride (miraPEX) 0.5 mg [id number] PO 10/04/20 21:00 10/04/20 20:11 Pregabalin (Lyrica) 50 mg TID PO 10/04/20 21:00 10/04/20 20:11 Quetiapine Fumarate (SEROquel) 25 mg TID PO 10/04/20 21:00 10/04/20 20:11 I have reviewed the current psychotropics carefully including drug interactions. Risk benefit ratio favors no change other than as noted in my dictated progress note. Diagnosis: Problems: (1) Mild cognitive impairment (2) Major depressive disorder, severe (3) Anxiety disorder, unspecified MARICEL BROWN MD Oct 04, 2020 21:01
[2020-10-05 00:07] LABS: HEMOGLOBIN A1C 5.4 % (4.8-5.6)
[2020-10-05] MEDS: CARBIDOPA/LEVODOPA 25/100MG TABLET PO SCH ×8 (03:00→20:34)
--- NOTE | 2020-10-05 03:40 | NUR ---
Nursing Note The patient was located in her room for her assessment and medication pass. The patient was calm, compliant and drowsy. The patient took her medication whole. The patient was unable to answer assessment questions other than first and last name.
[2020-10-05 06:30] VITALS: BP 174/80
[2020-10-05] MEDS: PANTOPRAZOLE 40 MG TABLET. PO SCH (07:30)
[2020-10-05] MEDS: POLYETHYLENE GLYCOL 3350 17 GM PACKET. PO SCH (09:00)
[2020-10-05] MEDS: PRAMIPEXOLE 0.5 MG TABLET. PO SCH ×3 (09:36→20:22)
[2020-10-05] MEDS: QUEtiapine 25 MG TABLET. PO SCH ×3 (09:36→20:22)
[2020-10-05] MEDS: PREGABALIN 50 MG CAPSULE PO SCH ×5 (09:36→17:54)
[2020-10-05] MEDS: OXYBUTYNIN CHLORIDE 5 MG TABLET PO SCH ×3 (09:37→20:33)
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
[2020-10-05 14:08] LABS: THYROID STIM HORMONE (TSH) 1.207 uIU/mL (0.358-3.740)
[2020-10-05 15:00] VITALS: BP 150/82
[2020-10-05 15:42] LABS: COLOR,URINE YELLOW
[2020-10-05 15:43] LABS: BILIRUBIN,URINE NEG (NEG); CLARITY,URINE CLEAR; GLUCOSE,URINE NEG (NEG); NITRITE,URINE NEG (NEG)
--- NOTE | 2020-10-05 15:43 | NUR ---
PSYCHOSOCIAL ASSESSMENT ADMISSION DATE: 10/04/20 CONTACT INFORMATION: DPOA/Guardian Contact Name: Iam Cruz Contact [address]: [address] [place] [id number] Contact Phone #: [phone] ETHNIC ORIGIN: REASONS FOR ADMISSION: Agitated Angry Delusions Depressed Sig. Change Appetite Suicidal ideation Other ADDITIONAL ADMISSION COMMENTS: Per intake record, pt is delusional, has obsessive behavior, belief that there is a parasite in her mouth that's eating her from the inside out, weight loss, pulling at mouth and teeth fell out, states that she can't do it anymore and just wants to . REASON FOR ADMISSION IN PATIENT/FAMILY'S OWN WORDS: "I just want to go home. I've lost so much weight and i just need to be at home. I know I'm depressed, but I will be until I get to go home." PATIENT/FAMILY EXPECTATIONS FOR ADMISSION: Improved mood; decrease in delusions and obsessive behavior; decrease in belief that there is a parasite in her mouth; decrease in agitation. LIVING SITUATION: Patient lives with: [facility] Other living arrangements: Contact Name: [facility]-on weekend days-Gilma (DELVIN); Rey (RN); Moraima (SHARIF) Contact Address: [address] [place] [id number] Contact Phone #: [phone] Contact Fax #: [phone] FAMILY RELATIONS: Marital Status: # of Marriages: 2 # of Children: 1 H Family Support: Concerned Cooperative Involved in DC Planning Additional Comments r/t Family: Mago Ott reports her current marriage is that of her second. She was once before for 23 years to a man named Loco Benton. She and Loco had one child; named Candy Hughes, who currently lives in [place], [place]. Mago Ott reports that Loco from a heart attack. She later Iam, her current . To date, Mago Ott reports that they have been 33 years. 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 Mago Ott states that she was raised by her grandparents reporting analyst as her parents were . Both of her parents and grandparents are all . She feels that her home was loving and nurturing. SIGNIFICANT PSYCHIATRIC/MEDICAL HISTORY: Psychiatric/Treatment History: Mago Ott was admitted to [facility] back in June of 2020; just approximately 2 1/2 months ago. Pertinent Family History: Mago Ott reports that she is unaware of any psychiatric history in her family. HISTORICAL DATA: Childhood Environment: [place] Nurturing Supportive Childhood Environment Additional Comments: Raised by grandparents reporting analyst. Mago Ott feels that she was raised in a loving and nurturing environment. 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 service: N Rastafarian background: Taoist Sexual orientation: Heterosexual Educational Level: Associates degree Past/Present Interests/Hobbies: Needlework, playing the Earshot, and watching a television that was out of [place] called "As Time Goes By" Financial support/resources: Family/Spouse Monthly income: Unknown/adequate Person handling finances: , Iam Kleist Do you have a history of legal problems: N Cultural considerations: None SOCIAL RELATIONSHIPS-CURRENT/PAST: Psychiatrist: None PCP: [facility]-Dr. Carrillo Counselor/Therapist: None Veterans' Administration: None Support Group: None Disease Management Nurse/Cushion Gum Applicator[facility] Other relationships: None STRENGTHS & WEAKNESSES: Patient's strengths: Good verbal skills Stable living arrange Financial support Education level Approachable Engaged Other patient strengths: Patient's weaknesses: Impulsive Health problems Other Other patient weaknesses: Delusions and obsessions; anger; depressed PRELIMINARY PLAN OF TREATMENT: Preliminary plan: Dec. Hallucination/Delus Dec. Symp. Depression Promote Coping Skill No Suicidal/Milagros. ideation Medication Stabilization Monitor Med Effects Control abnormal behavior Prevent Deterioration Other preliminary treatment comments: While at [facility], pt will be encouraged to attend SW and recreational therapy groups. She will report any delusions or hallucinations to medical staff. Pt will be encouraged to address distorted thinking. DISCHARGE PLANNING: Discharge planning/disposition: LT-[facility] Additional discharge needs identified: Follow up with PCP upon discharge.
[2020-10-05 15:50] LABS: RBC,URINE OCC /HPF (0-2); WBC,URINE OCC /HPF (0-4)
[2020-10-05 15:51] LABS: BACTERIA,URINE FEW /HPF (0-FEW); SQUAMOUS EPITHELIAL CELL,UR FEW /LPF
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
--- NOTE | 2020-10-05 19:24 | CONS ---
DATE OF CONSULTATION: 10/05/2020 ATTENDING PHYSICIAN: Dr. Stockton REASON FOR CONSULTATION: We are asked to see this patient for a medical consultation. HISTORY OF PRESENT ILLNESS: The patient is a 74-year-old female well known to us from previous admissions. I saw her for screening for the [facility] about 2 months ago. She is currently a resident at [facility]. The patient has profound dementia and Parkinson's disease. She is becoming agitated, paranoid, and is having behavioral issues. She is delusional. She thinks there is something in her mouth or parasite, and is eating their way out. She is unreasonable and not able to handle being in the care home. Her , Iam, has placed her there for management. PAST MEDICAL HISTORY: Significant for Parkinson's disease, major depression with psychosis, dementia, cognitive impairment, dyspepsia, gastroesophageal reflux disease, chronic constipation, dizziness, hallucinations, chronic back pain, previous hysterectomy, urinary incontinence, permanent pacemaker, osteoarthritis of knee, rotator cuff repair, atrioventricular block, gastroesophageal reflux disease, and major depression. She has also had left retinal detachment, etiology is unclear. Her face sheet indicates that Iam, her , and the patient's daughter, Terrell Hughes, are to be notified for any issues. They are the durable power of voip network engineer. They live in [place]. Primary care physician is Dr. Carrillo in [place]. CURRENT MEDICATIONS: Reviewed. She was taking Tylenol, Sinemet, frequent dose on the chart, Voltaren, Aricept, Cymbalta, lorazepam, magnesium hydroxide, meclizine, melatonin, Remeron, Zyprexa, oxybutynin, Protonix, Mirapex, Lyrica, Seroquel and trazodone. ALLERGIES: She has allergies to NEURONTIN and OXYCODONE, exact reactions unclear. SOCIAL HISTORY: She had been a smoker in the past and nondrinker. FAMILY HISTORY: Noncontributory. REVIEW OF SYSTEMS: Unobtainable due to the patient's condition. PHYSICAL EXAMINATION: GENERAL: When I saw her, this is a thin elderly female, who is in no acute distress. INITIAL VITAL SIGNS: Today showed blood pressure fluctuating between 105 and 170 mmHg, pulse is 70 and regular, temperature 97.3 degrees Fahrenheit, oxygen saturation 97% on room air. HEENT: The head is without trauma. Pupils are reactive. The sclerae are nonicteric. The oropharynx is clear. Mucous membranes dry. No lesions. NECK: Supple without any stridor. There is no thyromegaly. LUNGS: Actually clear to auscultation. CARDIOVASCULAR: Showed regular heart tones. No obvious gallops. Peripheral pulses are palpable and full. ABDOMEN: Soft, scaphoid, nontender, no organomegaly. Bowel sounds were hypoactive. EXTREMITIES: Showed trace edema. NEUROLOGIC: She is relatively alert. She is pleasantly confused. She has no focal deficits. Speech was fairly fluent. Because of her dementia, we could not assess her gait, nor can she follow commands for full neurologic exam. PERTINENT LABORATORY STUDIES: The hemoglobin is 11.6 g/dL with a white count 3500. Chemistry panel fairly unremarkable. Creatinine is 0.6 mg/dL, potassium 3.7 mEq, nonfasting blood sugar 90. Hemoglobin A1c 5.4. Transaminases and bilirubin all within normal range. TSH was unremarkable. ASSESSMENT: 1. This 74-year-old female who has dementia with delusional behavior and paranoia. 2. Parkinson's disease, longstanding. 3. Generalized debilitation. 4. Gastroesophageal reflux disease. 5. History of heart block and permanent pacemaker. RECOMMENDATIONS: 1. The patient is stable from a medical standpoint. 2. I reviewed her medications and I do not recommend any changes at this time. 3. We should gladly follow along during her inpatient course. Thank you again for asking me to see this patient for medical consultation. BEN JIMENEZ MD DR: JOSUE/cathy JOB#: [id number] / [id number]
[2020-10-05] MEDS: MIRTAZAPINE 15 MG TABLET PO SCH (20:21)
[2020-10-05] MEDS: DONEPEZIL HCL 10 MG TABLET PO SCH (20:22)
[2020-10-05] MEDS: DULoxetine HCL 20 MG CAPSULE.DR PO SCH (20:22)
[2020-10-05] MEDS: CARBIDOPA/LEVODOPA CR 50/200MG TABLET.SA PO SCH (20:22)
[2020-10-05] MEDS: MELATONIN 3 MG TABLET PO SCH (20:22)
--- NOTE | 2020-10-05 21:07 | PDOC ---
Exam Note: Marcial Note: Please also refer to the separate dictated note~for this date of service dictated separately.~Patient seen individually. Discussed the patient with Nursing staff reviewed the chart.~Reviewed interim history and current functioning. Reviewed vital signs,~Labs/ Radiology~and current medications noted below. Continue current treatment with the changes noted in the dictated addendum note Assessment: Vital Signs/I&O: Vital Signs Date Time Temp Pulse Resp B/P (MAP) Pulse Ox O2 Delivery O2 Flow Rate FiO2 10/05/20 15:00 97.9 93 18 150/82 (104) 98 Room Air I & O 10/04/20 10/04/20 10/05/20 15:00 23:00 07:00 Intake Total 100 ml Balance 100 ml Labs: Laboratory Tests Test 10/05/20 15:15 Urine Collection Type Unknown Urine Color Yellow Urine Clarity Clear Urine pH 7.0 Urine Specific [place] 1.020 Urine Protein Neg (NEG-TRACE) Urine Glucose (UA) Neg mg/dL (NEG) Urine Ketones (Stick) Neg mg/dL (NEG) Urine Blood Neg (NEG) Urine Nitrite Neg (NEG) Urine Bilirubin Neg (NEG) Urine Urobilinogen Dipstick 1.0 mg/dL (0.2 mg/dL) Urine Leukocyte Esterase Neg (NEG) Urine RBC Occ /HPF (0-2) Urine WBC Occ /HPF (0-4) Urine Squamous Epithelial Cells Few /LPF Urine Bacteria Few /HPF (0-FEW) Current Medications: Meds: Laboratory Tests Test 10/05/20 15:15 Urine Collection Type Unknown Urine Color Yellow Urine Clarity Clear Urine pH 7.0 Urine Specific [place] 1.020 Urine Protein Neg Urine Glucose (UA) Neg mg/dL Urine Ketones (Stick) Neg mg/dL Urine Blood Neg Urine Nitrite Neg Urine Bilirubin Neg Urine Urobilinogen Dipstick 1.0 mg/dL Urine Leukocyte Esterase Neg Urine RBC Occ /HPF Urine WBC Occ /HPF Urine Squamous Epithelial Cells Few /LPF Urine Bacteria Few /HPF Current Medications Medications (Trade) Dose Ordered Sig/Gracie Route PRN Reason Start Time Stop Time Status Last Admin Dose Admin Acetaminophen (Tylenol) 650 mg PRN Q6HRS PRN PO MILD PAIN / TEMP > 100.3'F 10/04/20 15:15 Multi-Ingredient Ointment (Analgesic [place]) 1 jean marie PRN QID PRN TP MILD MUSCLE PAIN 10/04/20 15:15 Al Hydroxide/Mg Hydroxide (Mylanta Plus Xs) 15 ml PRN AFTMEALHC PRN PO DYSPEPSIA 10/04/20 15:15 10/04/20 17:23 DC Magnesium Hydroxide (Milk Of Magnesia) 2,400 mg PRN QHS PRN PO CONSTIPATION 10/04/20 15:15 10/04/20 17:16 DC Acetaminophen (Tylenol) 650 mg PRN Q6HRS PRN PO MILD PAIN / TEMP > 100.3'F 10/04/20 17:00 10/04/20 17:04 DC Carbidopa/Levodopa (Sinemet Cr) 1 tab.sa HS PO 10/04/20 21:00 10/05/20 20:22 Carbidopa/Levodopa (Sinemet 25/100) 1 tab Q3HRS PO 10/04/20 18:00 10/05/20 20:34 Diclofenac Sodium (Voltaren) 1 jean marie PRN QID PRN TP 2ND CHOICE MUSCLE PAIN 10/04/20 17:00 Donepezil HCl (Aricept) 10 mg HS PO 10/04/20 21:00 10/05/20 20:22 Duloxetine HCl (Cymbalta) 60 mg HS PO 10/04/20 21:00 10/05/20 20:22 Lorazepam (Ativan) 0.5 mg PRN Q6HRS PRN PO 1ST CHOICE ANXIETY 10/04/20 17:00 Al Hydroxide/Mg Hydroxide (Mylanta Plus Xs) 15 ml PRN AFTMEALHC PRN PO DYSPEPSIA 10/04/20 17:00 Magnesium Hydroxide (Milk Of Magnesia) 2,400 mg PRN QHS PRN PO CONSTIPATION 10/04/20 17:00 10/04/20 17:18 DC Melatonin (Melatonin) 3 mg QHS PO 10/04/20 21:00 10/05/20 20:22 Mirtazapine (Remeron) 15 mg QHS PO 10/04/20 21:00 10/05/20 20:21 Olanzapine (ZyPREXA ZYDIS) 2.5 mg PRN Q2HRS PRN PO 2ND CHOICE ANXIETY / AGITATION 10/04/20 17:00 Oxybutynin Chloride (Ditropan) 5 mg [id number] PO 10/04/20 21:00 10/05/20 20:33 Pantoprazole Sodium (Protonix) 40 mg DAILYAC PO 10/05/20 07:30 10/05/20 07:30 Polyethylene Glycol (miraLAX) 17 gm DAILY PO 10/05/20 09:00 Pramipexole Dihydrochloride (miraPEX) 0.5 mg [id number] PO 10/04/20 21:00 10/05/20 20:22 Pregabalin (Lyrica) 50 mg TID PO 10/04/20 21:00 10/05/20 20:29 DC 10/05/20 17:54 Quetiapine Fumarate (SEROquel) 25 mg TID PO 10/04/20 21:00 10/05/20 20:22 Trazodone HCl (Desyrel) 50 mg PRN QHS PRN PO INSOMNIA 10/04/20 17:00 Magnesium Hydroxide (Milk Of Magnesia) 2,400 mg PRN QHS PRN PO CONSTIPATION 10/04/20 17:15 Meclizine HCl (Antivert) 25 mg PRN TID PRN PO DIZZINESS 10/04/20 17:30 Artificial Tears (Artificial Tears) 1 drop PRN QID PRN OU DRY EYE 10/04/20 17:30 Pregabalin (Lyrica) 50 mg TID PO 10/06/20 09:00 Current Medications Medications (Trade) Dose Ordered Sig/Gracie Route PRN Reason Start Time Stop Time Status Last Admin Dose Admin Pantoprazole Sodium (Protonix) 40 mg DAILYAC PO 10/05/20 07:30 10/05/20 07:30 I have reviewed the current psychotropics carefully including drug interactions. Risk benefit ratio favors no change other than as noted in my dictated progress note. Diagnosis: Problems: (1) Mild cognitive impairment (2) Major depressive disorder, severe (3) Anxiety disorder, unspecified MARICEL BROWN MD Oct 05, 2020 21:07
--- NOTE | 2020-10-05 21:50 | HP ---
ADMIT DATE: 10/04/2020 PSYCHIATRIC ADMISSION HISTORY/EVALUATION This late entry date of service 10/04/2020 covers elements not covered in my initial note of 10/04/2020. SUBJECTIVE: I met with the patient evening of 10/04/2020 for this evaluation and previously discussed with Rochelle Mackey, commercial loan coordinator and reviewed information from [facility]. IDENTIFYING DATA: The patient is a 74-year-old female who was last with us in June of 2020 and is being referred back to us by her primary care physician from the [facility] on account of worsening delusions about having bugs and worms or parasites living in her mouth. The patient has had recent weight loss with poor appetite, pulling at her mouth and has lost 2 teeth. She denies she has pulled her teeth out, however. The patient has been delusional, depressed, anxious, psychotic, has failed outpatient psychiatric interventions resulting in this referral. Reviewed current and past records. CHIEF COMPLAINT: "I did not pull my teeth out. Yes, there are bugs in my mouth. They come out." HISTORY OF PRESENT ILLNESS: The patient has a history of significant psychotic symptoms within the context of her Parkinson's disease and worsening symptoms of depression with sleep and appetite and weight changes and psychotic symptoms. No active suicidal or homicidal ideation. No clear history of bipolar disorder. The patient has been extremely agitated at [facility] throwing herself out of the wheelchair. PAST PSYCHIATRIC HISTORY: As above. MEDICAL HISTORY: Positive for Parkinson's disease, GERD, osteoarthritis, AV block with pacemaker placement, dry eye syndrome. CODE STATUS: DNR. ALLERGIES: OXYCODONE, GABAPENTIN. Ambulates in wheelchair, takes medications whole. DIET: Regular. ACCU-CHEKS: None. CURRENT PSYCHOTROPICS: The patient is on Aricept 10 mg at bedtime, Cymbalta 60 mg at bedtime, melatonin 3 mg at bedtime, Remeron 15 mg at bedtime, Mirapex 0.5 mg t.i.d., Sinemet 25/100 six times a day, 50/200 bedtime, pregabalin 50 mg t.i.d., Seroquel 25 mg t.i.d., trazodone 50 mg at bedtime p.r.n., and Ativan p.r.n. FAMILY HISTORY: Noncontributory. SOCIAL HISTORY: No history of alcohol, drug abuse, physical, sexual or elder abuse. She is not known to be a perpetrator. MENTAL STATUS EXAMINATION: The patient was seen individually on telehealth rounds evening of 10/04/2020. The patient is awake, alert, oriented to herself, situation and thought she remembered me, but I am not sure of that. Speech has some latency, coherent. Abstraction fair, computation impaired, language function intact. Attention span short. Mood and affect depressed. She is quite delusional about above, but able to accept reassurance that she does not have bugs in her mouth. No active suicidal or homicidal ideation. She is somewhat distractable. IMPRESSION: Major depressive disorder, recurrent with psychotic features; psychotic disorder, unspecified; anxiety disorder, unspecified; impulse control disorder, unspecified. Rest as above. PLAN: Admit to Geropsychiatry Unit at [facility]. I will see the patient daily individually from a psychiatric standpoint. Medical followup with Dr. Barnett/Dr. Funez. Check UA. Consider having CT head done if not done recently. Continue current psychotropics. Observe baseline, adjust further as clinically indicated. If psychotic symptoms persist, may increase the Seroquel or change to Risperdal, but given her Parkinson's, I would like to avoid the Risperdal. ESTIMATED LENGTH OF STAY: 10-12 days. DISPOSITION: Plans back to [facility] when stable. MARICEL BROWN MD DR: MYRNA/cathy JOB#: [id number] / [id number]
--- NOTE | 2020-10-05 22:06 | PN ---
DATE: 10/05/2020 PSYCHIATRIC PROGRESS NOTE This note covers elements not covered in my initial note 10/05/2020. SUBJECTIVE: The patient was seen on telehealth rounds evening of 10/15/2020. Discussed at length at treatment team meeting with the entire team including Rochelle Mackey, [place] social service staff, [place] activity therapy staff, and CHRISTIAN Kramer. The patient slept 9-1/2 hours previous night. She remains in a Broda chair, little more accepting that she does not have parasites in her mouth. She has been attending groups and coloring. Did attempt to throw herself out of the wheelchair previously. REVIEW OF SYSTEMS: Positive for poor appetite, tiredness, impaired ambulation in wheelchair. No CV, , pulmonary, eye system symptoms on review. MENTAL STATUS EXAM: Reasonably oriented. Speech has some latency, coherent. Abstraction fair, computation impaired, language function intact, attention span short. Mood and affect are depressed. She is quite delusional. LABORATORY DATA: Reviewed. IMPRESSION: Major depressive disorder with psychotic features; anxiety disorder, unspecified; impulse control disorder, unspecified. Rest as above. PLAN: I have carefully reviewed her current psychotropics and drug interactions. Risk/benefit ratio favors no change for now. May consider increasing Seroquel or changing to Risperdal as clinically indicated. We will also consider CT head, but we will make all these decisions post baseline assessment. The patient was seen individually on telehealth rounds in the evening. MARICEL BROWN MD DR: MYRNA/cathy JOB#: [id number] / [id number]
--- NOTE | 2020-10-06 02:55 | NUR ---
Nursing Note The patient was calm, compliant and interactive this shift. The patient took her medication whole. The patient was alert and oriented to self, date, location. The patient colored and read this evening prior to going to bed.
[2020-10-06] MEDS: CARBIDOPA/LEVODOPA 25/100MG TABLET PO SCH ×8 (03:00→20:28)
[2020-10-06 06:27] VITALS: BP 147/81
[2020-10-06] MEDS: POLYETHYLENE GLYCOL 3350 17 GM PACKET. PO SCH (09:02)
[2020-10-06] MEDS: QUEtiapine 25 MG TABLET. PO SCH ×3 (09:03→20:27)
[2020-10-06] MEDS: PREGABALIN 50 MG CAPSULE PO SCH ×3 (09:03→20:26)
[2020-10-06] MEDS: PRAMIPEXOLE 0.5 MG TABLET. PO SCH ×3 (09:03→20:28)
[2020-10-06] MEDS: OXYBUTYNIN CHLORIDE 5 MG TABLET PO SCH ×3 (09:03→20:28)
[2020-10-06] MEDS: PANTOPRAZOLE 40 MG TABLET. PO SCH (09:03)
--- NOTE | 2020-10-06 10:20 | NUR ---
Patient is calm and cooperative at this time. Patient is enjoying group and has no further needs at this time.
[2020-10-06 16:29] VITALS: BP 131/67
[2020-10-06] MEDS: DONEPEZIL HCL 10 MG TABLET PO SCH (20:26)
[2020-10-06] MEDS: MIRTAZAPINE 15 MG TABLET PO SCH (20:27)
[2020-10-06] MEDS: MELATONIN 3 MG TABLET PO SCH (20:27)
[2020-10-06] MEDS: CARBIDOPA/LEVODOPA CR 50/200MG TABLET.SA PO SCH (20:27)
[2020-10-06] MEDS: DULoxetine HCL 20 MG CAPSULE.DR PO SCH (20:28)
--- NOTE | 2020-10-06 21:09 | PDOC ---
Exam Note: Marcial Note: Please also refer to the separate dictated note~for this date of service dictated separately.~Patient seen individually. Discussed the patient with Nursing staff reviewed the chart.~Reviewed interim history and current functioning. Reviewed vital signs,~Labs/ Radiology~and current medications noted below. Continue current treatment with the changes noted in the dictated addendum note Assessment: Vital Signs/I&O: Vital Signs Date Time Temp Pulse Resp B/P (MAP) Pulse Ox O2 Delivery O2 Flow Rate FiO2 10/06/20 16:29 98.8 80 20 131/67 (88) 98 10/05/20 15:00 Room Air I & O 10/05/20 10/05/20 10/06/20 15:00 23:00 07:00 Intake Total 480 ml Balance 480 ml Current Medications: Meds: Current Medications Medications (Trade) Dose Ordered Sig/Gracie Route PRN Reason Start Time Stop Time Status Last Admin Dose Admin Acetaminophen (Tylenol) 650 mg PRN Q6HRS PRN PO MILD PAIN / TEMP > 100.3'F 10/04/20 15:15 Multi-Ingredient Ointment (Analgesic [place]) 1 jean marie PRN QID PRN TP MILD MUSCLE PAIN 10/04/20 15:15 Al Hydroxide/Mg Hydroxide (Mylanta Plus Xs) 15 ml PRN AFTMEALHC PRN PO DYSPEPSIA 10/04/20 15:15 10/04/20 17:23 DC Magnesium Hydroxide (Milk Of Magnesia) 2,400 mg PRN QHS PRN PO CONSTIPATION 10/04/20 15:15 10/04/20 17:16 DC Acetaminophen (Tylenol) 650 mg PRN Q6HRS PRN PO MILD PAIN / TEMP > 100.3'F 10/04/20 17:00 10/04/20 17:04 DC Carbidopa/Levodopa (Sinemet Cr) 1 tab.sa HS PO 10/04/20 21:00 10/06/20 20:27 Carbidopa/Levodopa (Sinemet 25/100) 1 tab Q3HRS PO 10/04/20 18:00 10/06/20 20:28 Diclofenac Sodium (Voltaren) 1 jean marie PRN QID PRN TP 2ND CHOICE MUSCLE PAIN 10/04/20 17:00 Donepezil HCl (Aricept) 10 mg HS PO 10/04/20 21:00 10/06/20 20:26 Duloxetine HCl (Cymbalta) 60 mg HS PO 10/04/20 21:00 10/06/20 20:28 Lorazepam (Ativan) 0.5 mg PRN Q6HRS PRN PO 1ST CHOICE ANXIETY 10/04/20 17:00 Al Hydroxide/Mg Hydroxide (Mylanta Plus Xs) 15 ml PRN AFTMEALHC PRN PO DYSPEPSIA 10/04/20 17:00 Magnesium Hydroxide (Milk Of Magnesia) 2,400 mg PRN QHS PRN PO CONSTIPATION 10/04/20 17:00 10/04/20 17:18 DC Melatonin (Melatonin) 3 mg QHS PO 10/04/20 21:00 10/06/20 20:27 Mirtazapine (Remeron) 15 mg QHS PO 10/04/20 21:00 10/06/20 20:27 Olanzapine (ZyPREXA ZYDIS) 2.5 mg PRN Q2HRS PRN PO 2ND CHOICE ANXIETY / AGITATION 10/04/20 17:00 Oxybutynin Chloride (Ditropan) 5 mg [id number] PO 10/04/20 21:00 10/06/20 20:28 Pantoprazole Sodium (Protonix) 40 mg DAILYAC PO 10/05/20 07:30 10/06/20 09:03 Polyethylene Glycol (miraLAX) 17 gm DAILY PO 10/05/20 09:00 10/06/20 09:02 Pramipexole Dihydrochloride (miraPEX) 0.5 mg [id number] PO 10/04/20 21:00 10/06/20 20:28 Pregabalin (Lyrica) 50 mg TID PO 10/04/20 21:00 10/05/20 20:29 DC 10/05/20 17:54 Quetiapine Fumarate (SEROquel) 25 mg TID PO 10/04/20 21:00 10/06/20 20:27 Trazodone HCl (Desyrel) 50 mg PRN QHS PRN PO INSOMNIA 10/04/20 17:00 Magnesium Hydroxide (Milk Of Magnesia) 2,400 mg PRN QHS PRN PO CONSTIPATION 10/04/20 17:15 Meclizine HCl (Antivert) 25 mg PRN TID PRN PO DIZZINESS 10/04/20 17:30 Artificial Tears (Artificial Tears) 1 drop PRN QID PRN OU DRY EYE 10/04/20 17:30 Pregabalin (Lyrica) 50 mg TID PO 10/06/20 09:00 10/06/20 20:26 Current Medications Medications (Trade) Dose Ordered Sig/Gracie Route PRN Reason Start Time Stop Time Status Last Admin Dose Admin Pregabalin (Lyrica) 50 mg TID PO 10/06/20 09:00 10/06/20 20:26 I have reviewed the current psychotropics carefully including drug interactions. Risk benefit ratio favors no change other than as noted in my dictated progress note. Diagnosis: Problems: (1) Anxiety disorder, unspecified (2) Major depressive disorder with psychotic features (3) Impulse control disorder, unspecified MARICEL BROWN MD Oct 06, 2020 21:08
[2020-10-06 22:45] LABS: BACTERIA,URINE 0 /HPF (0-FEW); BILIRUBIN,URINE NEG (NEG); CLARITY,URINE CLEAR; COLOR,URINE YELLOW; GLUCOSE,URINE NEG (NEG); NITRITE,URINE NEG (NEG); RBC,URINE 0 /HPF (0-2); UROBILINOGEN,URINE 0.2 mg/dL (0.2 mg/dL)
--- NOTE | 2020-10-06 23:59 | NUR ---
Patient is in her room on assumption of care, awake in bed. She is in pleasant spirits. Calm, cooperative and compliant with assessments and medications whole. No agitation. No delusions or hallucinations voiced so far this shift. She denies any pain or discomfort. Patient appears to be sleeping comfortably at present time. Will continue to monitor.
[2020-10-07] MEDS: CARBIDOPA/LEVODOPA 25/100MG TABLET PO SCH ×8 (02:53→21:00)
[2020-10-07 06:15] VITALS: BP 143/72
--- NOTE | 2020-10-07 08:27 | PDOC ---
Exam Note: Marcial Note: This note is a late entry for 10/06/2020 covers elements not covered in my initial note. Subjective: The patient was reviewed on telehealth rounds in the evening of 10/06/2020 with Minesh GONZALES. Discussed with nursing staff, reviewed the chart. The patient slept 4-3/4 hours previous night. She has been attending groups, more talkative, less delusional about bugs in her mouth. Review of Systems: Ambulation impaired in wheelchair. No CV, , pulmonary, eye, ENT system symptoms on review. Mental Status Exam: The patient is reasonably oriented. She is pleasant, verbal, interactive. Speech coherent. Abstraction is fair. Computation is impaired. Language function is intact. Attention span is short. Mood and affect withdrawn. Laboratory Data: Reviewed as above. Impression: Major depressive disorder with psychotic features. Psychotic disorder unspecified. Anxiety disorder unspecified. Plan: No change from initial note. Assessment: Vital Signs/I&O: Vital Signs Date Time Temp Pulse Resp B/P (MAP) Pulse Ox O2 Delivery O2 Flow Rate FiO2 10/07/20 06:15 97.3 66 16 143/72 (95) 98 Room Air I & O 10/06/20 10/06/20 10/07/20 15:00 23:00 07:00 Intake Total 720 ml 600 ml Balance 720 ml 600 ml Labs: Laboratory Tests Test 10/06/20 22:09 Urine Collection Type Unknown Urine Color Yellow Urine Clarity Clear Urine pH 6.5 Urine Specific [place] 1.015 Urine Protein Neg (NEG-TRACE) Urine Glucose (UA) Neg mg/dL (NEG) Urine Ketones (Stick) Neg mg/dL (NEG) Urine Blood Neg (NEG) Urine Nitrite Neg (NEG) Urine Bilirubin Neg (NEG) Urine Urobilinogen Dipstick 0.2 mg/dL (0.2 mg/dL) Urine Leukocyte Esterase Trace (NEG) Urine RBC 0 /HPF (0-2) Urine WBC 1-4 /HPF (0-4) Urine Squamous Epithelial Cells None /LPF Urine Bacteria 0 /HPF (0-FEW) Current Medications: Meds: Laboratory Tests Test 10/06/20 22:09 Urine Collection Type Unknown Urine Color Yellow Urine Clarity Clear Urine pH 6.5 Urine Specific [place] 1.015 Urine Protein Neg Urine Glucose (UA) Neg mg/dL Urine Ketones (Stick) Neg mg/dL Urine Blood Neg Urine Nitrite Neg Urine Bilirubin Neg Urine Urobilinogen Dipstick 0.2 mg/dL Urine Leukocyte Esterase Trace Urine RBC 0 /HPF Urine WBC 1-4 /HPF Urine Squamous Epithelial Cells None /LPF Urine Bacteria 0 /HPF Current Medications Medications (Trade) Dose Ordered Sig/Gracie Route PRN Reason Start Time Stop Time Status Last Admin Dose Admin Acetaminophen (Tylenol) 650 mg PRN Q6HRS PRN PO MILD PAIN / TEMP > 100.3'F 10/04/20 15:15 Multi-Ingredient Ointment (Analgesic [place]) 1 jean marie PRN QID PRN TP MILD MUSCLE PAIN 10/04/20 15:15 Al Hydroxide/Mg Hydroxide (Mylanta Plus Xs) 15 ml PRN AFTMEALHC PRN PO DYSPEPSIA 10/04/20 15:15 10/04/20 17:23 DC Magnesium Hydroxide (Milk Of Magnesia) 2,400 mg PRN QHS PRN PO CONSTIPATION 10/04/20 15:15 10/04/20 17:16 DC Acetaminophen (Tylenol) 650 mg PRN Q6HRS PRN PO MILD PAIN / TEMP > 100.3'F 10/04/20 17:00 10/04/20 17:04 DC Carbidopa/Levodopa (Sinemet Cr) 1 tab.sa HS PO 10/04/20 21:00 10/06/20 20:27 Carbidopa/Levodopa (Sinemet 25/100) 1 tab Q3HRS PO 10/04/20 18:00 10/07/20 05:33 Diclofenac Sodium (Voltaren) 1 jean marie PRN QID PRN TP 2ND CHOICE MUSCLE PAIN 10/04/20 17:00 Donepezil HCl (Aricept) 10 mg HS PO 10/04/20 21:00 10/06/20 20:26 Duloxetine HCl (Cymbalta) 60 mg HS PO 10/04/20 21:00 10/06/20 20:28 Lorazepam (Ativan) 0.5 mg PRN Q6HRS PRN PO 1ST CHOICE ANXIETY 10/04/20 17:00 Al Hydroxide/Mg Hydroxide (Mylanta Plus Xs) 15 ml PRN AFTMEALHC PRN PO DYSPEPSIA 10/04/20 17:00 Magnesium Hydroxide (Milk Of Magnesia) 2,400 mg PRN QHS PRN PO CONSTIPATION 10/04/20 17:00 10/04/20 17:18 DC Melatonin (Melatonin) 3 mg QHS PO 10/04/20 21:00 10/06/20 20:27 Mirtazapine (Remeron) 15 mg QHS PO 10/04/20 21:00 10/06/20 20:27 Olanzapine (ZyPREXA ZYDIS) 2.5 mg PRN Q2HRS PRN PO 2ND CHOICE ANXIETY / AGITATION 10/04/20 17:00 Oxybutynin Chloride (Ditropan) 5 mg [id number] PO 10/04/20 21:00 10/06/20 20:28 Pantoprazole Sodium (Protonix) 40 mg DAILYAC PO 10/05/20 07:30 10/06/20 09:03 Polyethylene Glycol (miraLAX) 17 gm DAILY PO 10/05/20 09:00 10/06/20 09:02 Pramipexole Dihydrochloride (miraPEX) 0.5 mg [id number] PO 10/04/20 21:00 10/06/20 20:28 Pregabalin (Lyrica) 50 mg TID PO 10/04/20 21:00 10/05/20 20:29 DC 10/05/20 17:54 Quetiapine Fumarate (SEROquel) 25 mg TID PO 10/04/20 21:00 10/06/20 20:27 Trazodone HCl (Desyrel) 50 mg PRN QHS PRN PO INSOMNIA 10/04/20 17:00 Magnesium Hydroxide (Milk Of Magnesia) 2,400 mg PRN QHS PRN PO CONSTIPATION 10/04/20 17:15 Meclizine HCl (Antivert) 25 mg PRN TID PRN PO DIZZINESS 10/04/20 17:30 Artificial Tears (Artificial Tears) 1 drop PRN QID PRN OU DRY EYE 10/04/20 17:30 Pregabalin (Lyrica) 50 mg TID PO 10/06/20 09:00 10/06/20 20:26 Current Medications Medications (Trade) Dose Ordered Sig/Gracie Route PRN Reason Start Time Stop Time Status Last Admin Dose Admin Pregabalin (Lyrica) 50 mg TID PO 10/06/20 09:00 10/06/20 20:26 I have reviewed the current psychotropics carefully including drug interactions. Risk benefit ratio favors no change other than as noted in my dictated progress note. Diagnosis: Problems: (1) Psychotic disorder (2) Parkinson's disease (3) Anxiety disorder, unspecified (4) Major depressive disorder with psychotic features (5) Impulse control disorder, unspecified MARICEL BROWN MD Oct 07, 2020 08:27
[2020-10-07] MEDS: PANTOPRAZOLE 40 MG TABLET. PO SCH (08:59)
[2020-10-07] MEDS: QUEtiapine 25 MG TABLET. PO SCH ×3 (08:59→20:59)
[2020-10-07] MEDS: OXYBUTYNIN CHLORIDE 5 MG TABLET PO SCH ×3 (08:59→20:59)
[2020-10-07] MEDS: POLYETHYLENE GLYCOL 3350 17 GM PACKET. PO SCH (09:00)
[2020-10-07] MEDS: PRAMIPEXOLE 0.5 MG TABLET. PO SCH ×3 (09:00→21:00)
[2020-10-07] MEDS: PREGABALIN 50 MG CAPSULE PO SCH ×3 (09:00→21:00)
--- NOTE | 2020-10-07 09:46 | NUR ---
Patient is calm and cooperative at this time. Patient is enjoying group and has no further needs at this time.
[2020-10-07 16:06] VITALS: BP 95/60
[2020-10-07] MEDS: DONEPEZIL HCL 10 MG TABLET PO SCH (20:59)
[2020-10-07] MEDS: MELATONIN 3 MG TABLET PO SCH (20:59)
[2020-10-07] MEDS: CARBIDOPA/LEVODOPA CR 50/200MG TABLET.SA PO SCH (20:59)
[2020-10-07] MEDS: MIRTAZAPINE 15 MG TABLET PO SCH (21:00)
--- NOTE | 2020-10-07 21:11 | PDOC ---
Exam Note: Marcial Note: Please also refer to the separate dictated note~for this date of service dictated separately.~Patient seen individually. Discussed the patient with Nursing staff reviewed the chart.~Reviewed interim history and current functioning. Reviewed vital signs,~Labs/ Radiology~and current medications noted below. Continue current treatment with the changes noted in the dictated addendum note Assessment: Vital Signs/I&O: Vital Signs Date Time Temp Pulse Resp B/P (MAP) Pulse Ox O2 Delivery O2 Flow Rate FiO2 10/07/20 16:06 97.8 71 16 95/60 (72) 96 10/07/20 06:15 Room Air I & O 10/06/20 10/06/20 10/07/20 15:00 23:00 07:00 Intake Total 720 ml 600 ml Balance 720 ml 600 ml Labs: Laboratory Tests Test 10/06/20 22:09 Urine Collection Type Unknown Urine Color Yellow Urine Clarity Clear Urine pH 6.5 Urine Specific [place] 1.015 Urine Protein Neg (NEG-TRACE) Urine Glucose (UA) Neg mg/dL (NEG) Urine Ketones (Stick) Neg mg/dL (NEG) Urine Blood Neg (NEG) Urine Nitrite Neg (NEG) Urine Bilirubin Neg (NEG) Urine Urobilinogen Dipstick 0.2 mg/dL (0.2 mg/dL) Urine Leukocyte Esterase Trace (NEG) Urine RBC 0 /HPF (0-2) Urine WBC 1-4 /HPF (0-4) Urine Squamous Epithelial Cells None /LPF Urine Bacteria 0 /HPF (0-FEW) Current Medications: Meds: Laboratory Tests Test 10/06/20 22:09 Urine Collection Type Unknown Urine Color Yellow Urine Clarity Clear Urine pH 6.5 Urine Specific [place] 1.015 Urine Protein Neg Urine Glucose (UA) Neg mg/dL Urine Ketones (Stick) Neg mg/dL Urine Blood Neg Urine Nitrite Neg Urine Bilirubin Neg Urine Urobilinogen Dipstick 0.2 mg/dL Urine Leukocyte Esterase Trace Urine RBC 0 /HPF Urine WBC 1-4 /HPF Urine Squamous Epithelial Cells None /LPF Urine Bacteria 0 /HPF Current Medications Medications (Trade) Dose Ordered Sig/Gracie Route PRN Reason Start Time Stop Time Status Last Admin Dose Admin Acetaminophen (Tylenol) 650 mg PRN Q6HRS PRN PO MILD PAIN / TEMP > 100.3'F 10/04/20 15:15 Multi-Ingredient Ointment (Analgesic [place]) 1 jean marie PRN QID PRN TP MILD MUSCLE PAIN 10/04/20 15:15 Al Hydroxide/Mg Hydroxide (Mylanta Plus Xs) 15 ml PRN AFTMEALHC PRN PO DYSPEPSIA 10/04/20 15:15 10/04/20 17:23 DC Magnesium Hydroxide (Milk Of Magnesia) 2,400 mg PRN QHS PRN PO CONSTIPATION 10/04/20 15:15 10/04/20 17:16 DC Acetaminophen (Tylenol) 650 mg PRN Q6HRS PRN PO MILD PAIN / TEMP > 100.3'F 10/04/20 17:00 10/04/20 17:04 DC Carbidopa/Levodopa (Sinemet Cr) 1 tab.sa HS PO 10/04/20 21:00 10/07/20 20:59 Carbidopa/Levodopa (Sinemet 25/100) 1 tab Q3HRS PO 10/04/20 18:00 10/07/20 21:00 Diclofenac Sodium (Voltaren) 1 jean marie PRN QID PRN TP 2ND CHOICE MUSCLE PAIN 10/04/20 17:00 Donepezil HCl (Aricept) 10 mg HS PO 10/04/20 21:00 10/07/20 20:59 Duloxetine HCl (Cymbalta) 60 mg HS PO 10/04/20 21:00 10/07/20 17:38 DC 10/06/20 20:28 Lorazepam (Ativan) 0.5 mg PRN Q6HRS PRN PO 1ST CHOICE ANXIETY 10/04/20 17:00 Al Hydroxide/Mg Hydroxide (Mylanta Plus Xs) 15 ml PRN AFTMEALHC PRN PO DYSPEPSIA 10/04/20 17:00 Magnesium Hydroxide (Milk Of Magnesia) 2,400 mg PRN QHS PRN PO CONSTIPATION 10/04/20 17:00 10/04/20 17:18 DC Melatonin (Melatonin) 3 mg QHS PO 10/04/20 21:00 10/07/20 20:59 Mirtazapine (Remeron) 15 mg QHS PO 10/04/20 21:00 10/07/20 21:00 Olanzapine (ZyPREXA ZYDIS) 2.5 mg PRN Q2HRS PRN PO 2ND CHOICE ANXIETY / AGITATION 10/04/20 17:00 Oxybutynin Chloride (Ditropan) 5 mg [id number] PO 10/04/20 21:00 10/07/20 20:59 Pantoprazole Sodium (Protonix) 40 mg DAILYAC PO 10/05/20 07:30 10/07/20 08:59 Polyethylene Glycol (miraLAX) 17 gm DAILY PO 10/05/20 09:00 10/07/20 09:00 Pramipexole Dihydrochloride (miraPEX) 0.5 mg [id number] PO 10/04/20 21:00 10/07/20 21:00 Pregabalin (Lyrica) 50 mg TID PO 10/04/20 21:00 10/05/20 20:29 DC 10/05/20 17:54 Quetiapine Fumarate (SEROquel) 25 mg TID PO 10/04/20 21:00 10/07/20 20:59 Trazodone HCl (Desyrel) 50 mg PRN QHS PRN PO INSOMNIA 10/04/20 17:00 Magnesium Hydroxide (Milk Of Magnesia) 2,400 mg PRN QHS PRN PO CONSTIPATION 10/04/20 17:15 Meclizine HCl (Antivert) 25 mg PRN TID PRN PO DIZZINESS 10/04/20 17:30 Artificial Tears (Artificial Tears) 1 drop PRN QID PRN OU DRY EYE 10/04/20 17:30 Pregabalin (Lyrica) 50 mg TID PO 10/06/20 09:00 10/07/20 21:00 Fluvoxamine Maleate (Luvox) 25 mg DAILY PO 10/08/20 09:00 10/10/20 09:01 Fluvoxamine Maleate (Luvox) 50 mg DAILY PO 10/11/20 09:00 I have reviewed the current psychotropics carefully including drug interactions. Risk benefit ratio favors no change other than as noted in my dictated progress note. Diagnosis: Problems: (1) Mild cognitive impairment (2) Major depressive disorder, severe (3) Anxiety disorder, unspecified (4) Major depressive disorder with psychotic features (5) Impulse control disorder, unspecified (6) Psychotic disorder MARICEL BROWN MD Oct 07, 2020 21:11
--- NOTE | 2020-10-07 23:11 | NUR ---
Pt has been pleasant and cooperative tonight. Meds were taken whole without difficulty. She has had no behaviors tonight and denies hallucinations or delusions.
[2020-10-08] MEDS: CARBIDOPA/LEVODOPA 25/100MG TABLET PO SCH ×8 (00:05→20:32)
[2020-10-08 05:51] VITALS: BP 128/53
--- NOTE | 2020-10-08 07:57 | PDOC ---
Exam Note: Marcial Note: This note is a late entry for 10/07/2020 covers elements not covered in my initial note. Subjective: The patient was reviewed on telehealth rounds in the evening of 10/07/2020 with Minesh GONZALES. Discussed with nursing staff, reviewed the chart. The patient slept 3-1/4 hours previous night. Overall she has been somewhat withdrawn. She intermittently feels she has bugs in her mouth but less obsessed about this. Review of Systems: Ambulation impaired in wheelchair. No CV, , pulmonary, eye system symptoms on review. Mental Status Exam: The patient is reasonably oriented. She is pleasant, verbal, interactive. Speech coherent. Abstraction is fair. Computation is impaired. Language function is intact. Attention span is short. Mood and affect withdrawn. Laboratory Data: Reviewed as above. Impression: Major depressive disorder with psychotic features. Psychotic disorder unspecified. Anxiety disorder unspecified. Plan: We will change the patients Cymbalta 60 mg a day to Luvox 25 mg a day for 3 days, then 50 mg a day. This should help some of her obsessive thought processes. Continue rest of the psychotropics. Assessment: Vital Signs/I&O: Vital Signs Date Time Temp Pulse Resp B/P (MAP) Pulse Ox O2 Delivery O2 Flow Rate FiO2 10/08/20 05:51 97.4 71 18 128/53 (78) 95 10/07/20 06:15 Room Air I & O 10/07/20 10/07/20 10/08/20 15:00 23:00 07:00 Intake Total 600 ml 200 ml Balance 600 ml 200 ml Current Medications: Meds: Current Medications Medications (Trade) Dose Ordered Sig/Gracie Route PRN Reason Start Time Stop Time Status Last Admin Dose Admin Acetaminophen (Tylenol) 650 mg PRN Q6HRS PRN PO MILD PAIN / TEMP > 100.3'F 10/04/20 15:15 Multi-Ingredient Ointment (Analgesic [place]) 1 jean marie PRN QID PRN TP MILD MUSCLE PAIN 10/04/20 15:15 Al Hydroxide/Mg Hydroxide (Mylanta Plus Xs) 15 ml PRN AFTMEALHC PRN PO DYSPEPSIA 10/04/20 15:15 10/04/20 17:23 DC Magnesium Hydroxide (Milk Of Magnesia) 2,400 mg PRN QHS PRN PO CONSTIPATION 10/04/20 15:15 10/04/20 17:16 DC Acetaminophen (Tylenol) 650 mg PRN Q6HRS PRN PO MILD PAIN / TEMP > 100.3'F 10/04/20 17:00 10/04/20 17:04 DC Carbidopa/Levodopa (Sinemet Cr) 1 tab.sa HS PO 10/04/20 21:00 10/07/20 20:59 Carbidopa/Levodopa (Sinemet 25/100) 1 tab Q3HRS PO 10/04/20 18:00 10/08/20 05:24 Diclofenac Sodium (Voltaren) 1 jean marie PRN QID PRN TP 2ND CHOICE MUSCLE PAIN 10/04/20 17:00 Donepezil HCl (Aricept) 10 mg HS PO 10/04/20 21:00 10/07/20 20:59 Duloxetine HCl (Cymbalta) 60 mg HS PO 10/04/20 21:00 10/07/20 17:38 DC 10/06/20 20:28 Lorazepam (Ativan) 0.5 mg PRN Q6HRS PRN PO 1ST CHOICE ANXIETY 10/04/20 17:00 Al Hydroxide/Mg Hydroxide (Mylanta Plus Xs) 15 ml PRN AFTMEALHC PRN PO DYSPEPSIA 10/04/20 17:00 Magnesium Hydroxide (Milk Of Magnesia) 2,400 mg PRN QHS PRN PO CONSTIPATION 10/04/20 17:00 10/04/20 17:18 DC Melatonin (Melatonin) 3 mg QHS PO 10/04/20 21:00 10/07/20 20:59 Mirtazapine (Remeron) 15 mg QHS PO 10/04/20 21:00 10/07/20 21:00 Olanzapine (ZyPREXA ZYDIS) 2.5 mg PRN Q2HRS PRN PO 2ND CHOICE ANXIETY / AGITATION 10/04/20 17:00 Oxybutynin Chloride (Ditropan) 5 mg [id number] PO 10/04/20 21:00 10/07/20 20:59 Pantoprazole Sodium (Protonix) 40 mg DAILYAC PO 10/05/20 07:30 10/07/20 08:59 Polyethylene Glycol (miraLAX) 17 gm DAILY PO 10/05/20 09:00 10/07/20 09:00 Pramipexole Dihydrochloride (miraPEX) 0.5 mg [id number] PO 10/04/20 21:00 10/07/20 21:00 Pregabalin (Lyrica) 50 mg TID PO 10/04/20 21:00 10/05/20 20:29 DC 10/05/20 17:54 Quetiapine Fumarate (SEROquel) 25 mg TID PO 10/04/20 21:00 10/07/20 20:59 Trazodone HCl (Desyrel) 50 mg PRN QHS PRN PO INSOMNIA 10/04/20 17:00 Magnesium Hydroxide (Milk Of Magnesia) 2,400 mg PRN QHS PRN PO CONSTIPATION 10/04/20 17:15 Meclizine HCl (Antivert) 25 mg PRN TID PRN PO DIZZINESS 10/04/20 17:30 Artificial Tears (Artificial Tears) 1 drop PRN QID PRN OU DRY EYE 10/04/20 17:30 Pregabalin (Lyrica) 50 mg TID PO 10/06/20 09:00 10/07/20 21:00 Fluvoxamine Maleate (Luvox) 25 mg DAILY PO 10/08/20 09:00 10/10/20 09:01 Fluvoxamine Maleate (Luvox) 50 mg DAILY PO 10/11/20 09:00 I have reviewed the current psychotropics carefully including drug interactions. Risk benefit ratio favors no change other than as noted in my dictated progress note. Diagnosis: Problems: (1) Mild cognitive impairment (2) Major depressive disorder, severe (3) Anxiety disorder, unspecified (4) Major depressive disorder with psychotic features (5) Impulse control disorder, unspecified (6) Psychotic disorder MARICEL BROWN MD Oct 08, 2020 07:57
[2020-10-08] MEDS: OXYBUTYNIN CHLORIDE 5 MG TABLET PO SCH ×3 (08:07→20:32)
[2020-10-08] MEDS: PANTOPRAZOLE 40 MG TABLET. PO SCH (08:07)
[2020-10-08] MEDS: PRAMIPEXOLE 0.5 MG TABLET. PO SCH ×3 (08:07→20:31)
[2020-10-08] MEDS: POLYETHYLENE GLYCOL 3350 17 GM PACKET. PO SCH (08:07)
[2020-10-08] MEDS: PREGABALIN 50 MG CAPSULE PO SCH ×4 (08:07→20:31)
[2020-10-08] MEDS: QUEtiapine 25 MG TABLET. PO SCH ×3 (08:07→20:32)
--- NOTE | 2020-10-08 11:25 | NUR ---
Nursing Note Pt in room, states that her parasites are gone this am but were there yesterday. Compliant with meds cooperative pleasant.
[2020-10-08] MEDS: ACETAMINOPHEN 325 MG TABLET PO PRN (13:07)
[2020-10-08 16:02] VITALS: BP 155/90
[2020-10-08] MEDS: CARBIDOPA/LEVODOPA CR 50/200MG TABLET.SA PO SCH (20:31)
[2020-10-08] MEDS: MELATONIN 3 MG TABLET PO SCH (20:31)
[2020-10-08] MEDS: MIRTAZAPINE 15 MG TABLET PO SCH (20:31)
[2020-10-08] MEDS: DONEPEZIL HCL 10 MG TABLET PO SCH (20:31)
--- NOTE | 2020-10-08 21:13 | PDOC ---
Exam Note: Marcial Note: Please also refer to the separate dictated note~for this date of service dictated separately.~Patient seen individually. Discussed the patient with Nursing staff reviewed the chart.~Reviewed interim history and current functioning. Reviewed vital signs,~Labs/ Radiology~and current medications noted below. Continue current treatment with the changes noted in the dictated addendum note Assessment: Vital Signs/I&O: Vital Signs Date Time Temp Pulse Resp B/P (MAP) Pulse Ox O2 Delivery O2 Flow Rate FiO2 10/08/20 16:02 98.4 100 18 155/90 (111) 97 10/07/20 06:15 Room Air I & O 10/07/20 10/07/20 10/08/20 15:00 23:00 07:00 Intake Total 600 ml 200 ml Balance 600 ml 200 ml Current Medications: Meds: Current Medications Medications (Trade) Dose Ordered Sig/Gracie Route PRN Reason Start Time Stop Time Status Last Admin Dose Admin Acetaminophen (Tylenol) 650 mg PRN Q6HRS PRN PO MILD PAIN / TEMP > 100.3'F 10/04/20 15:15 10/08/20 13:07 Multi-Ingredient Ointment (Analgesic [place]) 1 jean marie PRN QID PRN TP MILD MUSCLE PAIN 10/04/20 15:15 Al Hydroxide/Mg Hydroxide (Mylanta Plus Xs) 15 ml PRN AFTMEALHC PRN PO DYSPEPSIA 10/04/20 15:15 10/04/20 17:23 DC Magnesium Hydroxide (Milk Of Magnesia) 2,400 mg PRN QHS PRN PO CONSTIPATION 10/04/20 15:15 10/04/20 17:16 DC Acetaminophen (Tylenol) 650 mg PRN Q6HRS PRN PO MILD PAIN / TEMP > 100.3'F 10/04/20 17:00 10/04/20 17:04 DC Carbidopa/Levodopa (Sinemet Cr) 1 tab.sa HS PO 10/04/20 21:00 10/08/20 20:31 Carbidopa/Levodopa (Sinemet 25/100) 1 tab Q3HRS PO 10/04/20 18:00 10/08/20 20:32 Diclofenac Sodium (Voltaren) 1 jean marie PRN QID PRN TP 2ND CHOICE MUSCLE PAIN 10/04/20 17:00 Donepezil HCl (Aricept) 10 mg HS PO 10/04/20 21:00 10/08/20 20:31 Duloxetine HCl (Cymbalta) 60 mg HS PO 10/04/20 21:00 10/07/20 17:38 DC 10/06/20 20:28 Lorazepam (Ativan) 0.5 mg PRN Q6HRS PRN PO 1ST CHOICE ANXIETY 10/04/20 17:00 Al Hydroxide/Mg Hydroxide (Mylanta Plus Xs) 15 ml PRN AFTMEALHC PRN PO DYSPEPSIA 10/04/20 17:00 Magnesium Hydroxide (Milk Of Magnesia) 2,400 mg PRN QHS PRN PO CONSTIPATION 10/04/20 17:00 10/04/20 17:18 DC Melatonin (Melatonin) 3 mg QHS PO 10/04/20 21:00 10/08/20 20:31 Mirtazapine (Remeron) 15 mg QHS PO 10/04/20 21:00 10/08/20 20:31 Olanzapine (ZyPREXA ZYDIS) 2.5 mg PRN Q2HRS PRN PO 2ND CHOICE ANXIETY / AGITATION 10/04/20 17:00 Oxybutynin Chloride (Ditropan) 5 mg [id number] PO 10/04/20 21:00 10/08/20 20:32 Pantoprazole Sodium (Protonix) 40 mg DAILYAC PO 10/05/20 07:30 10/08/20 08:07 Polyethylene Glycol (miraLAX) 17 gm DAILY PO 10/05/20 09:00 10/08/20 08:07 Pramipexole Dihydrochloride (miraPEX) 0.5 mg [id number] PO 10/04/20 21:00 10/08/20 20:31 Pregabalin (Lyrica) 50 mg TID PO 10/04/20 21:00 10/05/20 20:29 DC 10/05/20 17:54 Quetiapine Fumarate (SEROquel) 25 mg TID PO 10/04/20 21:00 10/08/20 20:32 Trazodone HCl (Desyrel) 50 mg PRN QHS PRN PO INSOMNIA 10/04/20 17:00 Magnesium Hydroxide (Milk Of Magnesia) 2,400 mg PRN QHS PRN PO CONSTIPATION 10/04/20 17:15 Meclizine HCl (Antivert) 25 mg PRN TID PRN PO DIZZINESS 10/04/20 17:30 Artificial Tears (Artificial Tears) 1 drop PRN QID PRN OU DRY EYE 10/04/20 17:30 Pregabalin (Lyrica) 50 mg TID PO 10/06/20 09:00 10/08/20 20:31 Fluvoxamine Maleate (Luvox) 25 mg DAILY PO 10/08/20 09:00 10/10/20 09:01 10/08/20 08:09 Fluvoxamine Maleate (Luvox) 50 mg DAILY PO 10/11/20 09:00 Current Medications Medications (Trade) Dose Ordered Sig/Gracie Route PRN Reason Start Time Stop Time Status Last Admin Dose Admin Fluvoxamine Maleate (Luvox) 25 mg DAILY PO 10/08/20 09:00 10/10/20 09:01 10/08/20 08:09 I have reviewed the current psychotropics carefully including drug interactions. Risk benefit ratio favors no change other than as noted in my dictated progress note. Diagnosis: Problems: (1) Mild cognitive impairment (2) Major depressive disorder, severe (3) Anxiety disorder, unspecified (4) Major depressive disorder with psychotic features (5) Impulse control disorder, unspecified (6) Psychotic disorder MARICEL BROWN MD Oct 08, 2020 21:13
[2020-10-09] MEDS: CARBIDOPA/LEVODOPA 25/100MG TABLET PO SCH ×9 (00:02→23:27)
--- NOTE | 2020-10-09 01:45 | NUR ---
Last evening pt was in her room reading a book. She was pleasant social and cooperative with staff. She denies parasites was compliant with meds and has had no behaviors tonight.
[2020-10-09] MEDS: ACETAMINOPHEN 325 MG TABLET PO PRN ×2 (04:40→23:33)
[2020-10-09 05:45] VITALS: BP 149/54
--- NOTE | 2020-10-09 08:37 | PDOC ---
Exam Note: Marcial Note: This note is a late entry for 10/08/2020 covers elements not covered in my initial note. Subjective: The patient was reviewed on telehealth rounds in the evening of 10/08/2020 with Rose Marie GONZALES. Discussed with nursing staff, reviewed the chart. The patient slept 6-1/4 hours previous night. Overall she is doing a little better. There were couple of occasions earlier today, she complained of having bugs in her mouth but nothing after that. Review of Systems: Ambulation impaired in wheelchair. No CV, , pulmonary, eye system symptoms on review. Mental Status Exam: The patient is reasonably oriented. She is pleasant, verbal, interactive as I met with her individually. Speech coherent. Abstraction is fair. Computation is impaired. Language function is intact. Attention span is short. Mood remains somewhat dysphoric, anxious, obsessive. No suicidal or homicidal ideation. Laboratory Data: Reviewed as above. Impression: Major depressive disorder with psychotic features. Psychotic disorder unspecified. Anxiety disorder unspecified. Plan: No change from initial note. Assessment: Vital Signs/I&O: Vital Signs Date Time Temp Pulse Resp B/P (MAP) Pulse Ox O2 Delivery O2 Flow Rate FiO2 10/09/20 05:45 97.6 75 20 149/54 (85) 94 10/07/20 06:15 Room Air I & O 10/08/20 10/08/20 10/09/20 15:00 23:00 07:00 Intake Total 600 ml 480 ml Balance 600 ml 480 ml Current Medications: Meds: Current Medications Medications (Trade) Dose Ordered Sig/Gracie Route PRN Reason Start Time Stop Time Status Last Admin Dose Admin Acetaminophen (Tylenol) 650 mg PRN Q6HRS PRN PO MILD PAIN / TEMP > 100.3'F 10/04/20 15:15 10/09/20 04:40 Multi-Ingredient Ointment (Analgesic [place]) 1 jean marie PRN QID PRN TP MILD MUSCLE PAIN 10/04/20 15:15 Al Hydroxide/Mg Hydroxide (Mylanta Plus Xs) 15 ml PRN AFTMEALHC PRN PO DYSPEPSIA 10/04/20 15:15 10/04/20 17:23 DC Magnesium Hydroxide (Milk Of Magnesia) 2,400 mg PRN QHS PRN PO CONSTIPATION 10/04/20 15:15 10/04/20 17:16 DC Acetaminophen (Tylenol) 650 mg PRN Q6HRS PRN PO MILD PAIN / TEMP > 100.3'F 10/04/20 17:00 10/04/20 17:04 DC Carbidopa/Levodopa (Sinemet Cr) 1 tab.sa HS PO 10/04/20 21:00 10/08/20 20:31 Carbidopa/Levodopa (Sinemet 25/100) 1 tab Q3HRS PO 10/04/20 18:00 10/09/20 04:40 Diclofenac Sodium (Voltaren) 1 jea nmarie PRN QID PRN TP 2ND CHOICE MUSCLE PAIN 10/04/20 17:00 Donepezil HCl (Aricept) 10 mg HS PO 10/04/20 21:00 10/08/20 20:31 Duloxetine HCl (Cymbalta) 60 mg HS PO 10/04/20 21:00 10/07/20 17:38 DC 10/06/20 20:28 Lorazepam (Ativan) 0.5 mg PRN Q6HRS PRN PO 1ST CHOICE ANXIETY 10/04/20 17:00 Al Hydroxide/Mg Hydroxide (Mylanta Plus Xs) 15 ml PRN AFTMEALHC PRN PO DYSPEPSIA 10/04/20 17:00 Magnesium Hydroxide (Milk Of Magnesia) 2,400 mg PRN QHS PRN PO CONSTIPATION 10/04/20 17:00 10/04/20 17:18 DC Melatonin (Melatonin) 3 mg QHS PO 10/04/20 21:00 10/08/20 20:31 Mirtazapine (Remeron) 15 mg QHS PO 10/04/20 21:00 10/08/20 20:31 Olanzapine (ZyPREXA ZYDIS) 2.5 mg PRN Q2HRS PRN PO 2ND CHOICE ANXIETY / AGITATION 10/04/20 17:00 Oxybutynin Chloride (Ditropan) 5 mg [id number] PO 10/04/20 21:00 10/08/20 20:32 Pantoprazole Sodium (Protonix) 40 mg DAILYAC PO 10/05/20 07:30 10/08/20 08:07 Polyethylene Glycol (miraLAX) 17 gm DAILY PO 10/05/20 09:00 10/08/20 08:07 Pramipexole Dihydrochloride (miraPEX) 0.5 mg [id number] PO 10/04/20 21:00 10/08/20 20:31 Pregabalin (Lyrica) 50 mg TID PO 10/04/20 21:00 10/05/20 20:29 DC 10/05/20 17:54 Quetiapine Fumarate (SEROquel) 25 mg TID PO 10/04/20 21:00 10/08/20 20:32 Trazodone HCl (Desyrel) 50 mg PRN QHS PRN PO INSOMNIA 10/04/20 17:00 Magnesium Hydroxide (Milk Of Magnesia) 2,400 mg PRN QHS PRN PO CONSTIPATION 10/04/20 17:15 Meclizine HCl (Antivert) 25 mg PRN TID PRN PO DIZZINESS 10/04/20 17:30 Artificial Tears (Artificial Tears) 1 drop PRN QID PRN OU DRY EYE 10/04/20 17:30 Pregabalin (Lyrica) 50 mg TID PO 10/06/20 09:00 10/08/20 20:31 Fluvoxamine Maleate (Luvox) 25 mg DAILY PO 10/08/20 09:00 10/10/20 09:01 10/08/20 08:09 Fluvoxamine Maleate (Luvox) 50 mg DAILY PO 10/11/20 09:00 Current Medications Medications (Trade) Dose Ordered Sig/Gracie Route PRN Reason Start Time Stop Time Status Last Admin Dose Admin Fluvoxamine Maleate (Luvox) 25 mg DAILY PO 10/08/20 09:00 10/10/20 09:01 10/08/20 08:09 I have reviewed the current psychotropics carefully including drug interactions. Risk benefit ratio favors no change other than as noted in my dictated progress note. Diagnosis: Problems: (1) Major depressive disorder, severe (2) Anxiety disorder, unspecified (3) Major depressive disorder with psychotic features (4) Impulse control disorder, unspecified (5) Psychotic disorder MARICEL BROWN MD Oct 09, 2020 08:37
[2020-10-09] MEDS: OXYBUTYNIN CHLORIDE 5 MG TABLET PO SCH ×3 (08:51→20:00)
[2020-10-09] MEDS: QUEtiapine 25 MG TABLET. PO SCH ×3 (08:51→20:02)
[2020-10-09] MEDS: PANTOPRAZOLE 40 MG TABLET. PO SCH (08:51)
[2020-10-09] MEDS: PRAMIPEXOLE 0.5 MG TABLET. PO SCH ×3 (08:51→20:01)
[2020-10-09] MEDS: POLYETHYLENE GLYCOL 3350 17 GM PACKET. PO SCH (08:52)
[2020-10-09] MEDS: PREGABALIN 50 MG CAPSULE PO SCH ×3 (08:54→20:01)
--- NOTE | 2020-10-09 14:32 | NUR ---
Patient sitting up on bed at time of assessment. Patient takes medications whole with no problems. Patient is alert and oriented with no complaints. No further concerns at this time.
[2020-10-09 15:48] VITALS: BP 132/69
[2020-10-09] MEDS: DONEPEZIL HCL 10 MG TABLET PO SCH (20:00)
[2020-10-09] MEDS: MELATONIN 3 MG TABLET PO SCH (20:01)
[2020-10-09] MEDS: CARBIDOPA/LEVODOPA CR 50/200MG TABLET.SA PO SCH (20:01)
[2020-10-09] MEDS: MIRTAZAPINE 15 MG TABLET PO SCH (20:03)
--- NOTE | 2020-10-09 21:16 | PDOC ---
Exam Note: Marcial Note: Please also refer to the separate dictated note~for this date of service dictated separately.~Patient seen individually. Discussed the patient with Nursing staff reviewed the chart.~Reviewed interim history and current functioning. Reviewed vital signs,~Labs/ Radiology~and current medications noted below. Continue current treatment with the changes noted in the dictated addendum note Assessment: Vital Signs/I&O: Vital Signs Date Time Temp Pulse Resp B/P (MAP) Pulse Ox O2 Delivery O2 Flow Rate FiO2 10/09/20 15:48 98.3 80 20 132/69 (90) 97 Room Air I & O 10/08/20 10/08/20 10/09/20 15:00 23:00 07:00 Intake Total 600 ml 480 ml Balance 600 ml 480 ml Current Medications: Meds: Current Medications Medications (Trade) Dose Ordered Sig/Gracie Route PRN Reason Start Time Stop Time Status Last Admin Dose Admin Acetaminophen (Tylenol) 650 mg PRN Q6HRS PRN PO MILD PAIN / TEMP > 100.3'F 10/04/20 15:15 10/09/20 04:40 Multi-Ingredient Ointment (Analgesic [place]) 1 jean marie PRN QID PRN TP MILD MUSCLE PAIN 10/04/20 15:15 Al Hydroxide/Mg Hydroxide (Mylanta Plus Xs) 15 ml PRN AFTMEALHC PRN PO DYSPEPSIA 10/04/20 15:15 10/04/20 17:23 DC Magnesium Hydroxide (Milk Of Magnesia) 2,400 mg PRN QHS PRN PO CONSTIPATION 10/04/20 15:15 10/04/20 17:16 DC Acetaminophen (Tylenol) 650 mg PRN Q6HRS PRN PO MILD PAIN / TEMP > 100.3'F 10/04/20 17:00 10/04/20 17:04 DC Carbidopa/Levodopa (Sinemet Cr) 1 tab.sa HS PO 10/04/20 21:00 10/09/20 20:01 Carbidopa/Levodopa (Sinemet 25/100) 1 tab Q3HRS PO 10/04/20 18:00 10/09/20 20:02 Diclofenac Sodium (Voltaren) 1 jean marie PRN QID PRN TP 2ND CHOICE MUSCLE PAIN 10/04/20 17:00 Donepezil HCl (Aricept) 10 mg HS PO 10/04/20 21:00 10/09/20 20:00 Duloxetine HCl (Cymbalta) 60 mg HS PO 10/04/20 21:00 10/07/20 17:38 DC 10/06/20 20:28 Lorazepam (Ativan) 0.5 mg PRN Q6HRS PRN PO 1ST CHOICE ANXIETY 10/04/20 17:00 Al Hydroxide/Mg Hydroxide (Mylanta Plus Xs) 15 ml PRN AFTMEALHC PRN PO DYSPEPSIA 10/04/20 17:00 Magnesium Hydroxide (Milk Of Magnesia) 2,400 mg PRN QHS PRN PO CONSTIPATION 10/04/20 17:00 10/04/20 17:18 DC Melatonin (Melatonin) 3 mg QHS PO 10/04/20 21:00 10/09/20 20:01 Mirtazapine (Remeron) 15 mg QHS PO 10/04/20 21:00 10/09/20 20:03 Olanzapine (ZyPREXA ZYDIS) 2.5 mg PRN Q2HRS PRN PO 2ND CHOICE ANXIETY / AGITATION 10/04/20 17:00 Oxybutynin Chloride (Ditropan) 5 mg [id number] PO 10/04/20 21:00 10/09/20 20:00 Pantoprazole Sodium (Protonix) 40 mg DAILYAC PO 10/05/20 07:30 10/09/20 08:51 Polyethylene Glycol (miraLAX) 17 gm DAILY PO 10/05/20 09:00 10/08/20 08:07 Pramipexole Dihydrochloride (miraPEX) 0.5 mg [id number] PO 10/04/20 21:00 10/09/20 20:01 Pregabalin (Lyrica) 50 mg TID PO 10/04/20 21:00 10/05/20 20:29 DC 10/05/20 17:54 Quetiapine Fumarate (SEROquel) 25 mg TID PO 10/04/20 21:00 10/09/20 20:02 Trazodone HCl (Desyrel) 50 mg PRN QHS PRN PO INSOMNIA 10/04/20 17:00 Magnesium Hydroxide (Milk Of Magnesia) 2,400 mg PRN QHS PRN PO CONSTIPATION 10/04/20 17:15 Meclizine HCl (Antivert) 25 mg PRN TID PRN PO DIZZINESS 10/04/20 17:30 Artificial Tears (Artificial Tears) 1 drop PRN QID PRN OU DRY EYE 10/04/20 17:30 Pregabalin (Lyrica) 50 mg TID PO 10/06/20 09:00 10/09/20 20:01 Fluvoxamine Maleate (Luvox) 25 mg DAILY PO 10/08/20 09:00 10/10/20 09:01 10/09/20 08:51 Fluvoxamine Maleate (Luvox) 50 mg DAILY PO 10/11/20 09:00 I have reviewed the current psychotropics carefully including drug interactions. Risk benefit ratio favors no change other than as noted in my dictated progress note. Diagnosis: Problems: (1) Mild cognitive impairment (2) Major depressive disorder, severe (3) Anxiety disorder, unspecified (4) Major depressive disorder with psychotic features (5) Impulse control disorder, unspecified (6) Psychotic disorder MARICEL BROWN MD Oct 09, 2020 21:16
--- NOTE | 2020-10-10 02:39 | NUR ---
Pt has been in her room tonight and has been pleasant and social with staff. She denies having parasites saying they went away a few days ago. She took meds whole without difficulty. PRN tylenol was given for leg pain and she has been sleeping since. She has had no behaviors tonight.
[2020-10-10] MEDS: CARBIDOPA/LEVODOPA 25/100MG TABLET PO SCH ×7 (03:29→20:11)
[2020-10-10 05:38] VITALS: BP 108/81
--- NOTE | 2020-10-10 08:13 | PDOC ---
Exam Note: Marcial Note: This note is a late entry for 10/09/2020 covers elements not covered in my initial note. Subjective: The patient was reviewed on telehealth rounds in the evening of 10/09/2020 with Светлана GONZALES. Discussed with nursing staff, reviewed the chart. The patient slept 5-1/2 hours previous night. Overall she is doing a better. She attended groups. Denies she has any parasites in her mouth. Review of Systems: Ambulation impaired in wheelchair. No CV, , pulmonary, eye system symptoms on review. Mental Status Exam: The patient is reasonably oriented. Speech coherent. Often response is monosyllabic. Abstraction is fair. Computation is impaired. Language function is intact. Attention span is short. Mood and affect appears less anxious, less labile, less depressed, somewhat obsessive but less psychotic. Laboratory Data: Reviewed as above. Impression: Major depressive disorder with psychotic features. Psychotic disorder unspecified. Anxiety disorder unspecified. Plan: No change from initial note. Assessment: Vital Signs/I&O: Vital Signs Date Time Temp Pulse Resp B/P (MAP) Pulse Ox O2 Delivery O2 Flow Rate FiO2 10/10/20 05:38 98.9 75 20 108/81 (90) 95 10/09/20 15:48 Room Air I & O 10/09/20 10/09/20 10/10/20 15:00 23:00 07:00 Intake Total 720 ml 480 ml Balance 720 ml 480 ml Current Medications: Meds: Current Medications Medications (Trade) Dose Ordered Sig/Gracie Route PRN Reason Start Time Stop Time Status Last Admin Dose Admin Acetaminophen (Tylenol) 650 mg PRN Q6HRS PRN PO MILD PAIN / TEMP > 100.3'F 10/04/20 15:15 10/09/20 23:33 Multi-Ingredient Ointment (Analgesic [place]) 1 jean marie PRN QID PRN TP MILD MUSCLE PAIN 10/04/20 15:15 Al Hydroxide/Mg Hydroxide (Mylanta Plus Xs) 15 ml PRN AFTMEALHC PRN PO DYSPEPSIA 10/04/20 15:15 10/04/20 17:23 DC Magnesium Hydroxide (Milk Of Magnesia) 2,400 mg PRN QHS PRN PO CONSTIPATION 10/04/20 15:15 10/04/20 17:16 DC Acetaminophen (Tylenol) 650 mg PRN Q6HRS PRN PO MILD PAIN / TEMP > 100.3'F 10/04/20 17:00 10/04/20 17:04 DC Carbidopa/Levodopa (Sinemet Cr) 1 tab.sa HS PO 10/04/20 21:00 10/09/20 20:01 Carbidopa/Levodopa (Sinemet 25/100) 1 tab Q3HRS PO 10/04/20 18:00 10/10/20 06:00 Diclofenac Sodium (Voltaren) 1 jean marie PRN QID PRN TP 2ND CHOICE MUSCLE PAIN 10/04/20 17:00 Donepezil HCl (Aricept) 10 mg HS PO 10/04/20 21:00 10/09/20 20:00 Duloxetine HCl (Cymbalta) 60 mg HS PO 10/04/20 21:00 10/07/20 17:38 DC 10/06/20 20:28 Lorazepam (Ativan) 0.5 mg PRN Q6HRS PRN PO 1ST CHOICE ANXIETY 10/04/20 17:00 Al Hydroxide/Mg Hydroxide (Mylanta Plus Xs) 15 ml PRN AFTMEALHC PRN PO DYSPEPSIA 10/04/20 17:00 Magnesium Hydroxide (Milk Of Magnesia) 2,400 mg PRN QHS PRN PO CONSTIPATION 10/04/20 17:00 10/04/20 17:18 DC Melatonin (Melatonin) 3 mg QHS PO 10/04/20 21:00 10/09/20 20:01 Mirtazapine (Remeron) 15 mg QHS PO 10/04/20 21:00 10/09/20 20:03 Olanzapine (ZyPREXA ZYDIS) 2.5 mg PRN Q2HRS PRN PO 2ND CHOICE ANXIETY / AGITATION 10/04/20 17:00 Oxybutynin Chloride (Ditropan) 5 mg [id number] PO 10/04/20 21:00 10/09/20 20:00 Pantoprazole Sodium (Protonix) 40 mg DAILYAC PO 10/05/20 07:30 10/09/20 08:51 Polyethylene Glycol (miraLAX) 17 gm DAILY PO 10/05/20 09:00 10/08/20 08:07 Pramipexole Dihydrochloride (miraPEX) 0.5 mg [id number] PO 10/04/20 21:00 10/09/20 20:01 Pregabalin (Lyrica) 50 mg TID PO 10/04/20 21:00 10/05/20 20:29 DC 10/05/20 17:54 Quetiapine Fumarate (SEROquel) 25 mg TID PO 10/04/20 21:00 10/09/20 20:02 Trazodone HCl (Desyrel) 50 mg PRN QHS PRN PO INSOMNIA 10/04/20 17:00 Magnesium Hydroxide (Milk Of Magnesia) 2,400 mg PRN QHS PRN PO CONSTIPATION 10/04/20 17:15 Meclizine HCl (Antivert) 25 mg PRN TID PRN PO DIZZINESS 10/04/20 17:30 Artificial Tears (Artificial Tears) 1 drop PRN QID PRN OU DRY EYE 10/04/20 17:30 Pregabalin (Lyrica) 50 mg TID PO 10/06/20 09:00 10/09/20 20:01 Fluvoxamine Maleate (Luvox) 25 mg DAILY PO 10/08/20 09:00 10/10/20 09:01 10/09/20 08:51 Fluvoxamine Maleate (Luvox) 50 mg DAILY PO 10/11/20 09:00 I have reviewed the current psychotropics carefully including drug interactions. Risk benefit ratio favors no change other than as noted in my dictated progress note. Diagnosis: Problems: (1) Mild cognitive impairment (2) Major depressive disorder, severe (3) Anxiety disorder, unspecified (4) Major depressive disorder with psychotic features (5) Impulse control disorder, unspecified MARICEL BROWN MD Oct 10, 2020 08:13
[2020-10-10] MEDS: PANTOPRAZOLE 40 MG TABLET. PO SCH (09:08)
[2020-10-10] MEDS: OXYBUTYNIN CHLORIDE 5 MG TABLET PO SCH ×3 (09:08→20:12)
[2020-10-10] MEDS: PRAMIPEXOLE 0.5 MG TABLET. PO SCH ×3 (09:08→20:12)
[2020-10-10] MEDS: PREGABALIN 50 MG CAPSULE PO SCH ×2 (09:08→14:00)
[2020-10-10] MEDS: QUEtiapine 25 MG TABLET. PO SCH ×3 (09:08→20:11)
[2020-10-10] MEDS: POLYETHYLENE GLYCOL 3350 17 GM PACKET. PO SCH (09:09)
[2020-10-10] MEDS: ACETAMINOPHEN 325 MG TABLET PO PRN (09:54)
[2020-10-10 15:44] VITALS: BP 113/83
--- NOTE | 2020-10-10 18:00 | NUR ---
Patient has been calm, compliant, and pleasant throughout this shift. Patient expressed anger and frustration at her multiple times; for example when asked if I could bring her anything she stated 'a new '. She attended group and cooperated with therapy. Will continue to monitor and report to oncoming shift.
[2020-10-10] MEDS: CARBIDOPA/LEVODOPA CR 50/200MG TABLET.SA PO SCH (20:11)
[2020-10-10] MEDS: MELATONIN 3 MG TABLET PO SCH (20:12)
[2020-10-10] MEDS: DONEPEZIL HCL 10 MG TABLET PO SCH (20:12)
[2020-10-10] MEDS: MIRTAZAPINE 15 MG TABLET PO SCH (20:12)
--- NOTE | 2020-10-10 21:25 | PDOC ---
Exam Note: Marcial Note: Please also refer to the separate dictated note~for this date of service dictated separately.~Patient seen individually. Discussed the patient with Nursing staff reviewed the chart.~Reviewed interim history and current functioning. Reviewed vital signs,~Labs/ Radiology~and current medications noted below. Continue current treatment with the changes noted in the dictated addendum note Assessment: Vital Signs/I&O: Vital Signs Date Time Temp Pulse Resp B/P (MAP) Pulse Ox O2 Delivery O2 Flow Rate FiO2 10/10/20 15:44 98.1 70 17 113/83 (93) 96 10/09/20 15:48 Room Air I & O 10/09/20 10/09/20 10/10/20 15:00 23:00 07:00 Intake Total 720 ml 480 ml Balance 720 ml 480 ml Current Medications: Meds: Current Medications Medications (Trade) Dose Ordered Sig/Gracie Route PRN Reason Start Time Stop Time Status Last Admin Dose Admin Acetaminophen (Tylenol) 650 mg PRN Q6HRS PRN PO MILD PAIN / TEMP > 100.3'F 10/04/20 15:15 10/10/20 09:54 Multi-Ingredient Ointment (Analgesic [place]) 1 jaen marie PRN QID PRN TP MILD MUSCLE PAIN 10/04/20 15:15 Al Hydroxide/Mg Hydroxide (Mylanta Plus Xs) 15 ml PRN AFTMEALHC PRN PO DYSPEPSIA 10/04/20 15:15 10/04/20 17:23 DC Magnesium Hydroxide (Milk Of Magnesia) 2,400 mg PRN QHS PRN PO CONSTIPATION 10/04/20 15:15 10/04/20 17:16 DC Acetaminophen (Tylenol) 650 mg PRN Q6HRS PRN PO MILD PAIN / TEMP > 100.3'F 10/04/20 17:00 10/04/20 17:04 DC Carbidopa/Levodopa (Sinemet Cr) 1 tab.sa HS PO 10/04/20 21:00 10/10/20 20:11 Carbidopa/Levodopa (Sinemet 25/100) 1 tab Q3HRS PO 10/04/20 18:00 10/10/20 20:11 Diclofenac Sodium (Voltaren) 1 jean marie PRN QID PRN TP 2ND CHOICE MUSCLE PAIN 10/04/20 17:00 Donepezil HCl (Aricept) 10 mg HS PO 10/04/20 21:00 10/10/20 20:12 Duloxetine HCl (Cymbalta) 60 mg HS PO 10/04/20 21:00 10/07/20 17:38 DC 10/06/20 20:28 Lorazepam (Ativan) 0.5 mg PRN Q6HRS PRN PO 1ST CHOICE ANXIETY 10/04/20 17:00 Al Hydroxide/Mg Hydroxide (Mylanta Plus Xs) 15 ml PRN AFTMEALHC PRN PO DYSPEPSIA 10/04/20 17:00 Magnesium Hydroxide (Milk Of Magnesia) 2,400 mg PRN QHS PRN PO CONSTIPATION 10/04/20 17:00 10/04/20 17:18 DC Melatonin (Melatonin) 3 mg QHS PO 10/04/20 21:00 10/10/20 20:12 Mirtazapine (Remeron) 15 mg QHS PO 10/04/20 21:00 10/10/20 20:12 Olanzapine (ZyPREXA ZYDIS) 2.5 mg PRN Q2HRS PRN PO 2ND CHOICE ANXIETY / AGITATION 10/04/20 17:00 Oxybutynin Chloride (Ditropan) 5 mg [id number] PO 10/04/20 21:00 10/10/20 20:12 Pantoprazole Sodium (Protonix) 40 mg DAILYAC PO 10/05/20 07:30 10/10/20 09:08 Polyethylene Glycol (miraLAX) 17 gm DAILY PO 10/05/20 09:00 10/10/20 09:09 Pramipexole Dihydrochloride (miraPEX) 0.5 mg [id number] PO 10/04/20 21:00 10/10/20 20:12 Pregabalin (Lyrica) 50 mg TID PO 10/04/20 21:00 10/05/20 20:29 DC 10/05/20 17:54 Quetiapine Fumarate (SEROquel) 25 mg TID PO 10/04/20 21:00 10/10/20 20:11 Trazodone HCl (Desyrel) 50 mg PRN QHS PRN PO INSOMNIA 10/04/20 17:00 Magnesium Hydroxide (Milk Of Magnesia) 2,400 mg PRN QHS PRN PO CONSTIPATION 10/04/20 17:15 Meclizine HCl (Antivert) 25 mg PRN TID PRN PO DIZZINESS 10/04/20 17:30 Artificial Tears (Artificial Tears) 1 drop PRN QID PRN OU DRY EYE 10/04/20 17:30 Pregabalin (Lyrica) 50 mg TID PO 10/06/20 09:00 10/10/20 16:17 DC 10/10/20 09:08 Fluvoxamine Maleate (Luvox) 25 mg DAILY PO 10/08/20 09:00 10/10/20 09:01 DC 10/10/20 09:08 Fluvoxamine Maleate (Luvox) 50 mg DAILY PO 10/11/20 09:00 I have reviewed the current psychotropics carefully including drug interactions. Risk benefit ratio favors no change other than as noted in my dictated progress note. Diagnosis: Problems: (1) Mild cognitive impairment (2) Major depressive disorder, severe (3) Anxiety disorder, unspecified (4) Major depressive disorder with psychotic features (5) Impulse control disorder, unspecified (6) Psychotic disorder MARICEL BROWN MD Oct 10, 2020 21:25
--- NOTE | 2020-10-10 22:29 | NUR ---
Patient was sitting on her bed and stated she was "looking for her glasses". Glasses found under the bed and returned to patient. She is calm and cooperative, compliant with medications. Patient denied delusions about bugs, etc and was coloring a picture of a puppy.
[2020-10-11] MEDS: CARBIDOPA/LEVODOPA 25/100MG TABLET PO SCH ×8 (00:21→19:57)
[2020-10-11 06:14] VITALS: BP 149/82
--- NOTE | 2020-10-11 06:18 | NUR ---
Weekly Covid swab obtained. Taken to lab.
[2020-10-11] MEDS: QUEtiapine 25 MG TABLET. PO SCH ×3 (08:06→19:49)
[2020-10-11] MEDS: PRAMIPEXOLE 0.5 MG TABLET. PO SCH ×3 (08:06→19:52)
[2020-10-11] MEDS: OXYBUTYNIN CHLORIDE 5 MG TABLET PO SCH ×3 (08:07→19:52)
[2020-10-11] MEDS: PANTOPRAZOLE 40 MG TABLET. PO SCH (08:07)
[2020-10-11] MEDS: POLYETHYLENE GLYCOL 3350 17 GM PACKET. PO SCH (08:13)
--- NOTE | 2020-10-11 08:23 | PDOC ---
Exam Note: Marcial Note: This note is a late entry for 10/10/2020 covers elements not covered in my initial note. Subjective: The patient was reviewed on telehealth rounds in the evening of 10/10/2020 with Shawn GONZALES. Discussed with nursing staff, reviewed the chart. The patient slept 5-1/4 hours previous night. She has been attending groups. Cognitively much more intact. She talked to nursing staff about resenting her wanting him changed. She gets a little upset that she has too many pills and will try and simplify this. She is wanting Lyrica stopped and we will again defer to Dr. Barnett. Review of Systems: Ambulation impaired in wheelchair. No CV, , pulmonary, eye system symptoms on review. Mental Status Exam: The patient is reasonably oriented. Speech coherent. Often response is monosyllabic. Abstraction is fair. Computation is impaired. Language function is intact. Attention span is short. Mood and affect appears less anxious, less labile, less depressed, somewhat obsessive but less psychotic. Laboratory Data: Reviewed as above. Impression: Major depressive disorder with psychotic features. Psychotic disorder unspecified. Anxiety disorder unspecified. Plan: No change from initial note. We may need to increase Seroquel depending on her progress. Maintain Luvox which is being increased. Assessment: Vital Signs/I&O: Vital Signs Date Time Temp Pulse Resp B/P (MAP) Pulse Ox O2 Delivery O2 Flow Rate FiO2 10/11/20 06:14 97.9 81 18 149/82 (104) 95 Room Air I & O 10/10/20 10/10/20 10/11/20 15:00 23:00 07:00 Intake Total 560 ml 440 ml Balance 560 ml 440 ml Current Medications: Meds: Current Medications Medications (Trade) Dose Ordered Sig/Gracie Route PRN Reason Start Time Stop Time Status Last Admin Dose Admin Acetaminophen (Tylenol) 650 mg PRN Q6HRS PRN PO MILD PAIN / TEMP > 100.3'F 10/04/20 15:15 10/10/20 09:54 Multi-Ingredient Ointment (Analgesic [place]) 1 jean marie PRN QID PRN TP MILD MUSCLE PAIN 10/04/20 15:15 Al Hydroxide/Mg Hydroxide (Mylanta Plus Xs) 15 ml PRN AFTMEALHC PRN PO DYSPEPSIA 10/04/20 15:15 1/7/21 17:23 DC Magnesium Hydroxide (Milk Of Magnesia) 2,400 mg PRN QHS PRN PO CONSTIPATION 10/04/20 15:15 10/04/20 17:16 DC Acetaminophen (Tylenol) 650 mg PRN Q6HRS PRN PO MILD PAIN / TEMP > 100.3'F 10/04/20 17:00 10/04/20 17:04 DC Carbidopa/Levodopa (Sinemet Cr) 1 tab.sa HS PO 10/04/20 21:00 10/10/20 20:11 Carbidopa/Levodopa (Sinemet 25/100) 1 tab Q3HRS PO 10/04/20 18:00 10/11/20 08:13 Diclofenac Sodium (Voltaren) 1 jean marie PRN QID PRN TP 2ND CHOICE MUSCLE PAIN 10/04/20 17:00 Donepezil HCl (Aricept) 10 mg HS PO 10/04/20 21:00 10/10/20 20:12 Duloxetine HCl (Cymbalta) 60 mg HS PO 10/04/20 21:00 10/07/20 17:38 DC 10/06/20 20:28 Lorazepam (Ativan) 0.5 mg PRN Q6HRS PRN PO 1ST CHOICE ANXIETY 10/04/20 17:00 Al Hydroxide/Mg Hydroxide (Mylanta Plus Xs) 15 ml PRN AFTMEALHC PRN PO DYSPEPSIA 10/04/20 17:00 Magnesium Hydroxide (Milk Of Magnesia) 2,400 mg PRN QHS PRN PO CONSTIPATION 10/04/20 17:00 10/04/20 17:18 DC Melatonin (Melatonin) 3 mg QHS PO 10/04/20 21:00 10/10/20 20:12 Mirtazapine (Remeron) 15 mg QHS PO 10/04/20 21:00 10/10/20 20:12 Olanzapine (ZyPREXA ZYDIS) 2.5 mg PRN Q2HRS PRN PO 2ND CHOICE ANXIETY / AGITATION 10/04/20 17:00 Oxybutynin Chloride (Ditropan) 5 mg [id number] PO 10/04/20 21:00 10/11/20 08:07 Pantoprazole Sodium (Protonix) 40 mg DAILYAC PO 10/05/20 07:30 10/11/20 08:07 Polyethylene Glycol (miraLAX) 17 gm DAILY PO 10/05/20 09:00 10/11/20 08:13 Pramipexole Dihydrochloride (miraPEX) 0.5 mg [id number] PO 10/04/20 21:00 10/11/20 08:06 Pregabalin (Lyrica) 50 mg TID PO 10/04/20 21:00 10/05/20 20:29 DC 10/05/20 17:54 Quetiapine Fumarate (SEROquel) 25 mg TID PO 10/04/20 21:00 10/11/20 08:06 Trazodone HCl (Desyrel) 50 mg PRN QHS PRN PO INSOMNIA 10/04/20 17:00 Magnesium Hydroxide (Milk Of Magnesia) 2,400 mg PRN QHS PRN PO CONSTIPATION 10/04/20 17:15 Meclizine HCl (Antivert) 25 mg PRN TID PRN PO DIZZINESS 10/04/20 17:30 Artificial Tears (Artificial Tears) 1 drop PRN QID PRN OU DRY EYE 10/04/20 17:30 Pregabalin (Lyrica) 50 mg TID PO 10/06/20 09:00 10/10/20 16:17 DC 10/10/20 09:08 Fluvoxamine Maleate (Luvox) 25 mg DAILY PO 10/08/20 09:00 10/10/20 09:01 DC 10/10/20 09:08 Fluvoxamine Maleate (Luvox) 50 mg DAILY PO 10/11/20 09:00 10/11/20 08:07 Current Medications Medications (Trade) Dose Ordered Sig/Gracie Route PRN Reason Start Time Stop Time Status Last Admin Dose Admin Fluvoxamine Maleate (Luvox) 50 mg DAILY PO 10/11/20 09:00 10/11/20 08:07 I have reviewed the current psychotropics carefully including drug interactions. Risk benefit ratio favors no change other than as noted in my dictated progress note. Diagnosis: Problems: (1) Major depressive disorder, severe (2) Anxiety disorder, unspecified (3) Major depressive disorder with psychotic features (4) Impulse control disorder, unspecified (5) Psychotic disorder MARICEL BROWN MD Oct 11, 2020 08:23
[2020-10-11] MEDS: ACETAMINOPHEN 325 MG TABLET PO PRN (09:51)
[2020-10-11] MEDS: DICLOFENAC SODIUM 1% TOPICAL GEL 100GM TUBE. TP PRN (09:52)
--- NOTE | 2020-10-11 12:26 | NUR ---
WEEKLY ACTIVITY THERAPY NOTE Date of Admission: 10/04 Date of AT Assessment: 10/05 Precipitating behaviors that initiated intake and admission: Pt has become progressively more delusional, having hallucinations tactile and visual, thinks that worms bugs and parasites are in her oral mucosa. States they are small orange round parasites. She recently removed 2 of her own teeth thinking they were worms. Pt states that her put her here just so he can be free to cheat and run around on her, that he tells everyone lies about her to benefit him that she wants to punch him in the head for telling all the lies he has. No signs of thrush, wounds or lesions in her mouth, when patient spits out mucous it is clear with small bit of tissue from her lips or inside of her cheeks. Goal aimed:increase stress management/ relaxation and motivation skills Initial Goal: Pt will participate in at least one group Activity Therapy session per day. Weekly progress towards goal: achieved Group participation level: 7 full, 2 mod Weekly highlights: enjoyed solving picture puzzles on Thursday, mostly independent Behaviors observed: pleasant in groups, patient and social with others, follows exercises to the best of her ability, gives great and appropriate insight in groups, resting or engaging in alternative leisure activities in room, may be a little late because of showering or sleeping Plan: no change to goal Beneficial adaptations: enjoys cog stim activities
--- NOTE | 2020-10-11 12:48 | TX PLAN ---
Interdisciplinary Tx Plan Admission Information Oct 04, 2020 at 14:18 Legal Status (on Admission): Voluntary DPOA/Guardian Name: Iam Cruz Contact Other Contact Name: [facility] Other Contact Verified Code Status: DNR Allergies: Coded Allergies: gabapentin (Verified Allergy, Unknown, 07/13/20) oxycodone (Verified Allergy, Unknown, 07/13/20) Diagnoses Primary Diagnosis: (1) Mild cognitive impairment (2) Major depressive disorder, severe (3) Anxiety disorder, unspecified Reasons for Admission: Delusions, Agitated, Depressed, Sig. Change Appetite, Angry, Suicidal ideation, Other Problem in Patient's Words: "I just want to go home. I've lost so much weight and i just need to be at home. I know I'm depressed, but I will be until I get to go home." Additional Admission Comments: Per intake record, pt is delusional, has obsessive behavior, belief that there is a parasite in her mouth that's eating her from the inside out, weight loss, pulling at mouth and teeth fell out, states that she can't do it anymore and just wants to . Problems Active Problems: Delusions/obsessions, pulling, weight loss, agitation, anger, depression Inactive Problems: Pt is not currently reporting feeling parasites in her mouth. Pt Strengths/Limitations Ability for [place]: Poor Cognitive Functioning/Ability: Fair Communication Skills/Ability: Good Financial Resources: Good Insight/Judgement: Poor Intellectual Ability: Good Physical Health: Poor Social Skills: Good Stability in Family: Good Stability in School/Work: Good Verbal Skills: Good Discharge Criteria Discharge Criteria: Adequate arrangements @DC, Verbal commit med comply, Improved behavior, Improved mood/thought Preliminary Discharge Plan Preliminary DC Plan: LTAC Special Precautions Special Precautions: Agitation/Assault Fall Risk: High Initial D/C Plan Pt plan is to return to [facility] Identified Discharge Needs: Follow up with PCP upon discharge. Currently Utilized Resources Currently Utilized Resources/P: PCP-Dr. Carrillo through [facility] Referrals Community Resources: Nonw Identified Problems/Hx/Goals Objectives/Short-Term Goals Short Term Goals: Control abnormal behavior, Dec. Hallucination/Delus, Dec. Symp. Depression, Medication Stabilization, Monitor Med Effects, No Suicidal/Milagros. ideation, Prevent Deterioration, Promote Coping Skill Short Term Goals in Patient's: " I would like to feel better and go home." Interventions/Frequency Staff Interventions/Frequency&: Pyschiatry to assess pt three times per week for medication management. Nursing to assess behaviors, monitor medications, and complete 15 minute checks daily. Social work to see pt at least two times weekly to aid in return to placement. Activities to encourage pt to participate in group activities daily. 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 Education: Associates degree Community Follow-up PCP Community Provider/Family Inpu: Nothing additional at this time. Treatment Plan Explained Patient/Tie Worker had this treatment plan explained to him/her as indicated by the signature below and has been given the opportunity to ask questions and make suggestions: Date: Patient/Tie Worker Signature: Status Update Update Pt eats 70% of her meals and averages 6 hours of sleep per night. She reports that she does not feel parasites anymore as this was part of the reason for admission. Pt participates in SW and recreational therapy groups. Pt does well at contributing in group and is always pleasant. She continues to be frustrated that she can't live at home with her . Pt should be ready for d/c sometime next week. RANDI JONES Oct 11, 2020 12:48
--- NOTE | 2020-10-11 14:37 | NUR ---
Patient in restroom when assessment started. Assisted patient with finishing toileting and then to her wheelchair. Patient sits in wheelchair for the remainder of the assessment. Patient is alert and oriented with no complaints. Patient is hoping to be discharged home soon. Patient takes medications whole with no problems. No further concerns at this time.
[2020-10-11 16:04] VITALS: BP 102/62
[2020-10-11] MEDS: MELATONIN 3 MG TABLET PO SCH (19:49)
[2020-10-11] MEDS: MIRTAZAPINE 15 MG TABLET PO SCH (19:50)
[2020-10-11] MEDS: DONEPEZIL HCL 10 MG TABLET PO SCH (19:50)
[2020-10-11] MEDS: CARBIDOPA/LEVODOPA CR 50/200MG TABLET.SA PO SCH (19:52)
--- NOTE | 2020-10-11 20:55 | NUR ---
This nurse was discussing HS medications with patient and patient stated that the Sinemet CR (carbidopa/levodopa 50-200mg) is given at HS and the Sinemet (carbidopa/levodopa) 25/250 is given during waking hours as 1 tablet at 0800, 1200, 1600 and then 1.5 tablets at 0500, 1000, 1400, 1800. This information was verified in patients chart and nurse corrected the medication dosing schedule in the [place]. Nurse also spoke with pharmacy and they confirmed that this dosing regimen made more sense.
--- NOTE | 2020-10-11 21:10 | PDOC ---
Exam Note: Marcial Note: Please also refer to the separate dictated note~for this date of service dictated separately.~Patient seen individually. Discussed the patient with Nursing staff reviewed the chart.~Reviewed interim history and current functioning. Reviewed vital signs,~Labs/ Radiology~and current medications noted below. Continue current treatment with the changes noted in the dictated addendum note Assessment: Vital Signs/I&O: Vital Signs Date Time Temp Pulse Resp B/P (MAP) Pulse Ox O2 Delivery O2 Flow Rate FiO2 10/11/20 16:04 97.8 76 16 102/62 (75) 95 10/11/20 06:14 Room Air I & O 10/10/20 10/10/20 10/11/20 15:00 23:00 07:00 Intake Total 560 ml 440 ml Balance 560 ml 440 ml Current Medications: Meds: Current Medications Medications (Trade) Dose Ordered Sig/Gracie Route PRN Reason Start Time Stop Time Status Last Admin Dose Admin Acetaminophen (Tylenol) 650 mg PRN Q6HRS PRN PO MILD PAIN / TEMP > 100.3'F 10/04/20 15:15 10/11/20 09:51 Multi-Ingredient Ointment (Analgesic [place]) 1 jean marie PRN QID PRN TP MILD MUSCLE PAIN 10/04/20 15:15 Al Hydroxide/Mg Hydroxide (Mylanta Plus Xs) 15 ml PRN AFTMEALHC PRN PO DYSPEPSIA 10/04/20 15:15 10/04/20 17:23 DC Magnesium Hydroxide (Milk Of Magnesia) 2,400 mg PRN QHS PRN PO CONSTIPATION 10/04/20 15:15 10/04/20 17:16 DC Acetaminophen (Tylenol) 650 mg PRN Q6HRS PRN PO MILD PAIN / TEMP > 100.3'F 10/04/20 17:00 10/04/20 17:04 DC Carbidopa/Levodopa (Sinemet Cr) 1 tab.sa HS PO 10/04/20 21:00 10/11/20 19:52 Carbidopa/Levodopa (Sinemet 25/100) 1 tab Q3HRS PO 10/04/20 18:00 10/11/20 19:57 Diclofenac Sodium (Voltaren) 1 jean marie PRN QID PRN TP 2ND CHOICE MUSCLE PAIN 10/04/20 17:00 10/11/20 09:52 Donepezil HCl (Aricept) 10 mg HS PO 10/04/20 21:00 10/11/20 19:50 Duloxetine HCl (Cymbalta) 60 mg HS PO 10/04/20 21:00 10/07/20 17:38 DC 10/06/20 20:28 Lorazepam (Ativan) 0.5 mg PRN Q6HRS PRN PO 1ST CHOICE ANXIETY 10/04/20 17:00 Al Hydroxide/Mg Hydroxide (Mylanta Plus Xs) 15 ml PRN AFTMEALHC PRN PO DYSPEPSIA 10/04/20 17:00 Magnesium Hydroxide (Milk Of Magnesia) 2,400 mg PRN QHS PRN PO CONSTIPATION 10/04/20 17:00 10/04/20 17:18 DC Melatonin (Melatonin) 3 mg QHS PO 10/04/20 21:00 10/11/20 19:49 Mirtazapine (Remeron) 15 mg QHS PO 10/04/20 21:00 10/11/20 19:50 Olanzapine (ZyPREXA ZYDIS) 2.5 mg PRN Q2HRS PRN PO 2ND CHOICE ANXIETY / AGITATION 10/04/20 17:00 Oxybutynin Chloride (Ditropan) 5 mg [id number] PO 10/04/20 21:00 10/11/20 19:52 Pantoprazole Sodium (Protonix) 40 mg DAILYAC PO 10/05/20 07:30 10/11/20 08:07 Polyethylene Glycol (miraLAX) 17 gm DAILY PO 10/05/20 09:00 10/11/20 08:13 Pramipexole Dihydrochloride (miraPEX) 0.5 mg [id number] PO 10/04/20 21:00 10/11/20 19:52 Pregabalin (Lyrica) 50 mg TID PO 10/04/20 21:00 10/05/20 20:29 DC 10/05/20 17:54 Quetiapine Fumarate (SEROquel) 25 mg TID PO 10/04/20 21:00 10/11/20 19:49 Trazodone HCl (Desyrel) 50 mg PRN QHS PRN PO INSOMNIA 10/04/20 17:00 Magnesium Hydroxide (Milk Of Magnesia) 2,400 mg PRN QHS PRN PO CONSTIPATION 10/04/20 17:15 Meclizine HCl (Antivert) 25 mg PRN TID PRN PO DIZZINESS 10/04/20 17:30 Artificial Tears (Artificial Tears) 1 drop PRN QID PRN OU DRY EYE 10/04/20 17:30 Pregabalin (Lyrica) 50 mg TID PO 10/06/20 09:00 10/10/20 16:17 DC 10/10/20 09:08 Fluvoxamine Maleate (Luvox) 25 mg DAILY PO 10/08/20 09:00 10/10/20 09:01 DC 10/10/20 09:08 Fluvoxamine Maleate (Luvox) 50 mg DAILY PO 10/11/20 09:00 10/11/20 08:07 Current Medications Medications (Trade) Dose Ordered Sig/Gracie Route PRN Reason Start Time Stop Time Status Last Admin Dose Admin Fluvoxamine Maleate (Luvox) 50 mg DAILY PO 10/11/20 09:00 10/11/20 08:07 I have reviewed the current psychotropics carefully including drug interactions. Risk benefit ratio favors no change other than as noted in my dictated progress note. Diagnosis: Problems: (1) Mild cognitive impairment (2) Major depressive disorder, severe (3) Anxiety disorder, unspecified (4) Major depressive disorder with psychotic features (5) Impulse control disorder, unspecified MARICEL BROWN MD Oct 11, 2020 21:10
--- NOTE | 2020-10-11 22:49 | NUR ---
Patient has been calm and pleasant, medication compliant. She denies delusions about bugs and worms when asked by this nurse.
[2020-10-12] MEDS: CARBIDOPA/LEVODOPA 25/250MG TABLET PO SCH ×7 (05:31→18:00)
[2020-10-12 06:17] VITALS: BP 183/78
[2020-10-12] MEDS: PRAMIPEXOLE 0.5 MG TABLET. PO SCH ×3 (07:44→21:54)
[2020-10-12] MEDS: OXYBUTYNIN CHLORIDE 5 MG TABLET PO SCH ×3 (07:44→21:54)
[2020-10-12] MEDS: POLYETHYLENE GLYCOL 3350 17 GM PACKET. PO SCH (07:45)
[2020-10-12] MEDS: PANTOPRAZOLE 40 MG TABLET. PO SCH (07:45)
[2020-10-12] MEDS: QUEtiapine 25 MG TABLET. PO SCH ×3 (07:45→21:54)
--- NOTE | 2020-10-12 09:04 | PDOC ---
Exam Note: Marcial Note: This note is a late entry for 10/11/2020 covers elements not covered in my initial note. Subjective: The patient was reviewed on telehealth rounds in the morning of 10/11/2020 for a treatment team meeting with Brianne Olivares, Rochelle Joshua and Letty (social service technician), Della, activity therapy and Светлана GONZALES. Discussed with nursing staff, reviewed the chart. The patient slept 5-1/4 hours previous night. She has been appropriate on the unit, less delusional about parasites in her mouth, questioning the night nursing staff about her discharge plans, expressing her frustration with her . Review of Systems: Ambulation impaired in wheelchair. No CV, , pulmonary, eye system symptoms on review. Mental Status Exam: The patient is reasonably oriented. She is pleasant, verbal and interactive as I met with her on telehealth rounds. Speech coherent. Often response is monosyllabic. Abstraction is fair. Computation is impaired. Language function is intact. Attention span is short. Mood and affect appears less delusional. No suicidal or homicidal ideation. Laboratory Data: Reviewed as above. Impression: Major depressive disorder with psychotic features. Psychotic disorder unspecified. Anxiety disorder unspecified. Plan: No change from initial note. Assessment: Vital Signs/I&O: Vital Signs Date Time Temp Pulse Resp B/P (MAP) Pulse Ox O2 Delivery O2 Flow Rate FiO2 10/12/20 06:17 98.2 76 18 183/78 (113) 94 10/11/20 06:14 Room Air I & O 10/11/20 10/11/20 10/12/20 15:00 23:00 07:00 Intake Total 600 ml 480 ml Balance 600 ml 480 ml Current Medications: Meds: Current Medications Medications (Trade) Dose Ordered Sig/Gracie Route PRN Reason Start Time Stop Time Status Last Admin Dose Admin Acetaminophen (Tylenol) 650 mg PRN Q6HRS PRN PO MILD PAIN / TEMP > 100.3'F 10/04/20 15:15 10/11/20 09:51 Multi-Ingredient Ointment (Analgesic [place]) 1 jean marie PRN QID PRN TP MILD MUSCLE PAIN 10/04/20 15:15 Al Hydroxide/Mg Hydroxide (Mylanta Plus Xs) 15 ml PRN AFTMEALHC PRN PO DYSPEPSIA 10/04/20 15:15 10/04/20 17:23 DC Magnesium Hydroxide (Milk Of Magnesia) 2,400 mg PRN QHS PRN PO CONSTIPATION 10/04/20 15:15 10/04/20 17:16 DC Acetaminophen (Tylenol) 650 mg PRN Q6HRS PRN PO MILD PAIN / TEMP > 100.3'F 10/04/20 17:00 10/04/20 17:04 DC Carbidopa/Levodopa (Sinemet Cr) 1 tab.sa HS PO 10/04/20 21:00 10/11/20 19:52 Carbidopa/Levodopa (Sinemet 25/100) 1 tab Q3HRS PO 10/04/20 18:00 10/11/20 21:35 DC 10/11/20 19:57 Diclofenac Sodium (Voltaren) 1 jean marie PRN QID PRN TP 2ND CHOICE MUSCLE PAIN 10/04/20 17:00 10/11/20 09:52 Donepezil HCl (Aricept) 10 mg HS PO 10/04/20 21:00 10/11/20 19:50 Duloxetine HCl (Cymbalta) 60 mg HS PO 10/04/20 21:00 10/07/20 17:38 DC 10/06/20 20:28 Lorazepam (Ativan) 0.5 mg PRN Q6HRS PRN PO 1ST CHOICE ANXIETY 10/04/20 17:00 Al Hydroxide/Mg Hydroxide (Mylanta Plus Xs) 15 ml PRN AFTMEALHC PRN PO DYSPEPSIA 10/04/20 17:00 Magnesium Hydroxide (Milk Of Magnesia) 2,400 mg PRN QHS PRN PO CONSTIPATION 10/04/20 17:00 10/04/20 17:18 DC Melatonin (Melatonin) 3 mg QHS PO 10/04/20 21:00 10/11/20 19:49 Mirtazapine (Remeron) 15 mg QHS PO 10/04/20 21:00 10/11/20 19:50 Olanzapine (ZyPREXA ZYDIS) 2.5 mg PRN Q2HRS PRN PO 2ND CHOICE ANXIETY / AGITATION 10/04/20 17:00 Oxybutynin Chloride (Ditropan) 5 mg [id number] PO 10/04/20 21:00 10/12/20 07:44 Pantoprazole Sodium (Protonix) 40 mg DAILYAC PO 10/05/20 07:30 10/12/20 07:45 Polyethylene Glycol (miraLAX) 17 gm DAILY PO 10/05/20 09:00 10/12/20 07:45 Pramipexole Dihydrochloride (miraPEX) 0.5 mg [id number] PO 10/04/20 21:00 10/12/20 07:44 Pregabalin (Lyrica) 50 mg TID PO 10/04/20 21:00 10/05/20 20:29 DC 10/05/20 17:54 Quetiapine Fumarate (SEROquel) 25 mg TID PO 10/04/20 21:00 10/12/20 07:45 Trazodone HCl (Desyrel) 50 mg PRN QHS PRN PO INSOMNIA 10/04/20 17:00 Magnesium Hydroxide (Milk Of Magnesia) 2,400 mg PRN QHS PRN PO CONSTIPATION 10/04/20 17:15 Meclizine HCl (Antivert) 25 mg PRN TID PRN PO DIZZINESS 10/04/20 17:30 Artificial Tears (Artificial Tears) 1 drop PRN QID PRN OU DRY EYE 10/04/20 17:30 Pregabalin (Lyrica) 50 mg TID PO 10/06/20 09:00 10/10/20 16:17 DC 10/10/20 09:08 Fluvoxamine Maleate (Luvox) 25 mg DAILY PO 10/08/20 09:00 10/10/20 09:01 DC 10/10/20 09:08 Fluvoxamine Maleate (Luvox) 50 mg DAILY PO 10/11/20 09:00 10/12/20 07:42 Carbidopa/Levodopa (Sinemet 25/250) 1 tab 0800,1200,1600 PO 10/12/20 08:00 10/12/20 07:48 Carbidopa/Levodopa (Sinemet 25/250) 1.5 tab 0500,1000,1400,1800 PO 10/12/20 05:00 10/12/20 05:31 Current Medications Medications (Trade) Dose Ordered Sig/Gracie Route PRN Reason Start Time Stop Time Status Last Admin Dose Admin Carbidopa/Levodopa (Sinemet 25/250) 1 tab 0800,1200,1600 PO 10/12/20 08:00 10/12/20 07:48 Carbidopa/Levodopa (Sinemet 25/250) 1.5 tab 0500,1000,1400,1800 PO 10/12/20 05:00 10/12/20 05:31 I have reviewed the current psychotropics carefully including drug interactions. Risk benefit ratio favors no change other than as noted in my dictated progress note. Diagnosis: Problems: (1) Mild cognitive impairment (2) Major depressive disorder, severe (3) Anxiety disorder, unspecified (4) Major depressive disorder with psychotic features (5) Impulse control disorder, unspecified (6) Psychotic disorder MARICEL BROWN MD Oct 12, 2020 09:04
[2020-10-12 15:26] VITALS: BP 170/77
--- NOTE | 2020-10-12 16:00 | NUR ---
Patient in bathroom when I came in. She states she has had 5 bowel movements already this AM and she thinks she is taking to much miralax. We will stop the miralax and only give her half of the packet when she does start it back up. Patient is alert and oriented and has no other complaints. Patient takes medications whole with no problems. No further concerns at this time.
[2020-10-12] MEDS: LORazepam 0.5 MG TABLET PO PRN (17:44)
[2020-10-12] MEDS: ACETAMINOPHEN 325 MG TABLET PO PRN (17:44)
--- NOTE | 2020-10-12 21:38 | PDOC ---
Exam Note: Marcial Note: Please also refer to the separate dictated note~for this date of service dictated separately.~Patient seen individually. Discussed the patient with Nursing staff reviewed the chart.~Reviewed interim history and current functioning. Reviewed vital signs,~Labs/ Radiology~and current medications noted below. Continue current treatment with the changes noted in the dictated addendum note Assessment: Vital Signs/I&O: Vital Signs Date Time Temp Pulse Resp B/P (MAP) Pulse Ox O2 Delivery O2 Flow Rate FiO2 10/12/20 15:26 97.6 85 20 170/77 (108) 97 Room Air I & O 10/11/20 10/11/20 10/12/20 15:00 23:00 07:00 Intake Total 600 ml 480 ml Balance 600 ml 480 ml Current Medications: Meds: Current Medications Medications (Trade) Dose Ordered Sig/Gracie Route PRN Reason Start Time Stop Time Status Last Admin Dose Admin Carbidopa/Levodopa (Sinemet 25/250) 1 tab 0800,1200,1600 PO 10/12/20 08:00 10/12/20 16:00 Carbidopa/Levodopa (Sinemet 25/250) 1.5 tab 0500,1000,1400,1800 PO 10/12/20 05:00 10/12/20 18:00 I have reviewed the current psychotropics carefully including drug interactions. Risk benefit ratio favors no change other than as noted in my dictated progress note. Diagnosis: Problems: (1) Mild cognitive impairment (2) Major depressive disorder, severe (3) Anxiety disorder, unspecified (4) Major depressive disorder with psychotic features (5) Impulse control disorder, unspecified MARICEL BROWN MD Oct 12, 2020 21:38
[2020-10-12] MEDS: DONEPEZIL HCL 10 MG TABLET PO SCH (21:54)
[2020-10-12] MEDS: CARBIDOPA/LEVODOPA CR 50/200MG TABLET.SA PO SCH (21:54)
[2020-10-12] MEDS: MIRTAZAPINE 15 MG TABLET PO SCH (21:54)
[2020-10-12] MEDS: MELATONIN 3 MG TABLET PO SCH (21:54)
--- NOTE | 2020-10-12 23:00 | NUR ---
Patient asleep in bed when nurse brought her medications to her. Patient pleasant and compliant with medications. Denied pain when asked. Patient leans to the right when attempting to sit upright and needed assistance to sit up and take her medications. Patient is no longer tearful and is relaxed at this time.
[2020-10-13] MEDS: CARBIDOPA/LEVODOPA 25/250MG TABLET PO SCH ×7 (04:49→17:17)
[2020-10-13 06:37] VITALS: BP 144/71
[2020-10-13] MEDS: PRAMIPEXOLE 0.5 MG TABLET. PO SCH ×3 (08:58→21:14)
[2020-10-13] MEDS: QUEtiapine 25 MG TABLET. PO SCH ×3 (08:58→21:14)
[2020-10-13] MEDS: DICLOFENAC SODIUM 1% TOPICAL GEL 100GM TUBE. TP PRN (08:59)
[2020-10-13] MEDS: OXYBUTYNIN CHLORIDE 5 MG TABLET PO SCH ×3 (08:59→21:14)
[2020-10-13] MEDS: PANTOPRAZOLE 40 MG TABLET. PO SCH (08:59)
[2020-10-13] MEDS: POLYETHYLENE GLYCOL 3350 17 GM PACKET. PO SCH (09:00)
--- NOTE | 2020-10-13 10:16 | NUR ---
Patient is calm and cooperative at this time. Patient is enjoying group and has no further needs at this time.
[2020-10-13] MEDS ORDERED: POLYETHYLENE GLYCOL 3350 17 GM PACKET. PO PRN (13:45)
--- NOTE | 2020-10-13 14:32 | PN ---
DATE: 10/13/2020 SUBJECTIVE: The patient was seen today, met with the staff, chart reviewed. The patient is constantly complaining of chronic leg pain on the right side secondary to neuropathy, which keeps her awake at night. The patient also admits to feeling depressed again from chronic pain. Staff reports no major behavior problems. OBSERVATION: VITAL SIGNS: Temperature 97.6, blood pressure 144/71, pulse 74, respiratory rate 16, O2 sat 97%. Slept about 3 hours last night. The patient's appetite is fair. MEDICATIONS: The patient's current medications include carbidopa/levodopa, fluvoxamine 50 mg daily, mirtazapine 15 mg at night, Aricept 10 mg daily. She is also on p.r.n. olanzapine. The patient is not having any major side effects. LABORATORY DATA: The patient's lab reviewed. ASSESSMENT: Major depression, recurrent, anxiety disorder. PLAN: To continue with the current treatment plan. LENGTH OF STAY: 5-10 days. ALESSANDRO CORMIER MD DR: ODALYS/cathy JOB#: [id number] / [id number]
[2020-10-13 15:41] VITALS: BP 92/57
[2020-10-13] MEDS: CARBIDOPA/LEVODOPA CR 50/200MG TABLET.SA PO SCH (21:14)
[2020-10-13] MEDS: MELATONIN 3 MG TABLET PO SCH (21:14)
[2020-10-13] MEDS: DONEPEZIL HCL 10 MG TABLET PO SCH (21:14)
[2020-10-13] MEDS: MIRTAZAPINE 15 MG TABLET PO SCH (21:14)
--- NOTE | 2020-10-13 21:15 | PDOC ---
Exam Note: Marcial Note: This note is a late entry for 10/12/2020 covers elements not covered in my initial note. Subjective: The patient was reviewed on telehealth rounds in the evening of 10/12/2020 with Светлана GONZALES. Discussed with nursing staff, reviewed the chart. The patient slept 3-3/4 hours previous night. Overall she has done better though she states she has been more frustrated today as I met with he on telehealth rounds in the evening. Review of Systems: Ambulation impaired in wheelchair. No CV, , pulmonary, eye system symptoms on review. Mental Status Exam: The patient is reasonably oriented. Speech has some latency, coherent. Abstraction is fair. Computation is impaired. Language function is intact. Attention span is short. Mood and affect is improved. No suicidal or homicidal ideation. Laboratory Data: Reviewed as above. Impression: Major depressive disorder with psychotic features. Psychotic disorder unspecified. Anxiety disorder unspecified. Plan: No change from initial note. Assessment: Vital Signs/I&O: Vital Signs Date Time Temp Pulse Resp B/P (MAP) Pulse Ox O2 Delivery O2 Flow Rate FiO2 10/13/20 15:41 97.9 81 20 92/57 (69) 94 Room Air I & O 10/12/20 10/12/20 10/13/20 15:00 23:00 07:00 Intake Total 360 ml 480 ml Balance 360 ml 480 ml Current Medications: Meds: Current Medications Medications (Trade) Dose Ordered Sig/Gracie Route PRN Reason Start Time Stop Time Status Last Admin Dose Admin Acetaminophen (Tylenol) 650 mg PRN Q6HRS PRN PO MILD PAIN / TEMP > 100.3'F 10/04/20 15:15 10/12/20 17:44 Multi-Ingredient Ointment (Analgesic [place]) 1 jean marie PRN QID PRN TP MILD MUSCLE PAIN 10/04/20 15:15 Al Hydroxide/Mg Hydroxide (Mylanta Plus Xs) 15 ml PRN AFTMEALHC PRN PO DYSPEPSIA 10/04/20 15:15 10/04/20 17:23 DC Magnesium Hydroxide (Milk Of Magnesia) 2,400 mg PRN QHS PRN PO CONSTIPATION 10/04/20 15:15 10/04/20 17:16 DC Acetaminophen (Tylenol) 650 mg PRN Q6HRS PRN PO MILD PAIN / TEMP > 100.3'F 10/04/20 17:00 10/04/20 17:04 DC Carbidopa/Levodopa (Sinemet Cr) 1 tab.sa HS PO 10/04/20 21:00 10/12/20 21:54 Carbidopa/Levodopa (Sinemet 25/100) 1 tab Q3HRS PO 10/04/20 18:00 10/11/20 21:35 DC 10/11/20 19:57 Diclofenac Sodium (Voltaren) 1 jean marie PRN QID PRN TP 2ND CHOICE MUSCLE PAIN 10/04/20 17:00 10/13/20 08:59 Donepezil HCl (Aricept) 10 mg HS PO 10/04/20 21:00 10/12/20 21:54 Duloxetine HCl (Cymbalta) 60 mg HS PO 10/04/20 21:00 10/07/20 17:38 DC 10/06/20 20:28 Lorazepam (Ativan) 0.5 mg PRN Q6HRS PRN PO 1ST CHOICE ANXIETY 10/04/20 17:00 10/12/20 17:44 Al Hydroxide/Mg Hydroxide (Mylanta Plus Xs) 15 ml PRN AFTMEALHC PRN PO DYSPEPSIA 10/04/20 17:00 10/12/20 11:09 Magnesium Hydroxide (Milk Of Magnesia) 2,400 mg PRN QHS PRN PO CONSTIPATION 10/04/20 17:00 10/04/20 17:18 DC Melatonin (Melatonin) 3 mg QHS PO 10/04/20 21:00 10/12/20 21:54 Mirtazapine (Remeron) 15 mg QHS PO 10/04/20 21:00 10/12/20 21:54 Olanzapine (ZyPREXA ZYDIS) 2.5 mg PRN Q2HRS PRN PO 2ND CHOICE ANXIETY / AGITATION 10/04/20 17:00 Oxybutynin Chloride (Ditropan) 5 mg [id number] PO 10/04/20 21:00 10/13/20 12:36 Pantoprazole Sodium (Protonix) 40 mg DAILYAC PO 10/05/20 07:30 10/13/20 08:59 Polyethylene Glycol (miraLAX) 17 gm DAILY PO 10/05/20 09:00 10/13/20 13:45 DC 10/12/20 07:45 Pramipexole Dihydrochloride (miraPEX) 0.5 mg [id number] PO 10/04/20 21:00 10/13/20 12:36 Pregabalin (Lyrica) 50 mg TID PO 10/04/20 21:00 10/05/20 20:29 DC 10/05/20 17:54 Quetiapine Fumarate (SEROquel) 25 mg TID PO 10/04/20 21:00 10/13/20 12:36 Trazodone HCl (Desyrel) 50 mg PRN QHS PRN PO INSOMNIA 10/04/20 17:00 Magnesium Hydroxide (Milk Of Magnesia) 2,400 mg PRN QHS PRN PO CONSTIPATION 10/04/20 17:15 Meclizine HCl (Antivert) 25 mg PRN TID PRN PO DIZZINESS 10/04/20 17:30 10/12/20 09:54 Artificial Tears (Artificial Tears) 1 drop PRN QID PRN OU DRY EYE 10/04/20 17:30 Pregabalin (Lyrica) 50 mg TID PO 10/06/20 09:00 10/10/20 16:17 DC 10/10/20 09:08 Fluvoxamine Maleate (Luvox) 25 mg DAILY PO 10/08/20 09:00 10/10/20 09:01 DC 10/10/20 09:08 Fluvoxamine Maleate (Luvox) 50 mg DAILY PO 10/11/20 09:00 10/13/20 08:58 Carbidopa/Levodopa (Sinemet 25/250) 1 tab 0800,1200,1600 PO 10/12/20 08:00 10/13/20 16:13 Carbidopa/Levodopa (Sinemet 25/250) 1.5 tab 0500,1000,1400,1800 PO 10/12/20 05:00 10/13/20 17:17 Polyethylene Glycol (miraLAX) 17 gm PRN DAILY PRN PO constipation 10/13/20 13:45 I have reviewed the current psychotropics carefully including drug interactions. Risk benefit ratio favors no change other than as noted in my dictated progress note. Diagnosis: Problems: (1) Mild cognitive impairment (2) Major depressive disorder, severe (3) Anxiety disorder, unspecified (4) Major depressive disorder with psychotic features (5) Impulse control disorder, unspecified (6) Psychotic disorder MARICEL BROWN MD Oct 13, 2020 21:15
[2020-10-13] MEDS: LORazepam 0.5 MG TABLET PO PRN (21:16)
[2020-10-13] MEDS: ACETAMINOPHEN 325 MG TABLET PO PRN (21:16)
[2020-10-14] MEDS: CARBIDOPA/LEVODOPA 25/250MG TABLET PO SCH ×7 (05:24→17:35)
--- NOTE | 2020-10-14 06:32 | NUR ---
Pt determined and persistent in being independent with ADLs and mobility. Pt pleasant, calm and compliant with medications. She stated she was "feeling pretty good," at med pass. Will continue to monitor.
[2020-10-14 06:38] VITALS: BP 139/84
[2020-10-14] MEDS: PRAMIPEXOLE 0.5 MG TABLET. PO SCH ×3 (07:34→19:29)
[2020-10-14] MEDS: PANTOPRAZOLE 40 MG TABLET. PO SCH (07:34)
[2020-10-14] MEDS: QUEtiapine 25 MG TABLET. PO SCH ×3 (07:34→19:29)
[2020-10-14] MEDS: OXYBUTYNIN CHLORIDE 5 MG TABLET PO SCH ×3 (07:34→19:29)
--- NOTE | 2020-10-14 08:57 | NUR ---
Patient is calm and cooperative at this time. Patient is interacting with her roommate.
[2020-10-14 10:28] LABS: BASO % 1 % (0-3); EOS # 0.1 x10^3/uL (0.0-0.7); EOS % 3 % (0-3); HEMATOCRIT 34.4 % (36.0-47.0); HEMOGLOBIN 11.4 g/dL (12.0-15.5); LYMPH % 25 % (24-48); MEAN CORPUSCULAR HEMOGLOBIN 32 pg (25-35); MEAN CORPUSCULAR HGB CONC 33 g/dL (31-37); MEAN CORPUSCULAR VOLUME 95 fL (79-100); MONO # 0.6 x10^3/uL (0.0-1.1); MONO % 14 % (0-9); NEUT # 2.3 x10^3uL (1.8-7.7); NEUT % 57 % (31-73); PLATELET COUNT 221 x10^3/uL (140-400); RED BLOOD COUNT 3.62 x10^6/uL (3.50-5.40); RED CELL DISTRIBUTION WIDTH 13.7 % (11.5-14.5); WHITE BLOOD COUNT 4.1 x10^3/uL (4.0-11.0)
[2020-10-14 10:47] LABS: ALBUMIN 3.5 g/dL (3.4-5.0); CALCIUM 8.8 mg/dL (8.5-10.1); CREATININE 0.6 mg/dL (0.6-1.0); GFR 97.2; POTASSIUM 4.2 mmol/L (3.5-5.1); TOTAL BILIRUBIN 0.9 mg/dL (0.2-1.0); TOTAL PROTEIN 6.9 g/dL (6.4-8.2)
--- NOTE | 2020-10-14 13:00 | PN ---
DATE: 10/14/2020 SUBJECTIVE: The patient was seen today, met with the staff, chart reviewed. Staff reports no major behavior problems. She is calm, cooperative, and compliant with the treatment. She has not expressed any delusional thinking. OBSERVATION: VITAL SIGNS: Temperature 97.9, blood pressure 139/84, pulse 69, respirations 18, O2 sat 96%. GENERAL: Slept about 6 hours last night. CURRENT MEDICATIONS: The patient's current medications include fluvoxamine 50 mg daily, mirtazapine 15 mg at night, Aricept 10 mg daily. She is also on p.r.n. olanzapine. The patient is not having any side effects and no falls. LABORATORY DATA: The patient's lab reviewed. ASSESSMENT: Major depression, recurrent; anxiety disorder, unspecified. PLAN: To continue with the current treatment plan. LENGTH OF STAY: 5-10 days. ALESSANDRO CORMIER MD DR: ODALYS/cathy JOB#: [id number] / [id number]
[2020-10-14 16:03] VITALS: BP 101/61
[2020-10-14] MEDS: SALIVA STIMULANT AGENT 44ML SPRAY BOTTLE. PO PRN (16:59)
[2020-10-14] MEDS: MELATONIN 3 MG TABLET PO SCH (19:29)
[2020-10-14] MEDS: CARBIDOPA/LEVODOPA CR 50/200MG TABLET.SA PO SCH (19:29)
[2020-10-14] MEDS: MIRTAZAPINE 15 MG TABLET PO SCH (19:29)
[2020-10-14] MEDS: DONEPEZIL HCL 10 MG TABLET PO SCH (19:29)
--- NOTE | 2020-10-14 22:45 | NUR ---
Nursing Note: Pt sitting up in her w/c at shift change. Pt A/O, calm, pleasant, and interactive when approached. Pt denies delusions at this time. Pt cooperative with assessment and compliant with medications administered whole.
[2020-10-15] MEDS: CARBIDOPA/LEVODOPA 25/250MG TABLET PO SCH ×7 (05:19→18:13)
[2020-10-15 06:02] VITALS: BP 146/63
[2020-10-15] MEDS: PANTOPRAZOLE 40 MG TABLET. PO SCH (08:17)
[2020-10-15] MEDS: QUEtiapine 25 MG TABLET. PO SCH ×3 (08:17→19:57)
[2020-10-15] MEDS: OXYBUTYNIN CHLORIDE 5 MG TABLET PO SCH ×3 (08:17→19:57)
[2020-10-15] MEDS: PRAMIPEXOLE 0.5 MG TABLET. PO SCH ×3 (08:17→19:57)
[2020-10-15] MEDS: ACETAMINOPHEN 325 MG TABLET PO PRN (08:59)
[2020-10-15] MEDS: DICLOFENAC SODIUM 1% TOPICAL GEL 100GM TUBE. TP PRN (09:00)
--- NOTE | 2020-10-15 13:54 | NUR ---
Nursing note: Pt was crying hysterically at time of AM med pass and assessment. Pt was upset because she wanted to go home and "is tired of cooperating with things here". Pt claims to be angry at her and says "when I leave here I'm going to beat my with a hammer! Not a rubber mallet, a hammer!" Pt was able to be redirected and was compliant with taking her meds whole. Pt c/o right leg pain spanning from her thigh down to her ankle. PRN tylenol and voltaren administered with good effect. Pt is currently in the day room participating in group. Will continue to monitor.
[2020-10-15] MEDS: SALIVA STIMULANT AGENT 44ML SPRAY BOTTLE. PO PRN (15:40)
[2020-10-15 16:28] VITALS: BP 94/53
[2020-10-15] MEDS: CARBIDOPA/LEVODOPA CR 50/200MG TABLET.SA PO SCH (19:56)
[2020-10-15] MEDS: DONEPEZIL HCL 10 MG TABLET PO SCH (19:57)
[2020-10-15] MEDS: MIRTAZAPINE 15 MG TABLET PO SCH (19:57)
[2020-10-15] MEDS: MELATONIN 3 MG TABLET PO SCH (19:57)
--- NOTE | 2020-10-15 21:03 | PDOC ---
Exam Note: Marcial Note: Please also refer to the separate dictated note~for this date of service dictated separately.~Patient seen individually. Discussed the patient with Nursing staff reviewed the chart.~Reviewed interim history and current functioning. Reviewed vital signs,~Labs/ Radiology~and current medications noted below. Continue current treatment with the changes noted in the dictated addendum note Assessment: Vital Signs/I&O: Vital Signs Date Time Temp Pulse Resp B/P (MAP) Pulse Ox O2 Delivery O2 Flow Rate FiO2 10/15/20 16:28 98.5 85 16 94/53 (67) 94 10/13/20 15:41 Room Air I & O 10/14/20 10/14/20 10/15/20 15:00 23:00 07:00 Intake Total 560 ml 320 ml Balance 560 ml 320 ml Current Medications: I have reviewed the current psychotropics carefully including drug interactions. Risk benefit ratio favors no change other than as noted in my dictated progress note. Diagnosis: Problems: (1) Mild cognitive impairment (2) Major depressive disorder, severe (3) Anxiety disorder, unspecified (4) Major depressive disorder with psychotic features (5) Impulse control disorder, unspecified (6) Psychotic disorder MARICEL BROWN MD Oct 15, 2020 21:03
--- NOTE | 2020-10-15 22:31 | NUR ---
Nursing Note: Pt sitting up in w/c in her room at shift change. Pt calm, cooperative, and interactive when approached. Pt cooperative with assessment and compliant with medications administered whole. Pt states : I don't even care about the virus anymore, I just want to get my teeth fixed".
[2020-10-16] MEDS: CARBIDOPA/LEVODOPA 25/250MG TABLET PO SCH ×7 (05:07→17:52)
[2020-10-16 05:47] VITALS: BP 130/66
[2020-10-16] MEDS: OXYBUTYNIN CHLORIDE 5 MG TABLET PO SCH ×3 (07:53→19:51)
[2020-10-16] MEDS: PRAMIPEXOLE 0.5 MG TABLET. PO SCH ×3 (07:53→19:51)
[2020-10-16] MEDS: QUEtiapine 25 MG TABLET. PO SCH ×3 (07:53→19:51)
[2020-10-16] MEDS: PANTOPRAZOLE 40 MG TABLET. PO SCH (07:54)
--- NOTE | 2020-10-16 08:58 | PDOC ---
Exam Note: Marcial Note: This note is a late entry for 10/15/2020 covers elements not covered in my initial note. Subjective: The patient was reviewed on telehealth rounds in the evening of 10/15/2020 with Cathryn GONZALES. Discussed with nursing staff, reviewed the chart. The patient slept 5 hours previous night. She has been more depressed, tearful, angry, irritable, yelling at times. In the morning she was crying to go home. She expressed a lot of anger towards her and went frustrated, states she could take a hammer to beat him. She presents the fact that she has to be a nursing facility. She remains quite obsessive, depressed, and anxious. Review of Systems: Ambulation impaired due to Parkinsons. She is in a wheelchair. No CV, , pulmonary, eye, ENT system symptoms on review. Mental Status Exam: The patient is alert and oriented. Speech is coherent. Abstraction is fair. Computation is impaired. Language function is intact. Attention span is short. Mood and affect is depressed, withdrawn. No suicidal or homicidal ideation. Laboratory Data: Reviewed as above. Impression: Major depressive disorder with psychotic features. Psychotic disorder unspecified. Anxiety disorder unspecified. Plan: The patient is frustrated with her Parkinsons. We will defer to Dr. Barnhart, Neurology who was already managing her Parkinsons. She is obsessive, more anxious, depressed. We will increase Luvox from 50 mg a day to 75 mg a day. Continue rest of her psychotropics unchanged. I have carefully reviewed drug interactions, risk-benefit ratio favors no further change at this time. Assessment: Vital Signs/I&O: Vital Signs Date Time Temp Pulse Resp B/P (MAP) Pulse Ox O2 Delivery O2 Flow Rate FiO2 10/16/20 05:47 97.6 65 18 130/66 (87) 95 10/13/20 15:41 Room Air I & O 10/15/20 10/15/20 10/16/20 15:00 23:00 07:00 Intake Total 720 ml 320 ml Balance 720 ml 320 ml Current Medications: Meds: Current Medications Medications (Trade) Dose Ordered Sig/Gracie Route PRN Reason Start Time Stop Time Status Last Admin Dose Admin Acetaminophen (Tylenol) 650 mg PRN Q6HRS PRN PO MILD PAIN / TEMP > 100.3'F 10/04/20 15:15 10/15/20 08:59 Multi-Ingredient Ointment (Analgesic [place]) 1 jean marie PRN QID PRN TP MILD MUSCLE PAIN 10/04/20 15:15 Al Hydroxide/Mg Hydroxide (Mylanta Plus Xs) 15 ml PRN AFTMEALHC PRN PO DYSPEPSIA 10/04/20 15:15 10/04/20 17:23 DC Magnesium Hydroxide (Milk Of Magnesia) 2,400 mg PRN QHS PRN PO CONSTIPATION 10/04/20 15:15 10/04/20 17:16 DC Acetaminophen (Tylenol) 650 mg PRN Q6HRS PRN PO MILD PAIN / TEMP > 100.3'F 10/04/20 17:00 10/04/20 17:04 DC Carbidopa/Levodopa (Sinemet Cr) 1 tab.sa HS PO 10/04/20 21:00 10/15/20 19:56 Carbidopa/Levodopa (Sinemet 25/100) 1 tab Q3HRS PO 10/04/20 18:00 10/11/20 21:35 DC 10/11/20 19:57 Diclofenac Sodium (Voltaren) 1 jean marie PRN QID PRN TP 2ND CHOICE MUSCLE PAIN 10/04/20 17:00 10/15/20 09:00 Donepezil HCl (Aricept) 10 mg HS PO 10/04/20 21:00 10/15/20 19:57 Duloxetine HCl (Cymbalta) 60 mg HS PO 10/04/20 21:00 10/07/20 17:38 DC 10/06/20 20:28 Lorazepam (Ativan) 0.5 mg PRN Q6HRS PRN PO 1ST CHOICE ANXIETY 10/04/20 17:00 10/13/20 21:16 Al Hydroxide/Mg Hydroxide (Mylanta Plus Xs) 15 ml PRN AFTMEALHC PRN PO DYSPEPSIA 10/04/20 17:00 10/12/20 11:09 Magnesium Hydroxide (Milk Of Magnesia) 2,400 mg PRN QHS PRN PO CONSTIPATION 10/04/20 17:00 10/04/20 17:18 DC Melatonin (Melatonin) 3 mg QHS PO 10/04/20 21:00 10/15/20 19:57 Mirtazapine (Remeron) 15 mg QHS PO 10/04/20 21:00 10/15/20 19:57 Olanzapine (ZyPREXA ZYDIS) 2.5 mg PRN Q2HRS PRN PO 2ND CHOICE ANXIETY / AGITATION 10/04/20 17:00 Oxybutynin Chloride (Ditropan) 5 mg [id number] PO 10/04/20 21:00 10/16/20 07:53 Pantoprazole Sodium (Protonix) 40 mg DAILYAC PO 10/05/20 07:30 10/16/20 07:54 Polyethylene Glycol (miraLAX) 17 gm DAILY PO 10/05/20 09:00 10/13/20 13:45 DC 10/12/20 07:45 Pramipexole Dihydrochloride (miraPEX) 0.5 mg [id number] PO 10/04/20 21:00 10/16/20 07:53 Pregabalin (Lyrica) 50 mg TID PO 10/04/20 21:00 10/05/20 20:29 DC 10/05/20 17:54 Quetiapine Fumarate (SEROquel) 25 mg TID PO 10/04/20 21:00 10/16/20 07:53 Trazodone HCl (Desyrel) 50 mg PRN QHS PRN PO INSOMNIA 10/04/20 17:00 10/14/20 19:29 Magnesium Hydroxide (Milk Of Magnesia) 2,400 mg PRN QHS PRN PO CONSTIPATION 10/04/20 17:15 Meclizine HCl (Antivert) 25 mg PRN TID PRN PO DIZZINESS 10/04/20 17:30 10/12/20 09:54 Artificial Tears (Artificial Tears) 1 drop PRN QID PRN OU DRY EYE 10/04/20 17:30 Pregabalin (Lyrica) 50 mg TID PO 10/06/20 09:00 10/10/20 16:17 DC 10/10/20 09:08 Fluvoxamine Maleate (Luvox) 25 mg DAILY PO 10/08/20 09:00 10/10/20 09:01 DC 10/10/20 09:08 Fluvoxamine Maleate (Luvox) 50 mg DAILY PO 10/11/20 09:00 10/15/20 18:41 DC 10/15/20 08:17 Carbidopa/Levodopa (Sinemet 25/250) 1 tab 0800,1200,1600 PO 10/12/20 08:00 10/16/20 07:54 Carbidopa/Levodopa (Sinemet 25/250) 1.5 tab 0500,1000,1400,1800 PO 10/12/20 05:00 10/16/20 05:07 Polyethylene Glycol (miraLAX) 17 gm PRN DAILY PRN PO constipation 10/13/20 13:45 10/16/20 08:10 Saliva Substitute (Biotene Moisturizing Mouth) 2 spray PRN Q15MIN PRN PO DRY MOUTH 10/14/20 16:15 10/15/20 15:40 Fluvoxamine Maleate (Luvox) 75 mg DAILY PO 10/16/20 09:00 10/16/20 07:56 Current Medications Medications (Trade) Dose Ordered Sig/Gracie Route PRN Reason Start Time Stop Time Status Last Admin Dose Admin Fluvoxamine Maleate (Luvox) 75 mg DAILY PO 10/16/20 09:00 10/16/20 07:56 I have reviewed the current psychotropics carefully including drug interactions. Risk benefit ratio favors no change other than as noted in my dictated progress note. Diagnosis: Problems: (1) Mild cognitive impairment (2) Major depressive disorder, severe (3) Anxiety disorder, unspecified (4) Major depressive disorder with psychotic features (5) Impulse control disorder, unspecified (6) Psychotic disorder MARICEL BROWN MD Oct 16, 2020 08:58
--- NOTE | 2020-10-16 14:25 | EKG ---
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
--- NOTE | 2020-10-16 14:44 | NUR ---
Nursing note: Pt has been pleasant, med compliant and cooperative this shift. She has participated in groups and socialized with her peers. She has not c/o any pain today. Pt is currently in the day room for group. Will continue to monitor.
--- NOTE | 2020-10-16 15:34 | NUR ---
SHARIF spoke with Moraima FLOWERS) from [place]. SHARIF provided updates. Moraima inquired about d/c time frame. SHARIF explained that treatment team would be held again for pt this week on 10/18/20 and that her Covid swab is scheduled for same day. Moraima agreeable to talk after treatment team and plan accordingly.
[2020-10-16 16:07] VITALS: BP 98/65
[2020-10-16] MEDS: ACETAMINOPHEN 325 MG TABLET PO PRN ×2 (17:52→23:18)
[2020-10-16] MEDS: MELATONIN 3 MG TABLET PO SCH (19:51)
[2020-10-16] MEDS: MIRTAZAPINE 15 MG TABLET PO SCH (19:51)
[2020-10-16] MEDS: DONEPEZIL HCL 10 MG TABLET PO SCH (19:51)
[2020-10-16] MEDS: CARBIDOPA/LEVODOPA 25/100MG TABLET PO SCH ×2 (19:51→23:18)
--- NOTE | 2020-10-16 21:02 | PDOC ---
Exam Note: Marcial Note: Please also refer to the separate dictated note~for this date of service dictated separately.~Patient seen individually. Discussed the patient with Nursing staff reviewed the chart.~Reviewed interim history and current functioning. Reviewed vital signs,~Labs/ Radiology~and current medications noted below. Continue current treatment with the changes noted in the dictated addendum note Assessment: Vital Signs/I&O: Vital Signs Date Time Temp Pulse Resp B/P (MAP) Pulse Ox O2 Delivery O2 Flow Rate FiO2 10/16/20 16:07 97.8 74 22 98/65 (76) 95 10/13/20 15:41 Room Air I & O 10/15/20 10/15/20 10/16/20 15:00 23:00 07:00 Intake Total 720 ml 320 ml Balance 720 ml 320 ml Current Medications: Meds: Current Medications Medications (Trade) Dose Ordered Sig/Gracie Route PRN Reason Start Time Stop Time Status Last Admin Dose Admin Acetaminophen (Tylenol) 650 mg PRN Q6HRS PRN PO MILD PAIN / TEMP > 100.3'F 10/04/20 15:15 10/16/20 17:52 Multi-Ingredient Ointment (Analgesic Conde) 1 jean marie PRN QID PRN TP MILD MUSCLE PAIN 10/04/20 15:15 Al Hydroxide/Mg Hydroxide (Mylanta Plus Xs) 15 ml PRN AFTMEALHC PRN PO DYSPEPSIA 10/04/20 15:15 10/04/20 17:23 DC Magnesium Hydroxide (Milk Of Magnesia) 2,400 mg PRN QHS PRN PO CONSTIPATION 10/04/20 15:15 10/04/20 17:16 DC Acetaminophen (Tylenol) 650 mg PRN Q6HRS PRN PO MILD PAIN / TEMP > 100.3'F 10/04/20 17:00 10/04/20 17:04 DC Carbidopa/Levodopa (Sinemet Cr) 1 tab.sa HS PO 10/04/20 21:00 10/16/20 18:36 DC 10/15/20 19:56 Carbidopa/Levodopa (Sinemet 25/100) 1 tab Q3HRS PO 10/04/20 18:00 10/11/20 21:35 DC 10/11/20 19:57 Diclofenac Sodium (Voltaren) 1 jean marie PRN QID PRN TP 2ND CHOICE MUSCLE PAIN 10/04/20 17:00 10/15/20 09:00 Donepezil HCl (Aricept) 10 mg HS PO 10/04/20 21:00 10/16/20 19:51 Duloxetine HCl (Cymbalta) 60 mg HS PO 10/04/20 21:00 10/07/20 17:38 DC 10/06/20 20:28 Lorazepam (Ativan) 0.5 mg PRN Q6HRS PRN PO 1ST CHOICE ANXIETY 10/04/20 17:00 10/13/20 21:16 Al Hydroxide/Mg Hydroxide (Mylanta Plus Xs) 15 ml PRN AFTMEALHC PRN PO DYSPEPSIA 10/04/20 17:00 10/12/20 11:09 Magnesium Hydroxide (Milk Of Magnesia) 2,400 mg PRN QHS PRN PO CONSTIPATION 10/04/20 17:00 10/04/20 17:18 DC Melatonin (Melatonin) 3 mg QHS PO 10/04/20 21:00 10/16/20 19:51 Mirtazapine (Remeron) 15 mg QHS PO 10/04/20 21:00 10/16/20 19:51 Olanzapine (ZyPREXA ZYDIS) 2.5 mg PRN Q2HRS PRN PO 2ND CHOICE ANXIETY / AGITATION 10/04/20 17:00 Oxybutynin Chloride (Ditropan) 5 mg [id number] PO 10/04/20 21:00 10/16/20 19:51 Pantoprazole Sodium (Protonix) 40 mg DAILYAC PO 10/05/20 07:30 10/16/20 07:54 Polyethylene Glycol (miraLAX) 17 gm DAILY PO 10/05/20 09:00 10/13/20 13:45 DC 10/12/20 07:45 Pramipexole Dihydrochloride (miraPEX) 0.5 mg [id number] PO 10/04/20 21:00 10/16/20 19:51 Pregabalin (Lyrica) 50 mg TID PO 10/04/20 21:00 10/05/20 20:29 DC 10/05/20 17:54 Quetiapine Fumarate (SEROquel) 25 mg TID PO 10/04/20 21:00 10/16/20 19:51 Trazodone HCl (Desyrel) 50 mg PRN QHS PRN PO INSOMNIA 10/04/20 17:00 10/14/20 19:29 Magnesium Hydroxide (Milk Of Magnesia) 2,400 mg PRN QHS PRN PO 1st CHOICE CONSTIPATION 10/04/20 17:15 Meclizine HCl (Antivert) 25 mg PRN TID PRN PO DIZZINESS 10/04/20 17:30 10/12/20 09:54 Artificial Tears (Artificial Tears) 1 drop PRN QID PRN OU DRY EYE 10/04/20 17:30 Pregabalin (Lyrica) 50 mg TID PO 10/06/20 09:00 10/10/20 16:17 DC 10/10/20 09:08 Fluvoxamine Maleate (Luvox) 25 mg DAILY PO 10/08/20 09:00 10/10/20 09:01 DC 10/10/20 09:08 Fluvoxamine Maleate (Luvox) 50 mg DAILY PO 10/11/20 09:00 10/15/20 18:41 DC 10/15/20 08:17 Carbidopa/Levodopa (Sinemet 25/250) 1 tab 0800,1200,1600 PO 10/12/20 08:00 10/16/20 18:36 DC 10/16/20 16:22 Carbidopa/Levodopa (Sinemet 25/250) 1.5 tab 0500,1000,1400,1800 PO 10/12/20 05:00 10/16/20 18:36 DC 10/16/20 17:52 Polyethylene Glycol (miraLAX) 17 gm PRN DAILY PRN PO 2ND CHOICE constipation 10/13/20 13:45 10/16/20 08:10 Saliva Substitute (Biotene Moisturizing Mouth) 2 spray PRN Q15MIN PRN PO DRY MOUTH 10/14/20 16:15 10/15/20 15:40 Fluvoxamine Maleate (Luvox) 75 mg DAILY PO 10/16/20 09:00 10/16/20 07:56 Carbidopa/Levodopa (Sinemet 25/100) 1 tab Q3HRS PO 10/16/20 21:00 10/16/20 19:51 Current Medications Medications (Trade) Dose Ordered Sig/Gracie Route PRN Reason Start Time Stop Time Status Last Admin Dose Admin Fluvoxamine Maleate (Luvox) 75 mg DAILY PO 10/16/20 09:00 10/16/20 07:56 Carbidopa/Levodopa (Sinemet 25/100) 1 tab Q3HRS PO 10/16/20 21:00 10/16/20 19:51 I have reviewed the current psychotropics carefully including drug interactions. Risk benefit ratio favors no change other than as noted in my dictated progress note. Diagnosis: Problems: (1) Mild cognitive impairment (2) Major depressive disorder, severe (3) Anxiety disorder, unspecified (4) Major depressive disorder with psychotic features (5) Impulse control disorder, unspecified (6) Psychotic disorder MARICEL BROWN MD Oct 16, 2020 21:02
--- NOTE | 2020-10-17 00:51 | CONS ---
DATE OF CONSULTATION: REFERRING PHYSICIAN: Dr. Stocktno. REASON FOR CONSULTATION: Management of Parkinson's disease. HISTORY OF PRESENT ILLNESS: This is a 74-year-old right-handed female who was [facility] on conditions of worsening of depression, psychosis, anxiety and delusions. The patient was transferred from [facility] on account of worsening of appetite, resulted in significant weight loss. Neuro consult was requested for evaluation and management for long standing Parkinson disease. During the interview, the patient was communicative, but she has apparently severe dyskinesia and abnormal involuntary movements. She denies headaches, visual disturbances, chest pain, shortness of breath, palpitation, dysarthria or dysphagia. PAST MEDICAL HISTORY: Quite significant for Parkinson disease and worsening of her involuntary movements, weight loss, agitation at [facility] and throwing herself out of the wheelchair. The patient was seen by me in June of last year when she presented with similar neurological symptoms of increasing involuntary movements and dyskinesia. I thought the patient was overmedicated with carbidopa/levodopa as she receive a pill of 25/250 approximately 8 times daily. In previous admission, I tried to cut back and adjust her dose of carbidopa/levodopa and she did tolerate it very well and her dyskinesia did improve. Other medical problems include GERD, osteoarthritis, AV block with pacemaker placement and dry eye syndrome. PAST SURGICAL HISTORY: Positive for hysterectomy, status post pacemaker placement. FAMILY HISTORY: Noncontributory. SOCIAL HISTORY: The patient denies smoking, alcohol drinking, or illicit drug use. CURRENT MEDICATIONS: Carbidopa/levodopa 25/250 every 2 hours and carbidopa/levodopa ER at bedtime. Other medications include Luvox 75 mg daily, MiraLax, Protonix 40 mg p.o. daily, Seroquel 25 mg t.i.d., Mirapex 0.5 mg t.i.d., oxybutynin 5 mg t.i.d., Remeron 15 mg at bedtime, melatonin 3 mg at bedtime, donepezil 10 mg at bedtime, artificial tears, meclizine 25 mg t.i.d. p.r.n. for dizziness, trazodone 50 mg at bedtime, olanzapine 2.5 mg every 2 hours p.r.n. for anxiety and agitation. ALLERGIES: GABAPENTIN and OXYCODONE. REVIEW OF SYSTEMS: A 12-point review of system was performed as mentioned above in history of present illness. PHYSICAL EXAMINATION: GENERAL: A thin right-handed lady, not in acute distress. She weighs 42.8 kilos. VITAL SIGNS: Blood pressure 130/66, respiratory rate 18, pulse is 65 and regular, temperature 97.6, oxygen saturation 95% on room air. HEENT: Normocephalic, atraumatic, otherwise unremarkable. NECK: Supple. Negative for carotid bruit, lymphadenopathy or thyromegaly. LUNGS: Clear to A and P. CARDIOVASCULAR: Regular rate and rhythm, normal S1, S2. ABDOMEN: Soft. Bowel sounds positive. EXTREMITIES: Negative for cyanosis, clubbing or edema. NEUROLOGICAL EXAMINATION: Mental status: The patient is alert and oriented x 2. Speech is fluent. There is no language dysfunction. Memory, judgment, and abstracting thinking are fair. The patient denies hallucination or delusion. CRANIAL NERVES: Visual curran are full. The pupils are reactive to light and accommodation. The extraocular movements are intact. There is no nystagmus. There is no facial motor or sensory deficit. Hearing is intact bilaterally. The palate is elevated symmetrically. Sternocleidomastoid muscles are powerful bilaterally. The patient shrugs her shoulders symmetrically, protrudes her tongue in the midline without fasciculation or atrophy. MOTOR: No focal muscle bulk was seen. The tone is normal. The strength is 4/5 throughout. The patient had involuntarily violent movements of the upper more than the lower extremities. SENSORY: Revealed normal pinprick and light touch senses throughout. Deep tendon reflexes were symmetric and hypoactive without pathologic responses. GAIT: Not tested as the patient confined to wheelchair and sometimes make a few steps by herself with assistance. LABORATORY DATA: CBC from 10/14/2019 revealed white blood cells 4.1 thousand, hemoglobin 11.4, hematocrit 34.4, platelet count 221,000. Chemistry revealed sodium of 138, potassium 4.2, chloride 103, CO2 of 27, BUN 22, creatinine 0.6, glucose is 102. Iron is normal. Liver enzymes are normal. Vitamin B12 is 528 and vitamin D is 26.1. Urinalysis from 10/06/2020 revealed trace of urinary leukocyte esterase. D-dimer is 0.73. Coronavirus PCR is not detected. IMPRESSION: 1. Severe dyskinesia of the upper and sometime lower extremities, probably due to overdosing carbidopa/levodopa, probably aggravated by other antipsychotic medications. 2. Longstanding history of Parkinson disease, osteoarthritis, gastroesophageal reflux disease, mild dementia. 3. Multiple psychiatric problems include behavior disturbances, depression, and probably early dementia. RECOMMENDATIONS: 1. We will change carbidopa/levodopa to 25/100 every 3 hours while awake. 2. Continue with current medical and psychiatric care. 3. We will follow up the patient as needed and adjust anti-parkinsonism medications. M Dolores AMADOR MD DR: ANGELIA/cathy JOB#: [id number] / [id number]
--- NOTE | 2020-10-17 02:24 | NUR ---
Nursing Note: Pt sitting up in w/c in her room at shift change. Pt calm, pleasant, and interactive when approached. Pt cooperative with assessment and compliant with medications administered whole. PRN Tylenol administered @2318 for c/o tooth pain.
[2020-10-17] MEDS: CARBIDOPA/LEVODOPA 25/100MG TABLET PO SCH ×7 (03:15→20:11)
[2020-10-17 06:33] VITALS: BP 164/87
[2020-10-17] MEDS: OXYBUTYNIN CHLORIDE 5 MG TABLET PO SCH ×3 (08:01→20:11)
[2020-10-17] MEDS: QUEtiapine 25 MG TABLET. PO SCH ×3 (08:01→20:10)
[2020-10-17] MEDS: PRAMIPEXOLE 0.5 MG TABLET. PO SCH ×3 (08:01→20:10)
[2020-10-17] MEDS: PANTOPRAZOLE 40 MG TABLET. PO SCH (08:01)
--- NOTE | 2020-10-17 09:46 | NUR ---
PATIENT IS IN A BED AWAKE THIS AM UPON ASSESSMENT. THIS RN GREETED PATIENT GOOD MORNING, PATIENT STATED " WHAT IS GOOD ABOUT IT?" PATIENT IS COOPERATIVE AND COMPLIANT WITH MEDICATION, SLIGHTLY IRRITABLE AND SUSPICIOUS. PATIENT IS UPSET ABOUT BEING LOCKED ON THIS UNIT AND UNABLE TO SEE HER FAMILY, STATED SHE DOES NOT BELIEVE THAT IT IS DUE TO PANDEMIC AND COVID. PATIENT WAS ENCOURAGED TO STAY POSITIVE AND REMINDED TO CALL FOR ASSIST.
--- NOTE | 2020-10-17 09:55 | NUR ---
SHARIF spoke with Alycia FARLEY) from [facility] regarding possible d/c on Thursday10/19/20 provided doctor says pt is stable during treatment team on 10/18/20. Alycia states that they will only allow pt to return to facility with a Covid swab that has been completed within 24 hours of d/c. SHARIF explained that it would take longer than 24 hours to get a PCR Covid test result back. Alycia clarified that the facility would in deed allow a rapid swab. SHARIF reported this information to [facility] nursing staff and wrote it on the d/c board in order to plan accordingly. Pt will plan to be swabbed tomorrow on 10/18/20 as originally scheduled. SHARIF reported to Alycia should doctor not be on board with Thursday10/19/20 d/c, SHARIF would notify staff at [facility].
[2020-10-17 15:16] VITALS: BP 145/82
[2020-10-17] MEDS: DONEPEZIL HCL 10 MG TABLET PO SCH (20:11)
[2020-10-17] MEDS: MIRTAZAPINE 15 MG TABLET PO SCH (20:11)
[2020-10-17] MEDS: MELATONIN 3 MG TABLET PO SCH (20:11)
--- NOTE | 2020-10-17 20:51 | PDOC ---
Exam Note: Marcial Note: This note is a late entry for 10/16/2020 covers elements not covered in my initial note. Subjective: The patient was reviewed on telehealth rounds in the evening of 10/16/2020 with Cathryn GONZALES. Discussed with nursing staff, reviewed the chart. The patient slept 5-3/4 hours previous night. She has been less paranoid, suspicious, not talking about wanting to hurt her . She has been fixated on some dental pain, we will defer to Dr. Barnett. She has lost some teeth and has not been able to go to the dentist. Review of Systems: Ambulation impaired due to Parkinsons. She is in a wheelchair. No CV, , pulmonary, eye, ENT system symptoms on review. Mental Status Exam: The patient is alert and oriented. Speech is coherent, somewhat rapid at times. Abstraction is fair. Computation is impaired. Language function is intact. Attention span is short. Mood and affect is depressed, withdrawn. No suicidal or homicidal ideation. Laboratory Data: Reviewed as above. Impression: Major depressive disorder with psychotic features. Psychotic disorder unspecified. Anxiety disorder unspecified. Plan: Continue psychotropics from initial note. Assessment: Vital Signs/I&O: Vital Signs Date Time Temp Pulse Resp B/P (MAP) Pulse Ox O2 Delivery O2 Flow Rate FiO2 10/17/20 15:16 98.1 68 16 145/82 (103) 96 10/17/20 06:33 Room Air I & O 10/16/20 10/16/20 10/17/20 15:00 23:00 07:00 Intake Total 460 ml 480 ml Balance 460 ml 480 ml Current Medications: Meds: Current Medications Medications (Trade) Dose Ordered Sig/Gracie Route PRN Reason Start Time Stop Time Status Last Admin Dose Admin Acetaminophen (Tylenol) 650 mg PRN Q6HRS PRN PO MILD PAIN / TEMP > 100.3'F 10/04/20 15:15 10/16/20 23:18 Multi-Ingredient Ointment (Analgesic [place]) 1 jean marie PRN QID PRN TP MILD MUSCLE PAIN 10/04/20 15:15 Al Hydroxide/Mg Hydroxide (Mylanta Plus Xs) 15 ml PRN AFTMEALHC PRN PO DYSPEPSIA 10/04/20 15:15 10/04/20 17:23 DC Magnesium Hydroxide (Milk Of Magnesia) 2,400 mg PRN QHS PRN PO CONSTIPATION 10/04/20 15:15 10/04/20 17:16 DC Acetaminophen (Tylenol) 650 mg PRN Q6HRS PRN PO MILD PAIN / TEMP > 100.3'F 10/04/20 17:00 10/04/20 17:04 DC Carbidopa/Levodopa (Sinemet Cr) 1 tab.sa HS PO 10/04/20 21:00 10/16/20 18:36 DC 10/15/20 19:56 Carbidopa/Levodopa (Sinemet 25/100) 1 tab Q3HRS PO 10/04/20 18:00 10/11/20 21:35 DC 10/11/20 19:57 Diclofenac Sodium (Voltaren) 1 jean marie PRN QID PRN TP 2ND CHOICE MUSCLE PAIN 10/04/20 17:00 10/15/20 09:00 Donepezil HCl (Aricept) 10 mg HS PO 10/04/20 21:00 10/17/20 20:11 Duloxetine HCl (Cymbalta) 60 mg HS PO 10/04/20 21:00 10/07/20 17:38 DC 10/06/20 20:28 Lorazepam (Ativan) 0.5 mg PRN Q6HRS PRN PO 1ST CHOICE ANXIETY 10/04/20 17:00 10/13/20 21:16 Al Hydroxide/Mg Hydroxide (Mylanta Plus Xs) 15 ml PRN AFTMEALHC PRN PO DYSPEPSIA 10/04/20 17:00 10/12/20 11:09 Magnesium Hydroxide (Milk Of Magnesia) 2,400 mg PRN QHS PRN PO CONSTIPATION 10/04/20 17:00 10/04/20 17:18 DC Melatonin (Melatonin) 3 mg QHS PO 10/04/20 21:00 10/17/20 20:11 Mirtazapine (Remeron) 15 mg QHS PO 10/04/20 21:00 10/17/20 20:11 Olanzapine (ZyPREXA ZYDIS) 2.5 mg PRN Q2HRS PRN PO 2ND CHOICE ANXIETY / AGITATION 10/04/20 17:00 Oxybutynin Chloride (Ditropan) 5 mg [id number] PO 10/04/20 21:00 10/17/20 20:11 Pantoprazole Sodium (Protonix) 40 mg DAILYAC PO 10/05/20 07:30 10/17/20 08:01 Polyethylene Glycol (miraLAX) 17 gm DAILY PO 10/05/20 09:00 10/13/20 13:45 DC 10/12/20 07:45 Pramipexole Dihydrochloride (miraPEX) 0.5 mg [id number] PO 10/04/20 21:00 10/17/20 20:10 Pregabalin (Lyrica) 50 mg TID PO 10/04/20 21:00 10/05/20 20:29 DC 10/05/20 17:54 Quetiapine Fumarate (SEROquel) 25 mg TID PO 10/04/20 21:00 10/17/20 20:10 Trazodone HCl (Desyrel) 50 mg PRN QHS PRN PO INSOMNIA 10/04/20 17:00 10/14/20 19:29 Magnesium Hydroxide (Milk Of Magnesia) 2,400 mg PRN QHS PRN PO 1st CHOICE CONSTIPATION 10/04/20 17:15 Meclizine HCl (Antivert) 25 mg PRN TID PRN PO DIZZINESS 10/04/20 17:30 10/12/20 09:54 Artificial Tears (Artificial Tears) 1 drop PRN QID PRN OU DRY EYE 10/04/20 17:30 Pregabalin (Lyrica) 50 mg TID PO 10/06/20 09:00 10/10/20 16:17 DC 10/10/20 09:08 Fluvoxamine Maleate (Luvox) 25 mg DAILY PO 10/08/20 09:00 10/10/20 09:01 DC 10/10/20 09:08 Fluvoxamine Maleate (Luvox) 50 mg DAILY PO 10/11/20 09:00 10/15/20 18:41 DC 10/15/20 08:17 Carbidopa/Levodopa (Sinemet 25/250) 1 tab 0800,1200,1600 PO 10/12/20 08:00 10/16/20 18:36 DC 10/16/20 16:22 Carbidopa/Levodopa (Sinemet 25/250) 1.5 tab 0500,1000,1400,1800 PO 10/12/20 05:00 10/16/20 18:36 DC 10/16/20 17:52 Polyethylene Glycol (miraLAX) 17 gm PRN DAILY PRN PO 2ND CHOICE constipation 10/13/20 13:45 10/16/20 08:10 Saliva Substitute (Biotene Moisturizing Mouth) 2 spray PRN Q15MIN PRN PO DRY MOUTH 10/14/20 16:15 10/15/20 15:40 Fluvoxamine Maleate (Luvox) 75 mg DAILY PO 10/16/20 09:00 10/17/20 08:02 Carbidopa/Levodopa (Sinemet 25/100) 1 tab Q3HRS PO 10/16/20 21:00 10/17/20 20:11 Current Medications Medications (Trade) Dose Ordered Sig/Gracie Route PRN Reason Start Time Stop Time Status Last Admin Dose Admin Carbidopa/Levodopa (Sinemet 25/100) 1 tab Q3HRS PO 10/16/20 21:00 10/17/20 20:11 I have reviewed the current psychotropics carefully including drug interactions. Risk benefit ratio favors no change other than as noted in my dictated progress note. Diagnosis: Problems: (1) Mild cognitive impairment (2) Major depressive disorder, severe (3) Anxiety disorder, unspecified (4) Major depressive disorder with psychotic features (5) Impulse control disorder, unspecified (6) Psychotic disorder MARICEL BROWN MD Oct 17, 2020 20:51
--- NOTE | 2020-10-17 20:52 | PDOC ---
Exam Note: Marcial Note: Please also refer to the separate dictated note~for this date of service dictated separately.~Patient seen individually. Discussed the patient with Nursing staff reviewed the chart.~Reviewed interim history and current functioning. Reviewed vital signs,~Labs/ Radiology~and current medications noted below. Continue current treatment with the changes noted in the dictated addendum note Assessment: Vital Signs/I&O: Vital Signs Date Time Temp Pulse Resp B/P (MAP) Pulse Ox O2 Delivery O2 Flow Rate FiO2 10/17/20 15:16 98.1 68 16 145/82 (103) 96 10/17/20 06:33 Room Air I & O 10/16/20 10/16/20 10/17/20 15:00 23:00 07:00 Intake Total 460 ml 480 ml Balance 460 ml 480 ml Current Medications: Meds: Current Medications Medications (Trade) Dose Ordered Sig/Gracie Route PRN Reason Start Time Stop Time Status Last Admin Dose Admin Acetaminophen (Tylenol) 650 mg PRN Q6HRS PRN PO MILD PAIN / TEMP > 100.3'F 10/04/20 15:15 10/16/20 23:18 Multi-Ingredient Ointment (Analgesic [place]) 1 jean marie PRN QID PRN TP MILD MUSCLE PAIN 10/04/20 15:15 Al Hydroxide/Mg Hydroxide (Mylanta Plus Xs) 15 ml PRN AFTMEALHC PRN PO DYSPEPSIA 10/04/20 15:15 10/04/20 17:23 DC Magnesium Hydroxide (Milk Of Magnesia) 2,400 mg PRN QHS PRN PO CONSTIPATION 10/04/20 15:15 10/04/20 17:16 DC Acetaminophen (Tylenol) 650 mg PRN Q6HRS PRN PO MILD PAIN / TEMP > 100.3'F 10/04/20 17:00 10/04/20 17:04 DC Carbidopa/Levodopa (Sinemet Cr) 1 tab.sa HS PO 10/04/20 21:00 10/16/20 18:36 DC 10/15/20 19:56 Carbidopa/Levodopa (Sinemet 25/100) 1 tab Q3HRS PO 10/04/20 18:00 10/11/20 21:35 DC 10/11/20 19:57 Diclofenac Sodium (Voltaren) 1 jean marie PRN QID PRN TP 2ND CHOICE MUSCLE PAIN 10/04/20 17:00 10/15/20 09:00 Donepezil HCl (Aricept) 10 mg HS PO 10/04/20 21:00 10/17/20 20:11 Duloxetine HCl (Cymbalta) 60 mg HS PO 10/04/20 21:00 10/07/20 17:38 DC 10/06/20 20:28 Lorazepam (Ativan) 0.5 mg PRN Q6HRS PRN PO 1ST CHOICE ANXIETY 10/04/20 17:00 10/13/20 21:16 Al Hydroxide/Mg Hydroxide (Mylanta Plus Xs) 15 ml PRN AFTMEALHC PRN PO DYSPEPSIA 10/04/20 17:00 10/12/20 11:09 Magnesium Hydroxide (Milk Of Magnesia) 2,400 mg PRN QHS PRN PO CONSTIPATION 10/04/20 17:00 10/04/20 17:18 DC Melatonin (Melatonin) 3 mg QHS PO 10/04/20 21:00 10/17/20 20:11 Mirtazapine (Remeron) 15 mg QHS PO 10/04/20 21:00 10/17/20 20:11 Olanzapine (ZyPREXA ZYDIS) 2.5 mg PRN Q2HRS PRN PO 2ND CHOICE ANXIETY / AGITATION 10/04/20 17:00 Oxybutynin Chloride (Ditropan) 5 mg [id number] PO 10/04/20 21:00 10/17/20 20:11 Pantoprazole Sodium (Protonix) 40 mg DAILYAC PO 10/05/20 07:30 10/17/20 08:01 Polyethylene Glycol (miraLAX) 17 gm DAILY PO 10/05/20 09:00 10/13/20 13:45 DC 10/12/20 07:45 Pramipexole Dihydrochloride (miraPEX) 0.5 mg [id number] PO 10/04/20 21:00 10/17/20 20:10 Pregabalin (Lyrica) 50 mg TID PO 10/04/20 21:00 10/05/20 20:29 DC 10/05/20 17:54 Quetiapine Fumarate (SEROquel) 25 mg TID PO 10/04/20 21:00 10/17/20 20:10 Trazodone HCl (Desyrel) 50 mg PRN QHS PRN PO INSOMNIA 10/04/20 17:00 10/14/20 19:29 Magnesium Hydroxide (Milk Of Magnesia) 2,400 mg PRN QHS PRN PO 1st CHOICE CONSTIPATION 10/04/20 17:15 Meclizine HCl (Antivert) 25 mg PRN TID PRN PO DIZZINESS 10/04/20 17:30 10/12/20 09:54 Artificial Tears (Artificial Tears) 1 drop PRN QID PRN OU DRY EYE 10/04/20 17:30 Pregabalin (Lyrica) 50 mg TID PO 10/06/20 09:00 10/10/20 16:17 DC 10/10/20 09:08 Fluvoxamine Maleate (Luvox) 25 mg DAILY PO 10/08/20 09:00 10/10/20 09:01 DC 10/10/20 09:08 Fluvoxamine Maleate (Luvox) 50 mg DAILY PO 10/11/20 09:00 10/15/20 18:41 DC 10/15/20 08:17 Carbidopa/Levodopa (Sinemet 25/250) 1 tab 0800,1200,1600 PO 10/12/20 08:00 10/16/20 18:36 DC 10/16/20 16:22 Carbidopa/Levodopa (Sinemet 25/250) 1.5 tab 0500,1000,1400,1800 PO 10/12/20 05:00 10/16/20 18:36 DC 10/16/20 17:52 Polyethylene Glycol (miraLAX) 17 gm PRN DAILY PRN PO 2ND CHOICE constipation 10/13/20 13:45 10/16/20 08:10 Saliva Substitute (Biotene Moisturizing Mouth) 2 spray PRN Q15MIN PRN PO DRY MOUTH 10/14/20 16:15 10/15/20 15:40 Fluvoxamine Maleate (Luvox) 75 mg DAILY PO 10/16/20 09:00 10/17/20 08:02 Carbidopa/Levodopa (Sinemet 25/100) 1 tab Q3HRS PO 10/16/20 21:00 10/17/20 20:11 Current Medications Medications (Trade) Dose Ordered Sig/Gracie Route PRN Reason Start Time Stop Time Status Last Admin Dose Admin Carbidopa/Levodopa (Sinemet 25/100) 1 tab Q3HRS PO 10/16/20 21:00 10/17/20 20:11 I have reviewed the current psychotropics carefully including drug interactions. Risk benefit ratio favors no change other than as noted in my dictated progress note. Diagnosis: Problems: (1) Mild cognitive impairment (2) Major depressive disorder, severe (3) Anxiety disorder, unspecified (4) Major depressive disorder with psychotic features (5) Impulse control disorder, unspecified (6) Psychotic disorder MARICEL BROWN MD Oct 17, 2020 20:52
--- NOTE | 2020-10-17 21:55 | NUR ---
Pt sitting up in wheelchair in pt room. Pt is sarcastic and sad. Pt doesn't wish to be any longer and that she is stuck. Pt states, "I do not know how anyone lives like this". Pt denies thoughts of SI, stating that she is too chicken and would never do that. Pt compliant with medications and assessment.
[2020-10-18] MEDS: CARBIDOPA/LEVODOPA 25/100MG TABLET PO SCH ×8 (03:00→19:58)
[2020-10-18 06:20] VITALS: BP 131/76
[2020-10-18] MEDS: OXYBUTYNIN CHLORIDE 5 MG TABLET PO SCH ×3 (07:57→19:58)
[2020-10-18] MEDS: QUEtiapine 25 MG TABLET. PO SCH ×3 (07:57→19:58)
[2020-10-18] MEDS: PANTOPRAZOLE 40 MG TABLET. PO SCH (07:57)
[2020-10-18] MEDS: PRAMIPEXOLE 0.5 MG TABLET. PO SCH ×3 (07:58→19:58)
--- NOTE | 2020-10-18 08:04 | PDOC ---
Exam Note: Marcila Note: This note is a late entry for 10/17/2020 covers elements not covered in my initial note. Subjective: The patient was reviewed on telehealth rounds in the evening of 10/17/2020 with Marcie GONZALES. Discussed with nursing staff, reviewed the chart. The patient slept 4-1/2 hours previous night. She has been somewhat sarcastic, suspicious, that her family is not being allowed to visit her. She is wanting them to come here to visit her. She tries to transfer herself on the wheelchair to the bed. Review of Systems: Ambulation impaired due to Parkinsons. No CV, , pulmonary, eye, ENT system symptoms on review. Mental Status Exam: The patient is alert and oriented. She is much less fixat ed about pain in her mouth today as compared to yesterday. Speech is coherent, somewhat rapid at times. Abstraction is fair. Computation is impaired. Language function is intact. Attention span is short. Mood and affect is depressed, withdrawn. No suicidal or homicidal ideation. Laboratory Data: Reviewed as above. Impression: Major depressive disorder with psychotic features. Psychotic disorder unspecified. Anxiety disorder unspecified. Plan: Continue psychotropics from initial note. Assessment: Vital Signs/I&O: Vital Signs Date Time Temp Pulse Resp B/P (MAP) Pulse Ox O2 Delivery O2 Flow Rate FiO2 10/18/20 06:20 98.0 69 16 131/76 (94) 93 Room Air I & O 10/17/20 10/17/20 10/18/20 14:59 22:59 06:59 Intake Total 440 ml 460 ml Balance 440 ml 460 ml Labs: Laboratory Tests Test 10/18/20 06:39 SARS-CoV-2 Antigen (Rapid) Negative (NEGATIVE) Current Medications: Meds: Laboratory Tests Test 10/18/20 06:39 SARS-CoV-2 Antigen (Rapid) Negative Current Medications Medications (Trade) Dose Ordered Sig/Gracie Route PRN Reason Start Time Stop Time Status Last Admin Dose Admin Acetaminophen (Tylenol) 650 mg PRN Q6HRS PRN PO MILD PAIN / TEMP > 100.3'F 10/04/20 15:15 10/16/20 23:18 Multi-Ingredient Ointment (Analgesic [place]) 1 jean marie PRN QID PRN TP MILD MUSCLE PAIN 10/04/20 15:15 Al Hydroxide/Mg Hydroxide (Mylanta Plus Xs) 15 ml PRN AFTMEALHC PRN PO DYSPEPSIA 10/04/20 15:15 10/04/20 17:23 DC Magnesium Hydroxide (Milk Of Magnesia) 2,400 mg PRN QHS PRN PO CONSTIPATION 10/04/20 15:15 10/04/20 17:16 DC Acetaminophen (Tylenol) 650 mg PRN Q6HRS PRN PO MILD PAIN / TEMP > 100.3'F 10/04/20 17:00 10/04/20 17:04 DC Carbidopa/Levodopa (Sinemet Cr) 1 tab.sa HS PO 10/04/20 21:00 10/16/20 18:36 DC 10/15/20 19:56 Carbidopa/Levodopa (Sinemet 25/100) 1 tab Q3HRS PO 10/04/20 18:00 10/11/20 21:35 DC 10/11/20 19:57 Diclofenac Sodium (Voltaren) 1 jean marie PRN QID PRN TP 2ND CHOICE MUSCLE PAIN 10/04/20 17:00 10/15/20 09:00 Donepezil HCl (Aricept) 10 mg HS PO 10/04/20 21:00 10/17/20 20:11 Duloxetine HCl (Cymbalta) 60 mg HS PO 10/04/20 21:00 10/07/20 17:38 DC 10/06/20 20:28 Lorazepam (Ativan) 0.5 mg PRN Q6HRS PRN PO 1ST CHOICE ANXIETY 10/04/20 17:00 10/13/20 21:16 Al Hydroxide/Mg Hydroxide (Mylanta Plus Xs) 15 ml PRN AFTMEALHC PRN PO DYSPEPSIA 10/04/20 17:00 10/12/20 11:09 Magnesium Hydroxide (Milk Of Magnesia) 2,400 mg PRN QHS PRN PO CONSTIPATION 10/04/20 17:00 10/04/20 17:18 DC Melatonin (Melatonin) 3 mg QHS PO 10/04/20 21:00 10/17/20 20:11 Mirtazapine (Remeron) 15 mg QHS PO 10/04/20 21:00 10/17/20 20:11 Olanzapine (ZyPREXA ZYDIS) 2.5 mg PRN Q2HRS PRN PO 2ND CHOICE ANXIETY / AGITATION 10/04/20 17:00 Oxybutynin Chloride (Ditropan) 5 mg [id number] PO 10/04/20 21:00 10/18/20 07:57 Pantoprazole Sodium (Protonix) 40 mg DAILYAC PO 10/05/20 07:30 10/18/20 07:57 Polyethylene Glycol (miraLAX) 17 gm DAILY PO 10/05/20 09:00 10/13/20 13:45 DC 10/12/20 07:45 Pramipexole Dihydrochloride (miraPEX) 0.5 mg [id number] PO 10/04/20 21:00 10/18/20 07:58 Pregabalin (Lyrica) 50 mg TID PO 10/04/20 21:00 10/05/20 20:29 DC 10/05/20 17:54 Quetiapine Fumarate (SEROquel) 25 mg TID PO 10/04/20 21:00 10/18/20 07:57 Trazodone HCl (Desyrel) 50 mg PRN QHS PRN PO INSOMNIA 10/04/20 17:00 10/14/20 19:29 Magnesium Hydroxide (Milk Of Magnesia) 2,400 mg PRN QHS PRN PO 1st CHOICE CONSTIPATION 10/04/20 17:15 Meclizine HCl (Antivert) 25 mg PRN TID PRN PO DIZZINESS 10/04/20 17:30 10/12/20 09:54 Artificial Tears (Artificial Tears) 1 drop PRN QID PRN OU DRY EYE 10/04/20 17:30 Pregabalin (Lyrica) 50 mg TID PO 10/06/20 09:00 10/10/20 16:17 DC 10/10/20 09:08 Fluvoxamine Maleate (Luvox) 25 mg DAILY PO 10/08/20 09:00 10/10/20 09:01 DC 10/10/20 09:08 Fluvoxamine Maleate (Luvox) 50 mg DAILY PO 10/11/20 09:00 10/15/20 18:41 DC 10/15/20 08:17 Carbidopa/Levodopa (Sinemet 25/250) 1 tab 0800,1200,1600 PO 10/12/20 08:00 10/16/20 18:36 DC 10/16/20 16:22 Carbidopa/Levodopa (Sinemet 25/250) 1.5 tab 0500,1000,1400,1800 PO 10/12/20 05:00 10/16/20 18:36 DC 10/16/20 17:52 Polyethylene Glycol (miraLAX) 17 gm PRN DAILY PRN PO 2ND CHOICE constipation 10/13/20 13:45 10/16/20 08:10 Saliva Substitute (Biotene Moisturizing Mouth) 2 spray PRN Q15MIN PRN PO DRY MOUTH 10/14/20 16:15 10/15/20 15:40 Fluvoxamine Maleate (Luvox) 75 mg DAILY PO 10/16/20 09:00 10/18/20 07:58 Carbidopa/Levodopa (Sinemet 25/100) 1 tab Q3HRS PO 10/16/20 21:00 10/18/20 07:57 I have reviewed the current psychotropics carefully including drug interactions. Risk benefit ratio favors no change other than as noted in my dictated progress note. Diagnosis: Problems: (1) Mild cognitive impairment (2) Major depressive disorder, severe (3) Anxiety disorder, unspecified (4) Major depressive disorder with psychotic features (5) Impulse control disorder, unspecified (6) Psychotic disorder MARICEL BROWN MD Oct 18, 2020 08:04
--- NOTE | 2020-10-18 11:09 | NUR ---
PATIENT IS AWAKE IN A BED UPON ASSESSMENT. PATIENT IS SAD AND TEARFUL, STATED SHE MISSES HER FAMILY, AND SHE DOES NOT FEEL LIKE DOING ANYTHING TODAY BUT JUST STAY IN A BED. PATIENT WAS ENCOURAGED TO GET UP AND HAVE A BREAKFAST, MEDICATIONS ADMINISTERED WHOLE FLOATED IN APPLE SAUCE. PATIENT WAS PARTICIPATING LATER IN A EXERCISE GROUP AND APPEARED TO BE IN A GOOD SPIRIT.
--- NOTE | 2020-10-18 11:24 | NUR ---
[facility] Social Work Discharge Planning Form Patient Name RIRI PARRA Admit Date: 10/04/20 DISCHARGE PLAN Discharge Destination: [facility] Care Assessment: No Level II Assessment: No Transportation: Facility will tow picker at 1100. Special Instructions/Notes: Please fax discharge orders and current medication list DISCHARGE TO FACILITY Facility: [facility] Phone: ([phone] or [place]aima (SW)[phone] Address: [address] [place] [address] PCP: Dr. Carrillo through [facility]
--- NOTE | 2020-10-18 11:44 | TX PLAN ---
Interdisciplinary Tx Plan Admission Information Oct 04, 2020 at 14:18 Legal Status (on Admission): Voluntary DPOA/Guardian Name: Iam Cruz Contact Other Contact Name: [facility] Other Contact Verified Code Status: DNR Allergies: Coded Allergies: gabapentin (Verified Allergy, Unknown, 07/13/20) oxycodone (Verified Allergy, Unknown, 07/13/20) Diagnoses Primary Diagnosis: (1) Mild cognitive impairment (2) Major depressive disorder, severe (3) Anxiety disorder, unspecified Reasons for Admission: Delusions, Agitated, Depressed, Sig. Change Appetite, Angry, Suicidal ideation, Other Problem in Patient's Words: "I just want to go home. I've lost so much weight and i just need to be at home. I know I'm depressed, but I will be until I get to go home." Additional Admission Comments: Per intake record, pt is delusional, has obsessive behavior, belief that there is a parasite in her mouth that's eating her from the inside out, weight loss, pulling at mouth and teeth fell out, states that she can't do it anymore and just wants to . Problems Active Problems: Delusions/obsessions, pulling, weight loss, agitation, anger, depression Inactive Problems: Pt is not currently reporting feeling parasites in her mouth. Pt Strengths/Limitations Ability for [place]: Poor Cognitive Functioning/Ability: Fair Communication Skills/Ability: Good Financial Resources: Good Insight/Judgement: Poor Intellectual Ability: Good Physical Health: Poor Social Skills: Good Stability in Family: Good Stability in School/Work: Good Verbal Skills: Good Discharge Criteria Discharge Criteria: Adequate arrangements @DC, Verbal commit med comply, Improved behavior, Improved mood/thought Preliminary Discharge Plan Preliminary DC Plan: LTAC Special Precautions Special Precautions: Agitation/Assault Fall Risk: High Initial D/C Plan Pt plan is to return to [facility] Identified Discharge Needs: Follow up with PCP upon discharge. Currently Utilized Resources Currently Utilized Resources/P: PCP-Dr. Carrillo through [facility] Referrals Community Resources: Nonw Identified Problems/Hx/Goals Objectives/Short-Term Goals Short Term Goals: Control abnormal behavior, Dec. Hallucination/Delus, Dec. Symp. Depression, Medication Stabilization, Monitor Med Effects, No Suicidal/Mil[place]. ideation, Prevent Deterioration, Promote Coping Skill Short Term Goals in Patient's: " I would like to feel better and go home." Interventions/Frequency Staff Interventions/Frequency&: Pyschiatry to assess pt three times per week for medication management. Nursing to assess behaviors, monitor medications, and complete 15 minute checks daily. Social work to see pt at least two times weekly to aid in return to placement. Activities to encourage pt to participate in group activities daily. 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 Education: Associates degree Community Follow-up PCP Community Provider/Family Inpu: Nothing additional at this time. Treatment Plan Explained Patient/Vapor Coater had this treatment plan explained to him/her as indicated by the signature below and has been given the opportunity to ask questions and make suggestions: Date: Patient/Vapor Coater Signature: Status Update Update Pt eats about 70% of her meals and averages 6.5 hours of sleep per night. Pt expresses tearfulness and hopelessness due to her situation and having to live in a facility. She expresses how much she would like to see her family. Pt engages with staff and other patients and attends most recreational therapy and social work groups. She is a strong leader in the group settings. Pt is stable for d/c and facility will be picking her up tomorrow 10/19/20 at 1100. RANDI JONES Oct 18, 2020 11:44
--- NOTE | 2020-10-18 13:33 | NUR ---
WEEKLY ACTIVITY THERAPY NOTE Date of Admission: 10/04 Date of AT Assessment: 10/05 Precipitating behaviors that initiated intake and admission: Pt has become progressively more delusional, having hallucinations tactile and visual, thinks that worms bugs and parasites are in her oral mucosa. States they are small orange round parasites. She recently removed 2 of her own teeth thinking they were worms. Pt states that her put her here just so he can be free to cheat and run around on her, that he tells everyone lies about her to benefit him that she wants to punch him in the head for telling all the lies he has. No signs of thrush, wounds or lesions in her mouth, when patient spits out mucous it is clear with small bit of tissue from her lips or inside of her cheeks. Goal aimed:increase stress management/ relaxation and motivation skills Initial Goal: Pt will participate in at least one group Activity Therapy session per day. Weekly progress towards goal: did not achieve, no groups on Thursday Group participation level: 5 full, 4 mod, 1 min Weekly highlights: enjoyed movie and popcorn on Thursday and shared about a goal of making a quilt for all kids and grand kids in group on Thursday Behaviors observed: not feeling well over the weekend, pleasant and social in groups, appropriately jokes with others Plan: no change to goal Beneficial adaptations: enjoys cog stim activities
[2020-10-18 16:13] VITALS: BP 101/60
[2020-10-18] MEDS: DONEPEZIL HCL 10 MG TABLET PO SCH (19:58)
[2020-10-18] MEDS: MELATONIN 3 MG TABLET PO SCH (19:58)
[2020-10-18] MEDS: MIRTAZAPINE 15 MG TABLET PO SCH (19:58)
--- NOTE | 2020-10-18 20:00 | NUR ---
Nursing Note: Pt report that she is very excited to get to go home tomorrow. Pt pleasant and interactive with staff. Pt compliant with assessment and medications whole. Pt denies all other complaints at this time.
--- NOTE | 2020-10-18 21:00 | PDOC ---
Exam Note: Marcial Note: Please also refer to the separate dictated note~for this date of service dictated separately.~Patient seen individually. Discussed the patient with Nursing staff reviewed the chart.~Reviewed interim history and current functioning. Reviewed vital signs,~Labs/ Radiology~and current medications noted below. Continue current treatment with the changes noted in the dictated addendum note Assessment: Vital Signs/I&O: Vital Signs Date Time Temp Pulse Resp B/P (MAP) Pulse Ox O2 Delivery O2 Flow Rate FiO2 10/18/20 16:13 97.9 70 16 101/60 (74) 94 10/18/20 06:20 Room Air I & O 10/17/20 10/17/20 10/18/20 14:59 22:59 06:59 Intake Total 440 ml 460 ml Balance 440 ml 460 ml Labs: Laboratory Tests Test 10/18/20 06:39 SARS-CoV-2 Antigen (Rapid) Negative (NEGATIVE) Current Medications: Meds: Laboratory Tests Test 10/18/20 06:39 SARS-CoV-2 Antigen (Rapid) Negative Current Medications Medications (Trade) Dose Ordered Sig/Gracie Route PRN Reason Start Time Stop Time Status Last Admin Dose Admin Acetaminophen (Tylenol) 650 mg PRN Q6HRS PRN PO MILD PAIN / TEMP > 100.3'F 10/04/20 15:15 10/16/20 23:18 Multi-Ingredient Ointment (Analgesic [place]) 1 jean marie PRN QID PRN TP MILD MUSCLE PAIN 10/04/20 15:15 Al Hydroxide/Mg Hydroxide (Mylanta Plus Xs) 15 ml PRN AFTMEALHC PRN PO DYSPEPSIA 10/04/20 15:15 10/04/20 17:23 DC Magnesium Hydroxide (Milk Of Magnesia) 2,400 mg PRN QHS PRN PO CONSTIPATION 10/04/20 15:15 10/04/20 17:16 DC Acetaminophen (Tylenol) 650 mg PRN Q6HRS PRN PO MILD PAIN / TEMP > 100.3'F 10/04/20 17:00 10/04/20 17:04 DC Carbidopa/Levodopa (Sinemet Cr) 1 tab.sa HS PO 10/04/20 21:00 10/16/20 18:36 DC 10/15/20 19:56 Carbidopa/Levodopa (Sinemet 25/100) 1 tab Q3HRS PO 1/7/21 18:00 10/11/20 21:35 DC 10/11/20 19:57 Diclofenac Sodium (Voltaren) 1 jean marie PRN QID PRN TP 2ND CHOICE MUSCLE PAIN 10/04/20 17:00 10/15/20 09:00 Donepezil HCl (Aricept) 10 mg HS PO 10/04/20 21:00 10/18/20 19:58 Duloxetine HCl (Cymbalta) 60 mg HS PO 10/04/20 21:00 10/07/20 17:38 DC 10/06/20 20:28 Lorazepam (Ativan) 0.5 mg PRN Q6HRS PRN PO 1ST CHOICE ANXIETY 10/04/20 17:00 10/13/20 21:16 Al Hydroxide/Mg Hydroxide (Mylanta Plus Xs) 15 ml PRN AFTMEALHC PRN PO DYSPEPSIA 10/04/20 17:00 10/12/20 11:09 Magnesium Hydroxide (Milk Of Magnesia) 2,400 mg PRN QHS PRN PO CONSTIPATION 10/04/20 17:00 10/04/20 17:18 DC Melatonin (Melatonin) 3 mg QHS PO 10/04/20 21:00 10/18/20 19:58 Mirtazapine (Remeron) 15 mg QHS PO 10/04/20 21:00 10/18/20 19:58 Olanzapine (ZyPREXA ZYDIS) 2.5 mg PRN Q2HRS PRN PO 2ND CHOICE ANXIETY / AGITATION 10/04/20 17:00 Oxybutynin Chloride (Ditropan) 5 mg [id number] PO 10/04/20 21:00 10/18/20 19:58 Pantoprazole Sodium (Protonix) 40 mg DAILYAC PO 10/05/20 07:30 10/18/20 07:57 Polyethylene Glycol (miraLAX) 17 gm DAILY PO 10/05/20 09:00 10/13/20 13:45 DC 10/12/20 07:45 Pramipexole Dihydrochloride (miraPEX) 0.5 mg [id number] PO 10/04/20 21:00 10/18/20 19:58 Pregabalin (Lyrica) 50 mg TID PO 10/04/20 21:00 10/05/20 20:29 DC 10/05/20 17:54 Quetiapine Fumarate (SEROquel) 25 mg TID PO 10/04/20 21:00 10/18/20 19:58 Trazodone HCl (Desyrel) 50 mg PRN QHS PRN PO INSOMNIA 10/04/20 17:00 10/14/20 19:29 Magnesium Hydroxide (Milk Of Magnesia) 2,400 mg PRN QHS PRN PO 1st CHOICE CONSTIPATION 10/04/20 17:15 Meclizine HCl (Antivert) 25 mg PRN TID PRN PO DIZZINESS 10/04/20 17:30 10/12/20 09:54 Artificial Tears (Artificial Tears) 1 drop PRN QID PRN OU DRY EYE 10/04/20 17:30 Pregabalin (Lyrica) 50 mg TID PO 10/06/20 09:00 10/10/20 16:17 DC 10/10/20 09:08 Fluvoxamine Maleate (Luvox) 25 mg DAILY PO 10/08/20 09:00 10/10/20 09:01 DC 10/10/20 09:08 Fluvoxamine Maleate (Luvox) 50 mg DAILY PO 10/11/20 09:00 10/15/20 18:41 DC 10/15/20 08:17 Carbidopa/Levodopa (Sinemet 25/250) 1 tab 0800,1200,1600 PO 10/12/20 08:00 10/16/20 18:36 DC 10/16/20 16:22 Carbidopa/Levodopa (Sinemet 25/250) 1.5 tab 0500,1000,1400,1800 PO 10/12/20 05:00 10/16/20 18:36 DC 10/16/20 17:52 Polyethylene Glycol (miraLAX) 17 gm PRN DAILY PRN PO 2ND CHOICE constipation 10/13/20 13:45 10/16/20 08:10 Saliva Substitute (Biotene Moisturizing Mouth) 2 spray PRN Q15MIN PRN PO DRY MOUTH 10/14/20 16:15 10/15/20 15:40 Fluvoxamine Maleate (Luvox) 75 mg DAILY PO 10/16/20 09:00 10/18/20 07:58 Carbidopa/Levodopa (Sinemet 25/100) 1 tab Q3HRS PO 10/16/20 21:00 10/18/20 19:58 I have reviewed the current psychotropics carefully including drug interactions. Risk benefit ratio favors no change other than as noted in my dictated progress note. Diagnosis: Problems: (1) Mild cognitive impairment (2) Major depressive disorder, severe (3) Anxiety disorder, unspecified (4) Major depressive disorder with psychotic features (5) Impulse control disorder, unspecified (6) Psychotic disorder (7) Parkinson's disease MARICEL BROWN MD Oct 18, 2020 21:00
[2020-10-18] MEDS ORDERED: METH57CR17 TP (22:42)
[2020-10-18] MEDS ORDERED: SALI44.3 MM (22:44)
[2020-10-18] MEDS ORDERED: FLUV25TA PO (22:45)
--- NOTE | 2020-10-19 00:23 | PN ---
DATE: SUBJECTIVE: The patient stated she feels better after she was started on after we adjust medications for the tremor. She denies any new medical or neurological complaints. OBJECTIVE: GENERAL: Well-developed, well-nourished female, not in acute distress. VITAL SIGNS: Today, 10/18/2020, blood pressure 145/82, respiratory rate 16, pulse is 68, oxygen saturation 96%, temperature 98.1. HEENT: Normocephalic, atraumatic, otherwise unremarkable. NECK: Supple. Negative for carotid bruit, lymphadenopathy or thyromegaly. LUNGS: Clear to A and P. CARDIOVASCULAR: Regular rate and rhythm, normal S1, S2. There is no S3, S4 or murmur. ABDOMEN: Soft. Bowel sounds positive. EXTREMITIES: Negative for cyanosis, clubbing or edema. NEUROLOGICAL EXAMINATION: Mental status: The patient is alert and oriented x 3. Speech is fluent. There is no language dysfunction. The patient denies hallucination or delusion. Cranial nerves are intact. Motor examination: No focal muscle bulk wasting. The patient had mild tremor of the upper extremities. She does not have any dyskinesia at night. Sensory is normal pinprick and light touch senses throughout. Deep tendon reflexes were asymmetric and hypoactive without pathologic responses. Gait: The patient uses a wheelchair for ambulation. IMPRESSION: 1. Longstanding history of Parkinson disease with current exacerbation of dyskinesia, likely due to high dose of carbidopa/levodopa. 2. Longstanding of Parkinson disease, osteoarthritis, gastroesophageal reflux disease, mild dementia. 3. Multiple psychiatric problems include behavior disturbances, depressions and probably anxiety. RECOMMENDATIONS: 1. Continue with current management with carbidopa/levodopa at 25/100 every 3 hours while awake. 2. Continue with current medical and psychiatric care. M Dolores AMADOR MD DR: ANGELIA/cathy JOB#: [id number] / [id number]
[2020-10-19] MEDS: CARBIDOPA/LEVODOPA 25/100MG TABLET PO SCH ×4 (03:01→08:26)
[2020-10-19 06:10] VITALS: BP 129/75
--- NOTE | 2020-10-19 08:20 | PDOC ---
Exam Note: Marcial Note: This note is a late entry for 10/18/2020 covers elements not covered in my initial note. Subjective: The patient was reviewed on telehealth rounds in the morning of 10/18/2020 for a treatment team meeting with Brianne Olivares, Rochelle Joshua and Letty (nursing home social worker), Della Villasenor, activity therapy and Marcie GONZALES. Discussed with nursing staff, reviewed the chart. The patient slept 6-1/2 hours previous night. She has been tearful in the morning. COVID screen is negative. Appetite is 70%. Overall the patient has been pleasant, cooperative, not delusional about having parasites in her mouth, less anxious. Review of Systems: Ambulation impaired. She complains of soreness in the mouth since she has lost teeth. No CV, , pulmonary, eye system symptoms on review. Mental Status Exam: The patient is reasonably oriented. Speech is coherent, has some latency. Abstraction is fair. Computation is impaired. Language function is intact. Mood and affect lability is improved. Laboratory Data: Reviewed as above. Impression: Major depressive disorder with psychotic features. Psychotic disorder unspecified. Anxiety disorder unspecified. Plan: No change from initial note. Possible transition back to nursing facility on 10/19. Assessment: Vital Signs/I&O: Vital Signs Date Time Temp Pulse Resp B/P (MAP) Pulse Ox O2 Delivery O2 Flow Rate FiO2 10/19/20 06:10 97.9 66 18 129/75 (93) 96 10/18/20 06:20 Room Air I & O 10/18/20 10/18/20 10/19/20 15:00 23:00 07:00 Intake Total 600 ml 320 ml Balance 600 ml 320 ml Current Medications: Meds: Current Medications Medications (Trade) Dose Ordered Sig/Gracie Route PRN Reason Start Time Stop Time Status Last Admin Dose Admin Acetaminophen (Tylenol) 650 mg PRN Q6HRS PRN PO MILD PAIN / TEMP > 100.3'F 10/04/20 15:15 10/16/20 23:18 Multi-Ingredient Ointment (Analgesic [place]) 1 jean marie PRN QID PRN TP MILD MUSCLE PAIN 10/04/20 15:15 Al Hydroxide/Mg Hydroxide (Mylanta Plus Xs) 15 ml PRN AFTMEALHC PRN PO DYSPEPSIA 10/04/20 15:15 10/04/20 17:23 DC Magnesium Hydroxide (Milk Of Magnesia) 2,400 mg PRN QHS PRN PO CONSTIPATION 10/04/20 15:15 10/04/20 17:16 DC Acetaminophen (Tylenol) 650 mg PRN Q6HRS PRN PO MILD PAIN / TEMP > 100.3'F 10/04/20 17:00 10/04/20 17:04 DC Carbidopa/Levodopa (Sinemet Cr) 1 tab.sa HS PO 10/04/20 21:00 10/16/20 18:36 DC 10/15/20 19:56 Carbidopa/Levodopa (Sinemet 25/100) 1 tab Q3HRS PO 10/04/20 18:00 10/11/20 21:35 DC 10/11/20 19:57 Diclofenac Sodium (Voltaren) 1 jean marie PRN QID PRN TP 2ND CHOICE MUSCLE PAIN 10/04/20 17:00 10/15/20 09:00 Donepezil HCl (Aricept) 10 mg HS PO 10/04/20 21:00 10/18/20 19:58 Duloxetine HCl (Cymbalta) 60 mg HS PO 10/04/20 21:00 10/07/20 17:38 DC 10/06/20 20:28 Lorazepam (Ativan) 0.5 mg PRN Q6HRS PRN PO 1ST CHOICE ANXIETY 10/04/20 17:00 10/13/20 21:16 Al Hydroxide/Mg Hydroxide (Mylanta Plus Xs) 15 ml PRN AFTMEALHC PRN PO DYSPEPSIA 10/04/20 17:00 10/12/20 11:09 Magnesium Hydroxide (Milk Of Magnesia) 2,400 mg PRN QHS PRN PO CONSTIPATION 10/04/20 17:00 10/04/20 17:18 DC Melatonin (Melatonin) 3 mg QHS PO 10/04/20 21:00 10/18/20 19:58 Mirtazapine (Remeron) 15 mg QHS PO 10/04/20 21:00 10/18/20 19:58 Olanzapine (ZyPREXA ZYDIS) 2.5 mg PRN Q2HRS PRN PO 2ND CHOICE ANXIETY / AGITATION 10/04/20 17:00 Oxybutynin Chloride (Ditropan) 5 mg [id number] PO 10/04/20 21:00 10/18/20 19:58 Pantoprazole Sodium (Protonix) 40 mg DAILYAC PO 10/05/20 07:30 10/18/20 07:57 Polyethylene Glycol (miraLAX) 17 gm DAILY PO 10/05/20 09:00 10/13/20 13:45 DC 10/12/20 07:45 Pramipexole Dihydrochloride (miraPEX) 0.5 mg [id number] PO 10/04/20 21:00 10/18/20 19:58 Pregabalin (Lyrica) 50 mg TID PO 10/04/20 21:00 10/05/20 20:29 DC 10/05/20 17:54 Quetiapine Fumarate (SEROquel) 25 mg TID PO 10/04/20 21:00 10/18/20 19:58 Trazodone HCl (Desyrel) 50 mg PRN QHS PRN PO INSOMNIA 10/04/20 17:00 10/14/20 19:29 Magnesium Hydroxide (Milk Of Magnesia) 2,400 mg PRN QHS PRN PO 1st CHOICE CONSTIPATION 10/04/20 17:15 Meclizine HCl (Antivert) 25 mg PRN TID PRN PO DIZZINESS 10/04/20 17:30 10/12/20 09:54 Artificial Tears (Artificial Tears) 1 drop PRN QID PRN OU DRY EYE 10/04/20 17:30 Pregabalin (Lyrica) 50 mg TID PO 10/06/20 09:00 10/10/20 16:17 DC 10/10/20 09:08 Fluvoxamine Maleate (Luvox) 25 mg DAILY PO 10/08/20 09:00 10/10/20 09:01 DC 10/10/20 09:08 Fluvoxamine Maleate (Luvox) 50 mg DAILY PO 10/11/20 09:00 10/15/20 18:41 DC 10/15/20 08:17 Carbidopa/Levodopa (Sinemet 25/250) 1 tab 0800,1200,1600 PO 10/12/20 08:00 10/16/20 18:36 DC 10/16/20 16:22 Carbidopa/Levodopa (Sinemet 25/250) 1.5 tab 0500,1000,1400,1800 PO 10/12/20 05:00 10/16/20 18:36 DC 10/16/20 17:52 Polyethylene Glycol (miraLAX) 17 gm PRN DAILY PRN PO 2ND CHOICE constipation 10/13/20 13:45 10/16/20 08:10 Saliva Substitute (Biotene Moisturizing Mouth) 2 spray PRN Q15MIN PRN PO DRY MOUTH 10/14/20 16:15 10/15/20 15:40 Fluvoxamine Maleate (Luvox) 75 mg DAILY PO 10/16/20 09:00 10/18/20 07:58 Carbidopa/Levodopa (Sinemet 25/100) 1 tab Q3HRS PO 10/16/20 21:00 10/19/20 05:36 I have reviewed the current psychotropics carefully including drug interactions. Risk benefit ratio favors no change other than as noted in my dictated progress note. Diagnosis: Problems: (1) Mild cognitive impairment (2) Major depressive disorder, severe (3) Anxiety disorder, unspecified (4) Major depressive disorder with psychotic features (5) Impulse control disorder, unspecified (6) Psychotic disorder MARICEL BROWN MD Oct 19, 2020 08:19
[2020-10-19] MEDS: PRAMIPEXOLE 0.5 MG TABLET. PO SCH (08:25)
[2020-10-19] MEDS: OXYBUTYNIN CHLORIDE 5 MG TABLET PO SCH (08:26)
[2020-10-19] MEDS: PANTOPRAZOLE 40 MG TABLET. PO SCH (08:26)
[2020-10-19] MEDS: QUEtiapine 25 MG TABLET. PO SCH (08:26)
--- NOTE | 2020-10-19 11:04 | NUR ---
Transition Record was faxed to follow-up provider with the following elements: Reason for admission, procedures, tests, principal diagnosis, pending studies, patient instructions, 20/04 contact information for unit, phone number to obtain pending test results, plan for follow-up care, physician follow-up, advanced directive information, and medication list with dose, duration and instructions. This information was included in the following documents: History and physical, lab results, study results, progress notes, social work planning form, DC instruction form, patient visit summary, and medication reconciliation form. 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
--- NOTE | 2020-10-19 21:20 | PDOC ---
Exam Note: Marcial Note: Please also refer to the separate dictated note~for this date of service dictated separately.~Patient seen individually. Discussed the patient with Nursing staff reviewed the chart.~Reviewed interim history and current functioning. Reviewed vital signs,~Labs/ Radiology~and current medications noted below. Continue current treatment with the changes noted in the dictated addendum note Assessment: Vital Signs/I&O: Vital Signs Date Time Temp Pulse Resp B/P (MAP) Pulse Ox O2 Delivery O2 Flow Rate FiO2 10/19/20 06:10 97.9 66 18 129/75 (93) 96 10/18/20 06:20 Room Air I & O 10/18/20 10/18/20 10/19/20 14:59 22:59 06:59 Intake Total 600 ml 320 ml Balance 600 ml 320 ml Current Medications: Meds: Current Medications Medications (Trade) Dose Ordered Sig/Gracie Route PRN Reason Start Time Stop Time Status Last Admin Dose Admin Acetaminophen (Tylenol) 650 mg PRN Q6HRS PRN PO MILD PAIN / TEMP > 100.3'F 10/04/20 15:15 10/19/20 11:16 DC 10/16/20 23:18 Multi-Ingredient Ointment (Analgesic [place]) 1 jean marie PRN QID PRN TP MILD MUSCLE PAIN 10/04/20 15:15 10/19/20 11:16 DC Al Hydroxide/Mg Hydroxide (Mylanta Plus Xs) 15 ml PRN AFTMEALHC PRN PO DYSPEPSIA 10/04/20 15:15 10/04/20 17:23 DC Magnesium Hydroxide (Milk Of Magnesia) 2,400 mg PRN QHS PRN PO CONSTIPATION 10/04/20 15:15 10/04/20 17:16 DC Acetaminophen (Tylenol) 650 mg PRN Q6HRS PRN PO MILD PAIN / TEMP > 100.3'F 10/04/20 17:00 10/04/20 17:04 DC Carbidopa/Levodopa (Sinemet Cr) 1 tab.sa HS PO 10/04/20 21:00 10/16/20 18:36 DC 10/15/20 19:56 Carbidopa/Levodopa (Sinemet 25/100) 1 tab Q3HRS PO 10/04/20 18:00 10/11/20 21:35 DC 10/11/20 19:57 Diclofenac Sodium (Voltaren) 1 jean marie PRN QID PRN TP 2ND CHOICE MUSCLE PAIN 10/04/20 17:00 10/19/20 11:16 DC 10/15/20 09:00 Donepezil HCl (Aricept) 10 mg HS PO 10/04/20 21:00 10/19/20 11:16 DC 10/18/20 19:58 Duloxetine HCl (Cymbalta) 60 mg HS PO 10/04/20 21:00 10/07/20 17:38 DC 10/06/20 20:28 Lorazepam (Ativan) 0.5 mg PRN Q6HRS PRN PO 1ST CHOICE ANXIETY 10/04/20 17:00 10/19/20 11:16 DC 10/13/20 21:16 Al Hydroxide/Mg Hydroxide (Mylanta Plus Xs) 15 ml PRN AFTMEALHC PRN PO DYSPEPSIA 10/04/20 17:00 10/19/20 11:16 DC 10/12/20 11:09 Magnesium Hydroxide (Milk Of Magnesia) 2,400 mg PRN QHS PRN PO CONSTIPATION 10/04/20 17:00 10/04/20 17:18 DC Melatonin (Melatonin) 3 mg QHS PO 10/04/20 21:00 10/19/20 11:16 DC 10/18/20 19:58 Mirtazapine (Remeron) 15 mg QHS PO 10/04/20 21:00 10/19/20 11:16 DC 10/18/20 19:58 Olanzapine (ZyPREXA ZYDIS) 2.5 mg PRN Q2HRS PRN PO 2ND CHOICE ANXIETY / AGITATION 10/04/20 17:00 10/19/20 11:16 DC Oxybutynin Chloride (Ditropan) 5 mg [id number] PO 10/04/20 21:00 10/19/20 11:16 DC 10/19/20 08:26 Pantoprazole Sodium (Protonix) 40 mg DAILYAC PO 10/05/20 07:30 10/19/20 11:16 DC 10/19/20 08:26 Polyethylene Glycol (miraLAX) 17 gm DAILY PO 10/05/20 09:00 10/13/20 13:45 DC 10/12/20 07:45 Pramipexole Dihydrochloride (miraPEX) 0.5 mg [id number] PO 10/04/20 21:00 10/19/20 11:16 DC 10/19/20 08:25 Pregabalin (Lyrica) 50 mg TID PO 10/04/20 21:00 10/05/20 20:29 DC 10/05/20 17:54 Quetiapine Fumarate (SEROquel) 25 mg TID PO 10/04/20 21:00 10/19/20 11:16 DC 10/19/20 08:26 Trazodone HCl (Desyrel) 50 mg PRN QHS PRN PO INSOMNIA 10/04/20 17:00 10/19/20 11:16 DC 10/14/20 19:29 Magnesium Hydroxide (Milk Of Magnesia) 2,400 mg PRN QHS PRN PO 1st CHOICE CONSTIPATION 10/04/20 17:15 10/19/20 11:16 DC Meclizine HCl (Antivert) 25 mg PRN TID PRN PO DIZZINESS 10/04/20 17:30 10/19/20 11:16 DC 10/12/20 09:54 Artificial Tears (Artificial Tears) 1 drop PRN QID PRN OU DRY EYE 10/04/20 17:30 10/19/20 11:16 DC Pregabalin (Lyrica) 50 mg TID PO 10/06/20 09:00 10/10/20 16:17 DC 10/10/20 09:08 Fluvoxamine Maleate (Luvox) 25 mg DAILY PO 10/08/20 09:00 10/10/20 09:01 DC 10/10/20 09:08 Fluvoxamine Maleate (Luvox) 50 mg DAILY PO 10/11/20 09:00 10/15/20 18:41 DC 10/15/20 08:17 Carbidopa/Levodopa (Sinemet 25/250) 1 tab 0800,1200,1600 PO 10/12/20 08:00 10/16/20 18:36 DC 10/16/20 16:22 Carbidopa/Levodopa (Sinemet 25/250) 1.5 tab 0500,1000,1400,1800 PO 10/12/20 05:00 10/16/20 18:36 DC 10/16/20 17:52 Polyethylene Glycol (miraLAX) 17 gm PRN DAILY PRN PO 2ND CHOICE constipation 10/13/20 13:45 10/19/20 11:16 DC 10/16/20 08:10 Saliva Substitute (Biotene Moisturizing Mouth) 2 spray PRN Q15MIN PRN PO DRY MOUTH 10/14/20 16:15 10/19/20 11:16 DC 10/15/20 15:40 Fluvoxamine Maleate (Luvox) 75 mg DAILY PO 10/16/20 09:00 10/19/20 11:16 DC 10/19/20 08:26 Carbidopa/Levodopa (Sinemet 25/100) 1 tab Q3HRS PO 10/16/20 21:00 10/19/20 11:16 DC 10/19/20 08:26 I have reviewed the current psychotropics carefully including drug interactions. Risk benefit ratio favors no change other than as noted in my dictated progress note. Diagnosis: Problems: (1) Mild cognitive impairment (2) Major depressive disorder, severe (3) Anxiety disorder, unspecified (4) Major depressive disorder with psychotic features (5) Impulse control disorder, unspecified MARICEL BROWN MD Oct 19, 2020 21:20
--- NOTE | 2020-10-19 21:40 | DS ---
DATE OF DISCHARGE: 10/19/2020 DISCHARGE SUMMARY/PSYCHIATRIC PROGRESS NOTE REASON FOR ADMISSION: Please refer to the admission history for details. Briefly, the patient is a 74-year-old female referred to us from [facility] by her primary care physician on account of worsening symptoms of depression, anxiety and marked delusions. She believed she had many bugs and worms and parasites living in her mouth. She was extremely agitated, depressed about this, was refusing to eat, had recent weight loss, pulling at her mouth. She had failed outpatient psychiatric interventions resulting in this referral. SIGNIFICANT FINDINGS AND CLINICAL COURSE: Following admission, the patient was seen daily individually by myself from a psychiatric standpoint, medical followup with Dr. Barnett/Dr. Funez. The patient was extremely psychotic, paranoid. She is otherwise cognitively intact. Adjustments were made in her psychotropics and she seemed to respond to a combination of Aricept 10 mg at bedtime, Luvox 75 mg daily, melatonin 3 mg at bedtime, Remeron 15 mg at bedtime, Seroquel 25 mg t.i.d., trazodone 50 mg at bedtime p.r.n. insomnia, Ativan 0.5 mg q. 6 hours p.r.n., Zyprexa p.r.n. She was also on Sinemet and Mirapex for her Parkinson's. REVIEW OF SYSTEMS: Prior to discharge on 10/19/2020, ambulation impaired. No CV, , pulmonary, eye system symptoms on review. MENTAL STATUS EXAM: Reasonably oriented. Speech has some latency, coherent. Abstraction fair, computation impaired, language function intact, attention span short. Mood and affect improved. No suicidal or homicidal ideation. She denied any psychotic symptoms with respect to the bugs and parasites in her mouth prior to discharge. FINAL DIAGNOSES: Major depressive disorder with psychotic features, in partial remission; anxiety disorder, unspecified; impulse control disorder, unspecified. Rest unchanged from admission. DISCHARGE MEDICATIONS: Please refer to the MRAD. FOLLOWUP: Outpatient psychiatric and medical followup at the group home. Time for discharge day management greater than 30 minutes. She was discharged to [facility]. MARICEL BROWN MD DR: MYRNA/cathy JOB#: [id number] / [id number]
== END 2020-10-19 11:16 | DRG 885 ==
LOC: GEROPSY 14:18
PROVIDERS: ADMIT Psychiatry & Neurology Psychiatry; ATTEND Psychiatry & Neurology Psychiatry
DX: F33.3 Major depressive disorder, recurrent, severe with psychotic symptoms (principal); F03.91 Unspecified dementia, unspecified severity, with behavioral disturbance; G20 Parkinson's disease; K21.9 Gastro-esophageal reflux disease without esophagitis; M17.10 Unilateral primary osteoarthritis, unspecified knee; Z66 Do not resuscitate; H04.129 Dry eye syndrome of unspecified lacrimal gland; F41.9 Anxiety disorder, unspecified; G89.29 Other chronic pain; G24.9 Dystonia, unspecified; Z20.822 Contact with and (suspected) exposure to COVID-19; F63.9 Impulse disorder, unspecified; G62.9 Polyneuropathy, unspecified; Z79.899 Other long term (current) drug therapy; Z87.891 Personal history of nicotine dependence; Z95.0 Presence of cardiac pacemaker; Z90.710 Acquired absence of both cervix and uterus; Z88.8 Allergy status to other drugs, medicaments and biological substances
CPT/HCPCS: 36415; 80053; 80061; 81001; 82306; 82607; 83036; 83540; 83550; 83735; 84436; 84443; 84480; 85025; 85379; 86592; 87086; 87426; 93005; U0003; 97530